=== PATIENT | male | born 1970 | race Two or more races ===

== ENCOUNTER 2018-07-14 10:30 | Inpatient (IN) | payer OTHER ==
[2018-07-14] MEDS ORDERED: Ondansetron PF 4 MG/2 ML Vial ONE (10:51)
[2018-07-14 10:53] LABS: #Basophils 0.1 thou/uL (0.0-0.2); #Eosinphils 0.1 thou/uL (0.0-0.7); #Lymphocytes 1.8 thou/uL (1.20-3.40); #Monocytes 0.9 thou/uL (0.11-0.59); #Neutrophils 9.7 thou/uL (1.40-6.50); %Basophils 0.8 % (0.0-1.0); %Eosinophils 1.1 % (0.0-10.0); %Lymphocytes 13.8 % (21.0-51.0); %Monocytes 7.4 % (0.0-10.0); %Neutrophils 76.8 % (42.0-75.0); Hemoglobin 6.5 g/dL (14.0-18.0); Mean Corpuscular HGB CONC 31.2 g/dL (32.0-36.0); Mean Corpuscular Hemoglobin 26.2 pg (27.0-31.0); Mean Platelet Volume 6.4 fL (7.4-10.4); Platelet Count 685 thou/uL (130-400); RBC Distribution Width 16.5 % (11.5-14.5); Red Blood Cell (RBC) Count 2.48 mill/uL (4.70-6.10); White Blood Cell (WBC) Count 12.6 thou/uL (4.8-10.8)
[2018-07-14 11:24] LABS: ALT (SGPT) 11 U/L (8-55); AST (SGOT) 17 U/L (5-34); Albumin 4.1 g/dL (3.5-5.0); Alkaline Phosphatase 102 U/L (40-150); Anion Gap 14 mmol/L (10-20); BUN (Urea Nitrogen) 21 mg/dL (8.9-20.6); Bilirubin, Total Less than 0.2 mg/dL (0.2-1.2); Calc. Creatinine Clearance 0 mL/min (70-130); Calcium 9.1 mg/dL (7.8-10.44); Carbon Dioxide 24 mmol/L (22-29); Chloride 104 mmol/L (98-107); Estimated GFR-MDRD 70; Globulin 2.7 g/dL (2.4-3.5); Glucose 111 mg/dL (70-105); Potassium 3.5 mmol/L (3.5-5.1); Protein, Total 6.8 g/dL (6.0-8.3); Sodium 138 mmol/L (136-145)
[2018-07-14 11:47] LABS: PTT 32.2 SEC (22.9-36.1); Prothrombin Time 13.2 SEC (12.0-14.7)
[2018-07-14 12:52] LABS: Bilirubin Negative (Negative); Blood, Urine Moderate (Negative); Clarity CLOUDY (Clear); Glucose, Urine (Dipstick) Negative (Negative); Leukocyte Negative (Negative); Nitrite Negative (Negative); Protein, Urine (Dipstick) Negative (Neg-Trace); Specific Gravity, Urine 1.015 (1.002-1.036); Urobilinogen 0.2 mg/dL (0.2-1.0); pH, Urine 7.5 (5.0-9.0)
[2018-07-14 12:55] LABS: Bacteria/HPF Rare-Few HPF (None Seen); Hyaline Casts/LPF 7-10 HYALINE CAST LPF (0-3 Hyaline); Pathc Cast-AUWi Flag 0.54 (0-2.49); RBC/HPF 21-50 HPF (0-3); Squamous Epithelial 0-3 HPF (0-3); Yeast-AUWi Flag 8.1 (0-25.0)
[2018-07-14] MEDS ORDERED: Morphine 4 MG/ML VIAL ONE (13:03)
[2018-07-14] MEDS ORDERED: Ondansetron ODT 4 MG TAB PO PRN (13:13)
[2018-07-14] MEDS ORDERED: Zolpidem Tartrate 5 MG TAB PO PRN (13:13)
[2018-07-14] MEDS ORDERED: Acetaminophen 325 MG TAB PO PRN (13:13)
[2018-07-14] MEDS ORDERED: Sodium Chloride 0.9% (PF) 10 ML VIAL FS PRN (13:20)
[2018-07-14] MEDS ORDERED: Pantoprazole 40 MG VIAL IVP SCH (13:30)
--- NOTE | 2018-07-14 13:56 | RAD ---
PORTABLE CHEST 1 VIEW: Date: 07/14/18 Time: 1344 hours HISTORY: Colon cancer, blood transfusion last week. FINDINGS: The heart size is normal. The lungs are expanded without focal areas of consolidation, pneumothoraces , or pleural effusions. IMPRESSION: No radiographic evidence of acute cardiopulmonary process. POS: TPC
--- NOTE | 2018-07-14 14:14 | HP ---
HISTORY OF PRESENT ILLNESS: Referred to [facility] Hospitalist Service for rectal bleeding and anemia. The patient is focused on the pain that started in his right groin, eventually diagnosed as cauda equina syndrome with loss of strength and sensation in his right leg. He actually came to the ER for weakness. He does admit to rectal bleeding of dark red blood and occasional bright red blood with constipation. He states he was transfused about a week ago in an out-of-town hospital. He presents here with a hemoglobin of 6.5, transfusion is in progress. He has had nausea and vomiting x1 recently and he describes a vague left-sided abdominal pain. PAST MEDICAL HISTORY: Pertinent for colon cancer resection in 2004. He has cauda equina syndrome only involving his right leg. His colon cancer was discovered at appendectomy in 2004. He has a history of hypertension. CURRENT MEDICATIONS: 1. Tramadol 50 mg p.o. q.8 hours. 2. Dicyclomine 20 mg four times a day. 3. Metoprolol 25 mg twice a day. ALLERGIES: NO KNOWN DRUG ALLERGIES. PAST SURGICAL HISTORY: See above. FAMILY HISTORY: Mother of ovarian cancer. Grandmother of some sort of cancer. SOCIAL HISTORY: Single. Smokes a pack a day. Drinks no alcohol and uses no illicit drugs. He is full code. Next of kin is apparently his sister, who is here in town. REVIEW OF SYSTEMS: GENERAL: He has been lightheaded recently. He has a new pain on the top of his head. No fainting. EYES: He states he has poor eyesight, but he does not give any double vision or blurred vision. EAR, NOSE, AND THROAT: No ear pain or drainage. No nasal bleeding. No trouble swallowing. CARDIAC: No chest pain, orthopnea, or paroxysmal nocturnal dyspnea. RESPIRATIONS: Dyspnea on exertion. No cough, wheezing, or asthma. GASTROINTESTINAL: See present illness. GENITOURINARY: He can feel the need to urinate. No blood noted in his urine. MUSCULOSKELETAL: Because of his cauda equina syndrome in the withering of his right leg, he is unable to walk unassisted. His right leg is numb with no strength at his ankle. PSYCHIATRIC: No history of anxiety or depression. SKIN: Occasional bruising. Does not know how it happens. No rash. HEME/LYMPH: No tender or swollen lymph nodes in axilla, inguinal, or cervical area. PHYSICAL EXAMINATION: GENERAL: He is alert gentleman, in no acute distress. VITAL SIGNS: Blood pressure 144/98, pulse 109, respirations 20, pain is steady 10 according to him. He does occasionally act like he is having a twinge of pain, but most of the time, he appears comfortable. HEAD, EYES, EARS, NOSE, AND THROAT: Pupils are equal, round, reactive to light. Extraocular movements are intact. Sclerae are white. Tympanic membranes clear. Nose is clear. Oral mucous membranes are wet. He has upper dentures. NECK: No jugular venous distention, adenopathy, or thyromegaly. CHEST: Clear to auscultation and percussion. HEART: Had a regular rate and rhythm. First and second heart sounds are clear. There are no appreciated murmurs or gallops. ABDOMEN: Soft. Bowel sounds are normal. There is no hepatosplenomegaly. No mass. No rebound. No bruits. EXTREMITIES: No cyanosis, clubbing, or edema. He does have distinct withering with muscles of his right lower leg. PULSES: Carotid, radial, femoral, and dorsalis pedis pulses are intact. SKIN: Warm and dry. He does have wound bruise on his left popliteal area. LYMPH: No tender or swollen lymph nodes in the axilla, inguinal, or cervical area. NEUROLOGIC: Absent deep tendon reflex in the right lower leg, absent sensation in the right lower leg, withering of the musculature with no strength, flexion, extension at the ankle. Decreased flexion and extension at the knee. Left leg is normal. Arms are normal. DIAGNOSTIC DATA: Chest x-ray, none has been done. I am in the process of ordering one. EKG; none has been done, I have ordered one. We will review when it is available as well as we will do chest x-ray. LABORATORY DATA: Hemoglobin 6.5, white cell count 12.6, platelet count 685,000. INR is 1.0. Comprehensive metabolic profile essentially normal. ADMITTING DIAGNOSES: 1. Symptomatic anemia. 2. Rectal bleeding. 3. History of colon cancer. 4. Hypertension. 5. Cauda equina syndrome. PLAN: 1. Transfuse 1 unit. 2. IV fluids with normal saline. 3. H and H q.6 hours, transfuse for hemoglobin less than 7. Start PPI IV. Gastroenterology consult for probable panendoscopy. Job ID: [id number]
[2018-07-14 14:55] VITALS: BMI 19.8
[2018-07-14 15:56] LABS: Amphetamine Not Detected (NotDetected); Cocaine Metabolite Screen Not Detected (NotDetected); Medtox Reader # READER 4; Methamphetamine Not Detected (NotDetected); Opiate Screen Not Detected (NotDetected); Phencyclidine (PCP) Not Detected (NotDetected); THC/Cannabinoid Screen Not Detected (NotDetected)
[2018-07-14 15:57] LABS: Barbiturates Screen Not Detected (NotDetected); Benzodiazepine Screen Not Detected (NotDetected); Medtox Control Line Valid? VALID (VALID); Methadone Not Detected (NotDetected); Oxycodone Screen Not Detected (NotDetected); Tricyclic Screen Not Detected (NotDetected)
[2018-07-14] MEDS: traMADol HCl 50 MG TAB PO PRN (17:37)
[2018-07-14] MEDS: Dicyclomine 20 MG TAB PO SCH ×2 (17:38→20:00)
[2018-07-14] MEDS: Gabapentin 100 MG CAP PO SCH ×2 (17:38→20:00)
[2018-07-14] MEDS: Sodium Chloride 0.9% 1,000 ML IV SCH ×2 (17:39→23:30)
[2018-07-14 17:49] LABS: #Basophils 0.1 thou/uL (0.0-0.2); #Eosinphils 0.2 thou/uL (0.0-0.7); #Lymphocytes 1.9 thou/uL (1.20-3.40); %Basophils 0.5 % (0.0-1.0); %Eosinophils 1.7 % (0.0-10.0); %Lymphocytes 18.7 % (21.0-51.0); %Monocytes 10.1 % (0.0-10.0); Hemoglobin 7.1 g/dL (14.0-18.0); Mean Corpuscular HGB CONC 31.5 g/dL (32.0-36.0); Mean Corpuscular Hemoglobin 26.5 pg (27.0-31.0); Mean Corpuscular Volume 84.3 fL (78.0-98.0); Mean Platelet Volume 5.9 fL (7.4-10.4); Platelet Count 499 thou/uL (130-400); RBC Distribution Width 15.9 % (11.5-14.5); Red Blood Cell (RBC) Count 2.66 mill/uL (4.70-6.10); White Blood Cell (WBC) Count 10.2 thou/uL (4.8-10.8)
[2018-07-14] MEDS ORDERED: GoLYTELY 4,000 ml Bottle PO SCH (18:00)
[2018-07-14] MEDS ORDERED: Ketorolac Tromethamine 30 MG/ML VIAL IVP PRN (19:39)
[2018-07-14] MEDS: Morphine 2 MG/ML SYRINGE SLOW IVP PRN (19:52)
[2018-07-14] MEDS: Metoprolol Tartrate 25 MG TAB PO SCH (20:00)
[2018-07-14] MEDS ORDERED: Dicyclomine 20 MG TAB PO SCH (21:00)
--- NOTE | 2018-07-14 21:42 | CON ---
DATE OF CONSULTATION: 07/14/2018 REASON FOR CONSULTATION: Anemia and GI bleeding. HISTORY OF PRESENT ILLNESS: Tylor Souza is a 47-year-old man who was admitted to the hospital earlier today with complaints of weakness and ongoing pain in the lower extremities. He has a diagnosis of cauda equina syndrome. He also has a pertinent history of colon cancer. Evidently, this was discovered at appendectomy back in 2004 and he underwent resection at that time. He is unclear how much was resected, but he did not have to undergo chemotherapy or any radiation. He actually has had surveillance since that time at [facility]. He says his last colonoscopy was about 2 years ago. There were some polyps removed and he believes it was a 5-year surveillance interval recommended. He has some chronic gastrointestinal symptoms which he tends to relate to his cauda equina syndrome and subsequent treatment. For about the past year or 2, he has been having issues with bouts of severe constipation. He can go up to a week or 2 between bowel movements. There is often a lot of straining required. He has some issues with urinary and stool incontinence, but primarily has issues with evacuation. He says every bowel movement he has is quite dark, though he is not on oral iron and then at about every week he will pass some what appears to be dark red material which he thinks might be blood. This has been going on for quite some time. Interestingly, he was evidently hospitalized within the past few weeks down at [facility] in [place]. He recalls being told he had iron deficiency anemia and he got transfusion at that time. On this presentation, his hemoglobin is 6.5. He has some chronic intermittent migratory abdominal discomfort. Current plan is for transfusion and we are consulted due to the anemia and report of bleeding. PAST MEDICAL HISTORY: 1. Colon cancer with resection in 2004. 2. Cauda equina syndrome, involving the right leg. 3. Urinary and fecal incontinence, possibly secondary to cauda equina syndrome? 4. Hypertension. ALLERGIES: NO KNOWN DRUG ALLERGIES. OUTPATIENT MEDICATIONS: 1. Tramadol p.r.n. 2. Dicyclomine 20 mg four times daily. 3. Metoprolol 25 mg twice daily. FAMILY HISTORY: His mother had ovarian cancer. His grandmother of some other form of cancer. He has multiple siblings. He is not sure if they have had colon screening or not. SOCIAL HISTORY: The patient smokes a pack a day. No alcohol or drug use. REVIEW OF SYSTEMS: Full review of systems including constitutional, head, eyes, ears, nose, throat, GI, , cardiovascular, respiratory, musculoskeletal, neurologic systems is negative except as noted in the HPI. PHYSICAL EXAMINATION: VITAL SIGNS: Temperature 98.1, pulse 99, blood pressure 165/89, 100% oxygen saturation on room air. GENERAL: A 47-year-old man, lying in bed, in mild distress from leg pain. SKIN: He is pale, no jaundice, no rash visible or palpable. HEENT: Eyes, no scleral icterus. Extraocular movements intact. ENT, mucous membranes moist. No oral lesions. LYMPH: No submandibular or supraclavicular lymphadenopathy. Thyroid, nontender to palpation. HEART: Regular rate and rhythm. LUNGS: Clear to auscultation bilaterally. ABDOMEN: The abdomen is flat. Bowel sounds are present. Abdomen is soft with mild tenderness to palpation throughout, but no masses or organomegaly appreciated. No guarding or rebound tenderness. He has a horizontal lower abdominal scar which is well healed. EXTREMITIES: No peripheral edema. VESSELS: Radial pulses 2+ bilaterally. NEURO: Cranial nerves 2 through 12 intact bilaterally. No focal deficits. LABORATORY STUDIES: WBC 12.6, hemoglobin 6.5, MCV 84, platelets 685. INR 1.0. Sodium 138, potassium 3.5, BUN 21, creatinine 1.11, total bilirubin less than 0.2, alkaline phosphatase 102, AST 17, ALT 11, albumin 4.1. Urinalysis shows 21-50 rbc's, 7-10 wbc's. ASSESSMENT AND PLAN: 1. Iron-deficiency anemia. It is unclear how new a development this was, but evidently he received transfusion and received this diagnosis within the past couple of weeks at [facility]. He has not been on any iron supplementation, and it is likely that he will require this following hospital discharge. It is unclear why he is iron deficient. Certainly, given his personal history of colon cancer, gastrointestinal occult bleeding lesion is high in the differential. We will plan for diagnostic EGD and colonoscopy tomorrow. 2. Chronic constipation. This may be at least in part due to opioid medications for his cauda equina syndrome. 3. Rectal bleeding. Investigate with colonoscopy tomorrow. 4. Personal history of colon cancer. He was evidently diagnosed with colon cancer at age 33. I advised him that all of his siblings need to have colon screening done. His mother had ovarian cancer, so I wonder if there is some kind of genetic syndrome at play here. He is evidently up-to-date on surveillance colonoscopy with last colonoscopy at [facility] just a couple of years ago, but certainly given his current presentation, need to repeat this now. Further recommendations following EGD and colonoscopy tomorrow. Please call anytime with questions or concerns. Job ID: [id number]
[2018-07-15] MEDS: Morphine 2 MG/ML SYRINGE SLOW IVP PRN ×5 (00:05→20:18)
[2018-07-15 00:18] LABS: #Basophils 0.1 thou/uL (0.0-0.2); #Eosinphils 0.2 thou/uL (0.0-0.7); #Lymphocytes 2.2 thou/uL (1.20-3.40); #Monocytes 1.1 thou/uL (0.11-0.59); #Neutrophils 7.8 thou/uL (1.40-6.50); %Basophils 1.1 % (0.0-1.0); %Eosinophils 1.8 % (0.0-10.0); %Monocytes 9.5 % (0.0-10.0); %Neutrophils 68.8 % (42.0-75.0); Hemoglobin 7.3 g/dL (14.0-18.0); Mean Corpuscular HGB CONC 30.9 g/dL (32.0-36.0); Mean Corpuscular Hemoglobin 26.2 pg (27.0-31.0); Mean Corpuscular Volume 84.6 fL (78.0-98.0); Mean Platelet Volume 6.1 fL (7.4-10.4); Platelet Count 601 thou/uL (130-400); Red Blood Cell (RBC) Count 2.78 mill/uL (4.70-6.10); White Blood Cell (WBC) Count 11.4 thou/uL (4.8-10.8)
[2018-07-15] MEDS: Metoprolol Tartrate 25 MG TAB PO SCH ×2 (05:33→20:17)
[2018-07-15] MEDS: Sodium Chloride 0.9% 1,000 ML IV SCH ×3 (05:50→17:56)
[2018-07-15] MEDS: traMADol HCl 50 MG TAB PO PRN ×2 (07:47→21:05)
[2018-07-15] MEDS: Dicyclomine 20 MG TAB PO SCH ×2 (08:03→13:02)
[2018-07-15] MEDS: Gabapentin 100 MG CAP PO SCH ×3 (08:03→20:17)
[2018-07-15] MEDS: Pantoprazole 40 MG VIAL IVP SCH (08:04)
[2018-07-15 08:23] LABS: Anion Gap 10 mmol/L (10-20); BUN (Urea Nitrogen) 12 mg/dL (8.9-20.6); Calc. Creatinine Clearance 88 mL/min (70-130); Calcium 8.7 mg/dL (7.8-10.44); Carbon Dioxide 26 mmol/L (22-29); Chloride 108 mmol/L (98-107); Estimated GFR-MDRD Greater than 90; Glucose 81 mg/dL (70-105); Potassium 3.9 mmol/L (3.5-5.1); Sodium 140 mmol/L (136-145)
[2018-07-15 08:54] LABS: #Basophils 0.1 thou/uL (0.0-0.2); #Eosinphils 0.2 thou/uL (0.0-0.7); #Lymphocytes 2.1 thou/uL (1.20-3.40); #Monocytes 0.9 thou/uL (0.11-0.59); #Neutrophils 6.2 thou/uL (1.40-6.50); %Basophils 1.3 % (0.0-1.0); %Lymphocytes 22.5 % (21.0-51.0); %Neutrophils 65.3 % (42.0-75.0); Mean Corpuscular HGB CONC 30.9 g/dL (32.0-36.0); Mean Corpuscular Hemoglobin 25.4 pg (27.0-31.0); Mean Corpuscular Volume 82.4 fL (78.0-98.0); Mean Platelet Volume 5.9 fL (7.4-10.4); Platelet Count 521 thou/uL (130-400); RBC Distribution Width 16.2 % (11.5-14.5); Red Blood Cell (RBC) Count 2.74 mill/uL (4.70-6.10); White Blood Cell (WBC) Count 9.5 thou/uL (4.8-10.8)
[2018-07-15 09:01] LABS: Hypochromia MODERATE=16-30 cells (100X) (0-5/hpf); MDiff Complete? YES; Ovalocytes SLIGHT = 2-5 cells (100X) (0-1/hpf); Platelet Morphology Comment Appears Increased; Polychromasia SLIGHT = 2-3 cells (100X) (0-2/hpf); Reflex for Review?? NO
[2018-07-15] MEDS ORDERED: Promethazine HCl 25 MG/ML VIAL SLOW IVP PRN (10:20)
[2018-07-15] MEDS ORDERED: Promethazine HCl 25 MG/ML VIAL IM PRN (10:20)
[2018-07-15] MEDS ORDERED: Ondansetron HCl/PF 4 MG/2 ML Vial IVP PRN (10:20)
--- NOTE | 2018-07-15 11:56 | OP ---
DATE OF PROCEDURE: 07/15/2018 PROCEDURES PERFORMED: 1. Esophagogastroduodenoscopy with biopsy. 2. Colonoscopy with biopsy. INDICATION FOR PROCEDURE: Iron deficiency anemia, symptomatic anemia. DESCRIPTION OF PROCEDURE: After the risks and benefits of the procedures were explained to the patient including risks of bleeding, infection, perforation, reactions to anesthesia, aspiration and/or pain, informed consent was obtained. The patient was then taken to the endoscopy suite, where deep sedation was administered via propofol and anesthesia support. Once adequate sedation was achieved, the standard gastroscope was introduced into the mouth with intubation of the esophagus, stomach, and the proximal small intestine with the findings listed below. Upon completion of this portion of the procedure, all equipment was removed from the patient and the bed was rotated 180 degrees in preparation for the colonoscopy. After a digital rectal examination, the standard colonoscope was introduced into the rectum and advanced to the right colon/ileocolonic anastomosis with some difficulty due to poor colonic preparation and tortuosity of the colon itself. The quality of the prep was poor with significant amounts of both solid and liquid stool seen throughout the colon, limiting visualization of the colonic mucosa. The patient tolerated the procedures well with no immediate perioperative complications. Upon completion of the procedures, all equipment was removed from the patient and he was transferred to PACU in satisfactory condition. EGD FINDINGS: Esophagus: Normal-appearing mucosa was seen in both the proximal and mid esophagus, however, 3 to 4 linear erosions were seen in the distal esophagus extending proximally from the GE junction approximately 7 cm. There was no overt ulceration associated with these erosions. Both the diaphragmatic pinch and GE junction were well seen at 42 cm past the incisors. There was no evidence of active/recent bleeding or mass lesions. Stomach: Normal-appearing mucosa was seen in the gastric cardia, fundus, body, greater curvature, antrum, and incisura. A 4-to 5-mm clean-based ulceration was seen in the gastric antrum with surrounding mucosal erythema and edema. There was no high-risk stigmata of bleeding associated with this ulceration. Multiple biopsies were taken from the ulceration in the surrounding area for evaluation. Otherwise, there was no evidence of erosions, mass, lesions, or active/recent bleeding. Duodenum: Normal-appearing mucosa was seen both in the duodenal bulb and second portion of the duodenum. There was no evidence of erosions, ulcerations, mass, lesions, or active/recent bleeding. IMPRESSION: 1. Marceline grade B reflux mediated erosive esophagitis/. 2. A 4-to 5-mm clean-based cratered ulceration in the gastric antrum without high-risk stigmata, status post biopsies. COLONOSCOPY FINDINGS: Digital rectal exam, small external hemorrhoids were seen on external examination. Colon findings: A moderate amount of both solid and liquid stool was seen throughout the entire colon, thereby limiting visualization of the colonic mucosa despite attempts at aggressive irrigation and suctioning. On estimate, approximately 70% of the colonic mucosa was adequately visualized. Of the mucosa visualized, there was evidence of a surgical anastomosis. There was evidence of an ileocolonic end-to-side surgical anastomosis at approximately 90 cm past the anal verge. The colon itself did extend another 10 to 15 cm beyond the anastomosis, but there was no evidence of ileocecal valve or appendiceal orifice. At the ileocolonic anastomosis, there was an almost circumferential superficial ulcerations seen that did exhibit some mild oozing of blood. Multiple biopsies were taken from these ulcerations and placed in a specimen jar for evaluation. Intubation of the terminal ileum did not yield any abnormalities. Otherwise, normal-appearing mucosa was seen in the transverse, descending, and sigmoid colons. A large patch of increased mucosal erythema and mucosal irregularity was seen in the rectum at approximately 10 cm past the anal verge. It did also exhibit mild granularity and polypoid type features with the patch measuring approximately 4 cm in diameter. Multiple biopsies were taken from this region for evaluation. On rectal retroflexion, there was no other abnormalities seen. IMPRESSION: Surgical change associated with an end-to-side ileocolonic anastomosis seen at 90 cm past the anal verge. Superficial ulceration was seen at the surgical anastomosis consistent with ischemic ulceration, status post biopsies. A 4 cm patch of mucosal erythema and mucosal irregularity seen at 10 cm past the anal verge, status post biopsies, but concerning for stercoral colitis versus possible malignancy. Poor colonic preparation seen throughout the entire stomach despite aggressive irrigation and suctioning. RECOMMENDATIONS: 1. We would continue to trend H and H and transfuse as necessary to maintain an H and H of 7/21. 2. Continue to monitor clinically for signs of active GI bleeding. 3. We will follow up on the biopsy results for other underlying pathology. 4. We would continue pantoprazole 40 mg daily given the presence of the gastric ulceration. 5. We would consider repeat EGD in 8 to 12 weeks for repeat evaluation of the gastric ulceration and confirm healing. 6. We would avoid all NSAIDs as they could potentially generate the gastric ulceration and colonic ulceration. 7. If the patient is to be on narcotic medications, we would place him on appropriate bowel regimen to prevent constipation/stercoral colitis. We will continue to follow. Please call with any questions. Job ID: [id number]
[2018-07-15] MEDS ORDERED: Dicyclomine 20 MG TAB PO PRN (13:18)
[2018-07-15] MEDS ORDERED: PROPOFOL 200 MG/20 ML VIAL ONE (13:40)
[2018-07-15] MEDS ORDERED: Lidocaine 1% PF 5 ML VIAL ONE (13:40)
--- NOTE | 2018-07-15 13:44 | PDOC.PN ---
- Subjective Encounter Start Date: 07/15/18 Encounter Start Time: 13:40 Patient seen and examined for Rectal bleeding/Gen weakness. No abd pain. Back pain +. Has been dealing for 2 years without much relief. Had tried several meds per patient report. No new complaints. No overnight events - Objective Resuscitation Status - Order Detail: 07/14/18 13:08 Resuscitation Status Routine Resuscitation Status: FULL: Full Resuscitation MAR Reviewed: Yes Vital Signs & Weight: Vital Signs (12 hours) Temp Pulse Resp BP Pulse Ox 07/15/18 08:00 97.9 F 79 16 158/73 H 99 07/15/18 04:00 98.2 F 88 16 141/89 H 97 Weight Admit Weight 126 lb 14.4 oz Weight 126 lb 14.4 oz I&O: 07/14/18 07/15/18 07/16/18 06:59 06:59 06:59 Output Total 3200 Balance -3200 Result Diagrams: 07/15/18 07:56 07/15/18 07:56 Radiology Reviewed by me: Yes (CXR - No infiltrate) Phys Exam - Physical Examination Constitutional: NAD Respiratory: no wheezing, no rales, no rhonchi, clear to auscultation bilateral Cardiovascular: RRR, no rub no heaves/pulsations Gastrointestinal: soft, non-tender, no distention, positive bowel sounds Musculoskeletal: no edema, pulses present chronic RLE weakness Neurological: non-focal, normal sensation, moves all 4 limbs Psychiatric: normal affect, A&O x 3 Skin: no rash Dx/Plan - Plan DVT proph w/SCDs Gen weakness/Anemia/Rectal bleeding Acute blood loss Anemia Chronic back pain due to Cauda Equina syndrome Urinary retention s/p covington placement in ER HTN Constipation h/o Colon Ca PLAN: s/p Colonoscopy Monitor HH Cont PPI AM labs Increase Gabapentin and Tramadol dose Consult Urology and Neurology per family request Add Flomax Consult PT/OT 1 dose of IV iron Change Bentyl to PRN (could be causing constipation/retention) Review of Systems - Review of Systems Respiratory: negative: Cough, Dry, Shortness of Breath, Hemoptysis, SOB with Excertion, Pleuritic Pain, Sputum, Wheezing Cardiovascular: negative: chest pain, palpitations, orthopnea, paroxysmal nocturnal dyspnea, edema, light headedness, other Gastrointestinal: negative: Nausea, Vomiting, Abdominal Pain, Diarrhea, Constipation, Melena, Hematochezia, Other Genitourinary: Retention. negative: Dysuria, Frequency, Incontinence, Hematuria , Other - Medications/Allergies Allergies/Adverse Reactions: Allergies Allergy/AdvReac Type Severity Reaction Status Date / Time No Known Allergies Allergy Unverified 07/14/18 13:17 Medications: Current Medications Acetaminophen (Tylenol) 650 mg PO Q4H PRN PRN Reason: Headache/Fever/Mild Pain (1-3) Dicyclomine HCl (Bentyl) 20 mg PO QID PRN PRN Reason: GI Cramping Gabapentin (Neurontin) 200 mg PO TID [facility] Sodium Chloride (Normal Saline 0.9%) 1,000 mls @ 75 mls/hr IV .[id number] [facility] Last Admin: 07/15/18 10:55 Dose: 1,000 mls Metoprolol Tartrate (Lopressor) 25 mg PO BID [facility] Last Admin: 07/15/18 05:33 Dose: 25 mg Morphine Sulfate (Morphine) 2 mg SLOW IVP Q4H PRN PRN Reason: Severe Pain (7-10) Last Admin: 07/15/18 10:55 Dose: 2 mg Ondansetron HCl (Zofran Odt) 4 mg PO Q6H PRN PRN Reason: Nausea/Vomiting Pantoprazole Sodium (Protonix) 40 mg IVP DAILY [facility] Last Admin: 07/15/18 08:04 Dose: 40 mg Sodium Chloride (Normal Saline Pf) 10 ml FS PRN PRN PRN Reason: RECONSTITUTION Last Admin: 07/15/18 08:04 Dose: 10 ml Tamsulosin HCl (Flomax) 0.4 mg PO HS [facility] Tramadol HCl (Ultram) 50 mg PO Q6H PRN PRN Reason: Moderate Pain (4-6) Last Admin: 07/15/18 07:47 Dose: 50 mg Tramadol HCl (Ultram) 100 mg PO Q6H PRN PRN Reason: Pain 7-10
[2018-07-15] MEDS ORDERED: Iron Sucrose Complex 200 MG in Sodium Chloride 0.9% 250 ML 250 ML IVPB SCH (13:45)
[2018-07-15] MEDS ORDERED: Iron, Sodium Ferric Gluconate 250 MG in Sodium Chloride 0.9% 100 ML IVPB SCH (14:45)
[2018-07-15] MEDS: Tamsulosin HCl 0.4 MG CAP PO SCH (20:17)
--- NOTE | 2018-07-15 23:13 | CON ---
DATE OF CONSULTATION: 07/15/2018 CONSULTING PHYSICIAN: Hospitalist Service. IMPRESSION: Possible cauda equina syndrome or poly-lumbar radiculopathy. PLAN: 1. MRI of the lumbar spine. 2. Neurosurgical consultation. 3. Pain Management consultation. HISTORY OF PRESENT ILLNESS: Mr. Souza is a 47-year-old man, who reports developing neuropathic pain and weakness in his right leg over two years ago. He was seen down in [place] and advised that he had spinal stenosis of some nature. It was recommended by neurosurgeon that he would require surgery. Unfortunately, due to his insurance issues, he did not proceed with any treatment. He apparently underwent some efforts at pain management including gabapentin and Lyrica, never made much progress with it. He reports morphine was the only thing effective and improving his leg pain. His legs become progressively weaker. He has significantly more problems walking, starting to develop some numbness in the left foot. He has had a footdrop on the right for quite some time now according to his assessment, he came in with anemia being transfused. PAST MEDICAL HISTORY: Otherwise negative. ALLERGIES: PER CHART. SOCIAL HISTORY: Unremarkable. FAMILY HISTORY: Unremarkable. REVIEW OF SYSTEMS: Also positive for difficulty with bowel and bladder control. PHYSICAL EXAMINATION: GENERAL: He is a thin, middle-aged man, lying in bed, in no apparent distress. VITAL SIGNS: Stable. He is afebrile. HEENT: Pupils are equal and reactive. Conjunctivae clear. NECK: Supple. EXTREMITIES: No cyanosis, clubbing, or edema. NEUROLOGIC: He is alert and cooperative. His speech is fluent and clear. Cranial nerves 2 through 12 are intact. Motor exam showed weakness in the right leg involving both knee extension and complete paralysis below the knee. He had some ankle flexion weakness on the left. It was not as severe as subjectively he is. His sensation is diminished in his right foot and left last two toes. There is atrophy of the gastrocs on the right more so than on the left. Gait was not tested. No abnormal movements were seen. 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 There is nothing medical to be done for this. Hopefully, there are possibly some surgical options for him. Job ID: [id number]
[2018-07-16] MEDS: Morphine 2 MG/ML SYRINGE SLOW IVP PRN ×4 (00:27→21:28)
--- NOTE | 2018-07-16 00:53 | CON ---
DATE OF CONSULTATION: 07/15/2018 CHIEF COMPLAINT: Urinary retention. HISTORY OF PRESENT ILLNESS: Mr. Souza is a 47-year-old gentleman who presents to the emergency room with weakness. He recently moved to [place] from [place]. He had been receiving care in [place] through [facility]. He was noted to have a hemoglobin of 6.5 on presentation to the emergency room. He gave a history of having had a recent transfusion at [facility] for anemia. He has a history of bloody stools and has since undergone GI workup here. His significant prior GI history includes colon cancer status post resection in 2004. The diagnosis was made during surgery for appendectomy. He began developing neurologic symptoms approximately 2 years ago. They have been progressive. It began with alteration in his sexual function and has progressed to sensory deficits in the lower extremity, paralysis in the right lower extremity, footdrop on the right, chronic bowel and bladder dysfunction. He has been told that he has cauda equina syndrome. This is all obtained from the patient's recollection and not from any medical records from [place]. During evaluation here, he was noted to have a distended bladder and Bundy catheter was placed on 2 occasions. In both occasions, bladder volume was over 1000 mL. He states he has been incontinent of urine for over a year. He typically awakes with a wet bed. He had does not ever have the sensation that he needs to void, but can tell when his bladder is full by palpation. He will void by straining and pushing with his hands. He also has problems with evacuation of the stool. PAST MEDICAL HISTORY: 1. Colon cancer. 2. Neurologic dysfunction of unclear etiology, but he states that it is cauda equina syndrome. 3. Hypertension. PAST SURGICAL HISTORY: Colon cancer resection in 2004, appendectomy in 2004. CURRENT MEDICATIONS: Metoprolol 25 mg twice a day. ALLERGIES: NO KNOWN DRUG ALLERGIES. FAMILY HISTORY: Mother of ovarian cancer. SOCIAL HISTORY: He does not drink alcohol. He smokes one pack of cigarettes per day. He has a sister who lives here in town. REVIEW OF SYSTEMS: RESPIRATORY: Denies any shortness of breath. CARDIOVASCULAR: Denies chest pain or palpitations. GASTROINTESTINAL: Chronic constipation with dark-colored stools. GENITOURINARY: Please see history of present illness. MUSCULOSKELETAL: Right lower leg numbness and weakness. PHYSICAL EXAMINATION: GENERAL: He is awake and alert. He appears younger than his stated age. VITAL SIGNS: Blood pressure 138/82, pulse 88, respiratory rate 20. HEENT: Normocephalic, atraumatic. NECK: Supple without masses. CHEST: Clear to auscultation. CARDIOVASCULAR: No murmurs auscultated. ABDOMEN: Soft, nontender. No palpable masses. He has a Bundy catheter in place. EXTREMITIES: No edema noted. LABORATORY DATA: Creatinine 1.11 on admission. IMPRESSION: 1. Mr. Souza is a 47-year-old gentleman with problems involving the bladder and rectum. He cannot successfully evacuate either his bowel or bladder on a regular basis. He empties his bladder with overflow incontinence and by increasing his abdominal pressure "straining" and pushing with his hands. He is incontinent of urine nightly. He currently has a Bundy catheter in place. This is consistent with his history of possible cauda equina syndrome and most likely has a dysfunctional bladder. He does not develop the sensation that he needs to void. I have explained to him the need for intermittent catheterization. This will need to be done at least a 3 times a day basis and will need to be done by the clock as he does not develop the sensation that he needs to void. At present, I would recommend leaving the catheter in place. 2. Neurology or neurosurgery consultation is recommended for prevention of progression of neurologic dysfunction. Job ID: [id number]
[2018-07-16] MEDS: traMADol HCl 50 MG TAB PO PRN ×2 (04:12→19:52)
[2018-07-16 05:59] LABS: Hemoglobin 7.3 g/dL (14.0-18.0)
[2018-07-16] MEDS: Sodium Chloride 0.9% 1,000 ML IV SCH (06:41)
[2018-07-16 06:59] LABS: ALT (SGPT) 8 U/L (8-55); AST (SGOT) 11 U/L (5-34); Albumin 3.4 g/dL (3.5-5.0); Alkaline Phosphatase 93 U/L (40-150); Anion Gap 9 mmol/L (10-20); BUN (Urea Nitrogen) 12 mg/dL (8.9-20.6); Bilirubin, Total Less than 0.2 mg/dL (0.2-1.2); Calc. Creatinine Clearance 81 mL/min (70-130); Calcium 8.6 mg/dL (7.8-10.44); Carbon Dioxide 27 mmol/L (22-29); Chloride 105 mmol/L (98-107); Estimated GFR-MDRD 90; Globulin 2.3 g/dL (2.4-3.5); Glucose 93 mg/dL (70-105); Magnesium 1.5 mg/dL (1.6-2.6); Phosphorus 3.5 mg/dL (2.3-4.7); Potassium 4.4 mmol/L (3.5-5.1); Protein, Total 5.7 g/dL (6.0-8.3); Sodium 137 mmol/L (136-145)
[2018-07-16] MEDS: Pantoprazole 40 MG VIAL IVP SCH (08:23)
[2018-07-16] MEDS: Gabapentin 100 MG CAP PO SCH ×3 (08:23→21:26)
[2018-07-16] MEDS: Metoprolol Tartrate 25 MG TAB PO SCH ×2 (08:24→21:27)
[2018-07-16] MEDS ORDERED: Magnesium Sulfate 2 GM in Sodium Chloride 0.9% 100 ML IVPB SCH (08:45)
[2018-07-16] MEDS ORDERED: Magnesium 2 GM/50 ML 2 GM in Premix Bag 1 BAG IVPB SCH (08:45)
[2018-07-16] MEDS: Multivit, Therapeutic 1 TAB PO SCH (09:01)
[2018-07-16] MEDS: Folic Acid 1 MG TAB PO SCH (09:01)
[2018-07-16] MEDS: Cyanocobalamin (Vitamin B-12) 1,000 MCG TAB PO SCH (09:02)
--- NOTE | 2018-07-16 09:42 | PDOC.PN ---
- Subjective Encounter Start Date: 07/16/18 Encounter Start Time: 09:00 Patient seen and examined for Back pain/Anemia. No rectal bleeding. No new complaints. No overnight events - Objective Resuscitation Status - Order Detail: 07/14/18 13:08 Resuscitation Status Routine Resuscitation Status: FULL: Full Resuscitation MAR Reviewed: Yes Vital Signs & Weight: Vital Signs (12 hours) Temp Pulse Resp BP Pulse Ox 07/16/18 04:10 98.0 F 96 18 140/92 H 96 07/16/18 00:00 98.7 F 76 16 130/78 94 L Weight Admit Weight 126 lb 14.4 oz Weight 126 lb 14.4 oz I&O: 07/15/18 07/16/18 07/17/18 06:59 06:59 06:59 Intake Total 4737 Output Total 3200 5950 Balance -3200 -1213 Result Diagrams: 07/16/18 05:32 07/16/18 05:32 Phys Exam - Physical Examination Constitutional: NAD Respiratory: no wheezing, no rhonchi Cardiovascular: RRR, no rub Gastrointestinal: soft, non-tender, positive bowel sounds Musculoskeletal: no edema Neurological: moves all 4 limbs Dx/Plan - Plan DVT proph w/SCDs IMPRESSION: Gen weakness/Anemia/Rectal bleeding s/p Colonoscopy Acute blood loss Anemia Chronic back pain due to Cauda Equina syndrome Urinary retention s/p covington placement in ER Hypomagnesemia HTN Constipation h/o Colon Ca Mild PEM PLAN: Cont PPI - change to PO Replace Magnessium Cont Fomax, Gabapentin and Tramadol dose Urology and Neurology input appreciated PT/OT DC IVF DC planning Review of Systems - Review of Systems Respiratory: negative: Cough, Dry, Shortness of Breath, Hemoptysis, SOB with Excertion, Pleuritic Pain, Sputum, Wheezing Cardiovascular: negative: chest pain, palpitations, orthopnea, paroxysmal nocturnal dyspnea, edema, light headedness, other - Medications/Allergies Allergies/Adverse Reactions: Allergies Allergy/AdvReac Type Severity Reaction Status Date / Time No Known Allergies Allergy Unverified 07/14/18 13:17 Medications: Current Medications Acetaminophen (Tylenol) 650 mg PO Q4H PRN PRN Reason: Headache/Fever/Mild Pain (1-3) Cyanocobalamin (Vitamin B-12) 1,000 mcg PO DAILY [facility] Last Admin: 07/16/18 09:02 Dose: 1,000 mcg Dicyclomine HCl (Bentyl) 20 mg PO QID PRN PRN Reason: GI Cramping Folic Acid (Folvite) 1 mg PO DAILY [facility] Last Admin: 07/16/18 09:01 Dose: 1 mg Gabapentin (Neurontin) 200 mg PO TID [facility] Last Admin: 07/16/18 08:23 Dose: 200 mg Sodium Chloride (Normal Saline 0.9%) 1,000 mls @ 75 mls/hr IV .[id number] [facility] Last Admin: 07/16/18 06:41 Dose: 1,000 mls Magnesium Sulfate 2 gm/ Device 50 mls @ 100 mls/hr IVPB NOW [facility] Stop: 07/16/18 11:00 Last Admin: 07/16/18 09:02 Dose: 50 mls Metoprolol Tartrate (Lopressor) 25 mg PO BID [facility] Last Admin: 07/16/18 08:24 Dose: 25 mg Morphine Sulfate (Morphine) 2 mg SLOW IVP Q4H PRN PRN Reason: Severe Pain (7-10) Last Admin: 07/16/18 08:23 Dose: 2 mg Multivitamins (Theragran) 1 tab PO DAILY [facility] Last Admin: 07/16/18 09:01 Dose: 1 tab Ondansetron HCl (Zofran Odt) 4 mg PO Q6H PRN PRN Reason: Nausea/Vomiting Pantoprazole Sodium (Protonix) 40 mg PO DAILY [facility] Last Admin: 07/16/18 09:15 Dose: Not Given Sodium Chloride (Normal Saline Pf) 10 ml FS PRN PRN PRN Reason: RECONSTITUTION Last Admin: 07/15/18 08:04 Dose: 10 ml Sodium Chloride (Flush - Normal Saline) 10 ml IVF Q12HR [facility] Last Admin: 07/16/18 09:15 Dose: Not Given Sodium Chloride (Flush - Normal Saline) 10 ml IVF PRN PRN PRN Reason: Saline Flush Last Admin: 07/16/18 04:39 Dose: 10 ml Tamsulosin HCl (Flomax) 0.4 mg PO HS [facility] Last Admin: 07/15/18 20:17 Dose: 0.4 mg Tramadol HCl (Ultram) 50 mg PO Q6H PRN PRN Reason: Moderate Pain (4-6) Last Admin: 07/15/18 07:47 Dose: 50 mg Tramadol HCl (Ultram) 100 mg PO Q6H PRN PRN Reason: Pain 7-10 Last Admin: 07/16/18 04:12 Dose: 100 mg
--- NOTE | 2018-07-16 11:29 | PQF ---
DORINA LOVELL MALIK MD [id number] CLINICAL DOCUMENTATION IMPROVEMENT CLARIFICATION FORM: ICD-10 Updated PLEASE DO AN ADDENDUM TO THE PROGRESS NOTE WITH ANY DOCUMENTATION UPDATES OR ADDITIONS AND CARRY THROUGH TO DC SUMMARY. THANK YOU. DATE: 07/16/18 ATTN: Dr Dickson Please exercise your independent, professional judgment in responding to the clarification form. Clinical indicators are provided on the bottom of this form for your review Please check appropriate box(s): GI bleeding due to : [ x] Esophagitis with GERD / Reflux [ ] Ulceration in the gastric antrum [ ] Small external hemorrhoids [ ] Other Esophagitis [ ] Other diagnosis [ ] Unable to determine In addition, please specify: Present on Admission (POA): [x ] Yes [ ] No [ ] Unable to determine For continuity of documentation, please document condition throughout progress notes and discharge summary. Thank You. CLINICAL INDICATORS - SIGNS / SYMPTOMS / LABS 07/15 EGD: LOS JACKY GRADE B REFLUX MEDIATED EROSIVE ESOPHAGITIS. 4-5 MM CLEAN BASED ULCERATION IN THE GASTRIC ANTRUM COLONOSCOPY-DIGITIAL RECTAL EXAM, SMALL EXTERNAL HEMORRHOIDS H&P: admitted for rectal bleeding, anemia RISK FACTORS HX OF COLON CANCER PER 07/14 GI NOTE TREATMENT: Protonix IV 07/14 to date per MAY EGD/COLONOSCOPY 07/15 orders GI Consult 07/15 orders 07/14 1 unit of blood per orders 07/15 IV iron per MAY (This form is maintained as a part of the permanent medical record) 2014 [employer]. All Rights Reserved Madiha Guillen, RN, BSN, CCDS [email or web address] [facility]
--- NOTE | 2018-07-16 12:50 | PRG ---
DATE OF SERVICE: 07/16/2018 SUBJECTIVE: Mr. Souza is doing okay today. He is not having any abdominal pain, nausea, or vomiting. He is tolerating his diet. He is about to go down for an MRI. Biopsies all came back benign, which I discussed with him today. Hemoglobin is stable at 7.3. OBJECTIVE: VITAL SIGNS: Temperature 97.6, pulse 91, blood pressure 119/74, and 98% oxygen saturation on room air. GENERAL: No acute distress. HEART: Regular rate and rhythm. LUNGS: Clear to auscultation bilaterally. ABDOMEN: Bowel sounds present. Soft, nontender to palpation. EXTREMITIES: No peripheral edema. LABORATORY STUDIES: Hemoglobin is 7.3, hematocrit 23.5. INR 1.0. Sodium 137, potassium 4.4, BUN 12, creatinine 0.90. LFTs all normal with total bilirubin 0.2, alkaline phosphatase 93, AST 11, ALT 8. ASSESSMENT/PLAN: 1. Gastric ulcer, secondary to nonsteroidal anti-inflammatory drug use. 2. Erosive esophagitis, grade B. I agree with Dr. Long's recommendation to have the patient on his daily oral proton pump inhibitor. Also discussed with the patient that he needs to avoid or at least minimize any nonsteroidal anti-inflammatory drug use going forward. As the biopsies were benign and ulcer characteristically clean based and small, we do not necessarily have to repeat any upper endoscopy going forward, unless the patient's clinical situation warrants. 3. Ulceration at ileocolonic anastomosis. Discussed this with the patient. This is certainly a potential reason for his chronic iron deficiency anemia. With avoidance of nonsteroidal anti-inflammatory drugs, this would be expected to improve somewhat. Biopsies of the area were benign. Note, he has been up to date on surveillance colonoscopies at [facility]. He will continue with colon surveillance through their program or if he desires, we can assume ongoing colon surveillance here. 4. Proctitis. Dr. Long had biopsied a patch of erythema, nodularity in the rectum, and these biopsies also came back benign. This is consistent with stercoral colitis. Would recommend the patient be on a good bowel regimen. 5. Anemia. This is chronic, secondary to chronic slow gastrointestinal blood loss from the above listed pathology. Expect with iron supplementation and treatment as outlined, hemoglobin will stabilize and improve. GI will sign off at this time, but please call back anytime with questions or concerns. Job ID: [id number]
[2018-07-16] MEDS ORDERED: Morphine 4 MG/ML VIAL SLOW IVP SCH ×2 (13:00→17:15)
--- NOTE | 2018-07-16 13:50 | MRI ---
EXAM: MRI lumbar spine without contrast HISTORY: Left leg weakness and rectal bleeding that began 2 days ago. Cauda equina syndrome COMPARISON: None TECHNIQUE: Multiple planar multisequence MR images were obtained of the lumbar spine without contrast . FINDINGS: The vertebral bodies and intervertebral discs demonstrate normal height and alignment without fractur e or subluxation. There is moderate bilateral hydronephrosis. The other prevertebral and paraspinal soft tissues are un remarkable. No marrow signal abnormality is present. The conus medullaris terminates normally at L1. T12/L1: No significant posterior bulge or protrusion. No posterior facet arthrosis. No central nina l stenosis. No neural foraminal stenosis L1/2: No significant posterior bulge or protrusion. No posterior facet arthrosis. No central canal stenosis. No neural foraminal stenosis L2/3: No significant posterior bulge or protrusion. No posterior facet arthrosis. No central canal stenosis. No neural foraminal stenosis L3/4: No significant posterior bulge or protrusion. No posterior facet arthrosis. No central canal stenosis. No neural foraminal stenosis L4/5: No significant posterior bulge or protrusion. No posterior facet arthrosis. No central canal stenosis. No neural foraminal stenosis L5/S1: No significant posterior bulge or protrusion. No posterior facet arthrosis. No central canal stenosis. No neural foraminal stenosis IMPRESSION: 1. No significant lumbar spine abnormality. 2. Moderate bilateral hydronephrosis.
[2018-07-16] MEDS: Tamsulosin HCl 0.4 MG CAP PO SCH (21:26)
[2018-07-16] MEDS: Bisacodyl 5 MG TAB PO PRN (21:27)
[2018-07-16] MEDS: Polyethylene Glycol 3350 17 GM Packet PO PRN (21:31)
[2018-07-17] MEDS: Morphine 2 MG/ML SYRINGE SLOW IVP PRN ×6 (01:27→23:03)
[2018-07-17 06:48] LABS: Hemoglobin 7.1 g/dL (14.0-18.0)
[2018-07-17] MEDS: Bisacodyl 5 MG TAB PO PRN (08:58)
[2018-07-17] MEDS: Polyethylene Glycol 3350 17 GM Packet PO PRN (08:58)
[2018-07-17] MEDS: Gabapentin 100 MG CAP PO SCH (08:59)
[2018-07-17] MEDS: Folic Acid 1 MG TAB PO SCH (08:59)
[2018-07-17] MEDS: Cyanocobalamin (Vitamin B-12) 1,000 MCG TAB PO SCH (08:59)
[2018-07-17] MEDS: Metoprolol Tartrate 25 MG TAB PO SCH ×2 (08:59→21:36)
[2018-07-17] MEDS: Multivit, Therapeutic 1 TAB PO SCH (08:59)
[2018-07-17] MEDS ORDERED: Acetaminophen/Codeine 30-300mg Tablet PO PRN (14:37)
[2018-07-17] MEDS ORDERED: Morphine 4 MG/ML VIAL SLOW IVP SCH (14:45)
[2018-07-17] MEDS: Gabapentin 300 MG CAP PO SCH ×2 (15:03→21:36)
--- NOTE | 2018-07-17 15:44 | PDOC.PN ---
- Subjective Encounter Start Date: 07/17/18 Encounter Start Time: 14:00 Patient seen and examined for Gen weakness/Rectal bleeding. No fever/chills. No new episode of rectal bleeding. Back pain +. No new complaints. No overnight events - Objective Resuscitation Status - Order Detail: 07/14/18 13:08 Resuscitation Status Routine Resuscitation Status: FULL: Full Resuscitation MAR Reviewed: Yes Vital Signs & Weight: Vital Signs (12 hours) Temp Pulse Resp BP Pulse Ox 07/17/18 08:00 96 07/17/18 07:55 97.7 F 101 H 18 119/77 96 Weight Admit Weight 126 lb 14.4 oz Weight 126 lb 14.4 oz I&O: 07/16/18 07/17/18 07/18/18 06:59 06:59 06:59 Intake Total 4737 3280 Output Total 5950 4450 1100 Balance -1213 -1170 -1100 Result Diagrams: 07/17/18 06:12 07/16/18 05:32 Radiology Reviewed by me: Yes (MRI - reviewed) Phys Exam - Physical Examination Constitutional: NAD Respiratory: no wheezing, no rhonchi Cardiovascular: RRR, no rub Gastrointestinal: soft, non-tender, positive bowel sounds Musculoskeletal: no edema Neurological: moves all 4 limbs Dx/Plan - Plan DVT proph w/SCDs IMPRESSION: Gen weakness/Anemia/Rectal bleeding s/p Colonoscopy Acute blood loss Anemia Chronic back pain due to ?Cauda Equina syndrome Urinary retention s/p covington placement in ER. Hypomagnesemia HTN Constipation h/o Colon Ca Mild PEM PLAN: Cont PPI Cont Flomax Increase Gabapentin dose PT/OT Has gross hematuria Probably dc covington in AM if ok with Urology - Will need urine Cath 3x daily Pain mngt input appreciated - Recommended further w/u as outpt. Patient was advised to f/u with Dr Muse. Also advised to get all previous records. Patient has seen several Physicians in last 2 years for chronic back pain. HH in AM DC in AM if stable Review of Systems - Review of Systems Respiratory: negative: Cough, Dry, Shortness of Breath, Hemoptysis, SOB with Excertion, Pleuritic Pain, Sputum, Wheezing Cardiovascular: negative: chest pain, palpitations, orthopnea, paroxysmal nocturnal dyspnea, edema, light headedness, other - Medications/Allergies Allergies/Adverse Reactions: Allergies Allergy/AdvReac Type Severity Reaction Status Date / Time No Known Allergies Allergy Unverified 07/14/18 13:17 Medications: Current Medications Acetaminophen (Tylenol) 650 mg PO Q4H PRN PRN Reason: Headache/Fever/Mild Pain (1-3) Acetaminophen/Codeine Phosphate (Tylenol #3) 1 tab PO Q4H PRN PRN Reason: Moderate Pain (4-6) Stop: 07/18/18 14:38 Bisacodyl (Dulcolax) 10 mg PO DAILYPRN PRN PRN Reason: Constipation Last Admin: 07/17/18 08:58 Dose: 10 mg Cyanocobalamin (Vitamin B-12) 1,000 mcg PO DAILY [facility] Last Admin: 07/17/18 08:59 Dose: 1,000 mcg Dicyclomine HCl (Bentyl) 20 mg PO QID PRN PRN Reason: GI Cramping Folic Acid (Folvite) 1 mg PO DAILY [facility] Last Admin: 07/17/18 08:59 Dose: 1 mg Gabapentin (Neurontin) 300 mg PO TID [facility] Last Admin: 07/17/18 15:03 Dose: 300 mg Metoprolol Tartrate (Lopressor) 25 mg PO BID [facility] Last Admin: 07/17/18 08:59 Dose: 25 mg Morphine Sulfate (Morphine) 2 mg SLOW IVP Q4H PRN PRN Reason: Severe Pain (7-10) Last Admin: 07/17/18 13:36 Dose: 2 mg Morphine Sulfate (Morphine) 4 mg SLOW IVP NOW [facility] Stop: 07/17/18 16:45 Last Admin: 07/17/18 15:03 Dose: 4 mg Multivitamins (Theragran) 1 tab PO DAILY [facility] Last Admin: 07/17/18 08:59 Dose: 1 tab Ondansetron HCl (Zofran Odt) 4 mg PO Q6H PRN PRN Reason: Nausea/Vomiting Pantoprazole Sodium (Protonix) 40 mg PO DAILY [facility] Last Admin: 07/17/18 08:59 Dose: 40 mg Polyethylene Glycol (Miralax) 17 gm PO DAILYPRN PRN PRN Reason: Constipation Last Admin: 07/17/18 08:58 Dose: 17 gm Sodium Chloride (Normal Saline Pf) 10 ml FS PRN PRN PRN Reason: RECONSTITUTION Last Admin: 04/16/19 08:04 Dose: 10 ml Sodium Chloride (Flush - Normal Saline) 10 ml IVF Q12HR [facility] Last Admin: 07/17/18 08:59 Dose: 10 ml Sodium Chloride (Flush - Normal Saline) 10 ml IVF PRN PRN PRN Reason: Saline Flush Last Admin: 07/17/18 05:20 Dose: 10 ml Tamsulosin HCl (Flomax) 0.4 mg PO HS [facility] Last Admin: 07/16/18 21:26 Dose: 0.4 mg Tramadol HCl (Ultram) 50 mg PO Q6H PRN PRN Reason: Moderate Pain (4-6) Last Admin: 07/15/18 07:47 Dose: 50 mg Tramadol HCl (Ultram) 100 mg PO Q6H PRN PRN Reason: Pain 7-10 Last Admin: 07/16/18 19:52 Dose: 100 mg
[2018-07-17] MEDS: Tamsulosin HCl 0.4 MG CAP PO SCH (21:36)
[2018-07-18] MEDS: Morphine 2 MG/ML SYRINGE SLOW IVP PRN ×4 (03:51→17:39)
[2018-07-18 04:50] LABS: Hemoglobin 7.7 g/dL (14.0-18.0)
[2018-07-18 07:45] VITALS: BP 131/84; TEMP 97.3
[2018-07-18] MEDS: Gabapentin 300 MG CAP PO SCH ×2 (09:26→16:00)
[2018-07-18] MEDS: Cyanocobalamin (Vitamin B-12) 1,000 MCG TAB PO SCH (09:26)
[2018-07-18] MEDS: Folic Acid 1 MG TAB PO SCH (09:26)
[2018-07-18] MEDS: Multivit, Therapeutic 1 TAB PO SCH (09:26)
[2018-07-18] MEDS: Metoprolol Tartrate 25 MG TAB PO SCH (09:26)
--- NOTE | 2018-07-18 09:47 | PDOC.PN ---
- Subjective Encounter Start Date: 07/18/18 Encounter Start Time: 09:43 Mr. Souza was seen today in follow-up of GI bleed and chronic low back pain. He continues to complain of back pain. - Objective Resuscitation Status - Order Detail: 07/14/18 13:08 Resuscitation Status Routine Resuscitation Status: FULL: Full Resuscitation MAR Reviewed: Yes Vital Signs & Weight: Vital Signs (12 hours) Temp Pulse Resp BP Pulse Ox 07/18/18 07:44 97.3 F L 104 H 20 131/84 96 Weight Admit Weight 126 lb 14.4 oz Weight 126 lb 14.4 oz I&O: 07/17/18 07/18/18 07/19/18 06:59 06:59 06:59 Intake Total 3280 600 Output Total 4450 3200 Balance -1170 -2600 Result Diagrams: 07/18/18 04:16 07/16/18 05:32 Phys Exam - Physical Examination HEENT: PERRLA Respiratory: no wheezing, no rales, no rhonchi Cardiovascular: RRR, no significant murmur, no rub Gastrointestinal: non-tender, no distention, positive bowel sounds Musculoskeletal: no edema Dx/Plan (1) Urinary retention Code(s): R33.9 - RETENTION OF URINE, UNSPECIFIED Status: Chronic (2) Cauda equina syndrome Code(s): G83.4 - CAUDA EQUINA SYNDROME Status: Chronic (3) Gastric ulcer Code(s): K25.9 - GASTRIC ULCER, UNSP ACUTE OR CHRONIC, W/O HEMOR OR PERF Status: Acute (4) Acute blood loss anemia Code(s): D62 - ACUTE POSTHEMORRHAGIC ANEMIA Status: Acute (5) Hypertension Code(s): I10 - ESSENTIAL (PRIMARY) HYPERTENSION Status: Chronic - Plan * GI- bleed due to a Gastric Ulcer- his H&H has been stable on Protonix * Will continue iron supplementation * Cauda Equina Syndrome with chronic low back pain and urinary retention- will discharge on Tylenol #3 and Muscle relaxer. He will need to find a pain specialist * Urinary retention- he has been evaluated by Urology earlier in this hospital stay, and was recommended to perform in and out catherterization at least 3 times a day. This will be life long. His supplies will be ordered. * He is stable for discharge home.
--- NOTE | 2018-07-18 22:28 | DIS ---
DATE OF ADMISSION: 07/14/2018 DATE OF DISCHARGE: 07/18/2018 PRIMARY CARE PHYSICIAN: The patient does not have a primary care physician. DISCHARGE DISPOSITION: Home. PRIMARY DISCHARGE DIAGNOSES: 1. Gastric ulcer with GI bleed. 2. Acute blood loss anemia. 3. Cauda equina syndrome. 4. Urinary retention. 5. Chronic pain syndrome. 6. Hypertension. DISCHARGE MEDICATIONS: 1. Tylenol No.3 one tablet q.4 hours as needed for pain. 2. Tramadol 50 mg q.8 as needed. 3. Theragran-M one tablet daily. 4. Neurontin 300 mg t.i.d. 5. Folic acid 1 mg daily. 6. Cyanocobalamin 1000 mcg p.o. daily. 7. Metoprolol 25 mg twice daily. 8. Dicyclomine 20 mg q.i.d. PROCEDURES DONE: During admission, the patient had an upper endoscopy as well as colonoscopy. The EGD showed a normal appearance of the esophagus. There were some linear erosions in the distal esophagus. There were no overt ulcerations there. The stomach had normal-appearing mucosa in the gastric cardia. There was a 4-5 mm clean based ulceration seen in the gastric antrum with surrounding mucosal erythema and edema. Multiple biopsies were taken. There was a normal-appearing duodenum and in the colonoscopy, there were some external hemorrhoids. The patient also had an MRI of the lumbar spine showing no significant lumbar spine abnormalities. There is bilateral moderate hydronephrosis. CODE STATUS: Full code. ALLERGIES: NO KNOWN DRUG ALLERGIES. HOSPITAL COURSE: Mr. Souza is a pleasant 47-year-old gentleman, who was admitted to the hospital with complaints of generalized weakness. He was also noted to have rectal bleeding with dark blood. He was found to be anemic with a hemoglobin of 7.3. He was seen by Gastroenterology, and underwent upper and lower endoscopy. He was found to have a gastric ulcer. At this time, there was no stigmata of any active bleeding, but this was likely the source of his bleeding. The patient admitted to using a large amount of anti-inflammatory medication. He was noted to have significant urinary retention and required in-and-out catheterization. He was using a Bundy catheter during his hospital stay, but the urologist recommended in-and-out catheterization upon discharge. His supplies were ordered during his hospital stay here. He has been instructed on how to perform the in-and-out catheterization and will be discharged home today. We recommended that he seek referral to a pain specialist for continued management of his chronic pain. Job ID: [id number]
== END 2018-07-18 18:08 | disposition home or self-care (01) | DRG 378 ==
LOC: ERS 10:30 → ONC 14:49
PROVIDERS: ADMIT Internal Medicine; ATTEND Internal Medicine
PROC: 0DB68ZX Excision of Stomach, Via Natural or Artificial Opening Endoscopic, Diagnostic (ICD-10-PCS; principal; 2018-07-15)
PROC: 0DBP8ZX Excision of Rectum, Via Natural or Artificial Opening Endoscopic, Diagnostic (ICD-10-PCS; 2018-07-15)
PROC: 0DBE8ZX Excision of Large Intestine, Via Natural or Artificial Opening Endoscopic, Diagnostic (ICD-10-PCS; 2018-07-15)
DX: K25.4 Chronic or unspecified gastric ulcer with hemorrhage (principal); G83.4 Cauda equina syndrome; D62 Acute posthemorrhagic anemia; G82.22 Paraplegia, incomplete; E44.1 Mild protein-calorie malnutrition; Z68.1 Body mass index [BMI] 19.9 or less, adult; K22.11 Ulcer of esophagus with bleeding; I10 Essential (primary) hypertension; F17.210 Nicotine dependence, cigarettes, uncomplicated; R33.9 Retention of urine, unspecified; G89.4 Chronic pain syndrome; D50.9 Iron deficiency anemia, unspecified; K59.09 Other constipation; K21.0 Gastro-esophageal reflux disease with esophagitis; K62.89 Other specified diseases of anus and rectum; E83.42 Hypomagnesemia; Z85.038 Personal history of other malignant neoplasm of large intestine; Z79.899 Other long term (current) drug therapy
CPT/HCPCS: 36415; 36430; 51701; 71045; 72148; 80048; 80053; 80306; 81003; 81015; 83735; 84100; 85014; 85018; 85025; 85610; 85730; 86850; 86900; 86901; 88305; 88312; 93005; 96374; 96375; C9113; J2001; J2270; J2405; J2704; J2916; J3475; J3490; P9016

== ENCOUNTER 2018-07-21 19:30 | Inpatient (IN) | payer OTHER ==
[2018-07-21 20:23] LABS: #Basophils 0.1 thou/uL (0.0-0.2); #Eosinphils 0.2 thou/uL (0.0-0.7); #Lymphocytes 1.4 thou/uL (1.20-3.40); #Monocytes 0.9 thou/uL (0.11-0.59); #Neutrophils 7.3 thou/uL (1.40-6.50); %Eosinophils 2.3 % (0.0-10.0); %Lymphocytes 14.3 % (21.0-51.0); %Monocytes 8.7 % (0.0-10.0); %Neutrophils 73.7 % (42.0-75.0); Hemoglobin 7.2 g/dL (14.0-18.0); Mean Corpuscular HGB CONC 31.4 g/dL (32.0-36.0); Mean Corpuscular Hemoglobin 26.4 pg (27.0-31.0); Mean Platelet Volume 6.3 fL (7.4-10.4); Platelet Count 616 thou/uL (130-400); RBC Distribution Width 18.2 % (11.5-14.5); Red Blood Cell (RBC) Count 2.73 mill/uL (4.70-6.10); White Blood Cell (WBC) Count 9.9 thou/uL (4.8-10.8)
[2018-07-21 20:43] LABS: ALT (SGPT) 10 U/L (8-55); AST (SGOT) 17 U/L (5-34); Albumin 3.6 g/dL (3.5-5.0); Alkaline Phosphatase 91 U/L (40-150); Anion Gap 15 mmol/L (10-20); BUN (Urea Nitrogen) 39 mg/dL (8.9-20.6); Bilirubin, Total Less than 0.2 mg/dL (0.2-1.2); Calc. Creatinine Clearance 0 mL/min (70-130); Carbon Dioxide 25 mmol/L (22-29); Chloride 106 mmol/L (98-107); Estimated GFR-MDRD 31; Globulin 2.9 g/dL (2.4-3.5); Glucose 105 mg/dL (70-105); Potassium 4.7 mmol/L (3.5-5.1); Protein, Total 6.5 g/dL (6.0-8.3); Sodium 141 mmol/L (136-145)
[2018-07-21 21:08] LABS: Bilirubin Negative (Negative); Blood, Urine Negative (Negative); Clarity CLEAR (Clear); Glucose, Urine (Dipstick) Negative (Negative); Leukocyte Negative (Negative); Nitrite Negative (Negative); Protein, Urine (Dipstick) Negative (Neg-Trace); Specific Gravity, Urine 1.009 (1.002-1.036); Urobilinogen 0.2 mg/dL (0.2-1.0); pH, Urine 6.5 (5.0-9.0)
[2018-07-21] MEDS ORDERED: Ondansetron ODT 4 MG TAB ONE (21:39)
[2018-07-21] MEDS ORDERED: HYDROcodone/Acetaminophen 5/325 mg Tablet ONE (23:14)
[2018-07-22] MEDS ORDERED: Ondansetron ODT 4 MG TAB SL PRN (00:27)
[2018-07-22] MEDS ORDERED: Acetaminophen 325 MG TAB PO PRN (00:27)
[2018-07-22] MEDS ORDERED: HYDROcodone/Acetaminophen 5/325 mg Tablet PO PRN ×3 (00:27→10:26)
[2018-07-22] MEDS ORDERED: Ondansetron PF 4 MG/2 ML Vial IVP PRN ×2 (00:27→10:26)
[2018-07-22] MEDS: Sodium Chloride 0.9% 1,000 ML IV SCH ×4 (00:44→23:32)
[2018-07-22 01:04] VITALS: BMI 19.8
[2018-07-22] MEDS ORDERED: HYDROcodone/Acetaminophen 10/325 mg Tablet PO SCH (03:15)
[2018-07-22] MEDS ORDERED: Morphine 2 MG/ML SYRINGE SLOW IVP SCH (06:30)
[2018-07-22] MEDS ORDERED: Ondansetron ODT 4 MG TAB PO PRN (10:26)
[2018-07-22] MEDS ORDERED: Acetaminophen 500 MG TAB PO PRN (10:26)
[2018-07-22] MEDS ORDERED: hydrALAZINE 20 MG/ML VIAL SLOW IVP PRN (10:26)
[2018-07-22] MEDS ORDERED: Senokot S 8.6-50 MG TAB PO PRN (10:26)
[2018-07-22 11:29] LABS: Anion Gap 13 mmol/L (10-20); BUN (Urea Nitrogen) 32 mg/dL (8.9-20.6); Calc. Creatinine Clearance 33 mL/min (70-130); Calcium 8.4 mg/dL (7.8-10.44); Carbon Dioxide 25 mmol/L (22-29); Chloride 107 mmol/L (98-107); Estimated GFR-MDRD 32; Glucose 150 mg/dL (70-105); Potassium 4.5 mmol/L (3.5-5.1); Sodium 140 mmol/L (136-145)
[2018-07-22 11:56] LABS: Elliptocytes SLIGHT = 2-5 cells (100X) (0-1/hpf); Hemoglobin 6.7 g/dL (14.0-18.0); Hypochromia MODERATE=16-30 cells (100X) (0-5/hpf); MDiff Complete? YES; Mean Corpuscular HGB CONC 30.6 g/dL (32.0-36.0); Mean Corpuscular Hemoglobin 26.2 pg (27.0-31.0); Mean Corpuscular Volume 85.6 fL (78.0-98.0); Ovalocytes SLIGHT = 2-5 cells (100X) (0-1/hpf); Platelet Count 526 thou/uL (130-400); Platelet Morphology Comment Appears Increased; Polychromasia SLIGHT = 2-3 cells (100X) (0-2/hpf); RBC Distribution Width 18.2 % (11.5-14.5); Red Blood Cell (RBC) Count 2.57 mill/uL (4.70-6.10); White Blood Cell (WBC) Count 9.6 thou/uL (4.8-10.8)
--- NOTE | 2018-07-22 12:22 | RAD ---
RIGHT ANKLE 3 VIEWS: Date: 07/22/18 HISTORY: Injury, right ankle pain. FINDINGS/IMPRESSION: No acute fracture or dislocation is seen. Ankle mortise is maintained. There is a well-corticated bon y density medial to the inferior fibula, which may represent remote trauma. POS: [facility]
--- NOTE | 2018-07-22 13:41 | HP ---
PRIMARY CARE PROVIDER: [facility]. CHIEF COMPLAINT: General weakness. HISTORY OF PRESENT ILLNESS: This is a 47-year-old male, who initially presented to [facility] Emergency Department complaining of generalized weakness and dizziness. The patient with recent admission on 07/14/2018 through 07/18/2018 for acute on chronic anemia status post transfusion of packed red blood cells, as well as EGD evaluation showing erosive esophagitis and a small gastric ulcer. The patient was placed on Protonix and referred for outpatient followup and to establish primary care. The patient states he has not been seen by a primary care and has appointment in the latter part of this week to establish his care with the [facility]. The patient was also referred to a pain specialist and has an appointment in approximately 48 hours from the time of this evaluation. The patient admits to decreased oral intake and some dehydration, as well as general pain in his right ankle. The patient states he turned his ankle approximately 2 weeks prior to this evaluation, sustaining some swelling to the lateral aspect of the ankle joint. The patient with significant history of apparent cauda equina syndrome with right lower extremity paralysis and weakness. The patient states he has had ongoing issues with his right lower extremity pain, as well as inability to ambulate on the right lower extremity over the last 2 years. The patient underwent MRI imaging of the lumbar spine on 07/16/2018 that showed no specific abnormalities. In the emergency room, the patient underwent general evaluation, receiving [place], intravenous normal saline and Zofran. After screening metabolic survey showed evidence of acute kidney injury with an elevated creatinine of 2.24, previously 0.90 on 07/16/2018. The patient was referred for IV hydration. PAST MEDICAL HISTORY: 1. Cauda equina syndrome. 2. Chronic pain syndrome. 3. Peripheral neuropathy. 4. History of colon cancer, status post resection in 2004. 5. Tobacco abuse ongoing. 6. Erosive esophagitis. 7. Gastric ulcer. 8. Hypertension. PAST SURGICAL HISTORY: 1. Status post colon resection. 2. Status post appendectomy. 3. Status post EGD showing erosive esophagitis and gastric ulcer. CURRENT MEDICATIONS: 1. Dicyclomine 20 mg p.o. q.i.d. 2. Neurontin 300 mg p.o. t.i.d. 3. Metoprolol tartrate 25 mg p.o. b.i.d. 4. Vitamin B12 of 1000 mcg p.o. daily. 5. Folic acid 1 mg p.o. daily. 6. Multivitamin 1 tablet p.o. daily. 7. Flomax 0.4 mg p.o. at bedtime. 8. Tramadol 50 mg p.o. q.8 hours p.r.n. ALLERGIES: NO KNOWN DRUG ALLERGIES. FAMILY HISTORY: Mother of complications of ovarian cancer. Grandmother of another type of cancer of unknown type. SOCIAL HISTORY: The patient resides in [place], [place] with a sister. Relocated from the [facility]. Smokes one pack of cigarettes daily. No alcohol or illicit drug use. Ambulates with a rolling walker or crutches. REVIEW OF SYSTEMS: CONSTITUTIONAL: Negative for weight loss or gain, ability to conduct usual activities. SKIN: Negative for rash, itching. EYES: Negative for double vision, pain. ENT/MOUTH: Negative for nose bleeding, neck stiffness, pain, tenderness. CARDIOVASCULAR: Negative for palpitations, dyspnea on exertion, orthopnea. RESPIRATORY: Negative for shortness of breath, wheezing, cough, hemoptysis, fever or night sweats. GASTROINTESTINAL: Negative for poor appetite, abdominal pain, heartburn, nausea, vomiting, constipation, or diarrhea. GENITOURINARY: Negative for urgency, frequency, dysuria, nocturia. MUSCULOSKELETAL: Negative for pain, swelling. NEUROLOGIC/PSYCHIATRIC: Negative for anxiety, depression. ALLERGY/IMMUNOLOGIC: Negative for skin rash, bleeding tendency. Otherwise negative except as stated per HPI. PHYSICAL EXAMINATION: VITAL SIGNS: On admission, blood pressure 155/88, pulse 89, respiratory rate 16, temperature 98.3 degrees Fahrenheit, and O2 saturation 96% on room air. GENERAL APPEARANCE: This is a 47-year-old male, alert and oriented x3, pleasant, in no acute distress. HEENT: Pupils are equal, round, reactive to light and accommodation. Extraocular muscles are intact. No scleral icterus. No conjunctival injection. Nares are patent. OP is clear. Multiple missing teeth noted. NECK: Supple. No cervical adenopathy. No thyromegaly. No carotid bruits. No JVD appreciated. Cervical spine with full active and passive range of motion. No meningeal signs noted. CHEST: Lungs are clear to auscultation bilaterally. CARDIOVASCULAR: S1, S2 without noted murmur, rub, or gallop. ABDOMEN: Flat, soft, nontender, and nondistended. Bowel sounds are positive in all 4 quadrants. There is no hepatosplenomegaly. No abdominal bruits. No rebound or guarding appreciated. EXTREMITIES: Warm and dry with fair turgor. Mild edema noted on the left lateral malleolus. Positive tenderness to palpation in the lateral malleolus and peripheral region of the ankle. Limited range of motion noted. Generalized muscle atrophy noted on the right lower extremity. No pitting edema noted. Pulses palpable distally at the dorsalis pedis, posterior tibial, and popliteal arteries bilaterally. Capillary refill less than 2 seconds. NEUROLOGIC: Cranial nerves 2 through 12 are grossly intact. Loss of deep tendon reflexes on the right lower extremity noted. Limited range of motion and movement of the right lower extremity consistent with previous exams. Not observed ambulatory during this exam. PERTINENT LAB AND X-RAY FINDINGS: Sodium 141, potassium 4.7, chloride 106, CO2 of 25, BUN 39, creatinine 2.24, estimated GFR 31, glucose 105, calcium 9.0. LFTs within normal limits. CBC showed a white blood cell count of 9.9, hemoglobin 7.2, hematocrit 23, and platelet count 616 with 74% neutrophils. Urinalysis negative. ASSESSMENT AND PLAN: 1. Acute kidney injury. Suspect secondary to volume depletion. We will continue intravenous normal saline at 100 mL/h. Encourage increased free water intake orally. Avoid nephrotoxic agents and limit contrast exposure. Monitor serial creatinine. Continue Flomax 0.4 mg daily. 2. Chronic normocytic anemia. No specific evidence of acute blood loss. Suspect secondarily to chronic disease state in conjunction with erosive esophagitis and gastric ulceration. Continue Protonix 40 mg daily. Repeat CBC in the a.m. 3. Right ankle pain. We will obtain radiographic imaging to include three views of the right ankle to rule out fracture. Pain control as clinically indicated. 4. Chronic pain syndrome. We will refer patient to outpatient pain specialist. Continue tramadol 50 mg p.o. q.8 hours p.r.n. 5. Hypertension. Resume metoprolol 25 mg b.i.d. Serial blood pressure monitoring. 6. Prophylaxis. SCDs while in bed. Protonix 40 mg p.o. daily. Smoking cessation resources. 7. Code status is full. Surrogate medical decision maker is the patient's sister. Job ID: [id number]
[2018-07-22] MEDS: Dicyclomine 20 MG TAB PO SCH ×3 (13:46→20:22)
[2018-07-22] MEDS: HYDROcodone/Acetaminophen 5/325 mg Tablet PO PRN ×2 (14:34→20:21)
[2018-07-22] MEDS: Gabapentin 300 MG CAP PO SCH ×2 (14:34→20:22)
[2018-07-22] MEDS: traMADol HCl 50 MG TAB PO PRN (16:55)
[2018-07-22] MEDS ORDERED: Mag-Al 1200 mg/1200 mg/30 ML UDCUP PO PRN (18:18)
[2018-07-22] MEDS: Tamsulosin HCl 0.4 MG CAP PO SCH (20:20)
[2018-07-22] MEDS: Metoprolol Tartrate 25 MG TAB PO SCH (20:20)
[2018-07-22] MEDS ORDERED: Famotidine 20 MG TAB PO SCH (21:00)
[2018-07-23] MEDS: HYDROcodone/Acetaminophen 5/325 mg Tablet PO PRN ×4 (03:19→21:04)
[2018-07-23] MEDS: traMADol HCl 50 MG TAB PO PRN ×3 (03:20→23:28)
[2018-07-23] MEDS: Sodium Chloride 0.9% 1,000 ML IV SCH ×2 (03:23→19:56)
[2018-07-23 06:33] LABS: Hemoglobin 6.5 g/dL (14.0-18.0); Mean Corpuscular HGB CONC 30.7 g/dL (32.0-36.0); Mean Corpuscular Hemoglobin 26.3 pg (27.0-31.0); Mean Corpuscular Volume 85.6 fL (78.0-98.0); Mean Platelet Volume 6.5 fL (7.4-10.4); Platelet Count 540 thou/uL (130-400); Red Blood Cell (RBC) Count 2.48 mill/uL (4.70-6.10); White Blood Cell (WBC) Count 9.2 thou/uL (4.8-10.8)
[2018-07-23 06:36] LABS: Band 2 % (5-11); Eosinophils 1 % (0-10); Lymphocytes 17 % (21-51); MDiff Complete? YES; Metamyelocyte 1 % (0-0); Monocytes 4 % (0-10); Neutrophil 73 % (42-75); Platelet Morphology Comment Appears Increased
[2018-07-23 06:40] LABS: Anion Gap 12 mmol/L (10-20); BUN (Urea Nitrogen) 35 mg/dL (8.9-20.6); Calc. Creatinine Clearance 31 mL/min (70-130); Calcium 8.4 mg/dL (7.8-10.44); Carbon Dioxide 24 mmol/L (22-29); Chloride 110 mmol/L (98-107); Estimated GFR-MDRD 30; Glucose 88 mg/dL (70-105); Potassium 5.4 mmol/L (3.5-5.1); Sodium 141 mmol/L (136-145)
[2018-07-23] MEDS: Cyanocobalamin (Vitamin B-12) 1,000 MCG TAB PO SCH (09:06)
[2018-07-23] MEDS: Folic Acid 1 MG TAB PO SCH (09:06)
[2018-07-23] MEDS: Gabapentin 300 MG CAP PO SCH ×3 (09:06→19:56)
[2018-07-23] MEDS: Multivit, Therapeutic 1 TAB PO SCH (09:07)
[2018-07-23] MEDS: Dicyclomine 20 MG TAB PO SCH (09:07)
[2018-07-23] MEDS: Metoprolol Tartrate 25 MG TAB PO SCH ×2 (09:07→19:56)
--- NOTE | 2018-07-23 10:52 | PDOC.PN ---
- Subjective Encounter Start Date: 07/23/18 Encounter Start Time: 10:35 Subjective: f/u for CANDY, gen weakness and RLE weakness with cauda equina -: syndrome. Voiding regularly in brief/toilet. - Objective Resuscitation Status - Order Detail: 07/22/18 10:21 Resuscitation Status Routine Resuscitation Status: FULL: Full Resuscitation MAR Reviewed: Yes Vital Signs & Weight: Vital Signs (12 hours) Temp Pulse Resp BP Pulse Ox 07/23/18 08:20 97.8 F 95 16 169/90 H 93 L 07/23/18 04:00 97.4 F L 94 20 151/89 H 95 07/23/18 00:00 98.2 F 80 20 153/74 H 92 L Weight Weight 127 lb I&O: 07/22/18 07/23/18 07/24/18 06:59 06:59 06:59 Intake Total 3725 200 Balance 3725 200 Result Diagrams: 07/23/18 05:45 07/23/18 05:45 Additional Labs: Laboratory Tests 07/21/18 07/21/18 07/22/18 20:10 20:10 10:50 Hgb 7.2 L Plt Count 616 H Potassium 4.7 4.5 Creatinine 2.24 H 2.19 H 07/22/18 10:50 Hgb 6.7 L Plt Count 526 H Potassium Creatinine Radiology Reviewed by me: Yes (R ankle X-ray - no acute process) Phys Exam - Physical Examination Constitutional: NAD HEENT: PERRLA, sclera anicteric, oral pharynx no lesions Neck: no nodes, no JVD, supple, full ROM Respiratory: no wheezing, no rales, no rhonchi, clear to auscultation bilateral Cardiovascular: RRR, no significant murmur, no rub, gallop Gastrointestinal: soft, non-tender, no distention, positive bowel sounds generalized atrophy of RLE Musculoskeletal: no edema, pulses present Neurological: moves all 4 limbs Psychiatric: A&O x 3 Skin: normal turgor, cap refill <2 seconds Dx/Plan (1) CANDY (acute kidney injury) Code(s): N17.9 - ACUTE KIDNEY FAILURE, UNSPECIFIED Status: Acute Comment: Persistent, continue IVF's, avoid nephrotoxic meds and limit contrast, serial creatinine (2) Hyperkalemia Code(s): E87.5 - HYPERKALEMIA Status: Acute Comment: Mild elevation, continue IVF's, serial K+ monitoring (3) Right ankle pain Code(s): M25.571 - PAIN IN RIGHT ANKLE AND JOINTS OF RIGHT FOOT Status: Acute Comment: Subacute pain after inversion sprain, radiographs negative (4) Erosive esophagitis Code(s): K22.10 - ULCER OF ESOPHAGUS WITHOUT BLEEDING Status: Chronic Comment: Continue Protonix 40mg daily (5) Normocytic anemia Code(s): D64.9 - ANEMIA, UNSPECIFIED Status: Acute Comment: Likely dilutional component as no active loss identified, continue PPI, serial H/H (6) Cauda equina syndrome Code(s): G83.4 - CAUDA EQUINA SYNDROME Status: Chronic Comment: Associated with RLE weakness/paresis, consult Pain Mgmt service - Plan PT/OT, manager social media, out of bed/ambulate Stable currently -: Continue IVF's with NS -: OOB with PT -: Pain control with Tramadol/Whitney -: AM lab: BMP, H/H * Convert to inpt status
[2018-07-23] MEDS: Tamsulosin HCl 0.4 MG CAP PO SCH (19:56)
[2018-07-24] MEDS: Sodium Chloride 0.9% 1,000 ML IV SCH ×4 (03:51→19:40)
[2018-07-24] MEDS: HYDROcodone/Acetaminophen 5/325 mg Tablet PO PRN ×4 (03:51→23:04)
[2018-07-24] MEDS: Acetaminophen/Codeine 30-300mg Tablet PO PRN ×3 (05:39→19:40)
[2018-07-24 06:31] LABS: Hemoglobin 6.8 g/dL (14.0-18.0); Platelet Count 572 thou/uL (130-400)
[2018-07-24 06:55] LABS: Anion Gap 7 mmol/L (10-20); BUN (Urea Nitrogen) 34 mg/dL (8.9-20.6); Calc. Creatinine Clearance 28 mL/min (70-130); Calcium 8.6 mg/dL (7.8-10.44); Carbon Dioxide 28 mmol/L (22-29); Chloride 111 mmol/L (98-107); Estimated GFR-MDRD 26; Glucose 101 mg/dL (70-105); Potassium 5.3 mmol/L (3.5-5.1); Sodium 141 mmol/L (136-145)
[2018-07-24] MEDS: Multivit, Therapeutic 1 TAB PO SCH (08:14)
[2018-07-24] MEDS: Cyanocobalamin (Vitamin B-12) 1,000 MCG TAB PO SCH (08:14)
[2018-07-24] MEDS: traMADol HCl 50 MG TAB PO PRN ×3 (08:14→21:04)
[2018-07-24] MEDS: Gabapentin 300 MG CAP PO SCH ×3 (08:14→19:30)
[2018-07-24] MEDS: Metoprolol Tartrate 25 MG TAB PO SCH ×2 (08:14→19:30)
[2018-07-24] MEDS: Folic Acid 1 MG TAB PO SCH (08:14)
--- NOTE | 2018-07-24 17:24 | PDOC.PN ---
- Subjective Encounter Start Date: 07/24/18 Encounter Start Time: 17:25 Subjective: f/u for CANDY persistent despite IVF's and urinary retention. Placed -: Bundy catheter today after bladder scan showed high residual volume. - Objective Resuscitation Status - Order Detail: 07/22/18 10:21 Resuscitation Status Routine Resuscitation Status: FULL: Full Resuscitation MAR Reviewed: Yes Vital Signs & Weight: Vital Signs (12 hours) Temp Pulse Resp BP Pulse Ox 07/24/18 15:19 97.6 F 93 20 160/90 H 94 L 07/24/18 12:00 97.6 F 88 10 L 160/90 H 92 L 07/24/18 07:12 98.0 F 86 14 163/90 H 93 L Weight Weight 127 lb I&O: 07/23/18 07/24/18 07/25/18 06:59 06:59 06:59 Intake Total 3725 6350 Balance 3725 6350 Result Diagrams: 07/24/18 05:34 07/24/18 05:34 Additional Labs: Laboratory Tests 07/21/18 07/21/18 07/22/18 20:10 20:10 10:50 Hgb 7.2 L Plt Count 616 H Potassium 4.7 4.5 BUN Creatinine 2.24 H 2.19 H 07/22/18 07/23/18 07/23/18 10:50 05:45 05:45 Hgb 6.7 L 6.5 L Plt Count 526 H 540 H Potassium 5.4 H BUN 35 H Creatinine 2.34 H Radiology Reviewed by me: Yes (Bladder scan - 645ml) Phys Exam - Physical Examination Constitutional: NAD HEENT: PERRLA, sclera anicteric, oral pharynx no lesions Neck: no nodes, no JVD, supple, full ROM Respiratory: no wheezing, no rales, no rhonchi, clear to auscultation bilateral S1, S2 Cardiovascular: RRR, no significant murmur, no rub, gallop Gastrointestinal: soft, non-tender, no distention, positive bowel sounds RLE with general atrophy Musculoskeletal: no edema, pulses present Neurological: moves all 4 limbs Psychiatric: A&O x 3 Skin: normal turgor, cap refill <2 seconds Dx/Plan (1) CANDY (acute kidney injury) Code(s): N17.9 - ACUTE KIDNEY FAILURE, UNSPECIFIED Status: Acute Comment: Persistent, continue IVF's, avoid nephrotoxic meds and limit contrast, serial creatinine, place Bundy catheter for decompression, consult Nephrology service (2) Hyperkalemia Code(s): E87.5 - HYPERKALEMIA Status: Acute Comment: Mild elevation, continue IVF's, serial K+ monitoring, secondary to #1, limit K+ exposure (3) Right ankle pain Code(s): M25.571 - PAIN IN RIGHT ANKLE AND JOINTS OF RIGHT FOOT Status: Acute Comment: Subacute pain after inversion sprain, radiographs negative (4) Erosive esophagitis Code(s): K22.10 - ULCER OF ESOPHAGUS WITHOUT BLEEDING Status: Chronic Comment: Continue Protonix 40mg daily (5) Normocytic anemia Code(s): D64.9 - ANEMIA, UNSPECIFIED Status: Acute Comment: T&C 2u PRBC's and transfuse 2u today, continue PPI, serial H/H (6) Cauda equina syndrome Code(s): G83.4 - CAUDA EQUINA SYNDROME Status: Chronic Comment: Associated with RLE weakness/paresis, consult Pain Mgmt service - Plan certified social workers in health care, out of bed/ambulate Stable currently -: Bundy catheter placement for urinary retention -: Consult Nephrology service -: Transfuse 2u PRBC's toda -: AM lab: BMP, CBC * .
[2018-07-24] MEDS: Tamsulosin HCl 0.4 MG CAP PO SCH (19:29)
[2018-07-25] MEDS: Acetaminophen/Codeine 30-300mg Tablet PO PRN ×3 (00:47→21:06)
[2018-07-25] MEDS: Sodium Chloride 0.9% 1,000 ML IV SCH ×2 (00:47→17:31)
[2018-07-25] MEDS: HYDROcodone/Acetaminophen 5/325 mg Tablet PO PRN ×4 (05:15→22:32)
[2018-07-25 07:01] LABS: Hemoglobin 8.8 g/dL (14.0-18.0); Mean Corpuscular HGB CONC 31.6 g/dL (32.0-36.0); Mean Corpuscular Hemoglobin 27.5 pg (27.0-31.0); Mean Platelet Volume 6.8 fL (7.4-10.4); Platelet Count 495 thou/uL (130-400); RBC Distribution Width 17.1 % (11.5-14.5); White Blood Cell (WBC) Count 13.8 thou/uL (4.8-10.8)
[2018-07-25 07:30] LABS: Anion Gap 12 mmol/L (10-20); BUN (Urea Nitrogen) 32 mg/dL (8.9-20.6); Calc. Creatinine Clearance 33 mL/min (70-130); Calcium 8.8 mg/dL (7.8-10.44); Carbon Dioxide 25 mmol/L (22-29); Chloride 110 mmol/L (98-107); Estimated GFR-MDRD 31; Glucose 100 mg/dL (70-105); Potassium 5.4 mmol/L (3.5-5.1); Sodium 142 mmol/L (136-145)
[2018-07-25 08:19] LABS: Band 1 % (5-11); Eosinophils 1 % (0-10); Lymphocytes 5 % (21-51); MDiff Complete? YES; Monocytes 12 % (0-10); Neutrophil 79 % (42-75); Platelet Morphology Comment Appears Increased; Polychromasia SLIGHT = 2-3 cells (100X) (0-2/hpf); Reactive Lymphocytes 1 % (0-10)
[2018-07-25] MEDS: traMADol HCl 50 MG TAB PO PRN ×2 (08:43→17:24)
[2018-07-25] MEDS: Metoprolol Tartrate 25 MG TAB PO SCH ×2 (08:44→21:05)
[2018-07-25] MEDS: Multivit, Therapeutic 1 TAB PO SCH (08:44)
[2018-07-25] MEDS: Folic Acid 1 MG TAB PO SCH (08:44)
[2018-07-25] MEDS: Cyanocobalamin (Vitamin B-12) 1,000 MCG TAB PO SCH (08:44)
[2018-07-25] MEDS: Gabapentin 300 MG CAP PO SCH ×3 (08:44→21:05)
--- NOTE | 2018-07-25 12:44 | CON ---
DATE OF CONSULTATION: REASON FOR CONSULTATION: Elevated creatinine. HISTORY OF PRESENT ILLNESS: This is a 47-year-old gentleman with a history of cauda equina syndrome, presented to the hospital 2 days ago with generalized weakness. The patient had a baseline creatinine of 0.9, which increased to 2.2, so I was consulted. It peaked to 2.6. The patient denies headache, numbness, tingling, or weakness. Denies any nausea, vomiting, or chest pain. The patient did not receive any nephrotoxic medication. PAST MEDICAL HISTORY: Significant for cauda equina syndrome, chronic pain, colon cancer resection, erosive esophagitis, hypertension, and GERD. PAST SURGICAL HISTORY: EGD, appendectomy, and cholecystectomy. MEDICATIONS: Home medications list reviewed. Hospital medications list reviewed. ALLERGIES: REVIEWED. REVIEW OF SYSTEMS: A 15-point review of system was performed negative except as noted above. NECK: No swelling or lumps. NOSE: No epistaxis or discharge. EYES: No diplopia or pain. MUSCULOSKELETAL: No joint pain. NEUROPSYCHIATRIC SYSTEMS: No suicidal ideation. No ideation. SKIN: Denies any rash or ulcer. CONSTITUTIONAL: No fever or chills. PHYSICAL EXAMINATION: CONSTITUTIONAL: On examination, the patient is awake and alert. VITAL SIGNS: Afebrile, pulse 85, breathing 16, and blood pressure 151/84. GENERAL APPEARANCE AND MENTAL STATUS: Fair. HEAD/NECK: Normocephalic. Atraumatic. EYES: EOMI. No deformity. EARS: Clear. No ulcers. NOSE: Intact. No lesions. MOUTH: Clear. No discharge. THROAT: Clear. No exudate. LUNGS: Clear. No crackles. CARDIAC: S1, S2. No rub. ABDOMEN: Benign. Bowel sounds positive. GENITALIA/RECTUM: Bundy absent. BACK/EXTREMITIES: Edema 0+. NEUROLOGICAL: Alert and motor intact. LABORATORY DATA: Labs show potassium 5.4, creatinine 2.2. ASSESSMENT AND PLAN: 1. Acute kidney injury with chronic kidney disease most likely due to decreased effective arterial blood volume. Continue hydration. 2. Anemia, stable. 3. Hyperkalemia. Recommend low-potassium diet. If does not improve, consider Kayexalate. We will follow imaging. Job ID: [id number]
--- NOTE | 2018-07-25 13:08 | ULT ---
Renal sonogram HISTORY: Renal failure. Hydronephrosis. FINDINGS: Right kidney is 12.0 cm 13.0 cm and the left is 12.0 cm. Moderate to severe bilateral hydro nephrosis. Urinary bladder is decompressed. IMPRESSION: Moderate to severe bilateral hydronephrosis.
[2018-07-25 13:13] LABS: Anion Gap 11 mmol/L (10-20); BUN (Urea Nitrogen) 30 mg/dL (8.9-20.6); Calc. Creatinine Clearance 36 mL/min (70-130); Calcium 8.9 mg/dL (7.8-10.44); Carbon Dioxide 27 mmol/L (22-29); Chloride 108 mmol/L (98-107); Estimated GFR-MDRD 35; Glucose 80 mg/dL (70-105); Potassium 5.4 mmol/L (3.5-5.1); Sodium 141 mmol/L (136-145)
--- NOTE | 2018-07-25 16:33 | PDOC.PN ---
- Subjective Encounter Start Date: 07/25/18 Encounter Start Time: 16:30 Subjective: f/u for CANDY due to urinary retention, neurogenic bladder with associated -: bilat hydroureteronephrosis. Bundy placed with decompression. - Objective Resuscitation Status - Order Detail: 07/22/18 10:21 Resuscitation Status Routine Resuscitation Status: FULL: Full Resuscitation MAR Reviewed: Yes Vital Signs & Weight: Vital Signs (12 hours) Temp Pulse Resp BP BP Pulse Ox 07/25/18 11:13 98.2 F 82 16 158/87 H 91 L 07/25/18 08:00 91 L 07/25/18 07:59 98.2 F 85 18 151/84 H 91 L 07/25/18 04:35 97.7 F 86 20 159/86 H 92 L Weight Weight 127 lb I&O: 07/24/18 07/25/18 07/26/18 06:59 06:59 06:59 Intake Total 6350 7100 Output Total 9650 Balance 6350 -2550 Result Diagrams: 07/25/18 06:37 07/25/18 12:30 Additional Labs: Laboratory Tests 07/21/18 07/21/18 07/22/18 20:10 20:10 10:50 Hgb 7.2 L Hct Plt Count 616 H Potassium 4.7 4.5 BUN Creatinine 2.24 H 2.19 H 07/22/18 07/23/18 07/23/18 10:50 05:45 05:45 Hgb 6.7 L 6.5 L Hct Plt Count 526 H 540 H Potassium 5.4 H BUN 35 H Creatinine 2.34 H 07/24/18 07/24/18 07/25/18 05:34 05:34 06:37 Hgb 6.8 L Hct 22.0 L Plt Count Potassium 5.3 H 5.4 H BUN Creatinine 2.62 H 2.23 H Radiology Reviewed by me: Yes (Renal sono - bilat hydroureteronephrosis) Phys Exam - Physical Examination Constitutional: NAD HEENT: PERRLA, sclera anicteric, oral pharynx no lesions Neck: no nodes, no JVD, supple, full ROM Respiratory: no wheezing, no rales, no rhonchi, clear to auscultation bilateral S1, S2 Cardiovascular: RRR, no significant murmur, no rub, gallop Gastrointestinal: soft, non-tender, no distention, positive bowel sounds RLE muscle atrophy Musculoskeletal: no edema, pulses present Neurological: moves all 4 limbs Psychiatric: A&O x 3 Skin: normal turgor, cap refill <2 seconds Deviation from normal: Bundy in place with orange urine Dx/Plan (1) CANDY (acute kidney injury) Code(s): N17.9 - ACUTE KIDNEY FAILURE, UNSPECIFIED Status: Acute Comment: Persistent, continue IVF's, avoid nephrotoxic meds and limit contrast, serial creatinine, place Bundy catheter for decompression, consult Nephrology service (2) Hydroureteronephrosis Code(s): N13.30 - UNSPECIFIED HYDRONEPHROSIS Status: Chronic Comment: Secondary to chronic neurogenic bladder with functional obstruction, Bundy for decompression, consult Neurosurgery for surgical options (3) Hyperkalemia Code(s): E87.5 - HYPERKALEMIA Status: Acute Comment: Mild elevation, continue IVF's, serial K+ monitoring, secondary to #1, limit K+ exposure (4) Right ankle pain Code(s): M25.571 - PAIN IN RIGHT ANKLE AND JOINTS OF RIGHT FOOT Status: Acute Comment: Subacute pain after inversion sprain, radiographs negative (5) Erosive esophagitis Code(s): K22.10 - ULCER OF ESOPHAGUS WITHOUT BLEEDING Status: Chronic Comment: Continue Protonix 40mg daily (6) Normocytic anemia Code(s): D64.9 - ANEMIA, UNSPECIFIED Status: Acute Comment: s/p 2u PRBC's, continue PPI, serial H/H (7) Cauda equina syndrome Code(s): G83.4 - CAUDA EQUINA SYNDROME Status: Chronic Comment: Associated with RLE weakness/paresis, consult Pain Mgmt service, consult Neurosurgical service for tx options - Plan PT/OT, social media assistant, DVT proph w/SCDs Stable currently -: Continue bladder decompression with Bundy -: Consult Neurosurgery for surgical mgmt options for neurogenic bladder -: Pain mgmt consult -: Continue IVF's * AM lab: BMP, H/H
--- NOTE | 2018-07-25 20:53 | MRI ---
MRI THORACIC SPINE WITHOUT CONTRAST: 07/25/18 Multiplanar and Multisequential imaging thoracic spine obtained. INDICATIONS: Hematuria. Back pain. History of colon cancer. Bilateral lower extremity numbness with bladder incont inence. The thoracic vertebrae maintain normal height and alignment. Thoracic vertebral body signal is normal . There is no evidence of edema. No evidence of metastatic lesion involving the thoracic spine. No evidence of disc bulge or disc protrusion. No central canal stenosis identified. Images of the upper kidney show evidence of hydronephrosis. This was confirmed on ultrasound earlier today. The thoracic cord signal is normal. IMPRESSION: Unremarkable MRI thoracic spine. No evidence of metastatic lesion. POS: OFF
--- NOTE | 2018-07-25 20:59 | MRI ---
MRI CERVICAL SPINE 07/25/18 Multiplanar and Multisequential imaging cervical spine obtained. INDICATIONS: Neurogenic bladder. Difficulty walking. Back pain. Bladder incontinence. Lower extremity numbness. Hi story of colon cancer. FINDINGS: The cervical vertebrae maintain normal height and alignment. Disc spaces are preserved. No vertebral body edema or evidence of metastasis. Mild disc bulge and spondylosis at C2-3 effaces the anterior subarachnoid space. It abuts the cord wi thout significant cord compression. Mild left foraminal narrowing due to facet and uncinated hypertro phy. At C3-4, mild disc bulge and spondylosis efface the anterior subarachnoid space. No significant cord impingement. Mild bilateral foraminal narrowing. At C4-5, no significant disc bulge or spondylosis. At C5-6, no significant disc bulge or spondylosis. At C6-7, no disc bulge or spondylosis. The cervical cord signal is normal. IMPRESSION: Mild disc bulge and spondylosis at C2-3 and C3-4 as described. POS: OFF
[2018-07-25] MEDS: Tamsulosin HCl 0.4 MG CAP PO SCH (21:05)
--- NOTE | 2018-07-26 01:36 | CON ---
DATE OF CONSULTATION: 07/25/2018 REASON FOR CONSULTATION: Urinary retention. HISTORY: Mr. Souza is a 47-year-old gentleman, who I saw one week ago. He was admitted to [facility] on 07/14, for dizziness and anemia, and discharged home on 07/18. He was in urinary retention at that time that was longstanding in nature and a Bundy catheter was placed for over 1000 mL on 2 separate occasions. The patient has neurologic dysfunction, which is the most likely source of his retention. We recommend removing the catheter for straight cath teaching, but there was difficulty in replacing his catheter and teaching straight catheter. He was discharged home without a catheter. He returns to the emergency room on 07/22/2018, with worsening of his chronic right lower extremity pain. On evaluation, he had an elevation in his creatinine to 2.24. He was admitted for further evaluation. PAST MEDICAL HISTORY: Neurologic syndrome labelled as cauda equina syndrome, chronic pain with peripheral neuropathy, history of colon cancer, status post resection, erosive esophagitis, urinary retention, and hypertension. PAST SURGICAL HISTORY: Colon resection and appendectomy. CHRONIC MEDICATIONS: 1. Dicyclomine. 2. Neurontin. 3. Metoprolol. 4. Vitamins. 5. Flomax 0.4 mg. 6. Tramadol. ALLERGIES: NO KNOWN DRUG ALLERGIES. SOCIAL HISTORY: The patient recently relocated to [place], [place] from [place]. He is a one pack-a-day smoker. Denies excessive alcohol use. FAMILY HISTORY: Ovarian cancer in his mother. REVIEW OF SYSTEMS: RESPIRATORY: No shortness of breath. CARDIOVASCULAR: No chest pain or palpitations. GASTROINTESTINAL: He does have problems with constipation that are chronic. GENITOURINARY: Please see history of present illness. NEUROLOGIC: Please see history of present illness. PHYSICAL EXAMINATION: GENERAL: He is awake and alert. He is in no acute distress. VITAL SIGNS: Blood pressure 138/82, pulse 82, and respiratory rate 16. CHEST: Clear to auscultation. CARDIOVASCULAR: Regular rate and rhythm. ABDOMEN: Soft and nontender. No palpable masses. Liver and spleen are not palpable. No abdominal tenderness noted. EXTREMITIES: Some atrophy on the right side. No edema noted. LABORATORY DATA: Admission creatinine 2.24. Bundy catheter was placed yesterday for 1800 mL. DIAGNOSTIC DATA: Renal ultrasound, bilateral hydronephrosis, moderate to severe. IMPRESSION: Mr. Souza is a 47-year-old gentleman with renal insufficiency in part from incomplete bladder emptying. He has felt that the incomplete bladder emptying is neurogenic in origin as he has had a markedly distended bladder in both recent admissions and no significant discomfort in association with the distention. There has been difficulty with catheter placement not only during his previous admission when the catheter could not be replaced after it was removed and there was also some difficulty placing his catheters during this admission. The nurse who placed the catheter stated that it had approximately 3 inches outside the penis, where resistance was met and eventually he did progress to the bladder and then drained 1800 mL. The urine was initially yellow and has since demonstrated some hematuria. RECOMMENDATIONS: 1. Bundy catheter will stay in place. He will need cystoscopy to evaluate potential explanation for difficulty with catheterization. 2. He will probably require long-term intermittent catheterization as a way to manage his urinary retention. 3. Continue Flomax. Job ID: [id number]
[2018-07-26] MEDS: traMADol HCl 50 MG TAB PO PRN ×2 (03:12→14:47)
[2018-07-26] MEDS: HYDROcodone/Acetaminophen 5/325 mg Tablet PO PRN ×3 (05:40→18:04)
[2018-07-26 06:46] LABS: Platelet Count 493 thou/uL (130-400)
[2018-07-26 07:00] LABS: Anion Gap 11 mmol/L (10-20); BUN (Urea Nitrogen) 31 mg/dL (8.9-20.6); Calc. Creatinine Clearance 40 mL/min (70-130); Calcium 8.7 mg/dL (7.8-10.44); Carbon Dioxide 24 mmol/L (22-29); Chloride 110 mmol/L (98-107); Estimated GFR-MDRD 39; Glucose 92 mg/dL (70-105); Potassium 4.9 mmol/L (3.5-5.1); Sodium 140 mmol/L (136-145)
[2018-07-26] MEDS: Sodium Chloride 0.9% 1,000 ML IV SCH ×3 (07:18→18:03)
[2018-07-26] MEDS: Multivit, Therapeutic 1 TAB PO SCH (07:20)
[2018-07-26] MEDS: Cyanocobalamin (Vitamin B-12) 1,000 MCG TAB PO SCH (07:20)
[2018-07-26] MEDS: Folic Acid 1 MG TAB PO SCH (07:21)
[2018-07-26] MEDS: Gabapentin 300 MG CAP PO SCH ×3 (07:21→21:16)
[2018-07-26] MEDS: Metoprolol Tartrate 25 MG TAB PO SCH ×2 (07:21→21:16)
--- NOTE | 2018-07-26 12:37 | CON ---
DATE OF CONSULTATION: This is Venita Boyle PA-C dictating a report for Roque Laird MD. HISTORY OF PRESENT ILLNESS: The patient is a 47-year-old male with a past medical history of chronic back and leg pain, colon cancer, status post resection in 2004, gastric ulcers and erosive esophagitis, and hypertension, who presented to the emergency department on 07/22/2018 for increasing back pain, right leg pain, difficulty ambulating, and difficulty with urination. He was seen on a prior admission on 07/14/2018 for similar symptoms and at that time found to be significantly anemic. He underwent EGD and was diagnosed with the esophagitis and GI ulcers. He was treated with transfusion. At that time, he was evaluated with a noncontrast lumbar MRI, which was unremarkable. He was seen by Urology for his urinary retention, which required in and out catheterization. The patient was ultimately discharged to home, but returned for worsening of his symptoms. The patient reports he has had chronic back pain for the last 2 years and told in [place] that he also had lumbar stenosis, but this was ultimately never treated. He reports he has had gradual progression of his back pain and particularly pain down his right leg in a nonradicular pattern. He reports he has worsening weakness and now is unable to flex or extend his right foot. He is using a walker for any ambulation, but is having difficulty with his ADLs at home. He also reports generalized dysesthesias in the right leg as well as in the lateral aspect of the left foot. Neurosurgery was consulted for further evaluation of these symptoms in conjunction with his urinary retention. I recommended MRI evaluation of the cervical and thoracic spine, but these are also unremarkable with no significant nerve compression. PAST MEDICAL HISTORY: Chronic back pain; history of colon cancer, status post resection in 2004; erosive esophagitis; gastric ulcers; hypertension; and anemia. PAST SURGICAL HISTORY: Status post colon resection, status post appendectomy, EGD with esophagitis and gastric ulcers. ALLERGIES: NO KNOWN DRUG ALLERGIES. FAMILY HISTORY: Noncontributory. SOCIAL HISTORY: The patient currently lives with his sister in [place]. He smokes 1 pack per day. He does not drink or use any drugs. REVIEW OF SYSTEMS: Per HPI. PHYSICAL EXAMINATION: VITAL SIGNS: Temperature is 98.0, pulse is 80, respiratory rate is 16, the patient is 91% on room air, and blood pressure is 174/102. CONSTITUTIONAL: Awake, alert, in no acute distress. HEENT: Head; normocephalic and atraumatic. Eyes; PERRLA. Extraocular movements intact. ENT; oral mucosa is pink, intact, and moist. He has normal voice. NECK: Nontender to palpation. Free active range of motion. No meningismus or nuchal rigidity. CARDIOVASCULAR: Regular rate and rhythm. MUSCULOSKELETAL: He is noted to have muscle atrophy of the right proximal leg. There is also mild pitting edema to bilateral ankles. He has good strength over the bilateral proximal legs, but is barely antigravity with flexion and extension of the right foot. He has good free active range of motion of the upper extremities and 5/5 strength in the upper extremities. He is normoreflexive throughout. He has negative Fernando sign. Negative clonus. NEURO: A and O x4. He has weakness of the right lower extremity with plantar flexion and dorsiflexion of the right foot, it was noted in the musculoskeletal exam. ASSESSMENT AND PLAN: This is a 47-year-old male with progressive back pain and right lower extremity muscle atrophy as well as weakness of the right foot with plantar flexion and extension, which has been significantly limiting over the last month. He has undergone MRI of the lumbar, thoracic, and cervical spines, which are unremarkable and show no evidence of nerve compression. We will plan to evaluate the patient further with MRI of the brain. We will follow along with these results. I have discussed the plan with Dr. Laird, who is in agreement. Job ID: [id number]
--- NOTE | 2018-07-26 14:27 | PRG ---
DATE OF SERVICE: 07/26/2018 SUBJECTIVE: A 47-year-old gentleman being seen for acute kidney injury. The patient denied any nausea, vomiting, or chest pain. OBJECTIVE: CONSTITUTIONAL: On exam, the patient is awake and alert. VITAL SIGNS: pulse 84, breathing 16, and blood pressure 139/74. GENERAL APPEARANCE AND MENTAL STATUS: Fair. HEAD/NECK: Normocephalic. Atraumatic. EYES: EOMI. No deformity. EARS: Clear. No ulcers. NOSE: Intact. No lesions. MOUTH: Clear. No discharge. THROAT: Clear. No exudate. LUNGS: Clear. No crackles. CARDIAC: S1, S2. No rub. ABDOMEN: Benign. Bowel sounds positive. GENITALIA/RECTUM: Bundy absent. BACK/EXTREMITIES: Edema 0+. NEUROLOGICAL: Alert and motor intact. SKIN: LYMPHATICS: LABORATORY DATA: Reviewed. ASSESSMENT AND PLAN: 1. Chronic kidney disease, stage 3, stable. 2. Hypertension, stable. 3. Anemia, stable. 4. Acute kidney injury, stable. Job ID: [id number]
--- NOTE | 2018-07-26 14:51 | MRI ---
MRI BRAIN PERFORMED WITHOUT CONTRAST ENHANCEMENT: Date; 07/26/18 HISTORY: Right leg weakness. FINDINGS: Ventricular and cisternal system is within normal limits. There is some scattered foci of T2 and FLAI R hyperintensity in the white matter consistent with some chronic white matter change. On the diffusion-weighted sequence, I do not see any evidence for an acute infarct. No hemorrhage or mass effect. Mastoid air cells and visualized sinuses are clear. IMPRESSION: No acute intracranial abnormalities. POS: [facility]
[2018-07-26] MEDS: Acetaminophen/Codeine 30-300mg Tablet PO PRN ×2 (16:51→21:16)
--- NOTE | 2018-07-26 17:46 | PDOC.PN ---
- Subjective Encounter Start Date: 07/26/18 Encounter Start Time: 17:40 Subjective: f/u for CANDY and neurogenic bladder with Bundy catheter and improving -: renal fxn. Still c/o chronic RLE pain. - Objective Resuscitation Status - Order Detail: 07/22/18 10:21 Resuscitation Status Routine Resuscitation Status: FULL: Full Resuscitation MAR Reviewed: Yes Vital Signs & Weight: Vital Signs (12 hours) Temp Pulse Resp BP Pulse Ox 07/26/18 16:34 98.1 F 92 16 172/96 H 95 07/26/18 12:12 98.2 F 84 18 139/74 93 L 07/26/18 12:00 93 L 07/26/18 08:00 98.0 F 80 16 174/102 H 96 Weight Weight 127 lb I&O: 07/25/18 07/26/18 07/27/18 06:59 06:59 06:59 Intake Total 7100 2560 4000 Output Total 9650 5000 5600 Balance -2550 -7990 -1600 Result Diagrams: 07/26/18 05:36 07/26/18 05:36 Additional Labs: Laboratory Tests 07/21/18 07/21/18 07/22/18 20:10 20:10 10:50 Hgb 7.2 L Hct Plt Count 616 H Potassium 4.7 4.5 BUN Creatinine 2.24 H 2.19 H 07/22/18 07/23/18 07/23/18 10:50 05:45 05:45 Hgb 6.7 L 6.5 L Hct Plt Count 526 H 540 H Potassium 5.4 H BUN 35 H Creatinine 2.34 H 07/24/18 07/24/18 07/25/18 05:34 05:34 06:37 Hgb 6.8 L Hct 22.0 L Plt Count Potassium 5.3 H 5.4 H BUN Creatinine 2.62 H 2.23 H Radiology Reviewed by me: Yes (MRI C/T/L-spine essentially negative) Phys Exam - Physical Examination Constitutional: NAD HEENT: PERRLA, sclera anicteric, oral pharynx no lesions Neck: no nodes, no JVD, supple, full ROM Respiratory: no wheezing, no rales, no rhonchi, clear to auscultation bilateral Cardiovascular: RRR, no significant murmur, no rub, gallop Gastrointestinal: soft, non-tender, no distention, positive bowel sounds mild pedal edema bilat, general atrophy RLE Musculoskeletal: pulses present Neurological: normal sensation, moves all 4 limbs Psychiatric: A&O x 3 Skin: normal turgor, cap refill <2 seconds Deviation from normal: Bundy with orange urine Dx/Plan (1) CANDY (acute kidney injury) Code(s): N17.9 - ACUTE KIDNEY FAILURE, UNSPECIFIED Status: Acute Comment: Improved, continue IVF's, avoid nephrotoxic meds and limit contrast, serial creatinine, place Bundy catheter for decompression, consult Nephrology service (2) Hydroureteronephrosis Code(s): N13.30 - UNSPECIFIED HYDRONEPHROSIS Status: Chronic Comment: Secondary to chronic neurogenic bladder with functional obstruction, Bundy for decompression, consult Neurosurgery for surgical options (3) Hyperkalemia Code(s): E87.5 - HYPERKALEMIA Status: Acute Comment: Mild elevation, continue IVF's, serial K+ monitoring, secondary to #1, limit K+ exposure (4) Right ankle pain Code(s): M25.571 - PAIN IN RIGHT ANKLE AND JOINTS OF RIGHT FOOT Status: Acute Comment: Subacute pain after inversion sprain, radiographs negative (5) Erosive esophagitis Code(s): K22.10 - ULCER OF ESOPHAGUS WITHOUT BLEEDING Status: Chronic Comment: Continue Protonix 40mg daily (6) Normocytic anemia Code(s): D64.9 - ANEMIA, UNSPECIFIED Status: Acute Comment: s/p 2u PRBC's, continue PPI, serial H/H (7) Cauda equina syndrome Code(s): G83.4 - CAUDA EQUINA SYNDROME Status: Chronic Comment: Associated with RLE weakness/paresis, consult Pain Mgmt service, consult Neurosurgical service for tx options - Plan PT/OT, social insurance adviser, out of bed/ambulate, DVT proph w/SCDs Stable currently -: Continue Bundy for bladder decompression -: Continue IVF's -: Pain control -: AM lab: BMP * .
[2018-07-26] MEDS: Tamsulosin HCl 0.4 MG CAP PO SCH (21:16)
[2018-07-27] MEDS: HYDROcodone/Acetaminophen 5/325 mg Tablet PO PRN ×4 (00:08→19:39)
[2018-07-27] MEDS: traMADol HCl 50 MG TAB PO PRN ×2 (03:57→15:41)
[2018-07-27] MEDS: Sodium Chloride 0.9% 1,000 ML IV SCH ×2 (06:08→21:37)
[2018-07-27 06:34] LABS: Anion Gap 12 mmol/L (10-20); BUN (Urea Nitrogen) 29 mg/dL (8.9-20.6); Calc. Creatinine Clearance 46 mL/min (70-130); Carbon Dioxide 24 mmol/L (22-29); Chloride 110 mmol/L (98-107); Estimated GFR-MDRD 47; Glucose 84 mg/dL (70-105); Potassium 4.8 mmol/L (3.5-5.1); Sodium 141 mmol/L (136-145)
--- NOTE | 2018-07-27 08:01 | PRG ---
DATE OF SERVICE: 07/27/2018 The patient is a 47-year-old male, whom we were asked to evaluate for progressive back pain, right lower extremity pain and weakness as well as neurogenic bladder. We evaluated with MRI of the brain, C, T, and L-spine, which are all essentially unremarkable. At this point, there appears to be no clear spinal etiology or intracranial etiology for the patient's symptoms. No plans for neurosurgical intervention. We are recommending that the patient be re-evaluated by Neurology as well as pain management for management of symptoms. Please reach out to Neurosurgery for additional questions or concerns. Job ID: [id number] MTDD
[2018-07-27] MEDS: Acetaminophen/Codeine 30-300mg Tablet PO PRN ×3 (08:51→21:35)
[2018-07-27] MEDS: Folic Acid 1 MG TAB PO SCH (08:51)
[2018-07-27] MEDS: Cyanocobalamin (Vitamin B-12) 1,000 MCG TAB PO SCH (08:51)
[2018-07-27] MEDS: Gabapentin 300 MG CAP PO SCH ×3 (08:52→21:34)
[2018-07-27] MEDS: Multivit, Therapeutic 1 TAB PO SCH (08:53)
[2018-07-27] MEDS: Metoprolol Tartrate 25 MG TAB PO SCH ×2 (08:53→21:34)
--- NOTE | 2018-07-27 10:36 | PRG ---
DATE OF SERVICE: 07/27/2018 SUBJECTIVE: The patient is seen and examined. I agree with Venita Boyle's evaluations on 07/26 and 07/27. The patient is a 47-year-old man with a history of colon cancer, who has a progressive difficulty in the right leg with pain in the right groin and testicular region and diffuse weakness and atrophy down the right leg. He has minimal symptoms in the upper extremities, but is occasionally getting pain in the left leg. He has significant bladder dysfunction and has been termed neurogenic bladder. At one point, he had a diagnosis of cauda equina syndrome, although it is unclear why. He has also had previous tests, which is not available to me including EMG nerve conduction studies that apparently suggested a possible lumbar radiculopathy. He has substantial weakness in the right lower extremity on physical exam, it is well documented by Venita Boyle in her evaluation. MRI of lumbar spine is essentially unremarkable with no meaningful structural findings. Similarly, the brain, cervical, and thoracic spine showed no meaningful structural findings. These studies have been done without contrast, but I think it was sufficient to exclude any nerve compression. IMPRESSION AND PLAN: The patient does not have a structural lesion in the brain or spine to explain his progressive symptoms. I would recommend reconsulting Neurology to further assess for nonsurgical problems. The situation seems unlikely for paraneoplastic syndrome, but I will defer to them in this regard. He may need a repeat of the EMG and nerve conduction studies, although this potentially could be done on an outpatient basis. Depending on the findings of the EMG and nerve conduction studies, further imaging of the right hip and proximal leg region could also be considered looking for peripheral nerve pathology. I would probably recommend the EMG and nerve conduction studies first. No further neurosurgical recommendations at this time. Job ID: [id number]
--- NOTE | 2018-07-27 11:24 | PDOC.PN ---
- Subjective Encounter Start Date: 07/27/18 Encounter Start Time: 11:22 Patient seen and examined, no new issues, no family at bedside, all questions answered. - Objective Resuscitation Status - Order Detail: 07/22/18 10:21 Resuscitation Status Routine Resuscitation Status: FULL: Full Resuscitation Vital Signs & Weight: Vital Signs (12 hours) Temp Pulse Resp BP BP Pulse Ox 07/27/18 07:32 97.9 F 86 16 170/100 H 96 07/27/18 04:00 97.7 F 79 18 168/103 H 92 L 07/27/18 00:00 98.2 F 83 18 177/85 H 95 Weight Weight 127 lb I&O: 07/26/18 07/27/18 07/28/18 06:59 06:59 06:59 Intake Total 2560 77935 Output Total 5000 27866 Balance -0456 -4393 Result Diagrams: 07/26/18 05:36 07/27/18 05:49 Phys Exam - Physical Examination Constitutional: NAD HEENT: PERRLA, moist MMs, sclera anicteric Neck: no nodes, no JVD, supple Respiratory: no wheezing, no rales, no rhonchi Cardiovascular: RRR, no significant murmur, no rub Gastrointestinal: soft, non-tender, no distention, positive bowel sounds Musculoskeletal: no edema, pulses present Neurological: normal sensation +straight leg raise test both sides Dx/Plan (1) CANDY (acute kidney injury) Code(s): N17.9 - ACUTE KIDNEY FAILURE, UNSPECIFIED Status: Acute Comment: Improved, continue IVF's, avoid nephrotoxic meds and limit contrast, serial creatinine, place [place] catheter for decompression, consult Nephrology service (2) Normocytic anemia Code(s): D64.9 - ANEMIA, UNSPECIFIED Status: Acute Comment: s/p 2u PRBC's, continue PPI, serial H/H (3) Cauda equina syndrome Code(s): G83.4 - CAUDA EQUINA SYNDROME Status: Chronic Comment: Associated with RLE weakness/paresis, consult Pain Mgmt service, consult Neurosurgical service for tx options (4) Hypertension Code(s): I10 - ESSENTIAL (PRIMARY) HYPERTENSION Status: Chronic (5) Urinary retention Code(s): R33.9 - RETENTION OF URINE, UNSPECIFIED Status: Chronic - Plan * teleneurology consultation done this AM, they've ordered a repeat MRI, last one done 2 weeks ago, will check to see if anything acute occured in the past 2 weeks * CANDY resolving, likely obstructive, keep covington in place * neuro sx states no sx intervention for now * DC plans in AM with leg bag covington and home PT arrangements (if insurance approves) AND if MRI acceptable, patient will need to follow up out patient for further care and management * case and plan d/w patient at length, he understood and agreed with this plan
--- NOTE | 2018-07-27 13:34 | PRG ---
DATE OF SERVICE: 07/27/2018 SUBJECTIVE: A 47-year-old gentleman being seen for acute kidney injury. The patient denied any nausea, vomiting, or chest pain. OBJECTIVE: CONSTITUTIONAL: On exam, the patient is awake and alert. VITAL SIGNS: Afebrile, pulse 86, breathing 16, and blood pressure 170/100. GENERAL APPEARANCE AND MENTAL STATUS: Fair. HEAD/NECK: Normocephalic. Atraumatic. EYES: EOMI. No deformity. EARS: Clear. No ulcers. NOSE: Intact. No lesions. MOUTH: Clear. No discharge. THROAT: Clear. No exudate. LUNGS: Clear. No crackles. CARDIAC: S1, S2. No rub. ABDOMEN: Benign. Bowel sounds positive. GENITALIA/RECTUM: Bundy absent. BACK/EXTREMITIES: Edema 0+. NEUROLOGICAL: Alert and motor intact. LABORATORY DATA: Reviewed. ASSESSMENT AND PLAN: 1. Chronic kidney disease, stage 3, stable. 2. Anemia, stable. 3. Hypertension. We would recommend increasing the metoprolol to 50 b.i.d. Job ID: [id number]
[2018-07-27] MEDS: Tamsulosin HCl 0.4 MG CAP PO SCH (21:33)
--- NOTE | 2018-07-27 22:37 | CON ---
DATE OF CONSULTATION: CHIEF COMPLAINT: Right leg weakness. HISTORY OF PRESENT ILLNESS: The patient is a 47-year-old man with renal failure. He reports his symptoms started about 4 years ago and he has had worsening for the past two years. He has back pain which radiates to the leg and he started to have right leg weakness and his symptoms include left leg weakness as well. The patient has had loss of muscle in the legs. He has been to various hospitals including [place], [facility] and [facility] all in [place]. He has had multiple tests done including EMG nerve conductions and there were some lumbar spine MRIs. We reviewed from there, that suggested that he might have CIDP or cauda equina type lesion with arachnoiditis due to enhancement of the nerve roots in the lumbar region, but repeat MRI here recently of the lumbar spine from June was reported as a normal MRI of the lumbar spine. The patient also had MRI of the cervical spine, thoracic spine, and brain at this admission, which did not show any significant cord compression or intracranial lesions. The patient was seen by Dr. Muse in the past as well and he has an appointment again. The patient was noted to have bladder retention and he had 1800 mL of liquid come out when they put in the catheter at that time. PREVIOUS MEDICAL HISTORY: The patient has history of leg weakness for 4 years; presumed cauda equina syndrome; chronic pain syndrome; peripheral neuropathy; history of colon cancer, status post resection in 2004; tobacco abuse; erosive esophagitis; gastric ulcer; hypertension. PAST SURGICAL HISTORY: Colon resection, appendectomy. CURRENT MEDICATIONS: As noted in the chart. ALLERGIES: NO KNOWN DRUG ALLERGIES. FAMILY HISTORY: Mother had cancer. Grandmother also had cancer. SOCIAL HISTORY: He just moved here from [facility], lives with his sister. He is establishing his insurance and care here. He smokes one pack of cigarettes per day. No alcohol or drug use. He ambulates with a rolling walker. REVIEW OF SYSTEMS: GENERAL: Negative for any fever, DERMATOLOGIC: Negative for rash or itching. HEMATOLOGICAL: Negative for bleeding diatheses. ENT: Negative for any hearing problems. NEUROLOGICAL: Positive for loss of muscle plus weakness of the right leg and also lower left leg. GENITOURINARY: Positive for bladder urinary retention noted on this admission. PSYCHIATRIC: Negative for anxiety or depression. LABORATORY DATA AND DIAGNOSTIC STUDIES: White count 13.8, hemoglobin 8.8, hematocrit 27.8, and platelet count 495. Chemistries; sodium 141, potassium 4.8, chloride 110, bicarb 24, BUN 29, creatinine 1.59, glucose 8.4, and I have reviewed his MRI report. MRI of the brain was performed yesterday and did not show any acute intracranial abnormalities. MRI of the cervical spine was performed on 07/25, which showed mild disk bulge and spondylosis at C2-C3 and C3-C4, and thoracic spine MRI was performed, unremarkable thoracic MRI report results. Lumbar spine MRI was also performed and it showed no significant lumbar spine abnormality, moderate bilateral hydronephrosis, and compared to previous films from [place], there was no comment about his nerve root enhancement on this present MRI. PHYSICAL EXAMINATION: VITAL SIGNS: Temperature 97.9, pulse rate 86, respiratory rate 16, O2 sats 96, and blood pressure 170/100. GENERAL APPEARANCE: Well-built, well-nourished man, who is in no apparent distress, and he has significant atrophy of all muscles in the right leg. No fasciculations were noted. CHEST: Clear vesicular breathing. CARDIOVASCULAR: S1 and S2 heard. No murmurs. ABDOMEN: Soft. NEUROLOGICAL: Higher intellectual functions, appropriate conversation, and normal orientation to time, place, and person. Cranial nerves 2 through 12 are normal. Normal extraocular movements. Pupils 4 mm, reactive to light and accommodation bilaterally. Normal sensation of face. Normal hearing to finger rub. Normal strength of facial muscles. Tongue midline. No atrophy noted. Normal elevation of palate. Motor bulk normal. Tone normal. Strength 5/5 in both upper extremities and left lower extremity. In right lower extremity, his strength was 2/5 distal and 3/5 proximal. Muscle groups tested are iliopsoas, hamstrings, quadriceps, ankle dorsiflexion, plantar flexion, deltoid, biceps, triceps, wrist extension and flexion, finger extension and flexion bilaterally. Deep tendon reflexes were brisk throughout at 3+. Sensory normal to touch bilaterally. Cerebellar normal [id number], [id number] could be performed on the left leg which was normal. IMPRESSION: The patient is a 47-year-old man, who is currently in acute renal failure and he has had chronic back problems with pain and has seen multiple physicians about his weakness in the right leg and has prior MRIs as well and many reports with him which I have not able to review because this is a telemedicine consultation. His examination shows atrophy in the right lower extremity. The patient does not have history of polio as a child. 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 He needs further workup. RECOMMENDATIONS: Please make sure the patient has an appointment with Dr. Muse for EMG nerve conduction studies and further workup of his right lower extremity. He can also be referred to [place] [facility] at [facility] for further workup of his monoplegia. Please call Neurology if you have any further questions. Job ID: [id number]
[2018-07-28] MEDS: HYDROcodone/Acetaminophen 5/325 mg Tablet PO PRN ×3 (01:53→13:55)
[2018-07-28] MEDS: traMADol HCl 50 MG TAB PO PRN (06:25)
[2018-07-28] MEDS: Folic Acid 1 MG TAB PO SCH (08:09)
[2018-07-28] MEDS: Cyanocobalamin (Vitamin B-12) 1,000 MCG TAB PO SCH (08:09)
[2018-07-28] MEDS: Multivit, Therapeutic 1 TAB PO SCH (08:09)
[2018-07-28] MEDS: Gabapentin 300 MG CAP PO SCH (08:09)
[2018-07-28] MEDS: Metoprolol Tartrate 25 MG TAB PO SCH (08:09)
[2018-07-28] MEDS: Acetaminophen/Codeine 30-300mg Tablet PO PRN (10:29)
--- NOTE | 2018-07-28 11:51 | PDOC.EVN ---
Event Note - Event Note Event Note: DC SUMMARY #[id number]
[2018-07-28 11:55] VITALS: BP 163/92; TEMP 98.3
[2018-07-28] MEDS: Sodium Chloride 0.9% 1,000 ML IV SCH (13:34)
--- NOTE | 2018-07-28 14:26 | PRG ---
DATE OF SERVICE: 07/28/2018 SUBJECTIVE: Patient was seen and examined at bedside and overnight events noted. Patient denies any shortness of breath or chest pain or palpitation. No history of nausea or vomiting or diarrhea or fever or chills or cramps. OBJECTIVE: GENERAL: This is a well-built male, in no apparent distress. VITAL SIGNS: Temperature 98.3. Heart rate 89. Respiratory rate 18. Blood pressure 163/92. HEENT: Atraumatic, normocephalic. Oral mucosa is moist NECK: Supple. CARDIOVASCULAR: S1, S2 heard. Rate and rhythm regular. RESPIRATORY: Clear to auscultation. GASTROINTESTINAL: Abdomen is soft. MUSCULOSKELETAL: No tenderness. No edema. DERMATOLOGIC: No skin rash. NEUROLOGIC: Alert and awake and oriented X3. No focal neurologic deficits. Moving all the extremities. PSYCHIATRIC: Mood and affect normal. LABORATORY DATA: No labs done today. ASSESSMENT AND PLAN: 1. Acute kidney injury on chronic kidney disease, stable labs. 2. Chronic kidney disease. 3. Anemia. 4. Hypertension. Renal function is stable. I will sign off. Follow up with Dr. Sal in 1 to 2 weeks. Job ID: [id number]
--- NOTE | 2018-07-28 23:31 | DIS ---
DATE OF ADMISSION: 07/22/2018 DATE OF DISCHARGE: 07/28/2018 ADMITTING DIAGNOSES: General weakness, cauda equina syndrome, chronic pain syndrome, peripheral neuropathy, tobacco smoking, erosive esophagitis, gastric ulcer, hypertension. DISCHARGE DIAGNOSES: Generalized weakness, resolved. Cauda equina syndrome, chronic pain syndrome, peripheral neuropathy, tobacco smoking, erosive esophagitis, gastric ulcer, hypertension. HOSPITAL COURSE: This is a 47-year-old male who presented to the ER complaining of generalized weakness and dizziness. The patient was admitted to Internal Medicine Team, was also seen very closely by subspecialties from Neurology, Neurosurgery, and Nephrology as well. The patient was observed throughout his course of admission, was found to have acute kidney injury, which was also resolving upon time of discharge. Renal ultrasounds of the kidneys were done bilaterally, which showed moderate to severe bilateral hydronephrosis. The patient had a Bundy catheter placed, was to be discharged with leg bag Bundy and followup with Urology outpatient. At point in time of discharge, creatinine was stabilized. The patient also had consultations with Neurology, Neurosurgery due to bilateral weakness. Cervical and thoracic MRI done and a brain MRI done. No surgical intervention recommended at point in time. Tele Neurology also evaluated the patient. The patient was advised to follow up with [facility] for EMG conduction studies as well as his neurologist, Dr. Muse as outpatient as well as Neurosurgery, Dr. Meza within 1 week. The patient at point in time of discharge was stable. Denied any nausea, vomiting, diarrhea, constipation, chest pain, fevers, chills, or shortness of breath. Stated that he would follow up with his PCP and the rest of subspecialists as recommended. Case and plan discussed with the patient at length. He understood and agreed to this plan. DISPOSITION: Home. FOLLOWUP: Follow up with PCP within 1-2 weeks, Neurosurgery, Neurology as well as the Alan within 1-2 weeks. MEDICATIONS: See MAR. ACTIVITY: As tolerated with assistance as needed. DIET: Low-fat, low-calorie, high-fiber diet. CONDITION: Stable. PROGNOSIS: Guarded. Once again, case and plan discussed with the patient at length. He understood and agreed with this plan. Job ID: [id number]
== END 2018-07-28 14:05 | disposition home or self-care (01) | DRG 683 ==
LOC: ERS 19:30 → OBSVTOIN 07-22 00:14 → SURG A 07-22 00:14
PROVIDERS: ADMIT Internal Medicine; ATTEND Internal Medicine
PROC: 0T9B70Z Drainage of Bladder with Drainage Device, Via Natural or Artificial Opening (ICD-10-PCS; principal; 2018-07-25)
DX: N17.9 Acute kidney failure, unspecified (principal); G83.4 Cauda equina syndrome; K22.10 Ulcer of esophagus without bleeding; E86.0 Dehydration; G89.4 Chronic pain syndrome; D64.9 Anemia, unspecified; E87.5 Hyperkalemia; M25.571 Pain in right ankle and joints of right foot; K21.9 Gastro-esophageal reflux disease without esophagitis; R33.9 Retention of urine, unspecified; N13.30 Unspecified hydronephrosis; F17.210 Nicotine dependence, cigarettes, uncomplicated; I12.9 Hypertensive chronic kidney disease with stage 1 through stage 4 chronic kidney disease, or unspecified chronic kidney disease; K25.9 Gastric ulcer, unspecified as acute or chronic, without hemorrhage or perforation; G83.11 Monoplegia of lower limb affecting right dominant side; N18.3 Chronic kidney disease, stage 3 (moderate); G62.9 Polyneuropathy, unspecified; Z90.49 Acquired absence of other specified parts of digestive tract; Z85.038 Personal history of other malignant neoplasm of large intestine; Z79.899 Other long term (current) drug therapy
CPT/HCPCS: 36415; 36430; 70551; 72141; 72146; 76770; 80048; 80053; 81003; 85007; 85014; 85018; 85025; 85027; 85049; 86850; 86900; 86901; 93005; 96360; J2270; J2405; P9016; Q0162

== ENCOUNTER 2018-08-09 22:09 | Emergency (ER) | payer OTHER ==
[2018-08-09] MEDS ORDERED: Pantoprazole 40 MG VIAL ONE (22:37)
[2018-08-09 22:55] LABS: INR-International Normal Ratio 0.9; Prothrombin Time 12.5 SEC (12.0-14.7)
[2018-08-09 22:56] LABS: PTT 31.9 SEC (22.9-36.1)
[2018-08-09 23:08] LABS: Bilirubin Negative (Negative); Blood, Urine Small (Negative); Clarity CLOUDY (Clear); Glucose, Urine (Dipstick) Negative (Negative); Leukocyte Moderate (Negative); Nitrite Positive (Negative); Protein, Urine (Dipstick) 100 mg/dL (Neg-Trace); Specific Gravity, Urine 1.018 (1.002-1.036); Urobilinogen 0.2 mg/dL (0.2-1.0); pH, Urine 7.5 (5.0-9.0)
[2018-08-09 23:10] LABS: ALT (SGPT) 14 U/L (8-55); AST (SGOT) 11 U/L (5-34); Albumin 4.3 g/dL (3.5-5.0); Alkaline Phosphatase 93 U/L (40-150); Anion Gap 16 mmol/L (10-20); BUN (Urea Nitrogen) 26 mg/dL (8.9-20.6); Bilirubin, Total Less than 0.2 mg/dL (0.2-1.2); Calc. Creatinine Clearance 0 mL/min (70-130); Calcium 9.7 mg/dL (7.8-10.44); Carbon Dioxide 23 mmol/L (22-29); Chloride 106 mmol/L (98-107); Estimated GFR-MDRD 79; Globulin 2.7 g/dL (2.4-3.5); Glucose 145 mg/dL (70-105); Potassium 3.5 mmol/L (3.5-5.1); Sodium 141 mmol/L (136-145)
[2018-08-09 23:10] LABS: Bacteria/HPF 4+ HPF (None Seen); Hyaline Casts/LPF 0-3 HYALINE CAST LPF (0-3 Hyaline); Pathc Cast-AUWi Flag 4.35 (0-2.49); RBC/HPF 21-50 HPF (0-3); Squamous Epithelial 0-3 HPF (0-3)
[2018-08-09 23:15] LABS: #Lymphocytes 1.4 thou/uL (1.20-3.40); #Monocytes 0.8 thou/uL (0.11-0.59); #Neutrophils 13.6 thou/uL (1.40-6.50); %Basophils 0.1 % (0.0-1.0); %Eosinophils 0.1 % (0.0-10.0); %Lymphocytes 8.7 % (21.0-51.0); %Monocytes 5.1 % (0.0-10.0); Anisocytosis SLIGHT = 6-15 cells (100X) (0-5/hpf); Hemoglobin 11.3 g/dL (14.0-18.0); MDiff Complete? YES; Mean Corpuscular HGB CONC 32.4 g/dL (32.0-36.0); Mean Corpuscular Hemoglobin 27.2 pg (27.0-31.0); Mean Corpuscular Volume 84.2 fL (78.0-98.0); Mean Platelet Volume 7.3 fL (7.4-10.4); Platelet Count 459 thou/uL (130-400); Platelet Morphology Comment Appears Adequate; Red Blood Cell (RBC) Count 4.15 mill/uL (4.70-6.10); White Blood Cell (WBC) Count 15.8 thou/uL (4.8-10.8)
[2018-08-09] MEDS ORDERED: Morphine 4 MG/ML VIAL ONE (23:34)
[2018-08-09] MEDS ORDERED: Ondansetron PF 4 MG/2 ML Vial ONE (23:34)
[2018-08-09] MEDS ORDERED: cefTRIAXone\\ROCEPHIN 2 GM VIAL ONE (23:58)
== END 2018-08-10 00:58 | disposition home or self-care (01) ==
LOC: ERS 22:09
DX: N39.0 Urinary tract infection, site not specified (principal); R31.9 Hematuria, unspecified; K58.9 Irritable bowel syndrome, unspecified; D50.0 Iron deficiency anemia secondary to blood loss (chronic); I10 Essential (primary) hypertension; F17.210 Nicotine dependence, cigarettes, uncomplicated; Z79.899 Other long term (current) drug therapy
CPT/HCPCS: 80053; 81003; 81015; 85025; 85610; 85730; 86850; 86900; 86901; 96365; 96375; C9113; J0696; J2270; J2405

== ENCOUNTER 2018-08-19 21:06 | Observation (INO) | payer OTHER ==
[~2018-08-19 21:06] MED LIST: ISOVUE-370 76%-LOCM 1 ML ONE
[2018-08-19 22:00] LABS: ALT (SGPT) 12 U/L (8-55); AST (SGOT) 13 U/L (5-34); Albumin 4.4 g/dL (3.5-5.0); Alkaline Phosphatase 71 U/L (40-150); Anion Gap 12 mmol/L (10-20); BUN (Urea Nitrogen) 22 mg/dL (8.9-20.6); Bilirubin, Total 0.3 mg/dL (0.2-1.2); Calc. Creatinine Clearance 0 mL/min (70-130); Calcium 9.8 mg/dL (7.8-10.44); Carbon Dioxide 27 mmol/L (22-29); Chloride 104 mmol/L (98-107); Estimated GFR-MDRD Greater than 90; Globulin 2.4 g/dL (2.4-3.5); Glucose 112 mg/dL (70-105); Potassium 3.6 mmol/L (3.5-5.1); Protein, Total 6.8 g/dL (6.0-8.3); Sodium 139 mmol/L (136-145)
[2018-08-19 22:10] LABS: Hemoglobin 11.7 g/dL (14.0-18.0); Mean Corpuscular HGB CONC 32.3 g/dL (32.0-36.0); Mean Corpuscular Hemoglobin 27.2 pg (27.0-31.0); Mean Corpuscular Volume 84.2 fL (78.0-98.0); Mean Platelet Volume 7.1 fL (7.4-10.4); Platelet Count 434 thou/uL (130-400); RBC Distribution Width 17.5 % (11.5-14.5); White Blood Cell (WBC) Count 19.2 thou/uL (4.8-10.8)
[2018-08-19 22:11] LABS: Eosinophils 1 % (0-10); Lymphocytes 12 % (21-51); MDiff Complete? YES; Monocytes 5 % (0-10); Neutrophil 82 % (42-75); Platelet Morphology Comment Appears Increased
--- NOTE | 2018-08-19 23:16 | CT ---
Contrast-enhanced images abdomen pelvis History: Constipation. Contrast-enhanced CT images of the abdomen pelvis obtained IV contrast was given. The lung bases are unremarkable. No evidence of free intraperitoneal air seen. The liver and spleen are unremarkable. The gallbladder contains at least two 1 cm gallstones in the gallbladder neck. The pancreas is unremarkable. Adrenal glands unremarkable. Bilateral hydronephrosis is seen. There is a Coude urinary bladder catheter in place. There is severe constipation with large amount of stool. There is a circumferential area of soft tissue density in the region of the rectum. This may represen t a rectal mass or extensive rectal hemorrhoids. No evidence of small bowel obstruction seen. IMPRESSION: 1. Circumferential rectal mucosal thickening. Malignancy cannot be excluded. 2: Cholelithiasis.
--- NOTE | 2018-08-19 23:21 | RAD ---
Supine and left decubitus views abdomen. HISTORY: Abdominal pain. A large amount of stool seen in the colon. No evidence of free intraperitoneal air seen. No dilated loops of small bowel seen. IMPRESSION: no evidence of free intraperitoneal air seen.
[2018-08-19] MEDS ORDERED: Fentanyl 100 MCG/2 ML VIAL ONE (23:38)
[2018-08-19] MEDS ORDERED: Ondansetron PF 4 MG/2 ML Vial ONE (23:38)
[2018-08-19 23:56] LABS: Bilirubin Negative (Negative); Blood, Urine Moderate (Negative); Clarity CLEAR (Clear); Glucose, Urine (Dipstick) Negative (Negative); Leukocyte Small (Negative); Nitrite Negative (Negative); Protein, Urine (Dipstick) 100 mg/dL (Neg-Trace); Specific Gravity, Urine 1.038 (1.002-1.036)
[2018-08-19 23:59] LABS: Bacteria/HPF None Seen HPF (None Seen); RBC/HPF GREATER THAN 50-TNTC HPF (0-3)
[2018-08-20 00:04] LABS: Pathc Cast-AUWi Flag 6.52 (0-2.49)
[2018-08-20 00:14] LABS: Hyaline Casts/LPF 0-3 HYALINE CAST LPF (0-3 Hyaline); Other Casts/LPF None Seen LPF (0-3 Hyaline); Oval Fat Bodies/HPF None Seen HPF (None Seen); Renal Epithelial None Seen HPF (0-3); Sperm/HPF None Seen HPF (None Seen); Transitional Epithelial 0-3 HPF (0-3); Trichomonas/HPF None Seen HPF (None Seen); Yeast-All Forms None Seen HPF (None Seen)
[2018-08-20] MEDS ORDERED: cefTRIAXone\\ROCEPHIN 1 GM VIAL ONE (00:22)
[2018-08-20] MEDS ORDERED: Fentanyl 100 MCG/2 ML VIAL ONE (00:23)
--- NOTE | 2018-08-20 01:16 | PDOC.FPRHP ---
- History of Present Illness Chief Complaint: belly pain History of Present Illness: HPI Pt is a 47 y/o M presenting for abdominal pain. Has not had a BM in 10 days. Does have a hx/o colon cancer in 2003 with recent colonoscopy 1-2 months ago that was normal. Had appt this for f/u. Admits to abdominal pain b/l lower and whole belly is sore. Does have shooting pain into rectal/colon area. No bloody stools recently. No N/V. Denies fever, but does have chills. History of Cauda equina syndrome with permanent neuropathic pain and monoplegia. Sees pain specialist outpatient. - Allergies/Adverse Reactions Allergies Allergy/AdvReac Type Severity Reaction Status Date / Time No Known Allergies Allergy Verified 07/22/18 07:38 - Home Medications Medication Instructions Recorded Confirmed Type Dicyclomine HCl 20 mg PO QID 07/14/18 07/22/18 History Metoprolol Tartrate 25 mg PO BID 07/14/18 07/22/18 History Cyanocobalamin (Vitamin B-12) 1,000 mcg PO DAILY #30 tab 07/18/18 07/22/18 Rx [Vitamin B-12] Folic Acid [Folvite] 1 mg PO DAILY #30 tab 07/18/18 07/22/18 Rx Multivit, Therapeutic [Theragran] 1 tab PO DAILY tab 07/18/18 07/22/18 Rx Tamsulosin HCl [Flomax] 0.4 mg PO HS #30 cap 07/18/18 07/22/18 Rx traMADol HCl [Tramadol HCl] 50 mg PO Q8H PRN #30 tablet 07/18/18 07/22/18 Rx Acetaminophen With Codeine 1 tablet PO Q4HR PRN 07/22/18 07/22/18 History [Tylenol with Codeine #3] Gabapentin [Neurontin] 300 mg PO TID 07/22/18 07/22/18 History - History PMHx: Cauda equina, macrocytic anemia, colon Ca PSHx: Appendectomy, colon resection 2/2 cancer FHx:Unknown Social: Smokes, No ETOH or Illict Drug use. Lives with Sister and recently moved to [facility]. - Review of Systems General: reports: fever/chills, night sweats, fatigue. denies: weight/appetite/ sleep changes ENT: denies: nasal congestion, rhinorrhea Respiratory: denies: cough, congestion Cardiovascular: denies: chest pain, palpitation, edema Gastrointestinal: reports: nausea, constipation, abdominal pain. denies: vomiting, diarrhea, GI bleeding Genitourinary: denies: incontinence, dysuria Skin: denies: rashes, lesions Musculoskeletal: denies: pain, tenderness Neurological: reports: weakness Psychological: denies: anxiety, depression - Vital signs BP: 152/88 HR: 112 RR: 20 Pox: 98% on RA - Physical Exam Additional comment: PHYSICAL EXAMINATION: General: Mild distress Heart/Cardiovascular System: No r/m/g. RRR. Cap refill < 3 seconds, good pulses in all extremities Lungs/Respiratory System: clear to auscultation bilaterally. No increased work of breathing. Room air. Abdomen/Gastro-Intestinal System: non-tender, normal bowel sounds, no masses, no organomegaly Extremities: Warm extremities. No cyanosis or edema. Neuro: 4/5 strength in b/l LE, sensory abnormalities as well. No CN or UE defecits. Psychiatry: Awake, Alert and cooperative with exam Skin: No lesions, rashes, or ulcers Musculoskeletal: Full ROM, decreased strength in all extremities. FMR H&P: Results - Labs Result Diagrams: 08/19/18 21:31 08/19/18 21:31 Lab results: WBC 19.2 thou/uL (4.8-10.8) H 08/19/18 21:31 Hgb 11.7 g/dL (14.0-18.0) L 08/19/18 21:31 Hct 36.2 % (42.0-52.0) L 08/19/18 21:31 MCV 84.2 fL (78.0-98.0) 08/19/18 21:31 Plt Count 434 thou/uL (130-400) H 08/19/18 21:31 Sodium 139 mmol/L (136-145) 08/19/18 21:31 Potassium 3.6 mmol/L (3.5-5.1) 08/19/18 21:31 Chloride 104 mmol/L (98-107) 08/19/18 21:31 Carbon Dioxide 27 mmol/L (22-29) 08/19/18 21:31 BUN 22 mg/dL (8.9-20.6) H 08/19/18 21:31 Creatinine 0.83 mg/dL (0.7-1.3) 08/19/18 21: Glucose 112 mg/dL (70-105) H 08/19/18 21: Lactic Acid 0.7 mmol/L (0.5-2.2) 08/20/18 00:08 Calcium 9.8 mg/dL (7.8-10.44) 08/19/18 21: Total Bilirubin 0.3 mg/dL (0.2-1.2) 08/19/18 21: AST 13 U/L (5-34) 08/19/18 21: ALT 12 U/L (8-55) 08/19/18 21: Alkaline Phosphatase 71 U/L (40-150) 08/19/18 21: Serum Total Protein 6.8 g/dL (6.0-8.3) 08/19/18 21: Albumin 4.4 g/dL (3.5-5.0) 08/19/18 21:31 Urine Ketones Negative mg/dL (Negative) 08/19/18 23:31 Urine Blood Moderate (Negative) H 08/19/18 23:31 Urine Nitrite Negative (Negative) 08/19/18 23:31 Ur Leukocyte Esterase Small (Negative) H 08/19/18 23:31 Urine RBC GREATER THAN 50-TNTC HPF (0-3) H 08/19/18 23:31 Urine WBC 11-20 HPF (0-3) H 08/19/18 23:31 Ur Squamous Epith Cells 11-20 HPF (0-3) H 08/19/18 23:31 Urine Bacteria None Seen HPF (None Seen) 08/19/18 23:31 FMR H&P: A/P - Problem List (1) Constipation Current Visit: Yes Status: Acute Code(s): K59.00 - CONSTIPATION, UNSPECIFIED (2) Leukocytosis Current Visit: Yes Status: Acute Code(s): D72.829 - ELEVATED WHITE BLOOD CELL COUNT, UNSPECIFIED (3) Normocytic anemia Current Visit: No Status: Acute Code(s): D64.9 - ANEMIA, UNSPECIFIED Comment: s/p 2u PRBC's, continue PPI, serial H/H (4) Cauda equina syndrome Current Visit: No Status: Chronic Code(s): G83.4 - CAUDA EQUINA SYNDROME Comment: Associated with RLE weakness/paresis, consult Pain Mgmt service, consult Neurosurgical service for tx options (5) Urinary retention Current Visit: No Status: Chronic Code(s): R33.9 - RETENTION OF URINE, UNSPECIFIED FMR H&P: Upper Level - Plan Date/Time: 08/20/184 I, Zack Marcelo, have evaluated this patient and agree with findings/plan as outlined by pharmacy intern resident. Pertinent changes/additions are listed here. PROBLEM LISTANDPLAN: # Bowel Obstruction- Is on chronic pain medications and severely constipated on CT scan. Will give bowel stimulant and control pain. NPO, IVF. Check FOBT. Consider GI consult pending clinical course. Abnormal VS likely 2/2 pain and improve with pain control. # Hx/o Colon Ca with mass on CT- likely 2/2 hemorrhoids vs colitis vs malignancy. Colonoscopy 2mo ago with biopsy revealed no malignancy. Rectal exam performed by ED physician w/o stool palpated or prakash blood. # Lumbar Stenosis and Hx/o Cauda Eqina Syndrome- Will focus on pain control as he has had extensive w/u outpatient Continue steroids and neuropathic pain medications. # Leukocytosis- Possibly 2/2 Colitis vs UTI. Continue Rocephin and trend WBC. # Urinary Retention/BPH- Bundy in place for ~1month and replaced in ED. Outpatient urologist referral placed. Continue Flomax # Chronic Animia- On B12 an Folate and at baseline. will check FOBT to eliminate GI blood loss with hx/o ulcer and anemia. # FEN: Continue MIVF and regular diet with stool softner.
[2018-08-20] MEDS ORDERED: Ondansetron ODT 4 MG TAB PO PRN (01:48)
[2018-08-20] MEDS ORDERED: Acetaminophen 325 MG TAB PO PRN (01:48)
[2018-08-20] MEDS ORDERED: Ondansetron PF 4 MG/2 ML Vial IVP PRN (01:48)
[2018-08-20] MEDS ORDERED: Magnesium Citrate 300 ML BOT PO SCH (02:00)
[2018-08-20] MEDS: HYDROcodone/Acetaminophen 10/325 mg Tablet PO PRN ×2 (02:50→08:07)
[2018-08-20] MEDS: Sodium Chloride 0.9% 1,000 ML IV SCH ×4 (02:50→15:52)
[2018-08-20 03:44] VITALS: BMI 19.9
[2018-08-20] MEDS ORDERED: Fleet Enema 133 ML BOT PR SCH ×2 (04:00→10:30)
[2018-08-20] MEDS: Fentanyl 100 MCG/2 ML VIAL SLOW IVP PRN ×3 (04:43→13:49)
[2018-08-20 06:09] LABS: #Eosinphils 0.1 thou/uL (0.0-0.7); #Lymphocytes 2.1 thou/uL (1.20-3.40); #Monocytes 1.2 thou/uL (0.11-0.59); #Neutrophils 11.9 thou/uL (1.40-6.50); %Basophils 0.2 % (0.0-1.0); %Eosinophils 0.5 % (0.0-10.0); %Lymphocytes 13.7 % (21.0-51.0); %Neutrophils 77.6 % (42.0-75.0); Hemoglobin 10.9 g/dL (14.0-18.0); Mean Corpuscular HGB CONC 33.5 g/dL (32.0-36.0); Mean Corpuscular Hemoglobin 28.1 pg (27.0-31.0); Mean Platelet Volume 7.5 fL (7.4-10.4); Platelet Count 386 thou/uL (130-400); RBC Distribution Width 17.5 % (11.5-14.5); Red Blood Cell (RBC) Count 3.87 mill/uL (4.70-6.10); White Blood Cell (WBC) Count 15.3 thou/uL (4.8-10.8)
[2018-08-20 06:26] LABS: Anion Gap 9 mmol/L (10-20); BUN (Urea Nitrogen) 19 mg/dL (8.9-20.6); Calc. Creatinine Clearance 89 mL/min (70-130); Calcium 9.4 mg/dL (7.8-10.44); Carbon Dioxide 28 mmol/L (22-29); Chloride 103 mmol/L (98-107); Estimated GFR-MDRD Greater than 90; Glucose 102 mg/dL (70-105); Potassium 3.3 mmol/L (3.5-5.1); Sodium 137 mmol/L (136-145)
[2018-08-20] MEDS ORDERED: predniSONE 20 MG TAB PO SCH (08:00)
[2018-08-20] MEDS: Metoprolol Tartrate 25 MG TAB PO SCH ×2 (08:10→19:59)
[2018-08-20] MEDS: Gabapentin 300 MG CAP PO SCH ×3 (08:10→19:59)
[2018-08-20] MEDS: Docusate 100 MG CAP PO SCH ×2 (08:10→19:58)
[2018-08-20] MEDS: Enoxaparin Sodium 40 MG/0.4 ML SYRINGE SC SCH (08:10)
[2018-08-20] MEDS: Folic Acid 1 MG TAB PO SCH (08:10)
[2018-08-20] MEDS ORDERED: Prevnar 13-Val Conj/PF 0.5 ML SYRINGE IM ONE (09:00)
[2018-08-20] MEDS ORDERED: HYDROcodone/Acetaminophen 10/325 mg Tablet PO PRN (11:54)
[2018-08-20] MEDS: cefTRIAXone\\ROCEPHIN 1 GM in Sodium Chloride 0.9% 100 ML IVPB SCH (12:09)
--- NOTE | 2018-08-20 15:41 | HP ---
I have examined the patient. I have discussed the case with Dr. Zack Marcelo and agree with his assessment and plan. HISTORY OF PRESENT ILLNESS: Briefly, Mr. Souza is an unfortunate gentleman, who has a history of cauda equina syndrome, likely secondary to lumbar disk disease of several years' duration. He presented with some abdominal discomfort and constipation with no bowel movement for at least several days. He also takes pain medications for his other chronic conditions. PHYSICAL EXAMINATION: GENERAL: This morning, Mr. Souza is awake and alert. He appears to be in no acute distress. VITAL SIGNS: His blood pressure is 150/80, heart rate is 98, pulse ox on room air is 98%, respirations 18. Again, he is awake, alert, no distress. CARDIAC: Heart, rhythm regular. LUNGS: Clear. ABDOMEN: Slightly tender in the left lower quadrant, but there is no guarding, rebound, or rigidity. It is overall flat and soft. LABORATORY DATA: White count initially was 19,200, it is now 15,300, hemoglobin 11.7, and hematocrit 36.2. Electrolytes are normal. IMAGING STUDIES: Abdominal CT shows no evidence of bowel obstruction. ASSESSMENT: Ileus, likely secondary to cauda equina syndrome and narcotic analgesics. We will begin a bowel prep regimen and reducing his pain medications. Job ID: [id number]
[2018-08-20] MEDS ORDERED: Tamsulosin HCl 0.4 MG CAP PO SCH (21:00)
[2018-08-20] MEDS ORDERED: HYDROcodone/Acetaminophen 10/325 mg Tablet PO SCH (21:15)
[2018-08-20] MEDS ORDERED: Acetaminophen 325 MG TAB PO SCH (21:15)
[2018-08-20] MEDS: HYDROcodone/Acetaminophen 10/325 mg Tablet PO SCH (22:26)
[2018-08-20] MEDS: Acetaminophen 325 MG TAB PO SCH (22:26)
[2018-08-21] MEDS: HYDROcodone/Acetaminophen 10/325 mg Tablet PO SCH (03:49)
[2018-08-21] MEDS: Sodium Chloride 0.9% 1,000 ML IV SCH ×2 (03:49→08:00)
[2018-08-21] MEDS: Acetaminophen 325 MG TAB PO SCH ×2 (03:50→09:38)
--- NOTE | 2018-08-21 06:58 | PDOC.FM ---
- Subjective Subjective: pt reports frequent large volume bowel movements overnight, requesting imodium today. writhing in bed reporting significant leg pain, abdominal pain has improved. - Objective Vital Signs & Weight: Vital Signs (12 hours) Temp Pulse Resp BP Pulse Ox 08/20/18 20:15 98.4 F 98 16 144/85 H 99 08/20/18 20:00 99 Weight Admit Weight 57.805 kg Weight 57.805 kg I&O: 08/19/18 08/20/18 08/21/18 06:59 06:59 06:59 Intake Total 200 5322 Output Total 1700 Balance 200 3622 Result Diagrams: 08/20/18 05:14 08/20/18 05:14 Phys Exam - Physical Examination Constitutional: NAD HEENT: moist MMs Neck: full ROM Gastrointestinal: no distention Musculoskeletal: pulses present Neurological: moves all 4 limbs Psychiatric: normal affect Skin: no rash Dx/Plan (1) Constipation Code(s): K59.00 - CONSTIPATION, UNSPECIFIED Status: Acute (2) Leukocytosis Code(s): D72.829 - ELEVATED WHITE BLOOD CELL COUNT, UNSPECIFIED Status: Acute (3) Normocytic anemia Code(s): D64.9 - ANEMIA, UNSPECIFIED Status: Acute (4) Cauda equina syndrome Code(s): G83.4 - CAUDA EQUINA SYNDROME Status: Chronic (5) Hypertension Code(s): I10 - ESSENTIAL (PRIMARY) HYPERTENSION Status: Chronic - Plan Plan: Bowel Obstruction, resolved - chronic pain medications and severely constipated on CT scan. - start bowel regimen and control pain. - Advance diet, DC fluid Abnormal VS - likely 2/2 pain and improve with pain control. Hx/o Colon Ca with mass on CT- likely 2/2 hemorrhoids vs colitis vs malignancy - Colonoscopy 2mo ago with biopsy revealed no malignancy - Rectal exam performed by ED physician w/o stool palpated or prakash blood. - FOBT +, c/w above Lumbar Stenosis and Hx/o Cauda Eqina Syndrome - Will continue home meds for pain control as he has had extensive w/u outpatient - Continue steroids and neuropathic pain medications. Leukocytosis - Possibly 2/2 Colitis vs UTI - Continue Rocephin, downtrending WBC. Urinary Retention/BPH - Bundy in place for ~1month and replaced in ED. - Outpatient urologist referral placed - Continue Flomax Chronic Anemia - On B12 an Folate and at baseline - stable Hb code: full PCP: braulio ppx: jose miguel Dispo: DC later today
[2018-08-21] MEDS ORDERED: HYDROcodone/Acetaminophen 7.5/325 mg Tablet PO PRN ×2 (08:39)
[2018-08-21] MEDS: Gabapentin 300 MG CAP PO SCH (08:56)
[2018-08-21] MEDS: Folic Acid 1 MG TAB PO SCH (08:57)
[2018-08-21] MEDS: Metoprolol Tartrate 25 MG TAB PO SCH (08:57)
[2018-08-21] MEDS: Enoxaparin Sodium 40 MG/0.4 ML SYRINGE SC SCH (08:57)
[2018-08-21] MEDS: Docusate 100 MG CAP PO SCH (08:58)
[2018-08-21] MEDS ORDERED: predniSONE 20 MG TAB PO SCH (09:00)
[2018-08-21 11:54] VITALS: BP 147/85; TEMP 97.9
--- NOTE | 2018-08-21 12:46 | PRG ---
DATE OF SERVICE: 08/21/2018 Mr. Souza is much more comfortable this morning. He had several bowel movements yesterday. His abdomen is completely flat, benign, soft. He is having some chronic leg pain and we have reordered his pain medications. He will be discharged today on his usual pain medications, but we will add a bowel regimen to hopefully prevent future episodes of constipation. Job ID: [id number]
[2018-08-21] MEDS: cefTRIAXone\\ROCEPHIN 1 GM in Sodium Chloride 0.9% 100 ML IVPB SCH (13:38)
[2018-08-22] MEDS ORDERED: Polyethylene Glycol 3350 17 GM Packet PO SCH (09:00)
--- NOTE | 2018-08-22 13:51 | DIS ---
DATE OF ADMISSION: 08/20/2018 DATE OF DISCHARGE: 08/21/2018 ADMITTING ATTENDING: Noel Pelletier MD RESIDENT: Donald Monaco DO CONSULTS: None. PROCEDURES: None. IMAGING: Abdomen and pelvis CT significant for circumferential rectal mucosal thickening, cholelithiasis. DISCHARGE MEDICATIONS: 1. Metoprolol 25 mg p.o. b.i.d. 2. Dicyclomine 20 mg p.o. q.i.d. 3. Vitamin B12 p.o. daily. 4. Folic acid 1 mg p.o. daily. 5. Multivitamin one tab p.o. daily. 6. Flomax 0.4 mg p.o. at bedtime. 7. Gabapentin 300 mg p.o. t.i.d. 8. Prednisone 20 mg p.o. daily. 9. Omeprazole 20 mg p.o. daily. 10. Colace 100 mg p.o. b.i.d. 11. MiraLAX 17 g p.o. daily. PRIMARY DIAGNOSIS: Bowel obstruction, resolved. SECONDARY DIAGNOSES: 1. History of colon cancer with mass on CT. 2. Lumbar stenosis with history of cauda equina syndrome. 3. Leukocytosis. 4. Urinary retention/benign prostatic hyperplasia. 5. Chronic anemia. HISTORY OF PRESENT ILLNESS/HOSPITAL COURSE: Mr. Souza is a 47-year-old male, who presents with abdominal pain, reports not had a bowel movement in 10 days. He does have history of colon cancer, but had a colonoscopy 2 months ago that was normal. He has a followup with GI for this. He denies bloody stools. No fever, but reports chills. History of cauda equina syndrome with permanent neuropathic pain and monoplegia. He sees pain specialist as outpatient. The patient was found to have abnormal findings on CT scan including a large stool burden. Admitted to medical floor for monitoring, IV fluid rehydration, and bowel mobilization. The patient was given suppositories and bowel stimulants and had multiple bowel movements during his hospital stay. Reported that his pain was better. He was started on a bowel regimen and discharged on his regular pain medications for followup as directed by GI. DISCHARGE INSTRUCTIONS: 1. Location: Home. 2. Diet: Regular, high-fiber. 3. Activity: As tolerated. 4. Followup: Follow up with Dr. Gamble as scheduled appointment and PCP, Dr. Marcelo within 7 days. Job ID: [id number]
== END 2018-08-21 15:18 | disposition home or self-care (01) ==
LOC: ERS 21:06 → T4-B 08-20 01:20
PROVIDERS: ADMIT Student in an Organized Health Care Education/Training Program; ATTEND Student in an Organized Health Care Education/Training Program
DX: K56.609 Unspecified intestinal obstruction, unspecified as to partial versus complete obstruction (principal); K56.7 Ileus, unspecified; K59.00 Constipation, unspecified; F17.200 Nicotine dependence, unspecified, uncomplicated; D72.829 Elevated white blood cell count, unspecified; D64.9 Anemia, unspecified; G83.4 Cauda equina syndrome; R33.9 Retention of urine, unspecified; M48.061 Spinal stenosis, lumbar region without neurogenic claudication; N13.30 Unspecified hydronephrosis; K80.20 Calculus of gallbladder without cholecystitis without obstruction; Z85.038 Personal history of other malignant neoplasm of large intestine; Z79.52 Long term (current) use of systemic steroids; Z79.899 Other long term (current) drug therapy; Z90.49 Acquired absence of other specified parts of digestive tract; Z98.890 Other specified postprocedural states
CPT/HCPCS: 36415; 74019; 74177; 80048; 80053; 81003; 81015; 82274; 83605; 85025; 87040; 87086; 96361; 96366; 96372; 96374; 96375; 96376; G0378; J0696; J1650; J2405; J3010; J3490; J7512; Q9966

== ENCOUNTER 2018-09-16 10:05 | Day surgery (SDC) | payer OTHER ==
[2018-09-16] MEDS ORDERED: Morphine 4 MG/ML VIAL ONE (11:12)
[2018-09-16] MEDS ORDERED: PROPOFOL 200 MG/20 ML VIAL ONE (13:59)
--- NOTE | 2018-09-16 16:44 | OP ---
DATE OF PROCEDURE: 09/16/2018 TERRITORY DEVELOPMENT MANAGER SURGEON: None. PROCEDURES PERFORMED: 1. Esophagogastroduodenoscopy with biopsies. 2. Colonoscopy, incomplete, with biopsies. INDICATIONS: 1. Followup of the gastric ulcer visualized on EGD in June 2018. 2. Generalized abdominal pain. 3. Constipation. 4. Personal history of colon cancer, status post resection in 2004. Attempt at colonoscopy was made in June 2018, but that examination was incomplete secondary to poor bowel prep. At that time, there was some ulcerated mucosa around the ileocecal anastomosis with biopsies showing some cytologic atypia. There was also a patch of irregularity in the rectum, which was biopsied and came back benign, consistent with probable stercoral ulceration. MEDICATIONS: See Anesthesia record. FINDINGS: After discussion of the risks, benefits, and alternatives of the procedure, informed consent was obtained and witnessed. Pre-endoscopic cardiopulmonary examination was satisfactory. Time-out was performed before sedation was achieved. Sedation was achieved with Anesthesia assistance in the endoscopy unit. A Pentax adult upper endoscope was placed into the oropharynx and passed through the cricopharyngeus under direct visualization. The esophageal mucosa appeared normal throughout. There was no evidence of any esophagitis. The Z-line is irregular. The endoscope was advanced into the stomach. Forward and retroflexed views of the entire gastric mucosa were obtained. There was some mild friability and patchy erythema in the gastric antrum. Also in the gastric antrum in the pre-pyloric area, there is an approximately 4 to 5 mm clean based ulceration. This is a persistent finding from his recent EGD. The ulcer has not healed, but does appear benign and bland. Biopsies were obtained from the gastric antrum and body to rule out H pylori infection. The endoscope was advanced through the pylorus and into the first and second portions of the duodenum, which appeared normal. The upper endoscope was completely withdrawn and the patient was repositioned. Digital rectal exam was performed. The patient has some circumferential fibrosis or thickening palpated on digital rectal exam, within the rectal vault, but not really involving the anal opening. A Pentax adult colonoscope was inserted into the anus and passed forward in the usual fashion. Unfortunately, the quality of the bowel preparation is again poor. In fact, there was a significant amount of solid and particulate stool throughout the sigmoid colon, and I was unable to advance the endoscope beyond 25 cm from the anal verge. I was able to examine distal to this area including the entire rectum. Again visualized is a patch of fibrotic mucosa, which is quite irregular and friable. This probably represents a chronic stercoral ulceration with fibrosis. I did obtain repeat biopsies of this area for histology, to rule out any neoplastic process in the area. The colonoscope was then completely withdrawn and the patient allowed to recover. The patient tolerated the procedure well. There were no immediate postprocedure complications. IMPRESSION: 1. Follow up pathology on the gastric biopsies and the rectal biopsies. 2. Add pantoprazole 40 mg by mouth twice daily. I sent in a prescription for this. 3. Go up on the bowel regimen. I would increase the MiraLAX to 17 g to take twice daily. Continue with the stool softener as well. 4. Plan for clinic followup in about 1 month. At that time, we will need to discuss plan for repeat attempt at colonoscopy, given that the bowel preparation was again poor, and part of the reason for this exam was to re-examine the ileocolonic anastomosis area and obtain repeat biopsies, and we were unable to examine that area today. Job ID: [id number]
== END 2018-09-16 14:05 | disposition home or self-care (01) ==
LOC: SDC 10:05
PROVIDERS: ATTEND Internal Medicine
PROC: 0DBN8ZX Excision of Sigmoid Colon, Via Natural or Artificial Opening Endoscopic, Diagnostic (ICD-10-PCS; principal; 2018-09-16)
PROC: 0DBQ8ZX Excision of Anus, Via Natural or Artificial Opening Endoscopic, Diagnostic (ICD-10-PCS; principal; 2018-09-16)
PROC: 0DBP8ZX Excision of Rectum, Via Natural or Artificial Opening Endoscopic, Diagnostic (ICD-10-PCS; principal; 2018-09-16)
PROC: 0DB68ZX Excision of Stomach, Via Natural or Artificial Opening Endoscopic, Diagnostic (ICD-10-PCS; principal; 2018-09-16)
DX: K25.9 Gastric ulcer, unspecified as acute or chronic, without hemorrhage or perforation (principal); K29.50 Unspecified chronic gastritis without bleeding; K59.09 Other constipation; F17.200 Nicotine dependence, unspecified, uncomplicated; Z85.038 Personal history of other malignant neoplasm of large intestine
CPT/HCPCS: 88305; 88313; 88341; 88342; J2270; J2704

== ENCOUNTER 2018-09-27 17:10 | Inpatient (IN) | payer OTHER, MEDICARE, MEDICAID ==
[2018-09-27 17:56] LABS: #Basophils 0.1 thou/uL (0.0-0.2); #Eosinphils 0.4 thou/uL (0.0-0.7); #Lymphocytes 2.4 thou/uL (1.20-3.40); #Monocytes 0.8 thou/uL (0.11-0.59); %Basophils 1.2 % (0.0-1.0); %Eosinophils 4.6 % (0.0-10.0); %Monocytes 9.2 % (0.0-10.0); Hemoglobin 11.4 g/dL (14.0-18.0); Mean Corpuscular HGB CONC 33.1 g/dL (32.0-36.0); Mean Corpuscular Hemoglobin 27.9 pg (27.0-31.0); Mean Corpuscular Volume 84.4 fL (78.0-98.0); Mean Platelet Volume 8.2 fL (7.4-10.4); Platelet Count 327 thou/uL (130-400); RBC Distribution Width 16.8 % (11.5-14.5); Red Blood Cell (RBC) Count 4.09 mill/uL (4.70-6.10); White Blood Cell (WBC) Count 8.7 thou/uL (4.8-10.8)
[2018-09-27 18:19] LABS: ALT (SGPT) 8 U/L (8-55); AST (SGOT) 13 U/L (5-34); Albumin 4.4 g/dL (3.5-5.0); Alkaline Phosphatase 94 U/L (40-150); Anion Gap 13 mmol/L (10-20); BUN (Urea Nitrogen) 15 mg/dL (8.9-20.6); Bilirubin, Total 0.2 mg/dL (0.2-1.2); Calc. Creatinine Clearance 0 mL/min (70-130); Calcium 9.4 mg/dL (7.8-10.44); Carbon Dioxide 28 mmol/L (22-29); Chloride 102 mmol/L (98-107); Estimated GFR-MDRD 73; Globulin 2.7 g/dL (2.4-3.5); Glucose 90 mg/dL (70-105); Lipase 27 U/L (8-78); Potassium 3.9 mmol/L (3.5-5.1); Protein, Total 7.1 g/dL (6.0-8.3); Sodium 139 mmol/L (136-145)
--- NOTE | 2018-09-27 19:42 | CT ---
ABDOMEN CT WITH CONTRAST PELVIC CT WITH CONTRAST 09/27/18 HISTORY: Small bowel obstruction. COMPARISON: 08/19/18. FINDINGS: ABDOMEN CT: Scarring and atelectasis in the lung bases. Normal heart size. No significant pericardial fluid. Port al vein is patent. There is evidence of two separate gallstones without definite evidence of cholecys titis. Gallstones are in the neck of the gallbladder and measure approximately 1 to 1.3 cm. Liver, s pleen, pancreas and adrenal glands have appropriate attenuation and enhancement. No gastrohepatic, retrocrural or periportal lymphadenopathy. Decreased visceral fat limits evaluation for inflammatory change. Symmetric enhancement of the kidne ys. Persistent dilatation with severe hydronephrosis involving both intrarenal collecting systems, un changed from the prior examination. 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 Findings are similar to the previous examination. Limited evaluation of the alimentary canal by the lack of oral contrast. Stomach is decompressed. Duodenum is unremarkable. There are multiple flu id filled loops of small bowel predominantly in the right upper quadrant. A partial obstructive proce ss/early obstructive process cannot be excluded. Distal small bowel loops appear to be fluid filled b ut decompressed. Evaluation is limited by lack of oral contrast as well as the lack of visceral fat. There appears to be anastomosis of the right hemicolon with the small bowel, in the right lower quadr ant. Scattered fecal material throughout the colon, worrisome for constipation. There is mucosal thi ckening involving the distal descending colon and rectum. Correlate for possible proctitis. There is mild stranding of the presacral fat. CT PELVIS: There is a thickened urinary bladder. Bundy catheter is once again noted. There is no pelvic mass, l ymphadenopathy or free air. There is stranding of the presacral fat as well as fat around the rectum, unchanged from the previous exam. No lytic or blastic lesions in the osseous structures. IMPRESSION: 1. Prominent small bowel loops worrisome for a partial or early obstructive process. Continued s urveillance is recommended. 2. Evidence of a previous right hemicolectomy. 3. Copious amount of fecal material in the colon. Correlate for constipation. 4. There is persistent rectal mucosal thickening which may be due to infectious, inflammatory, o r malignant process. There is stranding of the presacral and perirectal fat. Correlate clinically. 5. 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 Findings are similar to the previous examination. 6. Redemonstration of cholelithiasis. POS: PPP
[2018-09-27 20:07] LABS: Bilirubin Negative (Negative); Blood, Urine Trace (Negative); Clarity CLOUDY (Clear); Glucose, Urine (Dipstick) Negative (Negative); Leukocyte Large (Negative); Nitrite Positive (Negative); Protein, Urine (Dipstick) 100 mg/dL (Neg-Trace); Urobilinogen 0.2 mg/dL (0.2-1.0)
[2018-09-27 20:09] LABS: Bacteria/HPF 4+ HPF (None Seen); Pathc Cast-AUWi Flag 2.17 (0-2.49); Squamous Epithelial None Seen HPF (0-3)
[2018-09-27 20:22] LABS: Hyaline Casts/LPF NONE SEEN LPF (0-3 Hyaline)
[2018-09-27] MEDS ORDERED: HYDROcodone/Acetaminophen 10/325 mg Tablet ONE (20:39)
[2018-09-27] MEDS ORDERED: Lidocaine 4% Topical Sol 50 ML BOT ONE (21:36)
[2018-09-27] MEDS ORDERED: Benzocaine 20% Spray 60 ML CAN ONE (21:36)
[2018-09-27] MEDS ORDERED: Labetalol HCl 100 MG/20 ML VIAL ONE (22:12)
[2018-09-27] MEDS ORDERED: Gabapentin 400 MG CAP PO SCH (22:15)
--- NOTE | 2018-09-27 22:26 | PDOC.FPRHP ---
- History of Present Illness Chief Complaint: Constipation History of Present Illness: 47 yo M w/hx of colon cancer, cauda equina syndrome, and opiate induced constipation here with complaint of constipation and abdominal pain. He was admitted for a similar presentation about 1 month ago. Since then he had a repeat colonoscopy which resulted in a biopsy positive for recurrent cancer at his anastomotic site. He notes that he has not had a BM since his colonoscopy on 09/16. He also notes that he has not been taking his BP meds for the past few days. PCP [facility] ED Course: CT in ED positive for large stool burden and fluid collection in small bowel concerning for obstructive process. Also noted was chronic hydronephrosis and cholelithiasis. - Allergies/Adverse Reactions Allergies Allergy/AdvReac Type Severity Reaction Status Date / Time No Known Allergies Allergy Verified 08/20/18 03:02 - Home Medications Medication Instructions Recorded Confirmed Type Dicyclomine HCl 20 mg PO QID 07/14/18 09/27/18 History Metoprolol Tartrate 25 mg PO BID 07/14/18 09/27/18 History Cyanocobalamin (Vitamin B-12) 1,000 mcg PO DAILY #30 tab 07/18/18 09/27/18 Rx [Vitamin B-12] Folic Acid [Folvite] 1 mg PO DAILY #30 tab 07/18/18 09/27/18 Rx Multivit, Therapeutic [Theragran] 1 tab PO DAILY tab 07/18/18 09/27/18 Rx Gabapentin [Neurontin] 1,200 mg PO TID 07/22/18 09/27/18 History Omeprazole 1 capsule PO DAILY 08/20/18 09/27/18 History Docusate [Colace] 100 mg PO BID #60 cap 08/21/18 09/27/18 Rx Polyethylene Glycol 3350 [Miralax] 17 gm PO DAILY #30 pk 08/21/18 09/27/18 Rx - History PMHx: Colon Ca HTN Cauda Equina Syndrome Urinary retention Anemia PSHx: s/p partial colectomy FHx: Non contributory Social: 1/2 ppd smoker No etoh No recreational drugs - Review of Systems General: denies: fever/chills, weight/appetite/sleep changes, night sweats Eyes: denies: vision changes ENT: denies: nasal congestion Respiratory: denies: cough, congestion, shortness of breath Cardiovascular: denies: chest pain, palpitation Gastrointestinal: reports: nausea, constipation, abdominal pain. denies: vomiting, diarrhea, GI bleeding Genitourinary: denies: dysuria Skin: denies: rashes Musculoskeletal: denies: pain, tenderness Neurological: reports: numbness (chronic LE numbness an foot drop) Psychological: denies: anxiety - Vital signs BP: 167/118, Pulse: 81, Resp: 18, Temp: 98.5 (Oral), Pain: 7, O2 sat: 98 on Room Air, Weight 55 kg - Physical Exam Constitutional: NAD, awake, alert and oriented HEENT: normocephalic and atraumatic, EOMI, conjunctiva clear Neck: trachea midline Chest: no-tender to palpation, no lesions Heart: RRR, normal S1/S2 Lungs: CTAB, no respiratory distress, good air movement -Abdomen: TTP in all quadrants. No distension or guarding. Decreased BS in LLQ, otherwise normal Musculoskeletal: normal structure, normal tone Neurological: CN II-XII intact -Neurological: R foot drop Skin: no rash/lesions, good turgor Heme/Lymphatic: no unusual bruising or bleeding Psychiatric: normal mood and affect, good judgment and insight FMR H&P: Results - Labs Result Diagrams: 09/27/18 17:36 09/27/18 17:36 Lab results: WBC 8.7 thou/uL (4.8-10.8) 09/27/18 17:36 Hgb 11.4 g/dL (14.0-18.0) L 09/27/18 17:36 Hct 34.5 % (42.0-52.0) L 09/27/18 17:36 MCV 84.4 fL (78.0-98.0) 09/27/18 17:36 Plt Count 327 thou/uL (130-400) 09/27/18 17:36 Neutrophils % 58.0 % (42.0-75.0) 09/27/18 17:36 Sodium 139 mmol/L (136-145) 09/27/18 17:36 Potassium 3.9 mmol/L (3.5-5.1) 09/27/18 17:36 Chloride 102 mmol/L (98-107) 09/27/18 17:36 Carbon Dioxide 28 mmol/L (22-29) 09/27/18 17:36 BUN 15 mg/dL (8.9-20.6) 09/27/18 17:36 Creatinine 1.08 mg/dL (0.7-1.3) 09/27/18 17:36 Glucose 90 mg/dL (70-105) 09/27/18 17:36 Calcium 9.4 mg/dL (7.8-10.44) 09/27/18 17:36 Total Bilirubin 0.2 mg/dL (0.2-1.2) 09/27/18 17:36 AST 13 U/L (5-34) 09/27/18 17:36 ALT 8 U/L (8-55) 09/27/18 17:36 Alkaline Phosphatase 94 U/L (40-150) 09/27/18 17:36 Serum Total Protein 7.1 g/dL (6.0-8.3) 09/27/18 17:36 Albumin 4.4 g/dL (3.5-5.0) 09/27/18 17:36 Lipase 27 U/L (8-78) 09/27/18 17:36 Urine Ketones Negative mg/dL (Negative) 09/27/18 18:45 Urine Blood Trace (Negative) H 09/27/18 18:45 Urine Nitrite Positive (Negative) H 09/27/18 18:45 Ur Leukocyte Esterase Large (Negative) H 09/27/18 18:45 Urine RBC 4-6 HPF (0-3) 09/27/18 18:45 Urine WBC Greater Than 50-TNTC HPF (0-3) H 09/27/18 18:45 Ur Squamous Epith Cells None Seen HPF (0-3) 09/27/18 18:45 Urine Bacteria 4+ HPF (None Seen) H 09/27/18 18:45 - Radiology Interpretation CT scan - abdomen Status: report reviewed by me FMR H&P: A/P - Problem List (1) Bowel obstruction Current Visit: Yes Status: Acute Code(s): K56.609 - UNSP INTESTNL OBST, UNSP TO PARTIAL VERSUS COMPLETE OBST (2) UTI (urinary tract infection) Current Visit: Yes Status: Acute (3) Colon cancer Current Visit: Yes Status: Acute Code(s): C18.9 - MALIGNANT NEOPLASM OF COLON, UNSPECIFIED (4) Cholelithiasis Current Visit: Yes Status: Chronic Code(s): K80.20 - CALCULUS OF GALLBLADDER W/O CHOLECYSTITIS W/O OBSTRUCTION (5) Constipation Current Visit: No Status: Chronic Code(s): K59.00 - CONSTIPATION, UNSPECIFIED (6) Normocytic anemia Current Visit: No Status: Chronic Code(s): D64.9 - ANEMIA, UNSPECIFIED Comment: s/p 2u PRBC's, continue PPI, serial H/H (7) Cauda equina syndrome Current Visit: No Status: Chronic Code(s): G83.4 - CAUDA EQUINA SYNDROME Comment: Associated with RLE weakness/paresis, consult Pain Mgmt service, consult Neurosurgical service for tx options (8) Hydroureteronephrosis Current Visit: No Status: Chronic Code(s): N13.30 - UNSPECIFIED HYDRONEPHROSIS Comment: Secondary to chronic neurogenic bladder with functional obstruction, [place] for decompression, consult Neurosurgery for surgical options (9) Hypertension Current Visit: No Status: Chronic Code(s): I10 - ESSENTIAL (PRIMARY) HYPERTENSION - Plan 1. Bowel obstruction secondary to opiate induced constipation - will admit for observation and start bowel regimen. Will start enema if needed - this is likely relate to opiates, however it is doubtful he will be able to stop them in outpt setting. Will need adjustment to home bowel regimen - NPO 2. UTI - will start rocephin. This is most likely related to chronic [place] - urine cultures pending 3. Colon cancer - recent biopsy c/w cancer. Pt will need follow up with GI 4. Cauda Equina syndrome - chronic. Continue home meds 5. HTN - restart home meds 6. Cholelithiasis - incidental finding. PE not c/w acute cholecystitis 7. Chronic normocytic anemia - stable. Continue home meds PPx Lovenox and SCD Diet NPO Code full Dispo - pt is stable. Would expect a 1-2 days observation.
[2018-09-27] MEDS ORDERED: Ondansetron ODT 4 MG TAB PO PRN (23:05)
[2018-09-27] MEDS ORDERED: Polyethylene Glycol 3350 17 GM Packet PO SCH (23:15)
[2018-09-27] MEDS: Sodium Chloride 0.9% 1,000 ML IV SCH (23:41)
[2018-09-27] MEDS ORDERED: Dicyclomine 20 MG TAB PO SCH (23:45)
[2018-09-28] MEDS: Senokot S 8.6-50 MG TAB PO SCH ×4 (00:04→20:43)
[2018-09-28] MEDS: cefTRIAXone\\ROCEPHIN 1 GM in Sodium Chloride 0.9% 100 ML IVPB SCH ×2 (00:05→23:40)
[2018-09-28] MEDS: HYDROcodone/Acetaminophen 10/325 mg Tablet PO PRN ×5 (00:16→23:40)
[2018-09-28 00:31] VITALS: BMI 19.4
[2018-09-28 06:27] LABS: #Basophils 0.1 thou/uL (0.0-0.2); #Eosinphils 0.3 thou/uL (0.0-0.7); #Lymphocytes 1.9 thou/uL (1.20-3.40); #Monocytes 0.9 thou/uL (0.11-0.59); %Basophils 0.7 % (0.0-1.0); %Eosinophils 3.5 % (0.0-10.0); %Lymphocytes 23.3 % (21.0-51.0); %Monocytes 10.4 % (0.0-10.0); %Neutrophils 62.1 % (42.0-75.0); Hemoglobin 10.4 g/dL (14.0-18.0); Mean Corpuscular HGB CONC 33.3 g/dL (32.0-36.0); Mean Corpuscular Hemoglobin 28.2 pg (27.0-31.0); Mean Corpuscular Volume 84.6 fL (78.0-98.0); Mean Platelet Volume 8.4 fL (7.4-10.4); Platelet Count 319 thou/uL (130-400); Red Blood Cell (RBC) Count 3.69 mill/uL (4.70-6.10); White Blood Cell (WBC) Count 8.1 thou/uL (4.8-10.8)
[2018-09-28 06:46] LABS: Anion Gap 10 mmol/L (10-20); BUN (Urea Nitrogen) 12 mg/dL (8.9-20.6); Calc. Creatinine Clearance 73 mL/min (70-130); Calcium 8.9 mg/dL (7.8-10.44); Carbon Dioxide 29 mmol/L (22-29); Chloride 106 mmol/L (98-107); Estimated GFR-MDRD 81; Glucose 83 mg/dL (70-105); Potassium 3.9 mmol/L (3.5-5.1); Sodium 141 mmol/L (136-145)
[2018-09-28] MEDS ORDERED: Magnesium Oxide 250 MG TAB PO SCH (07:30)
[2018-09-28] MEDS: Folic Acid 1 MG TAB PO SCH (08:35)
[2018-09-28] MEDS: Multivit, Therapeutic 1 TAB PO SCH (08:35)
[2018-09-28] MEDS: Dicyclomine 20 MG TAB PO SCH ×4 (08:35→20:43)
[2018-09-28] MEDS: Enoxaparin Sodium 30 MG/0.3 ML SYRINGE SC SCH (08:35)
[2018-09-28] MEDS: Gabapentin 300 MG CAP PO SCH ×3 (08:35→20:42)
[2018-09-28] MEDS: Polyethylene Glycol 3350 17 GM Packet PO SCH (08:35)
[2018-09-28] MEDS: Cyanocobalamin (Vitamin B-12) 1,000 MCG TAB PO SCH (08:35)
[2018-09-28] MEDS: Metoprolol Tartrate 25 MG TAB PO SCH ×2 (08:35→20:43)
[2018-09-28] MEDS: Sodium Chloride 0.9% 1,000 ML IV SCH ×2 (08:36→20:46)
[2018-09-28] MEDS ORDERED: Fleet Enema 133 ML BOT PR SCH (15:45)
--- NOTE | 2018-09-29 06:14 | PDOC.FM ---
- Subjective Subjective: Pt had a small BM last night following enema. Was advanced to normal diet last night. Pt at all of breakfast this morning. Abdominal pain has improved but is still diffusely present. States that his pain medications help relieve the pain. Notes concerns about his recent colon CA diagnosis. - Objective MAR Reviewed: Yes Vital Signs & Weight: Vital Signs (12 hours) Temp Pulse Resp BP Pulse Ox 09/29/18 04:40 97.8 F 88 18 144/93 H 95 09/29/18 00:00 98.0 F 69 18 148/87 H 94 L 09/28/18 20:34 97.3 F L 85 16 138/88 95 Weight Weight 56.382 kg I&O: 09/27/18 09/28/18 09/29/18 06:59 06:59 06:59 Intake Total 1121 4020 Output Total 1300 Balance -179 4020 Result Diagrams: 09/28/18 05:59 09/28/18 05:59 Phys Exam - Physical Examination HEENT: moist MMs poor dentition Respiratory: no wheezing, no rales, clear to auscultation bilateral Cardiovascular: RRR, no significant murmur Gastrointestinal: soft, positive bowel sounds diffusely tender in all quadrants, mild distension Musculoskeletal: no edema Neurological: non-focal, moves all 4 limbs Psychiatric: normal affect, A&O x 3 Dx/Plan (1) Bowel obstruction Code(s): K56.609 - UNSP INTESTNL OBST, UNSP TO PARTIAL VERSUS COMPLETE OBST Status: Acute (2) Colon cancer Code(s): C18.9 - MALIGNANT NEOPLASM OF COLON, UNSPECIFIED Status: Acute (3) UTI (urinary tract infection) Status: Acute (4) Cholelithiasis Code(s): K80.20 - CALCULUS OF GALLBLADDER W/O CHOLECYSTITIS W/O OBSTRUCTION Status: Chronic (5) Normocytic anemia Code(s): D64.9 - ANEMIA, UNSPECIFIED Status: Chronic - Plan Plan: 1. Bowel obstruction secondary to opiate induced constipation - this is likely relate to opiates, however it is doubtful he will be able to stop them in outpt setting. Will need adjustment to home bowel regimen - repeat enema today if no additional bm's in the am - diet advanced as tolerated, full diet currently - will continue bowel regimen and enemas, will add lactulose 2. UTI - Continue rocephin. This is most likely related to chronic [place] - urine cultures pending 3. Colon cancer - recent biopsy c/w cancer. Pt will need follow up with GI - pt is being referred to [facility] by GI 4. Cauda Equina syndrome - chronic. Continue home meds 5. HTN - continue home meds 6. Cholelithiasis - incidental finding. PE not c/w acute cholecystitis 7. Chronic normocytic anemia - stable. Continue home meds Addendum - Attending - Attending Attestation Date/Time: 09/29/18 7434 I personally evaluated the patient and discussed the management with Dr. Hidalgo and Lisa. I agree with the History, Examination, Assessment and Plan documented above with any addition or exceptions noted below. Will add lactulose to help with constipation. Continue other bowel regimen meds. Will touch base with Dr. Vasquez to get an update on next plans for treatment of colon cancer.
[2018-09-29] MEDS: Sodium Chloride 0.9% 1,000 ML IV SCH ×3 (07:22→22:02)
[2018-09-29] MEDS: Polyethylene Glycol 3350 17 GM Packet PO SCH (07:23)
[2018-09-29] MEDS: Gabapentin 300 MG CAP PO SCH ×2 (07:23→17:36)
[2018-09-29] MEDS: HYDROcodone/Acetaminophen 10/325 mg Tablet PO PRN ×3 (07:24→21:06)
[2018-09-29] MEDS: Dicyclomine 20 MG TAB PO SCH ×4 (07:25→21:04)
[2018-09-29] MEDS: Multivit, Therapeutic 1 TAB PO SCH (07:25)
[2018-09-29] MEDS: Cyanocobalamin (Vitamin B-12) 1,000 MCG TAB PO SCH (07:25)
[2018-09-29] MEDS: Senokot S 8.6-50 MG TAB PO SCH ×2 (07:25→21:12)
[2018-09-29] MEDS: Folic Acid 1 MG TAB PO SCH (07:25)
[2018-09-29] MEDS: Enoxaparin Sodium 30 MG/0.3 ML SYRINGE SC SCH (07:25)
[2018-09-29] MEDS: Metoprolol Tartrate 25 MG TAB PO SCH ×2 (07:25→21:05)
--- NOTE | 2018-09-29 08:46 | HP ---
ADDENDUM: An addendum to the history and physical. Please see the history and physical done by Dr. Kohli for which I agree. The patient was seen, evaluated, and discussed with the residents by bedside. HISTORY OF PRESENT ILLNESS: This is a 47-year-old white male who over a decade ago was diagnosed with colon cancer, but has had some chronic constipation, thought to be narcotic induced because he has cauda equina syndrome from severe spinal stenosis. In the workup of that, they did a colonoscopy and found unfortunately recurrence of cancer. 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 He is not a candidate for something like Relistor secondary to high risk of obstruction but comes in with increasing abdominal pain and nausea. CT showed a possibility of right-sided small bowel obstruction. At home, was not really taking medicines that he was supposed to be taking including blood pressure pills or MiraLAX, etc. He did not need an NG tube or anything like that and overnight, no major changes in mental status, complaints of some pain. ALLERGIES: ALL PER THE RESIDENTS HISTORY AND PHYSICAL. HOME MEDICATIONS: All per the residents history and physical. PAST MEDICAL HISTORY: All per the residents history and physical. PAST SURGICAL HISTORY: All per the residents history and physical. FAMILY HISTORY: All per the residents history and physical. SOCIAL HISTORY: All per the residents history and physical. REVIEW OF SYSTEMS: All per the residents history and physical. PHYSICAL EXAMINATION: VITAL SIGNS: Initial blood pressure is extremely elevated because he is off his medicines and he states he was in some pain, but now it is coming better. Alert orient x3. No apparent distress, fairly thin. ENT: Conjunctivae not pale. Sclerae anicteric. Moist mucosa. NECK: No lymphadenopathy or thyromegaly. CHEST: Clear. HEART: Regular rate and rhythm. ABDOMEN: Not really tender. Has normal bowel sounds. Soft. EXTREMITIES: Show no edema. LABORATORY DATA: Initial blood workup; hemoglobin little bit low at 11.4, normal white count, normal chemistries. Otherwise CT of the abdomen did show possible bowel obstruction. Did show a lot of fecal material in the colon and a clear anastomosis site on the right side from previous surgeries. ASSESSMENT: Partial bowel obstruction, pretty mild. PLAN: 1. Plan is to start off clear liquids and advance diet as tolerated. Continue MiraLAX. May need to do dulcolax enemas or suppositories to get him going. He does not seem to be a candidate for Relistor or similar bowel anti-opiates because of obstruction risk. Opinion to get GI involved again. 2. Colon cancer sounds like were getting him set up for [facility] to further evaluate. 3. Chronic urinary obstruction from cauda equina syndrome. He has a Bundy and things are stable. I think we will put him on antibiotic as it did look fairly infected. 4. Cauda equina syndrome. Continue home pain medicines. Job ID: [id number]
[2018-09-29] MEDS ORDERED: Gabapentin 400 MG CAP PO SCH (15:15)
[2018-09-29] MEDS: Gabapentin 400 MG CAP PO SCH (21:06)
[2018-09-29] MEDS: cefTRIAXone\\ROCEPHIN 1 GM in Sodium Chloride 0.9% 100 ML IVPB SCH (23:58)
[2018-09-30] MEDS: HYDROcodone/Acetaminophen 10/325 mg Tablet PO PRN ×2 (04:24→08:18)
--- NOTE | 2018-09-30 05:52 | PDOC.FM ---
- Subjective Subjective: Pt was seen ambulating around the unit without difficulty. He passed 7 stools over the night after administration of lactulose. States he is feeling much better today and has an increased appetite, tolerating PO. Denies any abdominal pain at this time. - Objective MAR Reviewed: Yes Vital Signs & Weight: Vital Signs (12 hours) Temp Pulse Resp BP Pulse Ox 09/30/18 04:00 98.1 F 80 18 166/88 H 96 09/30/18 00:00 97.9 F 75 18 155/89 H 96 09/29/18 21:01 97 09/29/18 19:29 97.7 F 76 18 157/98 H 97 09/29/18 18:18 98.0 F 82 18 140/84 95 Weight Admit Weight 56.382 kg Weight 56.382 kg I&O: 09/28/18 09/29/18 09/30/18 06:59 06:59 06:59 Intake Total 1121 8261 4010 Output Total 1300 3200 4950 Balance -179 5061 -940 Result Diagrams: 09/28/18 05:59 09/28/18 05:59 Phys Exam - Physical Examination Constitutional: NAD HEENT: moist MMs Neck: full ROM Respiratory: no wheezing, clear to auscultation bilateral Cardiovascular: RRR, no significant murmur Gastrointestinal: soft, non-tender, no distention, positive bowel sounds Musculoskeletal: no edema, pulses present Neurological: non-focal, moves all 4 limbs Psychiatric: normal affect, A&O x 3 Dx/Plan (1) Bowel obstruction Code(s): K56.609 - UNSP INTESTNL OBST, UNSP TO PARTIAL VERSUS COMPLETE OBST Status: Resolved (2) Colon cancer Code(s): C18.9 - MALIGNANT NEOPLASM OF COLON, UNSPECIFIED Status: Acute (3) UTI (urinary tract infection) Status: Acute (4) Cholelithiasis Code(s): K80.20 - CALCULUS OF GALLBLADDER W/O CHOLECYSTITIS W/O OBSTRUCTION Status: Chronic (5) Constipation Code(s): K59.00 - CONSTIPATION, UNSPECIFIED Status: Chronic - Plan Plan: 1. Bowel obstruction secondary to opiate induced constipation - resolved after administration of lactulose - this is likely relate to opiates, however it is doubtful he will be able to stop them in outpt setting. Will need adjustment to home bowel regimen - diet advanced as tolerated, full diet currently 2. UTI - This is most likely related to chronic cov[place] - Change abx to oral - Bactrim for 4 additional days 3. Colon cancer - recent biopsy c/w cancer. Pt will need follow up with GI, Dr. Vasquez - pt is being referred to [facility] by GI 4. Cauda Equina syndrome - chronic. Continue home meds 5. HTN - continue home meds 6. Cholelithiasis - incidental finding. PE not c/w acute cholecystitis 7. Chronic normocytic anemia - stable. Continue home meds Dispo: Stable, presenting problem resolved Discharge to home today Addendum - Attending - Attending Attestation Date/Time: 09/30/18 1241 I personally evaluated the patient and discussed the management with Dr. Gonzalez. I agree with the History, Examination, Assessment and Plan documented above with any addition or exceptions noted below. The patient has had multiple bowel movements. He is feeling better. Will d/c home on antibiotics for uti. He is going to schedule outpt appt with GI.
[2018-09-30 07:34] VITALS: BP 163/115; TEMP 97.9
[2018-09-30] MEDS: Gabapentin 400 MG CAP PO SCH (08:16)
[2018-09-30] MEDS: Multivit, Therapeutic 1 TAB PO SCH (08:17)
[2018-09-30] MEDS: Folic Acid 1 MG TAB PO SCH (08:17)
[2018-09-30] MEDS: Metoprolol Tartrate 25 MG TAB PO SCH (08:17)
[2018-09-30] MEDS: Senokot S 8.6-50 MG TAB PO SCH (08:17)
[2018-09-30] MEDS: Dicyclomine 20 MG TAB PO SCH ×2 (08:17→11:49)
[2018-09-30] MEDS: Cyanocobalamin (Vitamin B-12) 1,000 MCG TAB PO SCH (08:17)
[2018-09-30] MEDS: Enoxaparin Sodium 30 MG/0.3 ML SYRINGE SC SCH (08:20)
[2018-09-30] MEDS: Polyethylene Glycol 3350 17 GM Packet PO SCH (08:24)
--- NOTE | 2018-09-30 14:47 | DIS ---
DATE OF ADMISSION: 09/29/2018 DATE OF DISCHARGE: 09/30/2018 RESIDENT: Duane Gonzalez DO. ADMITTING ATTENDING: Dr. Gordo Pederson. DISCHARGE ATTENDING: Dr. Seema Simon. CONSULTS: Physical Therapy and Occupational Therapy. IMAGING: Abdomen/Pelvis w/ contrast Impression; prominent small bowel loops, worrisome for partial or early obstructive process. Continued surveillance is recommended. Evidence of previous right hemicolectomy. Copious amount of fecal material in the colon, correlate with constipation. There is persistent rectal mucosal thickening, which may be due to infectious, inflammatory, or malignant process. There is stranding of the presacral and perirectal fat, correlate clinically. 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 Findings are similar to the previous exam. Re-demonstration of cholelithiasis. PRIMARY DIAGNOSES: 1. Partial small bowel obstruction. 2. Recurrent colon cancer. 3. Urinary tract infection, chronic Bundy catheterization due to neurogenic bladder. SECONDARY DIAGNOSES: 1. Cholelithiasis. 2. Chronic constipation. 3. Hypertension. DISCHARGE MEDICATIONS: 1. Gabapentin 1200 mg p.o. t.i.d. 2. [place] 10/325 two p.o. q.6 hours p.r.n. 3. Folic acid 1 mg p.o. daily. 4. Metoprolol 25 mg. p.o. b.i.d. 5. Multivitamin one tablet daily. 6. MiraLAX 17 g p.o. daily. 7. Senna/docusate 8.6 mg/50 mg one tablet p.o. b.i.d. 8. Bactrim DS 1 p.o. b.i.d. for 5 days. 9. Dicyclomine 20 mg p.o. q.i.d. 10. Vitamin B12, 1000 mcg p.o. daily. HISTORY OF PRESENT ILLNESS AND HOSPITAL COURSE: A 47-year-old male with history of colon cancer, cauda equina syndrome, and opiate-induced constipation, who is here for a complaint of constipation and abdominal pain. He was admitted for similar presentation about 1 month ago. Since then, he had a repeat colonoscopy, which resulted in a biopsy, positive for recurrent cancer at his anastomotic site. He has not had a bowel movement since his colonoscopy on 09/16. He also notes that he has not been taking the BP meds for the past few days. CT in the ED was positive for the large stool burden and fluid collection in the small bowel, concerning for obstructive process. Also noted chronic hydronephrosis and cholelithiasis as incidental findings. The patient was admitted to observation and started on a bowel regimen. It was determined that the patient's chronic constipation was likely due to his chronic opiate use for chronic pain, which the patient would be unlikely to stop in the near future. Initial lab values were acceptable aside from a urine that resulted with a large leukocyte esterase, nitrites, and protein, as well as bacteria. The patient is a chronic Bundy catheter user secondary to neurogenic bladder due to his history of cauda equina syndrome. The patient was started on IV Rocephin to treat his UTI. On second day of admission, the patient had continued abdominal pain with meals and had not had any bowel movements even with use of enemas and continuous bowel regimen. So, the patient was then transferred to inpatient. On the subsequent day, the patient was started on lactulose with continued bowel regimen of MiraLAX and senna. Over the course of the next night, the patient had 12 bowel movements. The following morning, he stated that his abdominal pain was greatly improved and he was tolerating a full diet without any complications. The patient was recommended to continue an at-home bowel regimen to decrease the likelihood of recurrence of his bowel obstruction and to reduce complications of his chronic constipation. The patient was also recommended to follow up with his GI specialist, Dr. Vasquez to further coordinate his treatment of his newly diagnosed recurrent colon cancer. The patient's vitals and labs remained stable throughout his stay. The patient will be discharged on Bactrim DS for an additional 5 days to fully treat his UTI. DISPOSITION: Stable. DISCHARGE INSTRUCTIONS: 1. Location, home. 2. Diet, as tolerated. No restrictions. 3. Activity, as tolerated. No restrictions. FOLLOWUP: Follow up with [facility] as his PCP within the next 7 days. Also follow up with [facility] as recommended. Job ID: [id number] MTDD
== END 2018-09-30 12:50 | disposition home or self-care (01) | DRG 389 ==
LOC: ERS 17:10 → T4-B 23:09 → OBSVTOIN 09-29 14:45
PROVIDERS: ADMIT Family Medicine; ATTEND Family Medicine
DX: K56.600 Partial intestinal obstruction, unspecified as to cause (principal); G83.4 Cauda equina syndrome; N13.6 Pyonephrosis; C18.9 Malignant neoplasm of colon, unspecified; K59.03 Drug induced constipation; I10 Essential (primary) hypertension; D64.9 Anemia, unspecified; F17.210 Nicotine dependence, cigarettes, uncomplicated; K80.20 Calculus of gallbladder without cholecystitis without obstruction; T40.605A Adverse effect of unspecified narcotics, initial encounter; Z90.49 Acquired absence of other specified parts of digestive tract
CPT/HCPCS: 36415; 74177; 80048; 80053; 81003; 81015; 83690; 85025; 96361; 96374; J0696; J1650; J3490; Q0162; Q9966

== ENCOUNTER 2018-10-14 22:48 | Inpatient (IN) | payer MEDICARE, MEDICAID ==
[~2018-10-14 22:48] MED LIST changes: -ISOVUE-370 76%-LOCM 1 ML ONE; +Iopamidol 370 76% 100 ML VIAL ONE
[2018-10-14] MEDS ORDERED: Ondansetron PF 4 MG/2 ML Vial ONE (23:17)
[2018-10-14] MEDS ORDERED: Morphine 4 MG/ML VIAL ONE (23:17)
[2018-10-14 23:30] LABS: #Basophils 0.1 thou/uL (0.0-0.2); #Eosinphils 0.3 thou/uL (0.0-0.7); #Lymphocytes 1.7 thou/uL (1.20-3.40); #Neutrophils 11.1 thou/uL (1.40-6.50); %Basophils 0.4 % (0.0-1.0); %Monocytes 7.3 % (0.0-10.0); %Neutrophils 78.3 % (42.0-75.0); Hemoglobin 11.3 g/dL (14.0-18.0); Mean Corpuscular HGB CONC 33.1 g/dL (32.0-36.0); Mean Corpuscular Hemoglobin 27.7 pg (27.0-31.0); Mean Corpuscular Volume 83.6 fL (78.0-98.0); Mean Platelet Volume 8.2 fL (7.4-10.4); Platelet Count 359 thou/uL (130-400); RBC Distribution Width 16.7 % (11.5-14.5); Red Blood Cell (RBC) Count 4.07 mill/uL (4.70-6.10); White Blood Cell (WBC) Count 14.2 thou/uL (4.8-10.8)
[2018-10-14 23:51] LABS: ALT (SGPT) 8 U/L (8-55); AST (SGOT) 18 U/L (5-34); Albumin 3.8 g/dL (3.5-5.0); Alkaline Phosphatase 116 U/L (40-150); Anion Gap 19 mmol/L (10-20); BUN (Urea Nitrogen) 69 mg/dL (8.9-20.6); Bilirubin, Total 0.3 mg/dL (0.2-1.2); Calc. Creatinine Clearance 0 mL/min (70-130); Calcium 9.2 mg/dL (7.8-10.44); Carbon Dioxide 18 mmol/L (22-29); Chloride 98 mmol/L (98-107); Estimated GFR-MDRD 6; Globulin 2.8 g/dL (2.4-3.5); Glucose 102 mg/dL (70-105); Lipase 18 U/L (8-78); Protein, Total 6.6 g/dL (6.0-8.3); Sodium 128 mmol/L (136-145)
[2018-10-14 23:55] LABS: Potassium 7.2 mmol/L (3.5-5.1)
--- NOTE | 2018-10-14 23:58 | CT ---
EXAM: CT Abdomen Pelvis W Con PROVIDED CLINICAL HISTORY: Abdominal pain COMPARISON: 09/27/2018 FINDINGS: The visualized lung bases are free of significant opacity. The liver, spleen, pancreas and adrenal glands demonstrate an unremarkable CT appearance. Persistent severe bilateral hydronephrosis with delayed nephrogram on the right. Marked urinary bladd er wall thickening with urinary bladder catheter noted in place. Persistent rectal mucosal thickening. Extensive colonic fecal retention. No evidence for small bowel obstruction. Postoperative changes involving the right colon are redemonstrated. The gallbladder appears distended. Gallstones are noted. There is no free fluid or free air apparent. The osseous structures demonstrate no concerning lytic or blastic lesions. IMPRESSION: 1. Severe bilateral hydronephrosis with delayed nephrogram on the right. No definite etiology is evid ent though there is prominent diffuse bladder wall thickening. 2. Persistent mural thickening involving the rectum with conspicuous colonic fecal retention. The pos sibility of a partially obstructing rectal lesion should be considered. 3. Distended gallbladder and gallstones.
[2018-10-15] MEDS ORDERED: Dextrose 50% Abboject 50 ML SYRINGE ONE (00:01)
[2018-10-15] MEDS ORDERED: Calcium Chloride 1 GM/10 ML Abboject SYRINGE ONE ×2 (00:01→00:03)
[2018-10-15] MEDS ORDERED: Insulin Regular 300 UNITS/3 ML VIAL ONE (00:04)
[2018-10-15 00:41] LABS: Bacteria/HPF None Seen HPF (None Seen); Bilirubin Negative (Negative); Blood, Urine Trace (Negative); Clarity Clear (Clear); Glucose, Urine (Dipstick) Normal (Negative); Leukocyte 250 Leu/uL (Negative); Nitrite Negative (Negative); Protein, Urine (Dipstick) 70 mg/dL (Neg-Trace); RBC/HPF 0-3 HPF (0-3); Squamous Epithelial 0-3 HPF (0-3); Urobilinogen Normal mg/dL (Less than 2)
[2018-10-15] MEDS ORDERED: Fentanyl 100 MCG/2 ML VIAL ONE (00:56)
[2018-10-15 01:57] VITALS: BMI 22.2
[2018-10-15] MEDS ORDERED: Dextrose 5 % And 0.9 % NaCl 1,000 ML IV SCH (02:00)
[2018-10-15] MEDS ORDERED: Senokot S 8.6-50 MG TAB PO PRN (02:46)
[2018-10-15] MEDS ORDERED: Ondansetron ODT 4 MG TAB PO PRN (03:03)
--- NOTE | 2018-10-15 03:21 | PDOC.FPRHP ---
- History of Present Illness Chief Complaint: Right-sided abdominal pain History of Present Illness: Patient is a 47M with a PMHx of recurrent colon cancer s/p partial colectomy, cauda equina syndrome with chronic indwelling covington catheter, chronic opiate use associated with constipation, and anemia. Patient presented complaining of R-sided abdominal pain that is described as sharp and stabbing in nature that radiates to his back. He states that he has had similar pain chronically, but the pain began worsening within the last three days. He reports of associated n/v, constipation with thin stools, and decreased urine output with maintained fluid intake. He denies hematochezia, melena, or hematemesis. He states his last BM was yesterday. He has had an indwelling covington catheter for the past three months, which he states he has only changed once and this was during his last hospital admission on 09/27 for SBO. Denies dysuria, hematuria. Denies chest pain, SOB. Endorses generalized weakness. Patient endorses nerve pain and weakness of his right lower extremity. He uses a walker to ambulate. ED Course: EKG: Peaked T waves, CO 198, QRS 106, QTc 425 CT abdomen/pelvis: -severe bilateral hydronephrosis with delayed nephrogram on the right. Prominent diffuse bladder wall thickening -persistent mural thickening involving the rectum with conspicuous colonic fecal retention. Possibility of partially obstructing rectal lesion should be considered -distended gallbladder and gallstones Labs notable for: WBC 14.2 H/H 11.3/34.1 Lipase 18 wnl Sodium 128 Potassium 7.2 Carbon Dioxide 18 BUN 69 Creatinine 8.82 UA: 250 leukocytes, trace blood Patient started on lactulose, kayexalate, sodium bicarb, D5, humalin, calcium chloride, fentanyl, morphine, ondansetron, 1000ml NS Flushed covington catheter - Allergies/Adverse Reactions Allergies Allergy/AdvReac Type Severity Reaction Status Date / Time No Known Allergies Allergy Verified 10/15/18 01:59 - Home Medications Medication Instructions Recorded Confirmed Type Gabapentin [Neurontin] 1,200 mg PO TID 07/22/18 10/15/18 History Metoprolol Tartrate 25 mg PO BID #60 tablet 09/28/18 10/15/18 Rx HYDROcodone Bit/APAP 10/325 [[place]] 2 tab PO Q6H PRN 10/15/18 10/15/18 History Sennosides/Docusate Sodium 1 tab PO BID PRN 10/15/18 10/15/18 History [Senokot S] - History PMHx: colon cancer s/p partial colectomy cauda equina syndrome with indwelling catheter opiate induced constipation anemia PSHx: partial colectomy, appendectomy FHx: mother of ovarian cancer brother of cardiac arrest during dialysis Social: smokes 1/2 ppd no etoh no drugs - Review of Systems General: reports: fatigue Gastrointestinal: reports: nausea, vomiting, constipation, abdominal pain Genitourinary: reports: incontinence (has indwelling covington catheter) Neurological: reports: weakness (right leg affected by cauda equina, uses walker ) - Vital signs BP: [169/95] HR: [103] RR: [18] Tmax: [98.3] Pox: [97]% on [RA] - Physical Exam Constitutional: awake, alert and oriented HEENT: normocephalic and atraumatic, EOMI, MMM Neck: supple Chest: no-tender to palpation Heart: RRR, normal S1/S2, no murmurs/rubs/gallops, pulses present, no edema Lungs: CTAB, no respiratory distress, good air movement, no rales/rhonchi, no wheezing Abdomen: bowel sounds present, other (tenderness to palpation over right upper and lower quadrants, guarding) Musculoskeletal: normal structure Neurological: other (right leg weakness) Skin: no rash/lesions Psychiatric: normal mood and affect, good judgment and insight, intact recent and remote memory FMR H&P: Results - Labs Result Diagrams: 10/16/18 04:24 10/16/18 04:24 Lab results: WBC 14.2 thou/uL (4.8-10.8) H 10/14/18 23:15 Hgb 11.3 g/dL (14.0-18.0) L 10/14/18 23:15 Hct 34.1 % (42.0-52.0) L 10/14/18 23:15 MCV 83.6 fL (78.0-98.0) 10/14/18 23:15 Plt Count 359 thou/uL (130-400) 10/14/18 23:15 Neutrophils % 78.3 % (42.0-75.0) H 10/14/18 23:15 Sodium 128 mmol/L (136-145) L 10/14/18 23:15 Potassium 7.2 mmol/L (3.5-5.1) H* 10/14/18 23:15 Chloride 98 mmol/L (98-107) 10/14/18 23:15 Carbon Dioxide 18 mmol/L (22-29) L 10/14/18 23:15 BUN 69 mg/dL (8.9-20.6) H 10/14/18 23:15 Creatinine 8.82 mg/dL (0.7-1.3) H 10/14/18 23:15 Glucose 102 mg/dL (70-105) 10/14/18 23:15 Calcium 9.2 mg/dL (7.8-10.44) 10/14/18 23:15 Total Bilirubin 0.3 mg/dL (0.2-1.2) 10/14/18 23:15 AST 18 U/L (5-34) 10/14/18 23:15 ALT 8 U/L (8-55) 10/14/18 23:15 Alkaline Phosphatase 116 U/L (40-150) 10/14/18 23:15 Serum Total Protein 6.6 g/dL (6.0-8.3) 10/14/18 23:15 Albumin 3.8 g/dL (3.5-5.0) 10/14/18 23:15 Lipase 18 U/L (8-78) 10/14/18 23:15 Urine Ketones Negative mg/dL (Negative) 10/15/18 00:19 Urine Blood Trace (Negative) A 10/15/18 00:19 Urine Nitrite Negative (Negative) 10/15/18 00:19 Ur Leukocyte Esterase 250 [place]/uL (Negative) A 10/15/18 00:19 Urine RBC 0-3 HPF (0-3) 10/15/18 00:19 Urine WBC 7-10 HPF (0-3) A 10/15/18 00:19 Ur Squamous Epith Cells 0-3 HPF (0-3) 10/15/18 00:19 Urine Bacteria None Seen HPF (None Seen) 10/15/18 00:19 - EKG Interpretation EKG: EKG: Peaked T waves, CO 198, QRS 106, QTc 425 - Radiology Interpretation CT scan - abdomen Status: report reviewed by me Additional comment: CT abdomen: -severe bilateral hydronephrosis with delayed nephrogram on the right. Prominent diffuse bladder wall thickening -distended gallbladder and gallstones CT scan - pelvis Status: report reviewed by me Additional comment: CT pelvis: -persistent mural thickening involving the rectum with conspicuous colonic fecal retention. Possibility of partially obstructing rectal lesion should be considered FMR H&P: A/P - Problem List (1) Hydroureteronephrosis Current Visit: No Status: Chronic Code(s): N13.30 - UNSPECIFIED HYDRONEPHROSIS Comment: Secondary to chronic neurogenic bladder with functional obstruction, Covington for decompression, consult Neurosurgery for surgical options (2) Acute kidney failure Current Visit: Yes Status: Acute (3) Hyperkalemia Current Visit: No Status: Acute Code(s): E87.5 - HYPERKALEMIA Comment: Mild elevation, continue IVF's, serial K+ monitoring, secondary to #1, limit K+ exposure (4) Hyponatremia Current Visit: Yes Status: Acute Code(s): E87.1 - HYPO-OSMOLALITY AND HYPONATREMIA (5) Colon cancer Current Visit: No Status: Acute Code(s): C18.9 - MALIGNANT NEOPLASM OF COLON , UNSPECIFIED (6) Chronic use of opiate for therapeutic purpose Current Visit: Yes Status: Acute Code(s): Z79.891 - DETENTION (CURRENT) USE OF OPIATE ANALGESIC (7) Leukocytosis Current Visit: No Status: Acute Code(s): D72.829 - ELEVATED WHITE BLOOD CELL COUNT, UNSPECIFIED (8) Cauda equina syndrome Current Visit: No Status: Chronic Code(s): G83.4 - CAUDA EQUINA SYNDROME Comment: Associated with RLE weakness/paresis, consult Pain Mgmt service, consult Neurosurgical service for tx options (9) Cholelithiasis Current Visit: No Status: Chronic Code(s): K80.20 - CALCULUS OF GALLBLADDER W/O CHOLECYSTITIS W/O OBSTRUCTION (10) Constipation Current Visit: No Status: Chronic Code(s): K59.00 - CONSTIPATION, UNSPECIFIED (11) Hypertension Current Visit: No Status: Chronic Code(s): I10 - ESSENTIAL (PRIMARY) HYPERTENSION (12) Normocytic anemia Current Visit: No Status: Chronic Code(s): D64.9 - ANEMIA, UNSPECIFIED Comment: s/p 2u PRBC's, continue PPI, serial H/H - Plan Acute kidney failure likely 2/2 Hydrouteronephrosis 2/2 chronic indwelling catheter -patient endorses reduced urine output the last few days -Creatinine 8.82 up from 0.98 on last admission -GFR 6 down from 81 on last admission -CT abdomen demonstrated bilateral hydronephrosis with delayed nephrogram on right, diffuse bladder wall thickening -covington catheter flushed in ED, allowed for substantial release of urine -patient of Dr. Arciniega, notified -patient placed on strict I&O Hyperkalemia -potassium 8.82 on admission, likely 2/2 obstructive uropathy -patient given lactulose, kayexalate, d5, insulin, and calcium chloride in the ED -covington flushed in ED -continue to monitor Hyponatremia -sodium 128 on admission, likely 2/2 obstructive uropathy -covington flushed in ED -continue to monitor Chronic anemia -H/H 11.3/34.1 on admission, similar to previous admissions -likely 2/2 chronic kidney disease Colon caner s/p partial colectomy with recurrence -patient continues to have constipation and thin bm's -patient of Dr. Vasquez, awaiting consultation with [facility] Cauda equina with chronic indwelling catheter -patient uses a walker for support, right lower extremity weakness -patient reports only changing catheter once within the last 3 months -SCDs, will determine need for ppx leukocytosis -afebrile -likely 2/2 leukemoid reaction -UA demonstrated leukocytes, wbc and trace blood, no nitrites -will continue to monitor Cholelithiasis -CT showed distended gallbladder and gallstones, similar to previous admissions -negative huang sign but difficult to distinguish 2/2 guarding to palpation throughout entire right abdomen -will consider abdominal u/s if patient continues to have pain in am Chronic opiate use with associated constipation -patient reported last bm yesterday -patient is NPO for bowel rest Hypertension -patient has history of non-compliance -reported taking his medications yesterday morning, bp 190/110 in ED, denied headache,visual changes, cp, SOB -160s/90s on tele floor -continue home meds Diet: NPO Fluids: DVT ppx: SCDs Code Status: Full Code Disposition/LOS: Dispo: FMR H&P: Upper Level - Pertinent history 47 year old male presents with a 3 day history of worsening RUQ pain. Patient has also noticed over the last 3 days, he has had decreased urinary output from covington. He normally changes his covington bag a few times a day and has only needed to change it once or twice in the last 3 days. Patient reports that he has indwelling covington catheter d/t cauda equina syndrome and resulting urinary incontinence. He also does endorse a history of BPH. He is supposed to follow with Urologist but reports he has not done so in awhile. He states he first got a covington 3 months ago. The first time it was ever changed out was during last hospitalization at the end of August. Patient denies fever or chills. He does endorse nausea without associated emesis. Last BM was yesterday. Patient reports that his BM was thinner than usual, but reports he is still having BM's and passing gas. Patient endorses generalized weakness. Patient states he has a history of gallstones he was told about many years ago and did nothing about at the time. Patient denies dysuria. - Pertinent findings General: Alert and oriented eating sandwich on exam HEENT: MMM Cardio: RRR, No murmurs Resp: CTA-BL Abdomen: Tender diffusely throughout, but worse in RUQ and RLQ. Negative rebound. Negative Huang's sign. No palpable masses or distention. Ext: No LE edema. - Plan Date/Time: 10/15/18313 IRiddhi, have evaluated this patient and agree with findings/plan as outlined by internet marketing manager resident. Pertinent changes/additions are listed here. 1. Obstrutive uropathy with chronic indwelling covington catheter - After covington catheter flushed, urine output increased significantly - Patient with indwelling covington catheter x3 months - Covington catheter recently changed out at end of August - Strict I&O's - CT abdomen/pelvis with severe bilateral hydronephrosis and distended bladder 2. Acute renal failure like 2/2 obstructive uropathy - Severely elevated K of 7.2 --> 7.0 post calcium chloride, lactulose, kayexelate, and insulin - Nephrology, Dr. Sal consulted. Appreciate recs. - Since stat repeat K still >6 after above measures, including flushing of covington catheter, General surgery was consulted for dialysis catheter to initiate dialysis immediately - call person dialysis nurse notified and will be in touch with Dr. Sal - Patient to undergo dialysis - Repeat BMP after dialysis - GFR 6 - Patient with history of CKD. He follows with Dr. Sal 3. Hyperkalemia - 7.2 --> 7.0 - s/p lactulose, kayexelate, insulin in ED - Peaked T waves on EKG - s/p calcium chloride - EKG repeat pending - Pending placement for dialysis cath and then dialysis - Dr. Sal consulted; appreciate recs 4. Hyponatremia - 128, patient currently fluid restricted pending dialysis - Repeat BMP in AM 5. Hx of colon cancer s/p hemicolectomy with recurrence of cancer - Recent colonoscopy with recurrence of cancer at site of anastomosis - Patient has been referred to [facility]; he has not followed with them yet - Patient sees Dr. Vasquez 6. HTN - Continue home medications - PRN medications for BP >180 7. Anemia - Likely chronic - Will review past labs and see if workup has been performed - May be mixed and partially related to colon cancer Cauda equina syndrome - Diagnosed years ago - No inciting events - Patient with chronic indwelling covington catheter Opioid induced constipation - Patient on [place] at home Addendum - Attending - Attending Attestation Date/Time: 10/16/18 [id number] I personally evaluated the patient and discussed the management with Dr. White I agree with the History, Examination, Assessment and Plan documented above with any addition or exceptions noted below.
[2018-10-15] MEDS: HYDROcodone/Acetaminophen 10/325 mg Tablet PO PRN ×4 (03:43→22:29)
[2018-10-15 04:35] LABS: Anion Gap 19 mmol/L (10-20); BUN (Urea Nitrogen) 70 mg/dL (8.9-20.6); Calc. Creatinine Clearance 9 mL/min (70-130); Calcium 9.6 mg/dL (7.8-10.44); Carbon Dioxide 23 mmol/L (22-29); Chloride 99 mmol/L (98-107); Estimated GFR-MDRD 6; Glucose 105 mg/dL (70-105); Sodium 134 mmol/L (136-145)
--- NOTE | 2018-10-15 04:43 | PDOC.EVN ---
Event Note - Event Note Event Note: Called Dr. Sal for recs around approximately 2:15am Put in stat order for BMP shortly afterward Had to call lab multiple times to get the results Per Dr. Sal recs, since potassium >6, will stat consult gen surg for tunnel dialysis catheter placement and immediate dialysis BMP did not result until 4:40am
--- NOTE | 2018-10-15 05:15 | PDOC.EVN ---
Event Note - Event Note Event Note: Let Dr. Sal know of elevate potassium at his request. Called neon molder general surgeon Dr. Dobbins per Dr. Sal's recs. Called nursing to obtain consent and prep R groin. Called on-call dialysis nurse to request she call Dr. Sal, per Dr. Sal's request.
[2018-10-15 07:06] LABS: HBSAB Concentration 2.16 mIU/mL; Hep B Surf AB Non-Reactive (NonReactive)
--- NOTE | 2018-10-15 07:18 | CON ---
DATE OF CONSULTATION: CHIEF COMPLAINT: Urgent need for dialysis. HISTORY OF PRESENT ILLNESS: The patient is a 47-year-old male with cauda equina syndrome, chronic indwelling Bundy catheter, who was admitted with severe abdominal pain, nausea, and vomiting. He was found to have a potassium of 7 with EKG changes. He needed urgent dialysis. PAST MEDICAL HISTORY: Significant for colon cancer, cauda equina syndrome, opiate constipation, anemia. PAST SURGICAL HISTORY: He has had a partial colectomy, appendectomy. MEDICATIONS: 1. Gabapentin. 2. Metoprolol. 3. Hydrocodone. 4. Senokot. ALLERGIES: NO KNOWN DRUG ALLERGIES. PHYSICAL EXAMINATION: VITAL SIGNS: Pulse 103, blood pressure 169/95. He is afebrile. GENERAL: He is awake, alert. HEENT: Unremarkable. LUNGS: Clear. HEART: Regular rate and rhythm. ABDOMEN: Soft, nondistended. EXTREMITIES: Good pulses. LABORATORY DATA: White count 14, H and H 11 and 34, platelet count 359. His potassium is 7, his creatinine 9, BUN is 70. ASSESSMENT: Acute renal failure, in need of urgent dialysis. PLAN: Temporary right femoral dialysis catheter placement. Discussed planned procedure as well as risk of bleeding, infection, and need for further dialysis access. He gives informed consent. Job ID: [id number]
[2018-10-15] MEDS: Nicotine 14 MG PATCH TD SCH (07:25)
[2018-10-15 07:57] LABS: Hep B Surf Ag NonReactive S/CO (NonReactive)
[2018-10-15 07:58] LABS: HBSAg Index 0.29 S/CO (0-0.99)
[2018-10-15] MEDS ORDERED: Acetaminophen 325 MG TAB PO PRN (08:12)
--- NOTE | 2018-10-15 08:23 | OP ---
DATE OF PROCEDURE: 10/15/2018 PREOPERATIVE DIAGNOSIS: Acute renal failure. PROCEDURE PERFORMED: Temporary dialysis catheter placement. INDICATIONS FOR SURGERY: A 47-year-old male with new onset renal failure and hyperkalemia in need of urgent dialysis. FINDINGS: Good backflow of venous blood, J-wire threaded easily in right femoral vein. DESCRIPTION OF PROCEDURE: On emergent basis, his right groin was prepped and draped in usual fashion. Local anesthesia was infiltrated with 1% lidocaine. An introducer needle was inserted into the right femoral vein with good backflow of venous blood. The J-wire threaded easily. The skin was incised with an 11 blade and a series of dilators used to dilate the skin and subcu. The pre-flushed Trialysis catheter then inserted over the wire, and the wire was removed. Each of the ports aspirated, good backflow of blood, and flushed with saline. The catheter was sutured in place with 3-0 nylon suture. Sterile bandage applied. The patient tolerated the procedure well. Job ID: [id number]
--- NOTE | 2018-10-15 08:59 | PDOC.EVN ---
Addendum - Attending - Attending Attestation Date/Time: 10/15/18 0891 I personally evaluated the patient and discussed the management with Dr. White I agree with the History, Examination, Assessment and Plan documented in separate note see Resident HX and PE. 47 yo male presents to ER with urinary obstructive symptoms and found with ARF and secondary hyperkalemia. Patient unresponsive to medication management of hyperkalemia and has femoral dialysis cath placed and is currently undergoing urgent hemodialysis. Patient has chronic indwelling covington for obstruction questionable bladder outlet obstruction prior evaluation per Dr Man. Patient with significant PMHX of colorectal CA incidentally diagnosed in 2004 found at appendectomy. 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 also gasrtic ulcer f/u EGD 09/16/18 neg H pylori no malignant feature however persistent ulceration. Patient states he has Cauda equina syndrome recent Lumbar MRI 07/18 unremarkable except hydronephrosis. Need to review his [facility] records as he states he had lumbar pathology. CT in in ER with incidental finding cholelithiasis. Patient undergoing urgent diaylsis for hyperkalemia. Patient with significant constipation/obstipation multifactorial and major factor related to chronic opiod usuage. Will need further consideration of urinary retention when more stable consult Urology.
[2018-10-15] MEDS: Gabapentin 400 MG CAP PO SCH ×3 (09:59→20:49)
[2018-10-15] MEDS: Metoprolol Tartrate 25 MG TAB PO SCH ×2 (10:00→20:49)
--- NOTE | 2018-10-15 11:06 | CON ---
DATE OF CONSULTATION: REASON FOR CONSULTATION: Hyperkalemia and uremia. This was a stat consult at 3:00 a.m. HISTORY OF PRESENT ILLNESS: This is a very pleasant 47-year-old gentleman, who presented with right-sided abdominal pain. The patient had a history of CKD. His creatinine was noted to be 8.0 and a potassium of 7. His last creatinine on September 28, 2 weeks ago was 0.9. The patient denies any headache, numbness, tingling, or weakness. The patient had peaked , so I was consulted stat for dialysis. The patient showed up yesterday. PAST MEDICAL HISTORY: Significant for colon cancer, colectomy, cauda equina, constipation, anemia, appendectomy, colectomy, history of acute renal failure. SOCIAL HISTORY: No alcohol or drug use. FAMILY HISTORY: Negative for ESRD. ALLERGIES: REVIEWED. MEDICATIONS: Home medications, list reviewed. Hospital medications, list reviewed. REVIEW OF SYSTEMS: 15-point review of systems was performed negative except for positives noted above. GENERAL: HEAD: NECK: No swelling or lumps. NOSE: No epistaxis or discharge. EYES: No diplopia or pain. RESPIRATORY: CARDIOVASCULAR: GASTROINTESTINAL: /PRODUCER ARBORIST MANAGER: MUSCULOSKELETAL: No joint pain. NEUROPSYCHIATIC SYSTEMS: No suicidal ideation. No ideation. SKIN: Denies any rash or ulcer. CONSTITUTIONAL: No fever or chills. PHYSICAL EXAMINATION: CONSTITUTIONAL: The patient is awake, alert. VITAL SIGNS: Afebrile, pulse 96, breathing 16, blood pressure 154/102. GENERAL APPEARANCE AND MENTAL STATUS: Fair. HEAD/NECK: Normocephalic. Atraumatic. EYES: EOMI. No deformity. EARS: Clear. No ulcers. NOSE: Intact. No lesions. MOUTH: Clear. No discharge. THROAT: Clear. No exudate. LUNGS: Clear. No crackles. CARDIAC: S1, S2. No rub. ABDOMEN: Benign. Bowel sounds positive. GENITALIA/RECTUM: Bundy absent. BACK/EXTREMITIES: Edema 0+. NEUROLOGICAL: Alert and motor intact. SKIN: LYMPHATICS: LABORATORY DATA: Labs show potassium 7.0. ASSESSMENT AND PLAN: 1. Acute kidney injury with chronic kidney disease stage 5 due to ATN, due to hydronephrosis. Plan, urgent dialysis. 2. Hypertension, stable. 3. Hyperkalemia. Plan, urgent dialysis. 4. Metabolic acidosis, on replacement. of dialysis were discussed and dialysis was initiated. Job ID: [id number]
[2018-10-15 11:54] LABS: Anion Gap 13 mmol/L (10-20); BUN (Urea Nitrogen) 28 mg/dL (8.9-20.6); Calc. Creatinine Clearance 17 mL/min (70-130); Calcium 8.8 mg/dL (7.8-10.44); Carbon Dioxide 29 mmol/L (22-29); Chloride 100 mmol/L (98-107); Estimated GFR-MDRD 13; Glucose 84 mg/dL (70-105); Potassium 4.8 mmol/L (3.5-5.1); Sodium 137 mmol/L (136-145)
--- NOTE | 2018-10-15 12:18 | EKG ---
Test Reason : Blood Pressure : / mmHG Vent. Rate : 102 BPM Atrial Rate : 102 BPM P-R Int : 186 ms QRS Dur : 082 ms QT Int : 332 ms P-R-T Axes : 065 017 065 degrees QTc Int : 432 ms Sinus tachycardia Otherwise normal ECG When compared with ECG of 21-JUL-2018 19:44, Confirmed by DR. Darinel ODEN (3) on 10/15/2018 12:18:24 PM Referred By: RANDEE Confirmed By:DR. Darinel ODEN
--- NOTE | 2018-10-15 12:20 | EKG ---
Test Reason : Blood Pressure : / mmHG Vent. Rate : 087 BPM Atrial Rate : 087 BPM P-R Int : 194 ms QRS Dur : 100 ms QT Int : 348 ms P-R-T Axes : 065 018 079 degrees QTc Int : 418 ms Normal sinus rhythm Normal ECG When compared with ECG of 21-JUL-2018 19:44, No significant change was found Confirmed by DR. Darinel ODEN (3) on 10/15/2018 12:19:52 PM Referred By: Franci BARRIENTOS *R Confirmed By:DR. Darinel ODEN
[2018-10-16] MEDS: HYDROcodone/Acetaminophen 10/325 mg Tablet PO PRN ×4 (03:38→23:33)
[2018-10-16] MEDS: Nicotine 14 MG PATCH TD SCH (03:40)
[2018-10-16 04:57] LABS: #Basophils 0.1 thou/uL (0.0-0.2); #Eosinphils 0.4 thou/uL (0.0-0.7); #Lymphocytes 1.8 thou/uL (1.20-3.40); #Monocytes 0.9 thou/uL (0.11-0.59); #Neutrophils 6.8 thou/uL (1.40-6.50); %Basophils 0.9 % (0.0-1.0); %Eosinophils 3.7 % (0.0-10.0); %Lymphocytes 18.2 % (21.0-51.0); %Monocytes 8.9 % (0.0-10.0); %Neutrophils 68.3 % (42.0-75.0); Hemoglobin 9.8 g/dL (14.0-18.0); Mean Corpuscular HGB CONC 32.6 g/dL (32.0-36.0); Mean Corpuscular Hemoglobin 27.8 pg (27.0-31.0); Mean Corpuscular Volume 85.1 fL (78.0-98.0); Mean Platelet Volume 8.4 fL (7.4-10.4); Platelet Count 297 thou/uL (130-400); RBC Distribution Width 16.8 % (11.5-14.5); Red Blood Cell (RBC) Count 3.52 mill/uL (4.70-6.10)
[2018-10-16 05:16] LABS: ALT (SGPT) 7 U/L (8-55); AST (SGOT) 16 U/L (5-34); Albumin 3.3 g/dL (3.5-5.0); Alkaline Phosphatase 94 U/L (40-150); Anion Gap 14 mmol/L (10-20); BUN (Urea Nitrogen) 37 mg/dL (8.9-20.6); Bilirubin, Total 0.3 mg/dL (0.2-1.2); Calc. Creatinine Clearance 13 mL/min (70-130); Calcium 8.5 mg/dL (7.8-10.44); Carbon Dioxide 28 mmol/L (22-29); Chloride 95 mmol/L (98-107); Estimated GFR-MDRD 9; Globulin 2.2 g/dL (2.4-3.5); Glucose 110 mg/dL (70-105); Potassium 5.4 mmol/L (3.5-5.1); Protein, Total 5.5 g/dL (6.0-8.3); Sodium 132 mmol/L (136-145)
--- NOTE | 2018-10-16 07:39 | PDOC.FM ---
- Subjective Subjective: Pt states that his pain in his right leg has been bothering him more. He states the hospital bed has been painful. He denies cp, SOB, or palpitations. - Objective MAR Reviewed: Yes Vital Signs & Weight: Vital Signs (12 hours) Temp Pulse Resp BP Pulse Ox 10/16/18 07:21 98.0 F 97 16 166/100 H 92 L 10/16/18 03:09 98.8 F 85 18 163/87 H 94 L 10/15/18 23:42 98.6 F 84 18 164/92 H 92 L 10/15/18 20:40 98.6 F 86 16 164/84 H 93 L Weight Admit Weight 64.4 kg Weight 64.4 kg I&O: 10/15/18 10/16/18 10/17/18 06:59 06:59 06:59 Intake Total 480 1320 Output Total 100 400 Balance 380 920 Result Diagrams: 10/16/18 04:24 10/16/18 04:24 Phys Exam - Physical Examination Constitutional: NAD HEENT: moist MMs Neck: no JVD, full ROM Respiratory: no wheezing, no rales, no rhonchi, clear to auscultation bilateral Cardiovascular: RRR, no significant murmur Gastrointestinal: soft, non-tender, no distention, positive bowel sounds Musculoskeletal: no edema, pulses present Muscle wasting in lower right leg, 3/5 strenght on the RLE, 4-5 on the LLE Neurological: non-focal, normal sensation, moves all 4 limbs Lymphatic: no nodes Psychiatric: normal affect, A&O x 3 Skin: normal turgor, cap refill <2 seconds Dx/Plan (1) Acute kidney failure Status: Acute (2) Chronic use of opiate for therapeutic purpose Code(s): Z79.891 - MANAGER DIVISION (CURRENT) USE OF OPIATE ANALGESIC Status: Acute (3) Hyponatremia Code(s): E87.1 - HYPO-OSMOLALITY AND HYPONATREMIA Status: Acute (4) Colon cancer Code(s): C18.9 - MALIGNANT NEOPLASM OF COLON, UNSPECIFIED Status: Acute (5) Hypertension Code(s): I10 - ESSENTIAL (PRIMARY) HYPERTENSION Status: Chronic - Plan Plan: This is a 47 yo male with a pmh of HTN, normocytic anemia, hx of colon cancer, cauda equina syndrome Acute renal failure likely 2/2 obstruction with subsequent hydronephrosis POA -S/P emergent dialisys with improved electrolyte balance -Covington catheter flushed -GFR is still shows CKD 5 vs ESRD, pending improvement -Dr. Sal consulted, appreciate recommendations Hyperkalemia -S/P dialysis, this morning, it is 5.4 Hyponatremia -132 this AM -Monitor with BMP Chronic anemia -Decrease in Hgb to 9.8 following dialysis -CKD likely contibuting to anemia Colon cancer s/p partial colectomay with recurrence Cauda equina vs LE weakness from other source Overflow incontinenece 2/2 BPH vs decreased bladder innervation -Pt has indwelling catheter. Pt will need outpt cystoscopy with urology referral Addendum - Attending - Attending Attestation Date/Time: 10/16/18 1052 I personally evaluated the patient and discussed the management with Dr. Eckert I agree with the History, Examination, Assessment and Plan documented above with any addition or exceptions noted below. Potassium and RFT trending up again. Need to discuss with urology regard obstructive uropathy with failed covington management was scheduled for cystoscopy but lost to outpatient f/u by patient non-compliance. 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
[2018-10-16] MEDS: Gabapentin 400 MG CAP PO SCH (08:01)
[2018-10-16] MEDS: Amlodipine 5 MG TAB PO SCH (08:01)
[2018-10-16] MEDS: Metoprolol Tartrate 25 MG TAB PO SCH ×2 (08:02→20:02)
[2018-10-16] MEDS ORDERED: Amitriptyline HCl 10 MG TAB PO SCH ×2 (09:30→21:00)
[2018-10-16] MEDS ORDERED: Heparin 1,000 UNITS/ML VIAL ONE (11:11)
[2018-10-16] MEDS ORDERED: Dexamethasone 10 MG/ML VIAL SLOW IVP SCH (13:30)
[2018-10-16 15:30] LABS: Anion Gap 14 mmol/L (10-20); BUN (Urea Nitrogen) 43 mg/dL (8.9-20.6); Calc. Creatinine Clearance 12 mL/min (70-130); Calcium 8.7 mg/dL (7.8-10.44); Carbon Dioxide 27 mmol/L (22-29); Chloride 97 mmol/L (98-107); Estimated GFR-MDRD 8; Glucose 82 mg/dL (70-105); Sodium 132 mmol/L (136-145)
--- NOTE | 2018-10-16 17:01 | CON ---
DATE OF CONSULTATION: 10/16/2018 REASON FOR CONSULTATION: Renal failure. HISTORY: Mr. Souza is a 47-year-old gentleman with neurogenic bladder and is now catheter dependent. I originally saw him back in 06/2018 when he was in retention. He has a Covington catheter in place since that time. I believe it was last changed about one month ago when he was here for evaluation of possible recurrent colon cancer. According to him, he has being diagnosed with recurrent colon cancer and is awaiting further treatment at [facility]. He presented to the emergency room complaining of abdominal pain. During evaluation, he was noted to have a creatinine of approximately 8. It was normal several weeks ago. CT scan demonstrated bilateral hydroureteronephrosis. He had a covington catheter in place as mentioned above but he did state that it has been draining less. Denies any fever or chills. PAST MEDICAL HISTORY: 1. Colon cancer. 2. Neurogenic bladder. 3. Cauda equina syndrome. 4. Hypertension. PAST SURGICAL HISTORY: 1. Colon cancer resection in 2004. 2. Appendectomy in 2004. CURRENT MEDICATIONS: Metoprolol. ALLERGIES: NO KNOWN DRUG ALLERGIES. SOCIAL HISTORY: He is a nondrinker. Denies excessive alcohol use. Does smoke. He has recently relocated here and lives with sister in town. FAMILY HISTORY: Significant for ovarian cancer in his mother. REVIEW OF SYSTEMS: RESPIRATORY: Denies shortness of breath. CARDIOVASCULAR: Denies chest pain or palpitations. GENITOURINARY: Please see history of present illness. MUSCULOSKELETAL: Right leg numbness and intermittent pain and weakness. He wears a brace on the right leg. PHYSICAL EXAMINATION: GENERAL: He is awake and alert. He appears younger than his stated age. HEENT: Normocephalic and atraumatic. NECK: Supple without masses. CHEST: Clear to auscultation. CARDIOVASCULAR: No murmurs. EXTREMITIES: He has a right lower extremity dialysis catheters. His right lower extremity is atrophic. LABORATORY DATA: Creatinine on admission 8.8. Creatinine on 07/16/2018 was 0.9. PROCEDURE NOTE: Current indwelling Covington catheter was removed. His penis was sterilely prepped. A 16-Icelandic Coude catheter was passed. There was some resistance near the bulbar and prostatic urethra, but it did pass into the bladder. Catheter was hand irrigated. Irrigated easily. There was a bit of mucus that was irrigated free. Otherwise, the urine was clear. IMPRESSION: 1. Mr. Souza is a 47-year-old gentleman with a history of colon cancer dating back to 2004. According to him, he has been diagnosed with recurrence. I am unsure of any of the details regarding this. 2. He has neurogenic bladder. There has been some difficulty getting a catheter in him in the past, but I was able to place a 16-Icelandic Covington catheter. It seems that the catheter he had in place was occluded, and as a result, he developed renal failure from bladder outlet obstruction. This problem has been rectified by the new indwelling catheter placed by me today and his renal function should improve. Regarding half-way management of urinary retention from neurogenic bladder, the best treatment is intermittent catheterization but there has been difficulty with cath placement in the past. He may have some stricture disease. He will need cystoscopy for evaluation. In the interim, we will leave a covington catheter indwelling. Job ID: [id number] [facility]
--- NOTE | 2018-10-16 17:17 | PDOC.PALCO ---
Palliative Care Consult - Consult Details Requesting Physician: Dr Arredondo Reason for Consult: goals of care, assistance with communication prognosis/ disease - Pertinent HPI 47 year old male who presented to the emergency room with right sided abdominal pain. He relays that when he came to the hospital "It felt like he was being stabbed". Patient reports decreased urine output, constipation and nausea. History that last time his catheter was changed was one month ago. admitted to emergency room fo revaluation and then to the hospital for further management. - Pertinent PMH Colon cancer with metastis, cauda equina syndrome, indwelling cath, - Social History Smoking Status: Current every day smoker Smoking: cigarettes Alcohol Use: none Drug Use History: none Living Situation: with family/parents - Medications MAR Reviewed: Yes - Allergies Allergies/Adverse Reactions: Allergies Allergy/AdvReac Type Severity Reaction Status Date / Time No Known Allergies Allergy Verified 10/15/18 01:59 - Objective Vital Signs: Vital Signs - Most Recent Temp Pulse Resp BP Pulse Ox 98.0 F 82 17 166/90 H 95 10/16/18 15:38 10/16/18 15:38 10/16/18 15:38 10/16/18 15:38 10/16/18 15:38 Palliative Performance Scale: 60 - Physical Exam Deviation from normal: lethargic, chronically ill appearing HEENT: moist MMs, EOMI Respiratory: no wheezing Cardiovascular: RRR Gastrointestinal: soft, positive bowel sounds Musculoskeletal: no edema, pulses present Deviation from normal: lower extremity weakness, more pronounced to right Deviation from normal: neuropathy to lower extremities, more pronounced to right Psychiatric: A&O x 3 Deviation from normal: mildly depressed - Problem List (1) Acute kidney failure Current Visit: Yes Status: Acute (2) Colon cancer Code(s): C18.9 - MALIGNANT NEOPLASM OF COLON, UNSPECIFIED Current Visit: No Status: Acute (3) Cauda equina syndrome Code(s): G83.4 - CAUDA EQUINA SYNDROME Current Visit: No Status: Chronic (4) Constipation Code(s): K59.00 - CONSTIPATION, UNSPECIFIED Current Visit: No Status: Chronic - Plan/Recommendations Plan: Therapeutic listening. Initial discussion. Patient expressed continued pain/ neuropathy to lower extremities. Further discussed management of catheter, patient states he will not change it on his home, will discuss with patient options to best manage once discharged. Darlene Bernard long chain quiller tender RN and myself will continue to follow. [60] minutes spent on this encounter with >50% of the time in counseling and coordination of care. Thank you for this very appropriate consult.
[2018-10-16] MEDS: Gabapentin 300 MG CAP PO SCH (20:02)
[2018-10-16] MEDS ORDERED: Amitriptyline HCl 25 MG TAB PO SCH ×2 (21:00)
[2018-10-17] MEDS: HYDROcodone/Acetaminophen 10/325 mg Tablet PO PRN (06:18)
--- NOTE | 2018-10-17 06:57 | PDOC.FM ---
- Subjective Subjective: Pt reports he woke up with little leg pain but his pain returned later this morning. He describes it as shooting pain that ends in his foot. He states that the new covington has improved his abdominal pain. - Objective MAR Reviewed: Yes Vital Signs & Weight: Vital Signs (12 hours) Temp Pulse Resp BP Pulse Ox 10/17/18 03:47 98.5 F 84 18 160/95 H 92 L 10/16/18 23:52 98.7 F 87 20 155/95 H 92 L 10/16/18 20:00 99.1 F 82 16 145/79 H 95 Weight Admit Weight 64.4 kg Weight 64.4 kg I&O: 10/15/18 10/16/18 10/17/18 06:59 06:59 06:59 Intake Total 480 1320 1430 Output Total 901 980 7907 Balance 380 920 -1570 Result Diagrams: 10/16/18 04:24 10/17/18 07:06 Phys Exam - Physical Examination Constitutional: NAD HEENT: moist MMs Neck: no JVD Respiratory: no wheezing, clear to auscultation bilateral Cardiovascular: RRR, no significant murmur Gastrointestinal: soft, no distention, positive bowel sounds Mild tenderness in his right lower abdomen Musculoskeletal: no edema, pulses present Neurological: moves all 4 limbs Strength exam unchanged from before Psychiatric: A&O x 3 Skin: cap refill <2 seconds Dx/Plan (1) Acute kidney failure Status: Acute (2) Chronic use of opiate for therapeutic purpose Code(s): Z79.891 - DETENTION (CURRENT) USE OF OPIATE ANALGESIC Status: Acute (3) Hyponatremia Code(s): E87.1 - HYPO-OSMOLALITY AND HYPONATREMIA Status: Acute (4) Colon cancer Code(s): C18.9 - MALIGNANT NEOPLASM OF COLON, UNSPECIFIED Status: Acute (5) Hypertension Code(s): I10 - ESSENTIAL (PRIMARY) HYPERTENSION Status: Chronic - Plan Plan: This is a 47 yo male with a pmh of HTN, normocytic anemia, hx of colon cancer, cauda equina syndrome Acute renal failure likely 2/2 obstruction with subsequent hydronephrosis POA -S/P emergent dialisys with improved electrolyte balance -Covington catheter replaced -GFR is still shows CKD 5 vs ESRD, pending improvement -Dr. Sal consulted, appreciate recommendations Hyperkalemia -Will continue to monitor Hyponatremia -Monitor with BMP Chronic anemia -Decrease in Hgb to 9.8 following dialysis -CKD likely contibuting to anemia Colon cancer s/p partial colectomay with recurrence -Palliative care on board, will appreciate recommendations -Adding heparin for DVT prophylaxis Cauda equina vs LE weakness from other source -Decreased gabapentin from 1200mg TID to 300 TID due to renal failure -Added on amitryptiline for nerve pain -Scheduling norco as pt has consistently needed this -PRN morphine for breakthrough pain. Pt will not need this at home as he has an easier time distracting himself at home. Overflow incontinenece 2/2 BPH vs decreased bladder innervation -Consulted Dr. Bashir, will appreciate recommendations -Covington replaced and plan for outpt cystoscopy Addendum - Attending - Attending Attestation Date/Time: 10/17/18 1005 I personally evaluated the patient and discussed the management with Dr. Eckert I agree with the History, Examination, Assessment and Plan documented above with any addition or exceptions noted below. Urine flow improved with change of covington appreciate recommendations form Palliative care will advance activity as tolerated RFT continue to improve with dialysis. Encourage patient to continue f/u [facility].
[2018-10-17 07:31] LABS: Anion Gap 12 mmol/L (10-20); BUN (Urea Nitrogen) 24 mg/dL (8.9-20.6); Calc. Creatinine Clearance 21 mL/min (70-130); Carbon Dioxide 28 mmol/L (22-29); Chloride 103 mmol/L (98-107); Estimated GFR-MDRD 16; Glucose 163 mg/dL (70-105); Potassium 4.2 mmol/L (3.5-5.1); Sodium 139 mmol/L (136-145)
[2018-10-17] MEDS ORDERED: Morphine 4 MG/ML VIAL SLOW IVP PRN (07:58)
[2018-10-17] MEDS ORDERED: Gabapentin 300 MG CAP PO SCH (09:00)
[2018-10-17] MEDS ORDERED: Gabapentin 100 MG CAP PO SCH (09:00)
[2018-10-17] MEDS: Heparin 5,000 UNITS/ML VIAL SC SCH ×2 (10:09→20:15)
[2018-10-17] MEDS: HYDROcodone/Acetaminophen 10/325 mg Tablet PO SCH ×3 (10:10→20:12)
[2018-10-17] MEDS: Metoprolol Tartrate 25 MG TAB PO SCH ×2 (10:11→20:14)
[2018-10-17] MEDS: Amlodipine 5 MG TAB PO SCH (10:11)
[2018-10-17] MEDS: Gabapentin 300 MG CAP PO SCH ×3 (10:11→20:12)
[2018-10-17] MEDS: Dexamethasone 4 mg/ml Vial SLOW IVP SCH (10:12)
--- NOTE | 2018-10-17 10:54 | PRG ---
DATE OF SERVICE: 10/17/2018 SUBJECTIVE: A 47-year-old gentleman being seen for acute kidney injury. The patient denied nausea, vomiting, or chest pain. OBJECTIVE: CONSTITUTIONAL: The patient is awake and alert. VITAL SIGNS: Pulse 85, breathing 16, and blood pressure 160/95. GENERAL APPEARANCE AND MENTAL STATUS: Fair. HEAD/NECK: Normocephalic. Atraumatic. EYES: EOMI. No deformity. EARS: Clear. No ulcers. NOSE: Intact. No lesions. MOUTH: Clear. No discharge. THROAT: Clear. No exudate. LUNGS: Clear. No crackles. CARDIAC: S1, S2. No rub. ABDOMEN: Benign. Bowel sounds positive. GENITALIA/RECTUM: Bundy absent. BACK/EXTREMITIES: Edema 0+. NEUROLOGICAL: Alert and motor intact. SKIN: LYMPHATICS: LABORATORY DATA: Labs reviewed. ASSESSMENT AND PLAN: 1. Stage 4 chronic kidney disease, stable. 2. Hypertension, stable. 3. Anemia, stable. 4. Hyperkalemia, stable. No indication for dialysis today. The patient is seeing Urology for obstructive uropathy. Job ID: [id number]
--- NOTE | 2018-10-17 11:17 | PRG ---
DATE OF SERVICE: 10/16/2018 SUBJECTIVE: This is a 47-year-old gentleman, being seen for acute kidney injury. The patient denied nausea, vomiting, or chest pain. OBJECTIVE: CONSTITUTIONAL: The patient is awake and alert. VITAL SIGNS: Pulse 79, breathing 16, blood pressure 163/86. GENERAL APPEARANCE AND MENTAL STATUS: Fair. HEAD/NECK: Normocephalic. Atraumatic. EYES: EOMI. No deformity. EARS: Clear. No ulcers. NOSE: Intact. No lesions. MOUTH: Clear. No discharge. THROAT: Clear. No exudate. LUNGS: Clear. No crackles. CARDIAC: S1, S2. No rub. ABDOMEN: Benign. Bowel sounds positive. GENITALIA/RECTUM: Bundy absent. BACK/EXTREMITIES: Edema 0+. NEUROLOGICAL: Alert and motor intact. SKIN: LYMPHATICS: LABORATORY DATA: Labs show potassium was 6.0. ASSESSMENT AND PLAN: 1. Stage 3 chronic kidney disease, plan dialysis. 2. Hypertension, stable. 3. Anemia, stable. 4. Medication based on GFR appropriate. Job ID: [id number]
[2018-10-17 11:34] LABS: #Lymphocytes 1.2 thou/uL (1.20-3.40); #Monocytes 1.5 thou/uL (0.11-0.59); #Neutrophils 9.8 thou/uL (1.40-6.50); %Basophils 0.2 % (0.0-1.0); %Eosinophils 0.2 % (0.0-10.0); %Lymphocytes 9.5 % (21.0-51.0); %Monocytes 11.9 % (0.0-10.0); %Neutrophils 78.2 % (42.0-75.0); Hemoglobin 8.3 g/dL (14.0-18.0); Mean Corpuscular HGB CONC 31.8 g/dL (32.0-36.0); Mean Corpuscular Hemoglobin 26.8 pg (27.0-31.0); Mean Corpuscular Volume 84.5 fL (78.0-98.0); Mean Platelet Volume 7.7 fL (7.4-10.4); Platelet Count 259 thou/uL (130-400); RBC Distribution Width 16.6 % (11.5-14.5); Red Blood Cell (RBC) Count 3.09 mill/uL (4.70-6.10); White Blood Cell (WBC) Count 12.6 thou/uL (4.8-10.8)
[2018-10-17] MEDS: Nicotine 14 MG PATCH TD SCH (12:08)
[2018-10-17] MEDS: Amitriptyline HCl 25 MG TAB PO SCH (20:12)
[2018-10-18] MEDS: HYDROcodone/Acetaminophen 10/325 mg Tablet PO SCH ×4 (01:41→19:59)
--- NOTE | 2018-10-18 07:18 | PDOC.FM ---
- Subjective Subjective: Reports improvement in pain after adjustments yesterday. Reports urine flowing well since placement of new catheter. Trying to reach out to MD gregorio. No other concerns at this time. - Objective MAR Reviewed: Yes Vital Signs & Weight: Vital Signs (12 hours) Temp Pulse Resp BP Pulse Ox 10/18/18 04:00 98.0 F 74 20 162/90 H 96 10/18/18 00:00 20 10/17/18 20:00 98.3 F 88 20 155/90 H 95 Weight Admit Weight 64.4 kg Weight 56.8 kg I&O: 10/17/18 10/18/18 10/19/18 06:59 06:59 06:59 Intake Total 1430 3500 Output Total 3000 6750 Balance -1570 -3250 Result Diagrams: 10/18/18 07:30 10/18/18 07:30 Phys Exam - Physical Examination Constitutional: NAD HEENT: moist MMs, sclera anicteric Cardiovascular: RRR, no significant murmur Gastrointestinal: soft, non-tender Neurological: non-focal, moves all 4 limbs Psychiatric: normal affect, A&O x 3 -: covington in place Dx/Plan (1) Hyponatremia Code(s): E87.1 - HYPO-OSMOLALITY AND HYPONATREMIA Status: Acute (2) CNADY (acute kidney injury) Code(s): N17.9 - ACUTE KIDNEY FAILURE, UNSPECIFIED Status: Acute (3) Hyperkalemia Code(s): E87.5 - HYPERKALEMIA Status: Acute (4) Cauda equina syndrome Code(s): G83.4 - CAUDA EQUINA SYNDROME Status: Chronic (5) Cholelithiasis Code(s): K80.20 - CALCULUS OF GALLBLADDER W/O CHOLECYSTITIS W/O OBSTRUCTION Status: Chronic (6) Constipation Code(s): K59.00 - CONSTIPATION, UNSPECIFIED Status: Chronic (7) Hydroureteronephrosis Code(s): N13.30 - UNSPECIFIED HYDRONEPHROSIS Status: Chronic - Plan Plan: This is a 47 yo male with a pmh of HTN, normocytic anemia, hx of colon cancer, cauda equina syndrome Acute renal failure likely 2/2 obstruction with subsequent hydronephrosis POA -S/P emergent dialisys with improved electrolyte balance -Covington catheter replaced -GFR is still shows CKD 5 vs ESRD, pending improvement, continue trending -Dr. Sal consulted, appreciate recommendations Hyperkalemia, resolved -Will continue to monitor Hyponatremia -Monitor with BMP Chronic anemia -Decrease in Hgb to 9.8 following dialysis -CKD likely contibuting to anemia Colon cancer s/p partial colectomay with recurrence -Palliative care on board, will appreciate recommendations -Adding heparin for DVT prophylaxis -MD gregorio appt, CM consulted to assist with this Cauda equina vs LE weakness from other source -Decreased gabapentin from 1200mg TID to 300 TID due to renal failure -Added on amitryptiline for nerve pain -Scheduling norco as pt has consistently needed this -PRN morphine for breakthrough pain. Pt will not need this at home as he has an easier time distracting himself at home. Overflow incontinenece 2/2 BPH vs decreased bladder innervation -Consulted Dr. Bashir, will appreciate recommendations -Covington replaced and plan for outpt cystoscopy Discussed with Dr. Max Addendum - Attending - Attending Attestation Date/Time: 10/18/18 8421 I personally evaluated the patient and discussed the management with Dr. Bay I agree with the History, Examination, Assessment and Plan documented above with any addition or exceptions noted below.
[2018-10-18 07:46] LABS: #Basophils 0.1 thou/uL (0.0-0.2); #Eosinphils 0.1 thou/uL (0.0-0.7); #Lymphocytes 1.9 thou/uL (1.20-3.40); #Monocytes 0.8 thou/uL (0.11-0.59); %Basophils 0.6 % (0.0-1.0); %Eosinophils 0.6 % (0.0-10.0); %Lymphocytes 21.7 % (21.0-51.0); %Monocytes 8.8 % (0.0-10.0); %Neutrophils 68.3 % (42.0-75.0); Hemoglobin 9.2 g/dL (14.0-18.0); Mean Corpuscular HGB CONC 31.9 g/dL (32.0-36.0); Mean Corpuscular Hemoglobin 27.4 pg (27.0-31.0); Mean Corpuscular Volume 85.9 fL (78.0-98.0); Mean Platelet Volume 7.9 fL (7.4-10.4); Platelet Count 289 thou/uL (130-400); RBC Distribution Width 16.7 % (11.5-14.5); Red Blood Cell (RBC) Count 3.35 mill/uL (4.70-6.10); White Blood Cell (WBC) Count 8.8 thou/uL (4.8-10.8)
[2018-10-18 08:00] LABS: Anion Gap 16 mmol/L (10-20); BUN (Urea Nitrogen) 37 mg/dL (8.9-20.6); Calc. Creatinine Clearance 18 mL/min (70-130); Calcium 9.2 mg/dL (7.8-10.44); Carbon Dioxide 24 mmol/L (22-29); Chloride 105 mmol/L (98-107); Estimated GFR-MDRD 16; Glucose 156 mg/dL (70-105); Sodium 141 mmol/L (136-145)
[2018-10-18] MEDS: Amlodipine 5 MG TAB PO SCH (08:24)
[2018-10-18] MEDS: Dexamethasone 4 mg/ml Vial SLOW IVP SCH (08:25)
[2018-10-18] MEDS: Metoprolol Tartrate 25 MG TAB PO SCH ×2 (08:25→20:02)
[2018-10-18] MEDS: Heparin 5,000 UNITS/ML VIAL SC SCH ×2 (08:25→20:06)
[2018-10-18] MEDS: Gabapentin 300 MG CAP PO SCH ×3 (08:25→20:03)
[2018-10-18] MEDS: Nicotine 14 MG PATCH TD SCH (08:26)
--- NOTE | 2018-10-18 11:01 | PRG ---
DATE OF SERVICE: 10/18/2018 SUBJECTIVE: A 47-year-old gentleman being seen for acute kidney injury. The patient denied nausea, vomiting, or chest pain. OBJECTIVE: GENERAL: The patient is awake and alert. VITAL SIGNS: Afebrile, pulse 69, breathing 16, blood pressure 162/90. GENERAL APPEARANCE AND MENTAL STATUS: Fair. HEAD/NECK: Normocephalic. Atraumatic. EYES: EOMI. No deformity. EARS: Clear. No ulcers. NOSE: Intact. No lesions. MOUTH: Clear. No discharge. THROAT: Clear. No exudate. LUNGS: Clear. No crackles. CARDIAC: S1, S2. No rub. ABDOMEN: Benign. Bowel sounds positive. GENITALIA/RECTUM: Bundy absent. BACK/EXTREMITIES: Edema 0+. NEUROLOGICAL: Alert and motor intact. SKIN: LYMPHATICS: LABORATORY DATA: Reviewed. ASSESSMENT AND PLAN: 1. Hypertension, stable. 2. Anemia, stable. 3. Hyperkalemia, stable. 4. The patient has chronic kidney disease stage 4 and ATN. No indication for dialysis today. Can remove the patient's femoral catheter. Job ID: [id number]
--- NOTE | 2018-10-18 14:07 | EKG ---
Test Reason : HYPERKALEMIA Blood Pressure : / mmHG Vent. Rate : 090 BPM Atrial Rate : 090 BPM P-R Int : 198 ms QRS Dur : 106 ms QT Int : 348 ms P-R-T Axes : 066 -01 073 degrees QTc Int : 425 ms Normal sinus rhythm Normal ECG Peaked T waves Confirmed by ASHKAN NEELY ([id number]), editor index LAURA ALCALA ([id number]) on 10/18/2018 2:06:59 PM Referred By: CHIN Confirmed By:ASHKAN NEELY
[2018-10-18] MEDS: Amitriptyline HCl 25 MG TAB PO SCH (20:03)
[2018-10-19] MEDS: HYDROcodone/Acetaminophen 10/325 mg Tablet PO SCH ×3 (01:58→13:18)
[2018-10-19 04:36] LABS: #Basophils 0.1 thou/uL (0.0-0.2); #Eosinphils 0.1 thou/uL (0.0-0.7); #Lymphocytes 2.2 thou/uL (1.20-3.40); #Monocytes 0.9 thou/uL (0.11-0.59); #Neutrophils 5.9 thou/uL (1.40-6.50); %Basophils 0.6 % (0.0-1.0); %Eosinophils 0.6 % (0.0-10.0); %Lymphocytes 23.9 % (21.0-51.0); %Monocytes 10.4 % (0.0-10.0); %Neutrophils 64.5 % (42.0-75.0); Hemoglobin 9.5 g/dL (14.0-18.0); Mean Corpuscular HGB CONC 32.4 g/dL (32.0-36.0); Mean Corpuscular Hemoglobin 27.6 pg (27.0-31.0); Mean Corpuscular Volume 85.2 fL (78.0-98.0); Mean Platelet Volume 8.1 fL (7.4-10.4); Platelet Count 298 thou/uL (130-400); RBC Distribution Width 16.7 % (11.5-14.5); Red Blood Cell (RBC) Count 3.44 mill/uL (4.70-6.10); White Blood Cell (WBC) Count 9.1 thou/uL (4.8-10.8)
[2018-10-19 05:07] LABS: Anion Gap 13 mmol/L (10-20); BUN (Urea Nitrogen) 42 mg/dL (8.9-20.6); Calc. Creatinine Clearance 22 mL/min (70-130); Calcium 9.3 mg/dL (7.8-10.44); Carbon Dioxide 25 mmol/L (22-29); Chloride 103 mmol/L (98-107); Estimated GFR-MDRD 21; Glucose 80 mg/dL (70-105); Potassium 4.3 mmol/L (3.5-5.1); Sodium 137 mmol/L (136-145)
--- NOTE | 2018-10-19 07:02 | PDOC.FM ---
Addendum entered and electronically signed by Ember Bay MD 10/19/18 09:11 : A/P: -UCx growing e. faecalis & strepo spp. that is associated with malignancy and can have high mortality/morbidity with bacteremia -Patient with no WBC, afebrile; however due to multiple associated comorbidiities, permanent covington, will treat with levaquin course Original Note: - Subjective Subjective: NAEO. Pt reports feeling well. Urine flow improved since catheter change. feet neuropathic pain improved but still present and bothering. femoral catheter removed yesterday - Objective Vital Signs & Weight: Vital Signs (12 hours) Temp Pulse Resp BP Pulse Ox 10/19/18 04:00 76 18 10/19/18 02:00 98.0 F 76 18 139/85 97 10/18/18 20:00 98 10/18/18 19:52 98.6 F 80 18 158/84 H 98 Weight Admit Weight 64.4 kg Weight 56.8 kg I&O: 10/18/18 10/19/18 10/20/18 06:59 06:59 06:59 Intake Total 3500 2590 Output Total 6750 4800 Balance -3250 -2210 Result Diagrams: 10/19/18 03:58 10/19/18 03:58 Phys Exam - Physical Examination Constitutional: NAD HEENT: PERRLA, moist MMs Neck: full ROM Cardiovascular: RRR, no significant murmur Gastrointestinal: soft, non-tender Musculoskeletal: no edema Neurological: non-focal, moves all 4 limbs Deviation from normal: covington cathetre in place Dx/Plan (1) Hyponatremia Code(s): E87.1 - HYPO-OSMOLALITY AND HYPONATREMIA Status: Acute (2) CANDY (acute kidney injury) Code(s): N17.9 - ACUTE KIDNEY FAILURE, UNSPECIFIED Status: Acute (3) Hyperkalemia Code(s): E87.5 - HYPERKALEMIA Status: Acute (4) Cauda equina syndrome Code(s): G83.4 - CAUDA EQUINA SYNDROME Status: Chronic (5) Cholelithiasis Code(s): K80.20 - CALCULUS OF GALLBLADDER W/O CHOLECYSTITIS W/O OBSTRUCTION Status: Chronic (6) Constipation Code(s): K59.00 - CONSTIPATION, UNSPECIFIED Status: Chronic (7) Hydroureteronephrosis Code(s): N13.30 - UNSPECIFIED HYDRONEPHROSIS Status: Chronic - Plan Plan: This is a 47 yo male with a pmh of HTN, normocytic anemia, hx of colon cancer, cauda equina syndrome Acute renal failure likely 2/2 obstruction with subsequent hydronephrosis POA -S/P emergent dialisys with improved electrolyte balance -Covington catheter replaced -GFR is still shows CKD 5 vs ESRD, pending improvement, continue trending -Dr. Sal consulted, appreciate recommendations Hyperkalemia, resolved -Will continue to monitor Hyponatremia, resolved -Monitor with BMP Chronic anemia -Decrease in Hgb to 9.8 following dialysis -Iron studies ordered -CKD likely contibuting to anemia Colon cancer s/p partial colectomy with recurrence -Palliative care on board, will appreciate recommendations -Adding heparin for DVT prophylaxis -MD gregorio appt, CM consulted to assist with this Cauda equina vs LE weakness from other source -Decreased gabapentin from 1200mg TID to 300 TID due to renal failure -Added on amitryptiline for nerve pain, will inc. dose -Scheduling norco as pt has consistently needed this -PRN morphine for breakthrough pain. Pt will not need this at home as he has an easier time distracting himself at home. Overflow incontinenece 2/2 BPH vs decreased bladder innervation -Consulted Dr. Bashir, will appreciate recommendations -Covington replaced and plan for outpt cystoscopy Dispo: d/c pending clincal course Discussed with Dr. Max Addendum - Attending - Attending Attestation Date/Time: 10/19/18 5628 I personally evaluated the patient and discussed the management with Dr. Bay I agree with the History, Examination, Assessment and Plan documented above with any addition or exceptions noted below. Patient RFT stable no further need dialysis ok discharge to home with further outpatient follow up. 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 His pain is fairly well controlled.
[2018-10-19 07:51] VITALS: BP 184/99; TEMP 97.7
[2018-10-19 08:58] LABS: Iron 166 ug/dL (65-175); Iron Binding Capacity, Total 409 mcg/dL (261-462); Transferrin, Serum 327 mg/dL (174-364)
[2018-10-19] MEDS: Heparin 5,000 UNITS/ML VIAL SC SCH (09:31)
[2018-10-19] MEDS: Metoprolol Tartrate 25 MG TAB PO SCH (09:33)
[2018-10-19] MEDS: Gabapentin 300 MG CAP PO SCH (09:33)
[2018-10-19] MEDS: Dexamethasone 4 mg/ml Vial SLOW IVP SCH (09:33)
[2018-10-19] MEDS: Nicotine 14 MG PATCH TD SCH (09:34)
[2018-10-19] MEDS: Amlodipine 5 MG TAB PO SCH (09:34)
--- NOTE | 2018-10-19 13:12 | PRG ---
DATE OF SERVICE: 10/19/2018 SUBJECTIVE: This is a 47-year-old gentleman being seen for acute kidney injury. The patient denies any nausea, vomiting, or chest pain. OBJECTIVE: GENERAL: The patient is awake and alert. VITAL SIGNS: Afebrile, pulse 75, breathing 16, blood pressure was 139/85. GENERAL APPEARANCE AND MENTAL STATUS: Fair. HEAD/NECK: Normocephalic. Atraumatic. EYES: EOMI. No deformity. EARS: Clear. No ulcers. NOSE: Intact. No lesions. MOUTH: Clear. No discharge. THROAT: Clear. No exudate. LUNGS: Clear. No crackles. CARDIAC: S1, S2. No rub. ABDOMEN: Benign. Bowel sounds positive. GENITALIA/RECTUM: Bundy absent. BACK/EXTREMITIES: Edema 0+. NEUROLOGICAL: Alert and motor intact. SKIN: LYMPHATICS: LABORATORY DATA: Reviewed. ASSESSMENT AND PLAN: 1. Stage 4 chronic kidney disease, stable acute kidney injury. 2. Hypertension, stable. 3. Hyperkalemia, stable. No indication for dialysis. The patient will follow up to see me in 1 week. Job ID: [id number]
--- NOTE | 2018-10-19 14:23 | DIS ---
DATE OF ADMISSION: 10/15/2018 DATE OF DISCHARGE: 10/19/2018 ADMITTING ATTENDING: Paolo Max MD DISCHARGE ATTENDING: Paolo Max MD RESIDENT: [place] MD, PGY-1. CONSULTS: 1. Urology, Dr. Bashir. 2. Nephrology, Dr. Sal. 3. General Surgery, Dr. Dobbins. PROCEDURES AND IMAGIN. CT abdomen and pelvis: Severe bilateral hydronephrosis with delayed nephrogram on right. Prominent diffuse bladder wall thickening. Mural thickening of the rectum conspicuous with colonic fecal retention. Distended gallbladder and gallstones. 2. Temporary dialysis catheter placement, common femoral, right femoral vein. 3. Placement of 16-Telugu coude catheter. PRIMARY DIAGNOSES: 1. Acute renal failure secondary to postobstruction with subsequent hydronephrosis. 2. Cauda equina. 3. Colon cancer status post partial colectomy with recurrence. 4. Overflow incontinence secondary to benign prostatic hyperplasia versus neurogenic bladder. 5. Chronic anemia. 6. Urine culture positive for Enterococcus faecalis and Stenotrophomonas maltophilia. DISCHARGE MEDICATIONS: 1. Tylenol 650 mg p.o. q.6 hours p.r.n. for pain. 2. Amitriptyline 50 mg p.o. at bedtime. 3. Norvasc 5 mg p.o. daily. 4. Gabapentin 300 mg p.o. t.i.d. 5. Levaquin 750 mg p.o. q.2 days for five total doses. 6. Nicotine patch 14 mg transdermal q.24 hours. 7. Metoprolol 25 mg p.o. b.i.d. 8. [place] 10/325 two tabs p.o. q.6 hours p.r.n. 9. Senokot one tab p.o. b.i.d. p.r.n. for constipation. DISCONTINUED MEDICATIONS: Gabapentin 1200 mg p.o. t.i.d. HISTORY OF PRESENT ILLNESS/HOSPITAL COURSE: Mr. Tylor Souza is a 47-year-old male with history of colorectal cancer status post partial colectomy with resultant cauda equina syndrome and chronic indwelling Bundy catheter. He presented for right-sided abdominal pain. CT imaging showed bilateral hydronephrosis thought to be due to bladder outlet obstruction. He does have a chronic indwelling Bundy catheter which was compressed so was thus removed by Dr. Bashir from Urology who replaced it with a larger gauge- 16-Telugu coude catheter. Due to postrenal obstruction the patient was found to be in acute renal failure with severe hyperkalemia requiring urgent hemodialysis with temporary placement of a right femoral dialysis catheter. Renal function downtrended and improved with cathter exchange. In addition, the patient experiences chronic pain likely from his cauda equina syndrome. Due to his renal failure, adjustments were made to his gabapentin. He was also started on amitriptyline. He will need continue up-titration and adjustments in his pain medications as his kidney function improves or declines. Acute renal failure. In regard to this, Dr. Sal said the patient's kidney function was stable. Should improve with time and was likely secondary to the solid obstruction. Please continue Bundy cathetheter care. In addition, the patient's urine culture did grow Enterococcus faecalis and Stenotrophomonas maltophilia, less than 100,000 CFUs; however, due to patient's multiple comorbidities, he was started on Levaquin for 5 total dose course to treat it due to this high morbidity and mortality associated with Stenotrophomonas maltophilia. DISCHARGE CONDITION: Stable. DISCHARGE INSTRUCTIONS: 1. Location: Home. 2. Diet: Low renal protein diet, heart healthy. 3. Activity: Ad brayan as tolerated. FOLLOWUP: 1. Please follow up with PCP, Dr. Angel Eckert, [facility]. 2. Please follow up with Dr. Bashir to receive outpatient cystoscopy. 3. Please consider repeat BMP to monitor renal function. 4. Please follow up with Pain Management doctor in order to have pain medications managed. 5. 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 We will have Cami Cannon form our office assist with this Job ID: [id number] [facility]
[2018-10-19] MEDS ORDERED: Amitriptyline HCl 25 MG TAB PO SCH (21:00)
[2018-10-20 17:09] LABS: Hematocrit 30.9 % (37.5-51.0); RBC Folate Test Component 1566 ng/mL (>498)
== END 2018-10-19 15:20 | disposition home or self-care (01) | DRG 683 ==
LOC: ERS 22:48 → 2NO 10-15 01:27 → 3SE 10-17 10:58 → 2NO 10-17 11:03
PROVIDERS: ADMIT Emergency Medicine; ATTEND Emergency Medicine
PROC: 5A1D70Z Performance of Urinary Filtration, Intermittent, Less than 6 Hours Per Day (ICD-10-PCS; principal; 2018-10-15)
PROC: 06HY33Z Insertion of Infusion Device into Lower Vein, Percutaneous Approach (ICD-10-PCS; 2018-10-15)
DX: N17.0 Acute kidney failure with tubular necrosis (principal); G83.4 Cauda equina syndrome; E87.1 Hypo-osmolality and hyponatremia; C18.9 Malignant neoplasm of colon, unspecified; E87.2 Acidosis; N13.30 Unspecified hydronephrosis; K59.03 Drug induced constipation; F17.210 Nicotine dependence, cigarettes, uncomplicated; E87.5 Hyperkalemia; K80.20 Calculus of gallbladder without cholecystitis without obstruction; N13.9 Obstructive and reflux uropathy, unspecified; D63.1 Anemia in chronic kidney disease; N40.0 Benign prostatic hyperplasia without lower urinary tract symptoms; N18.4 Chronic kidney disease, stage 4 (severe); I12.9 Hypertensive chronic kidney disease with stage 1 through stage 4 chronic kidney disease, or unspecified chronic kidney disease; B95.2 Enterococcus as the cause of diseases classified elsewhere; N40.1 Benign prostatic hyperplasia with lower urinary tract symptoms; B96.5 Pseudomonas (aeruginosa) (mallei) (pseudomallei) as the cause of diseases classified elsewhere; T40.2X5A Adverse effect of other opioids, initial encounter; D63.0 Anemia in neoplastic disease; N39.498 Other specified urinary incontinence; Z90.49 Acquired absence of other specified parts of digestive tract; Z79.891 Long term (current) use of opiate analgesic
CPT/HCPCS: 36415; 74177; 80048; 80053; 81003; 81015; 82607; 82728; 82747; 83540; 83550; 83690; 84466; 85025; 86706; 87077; 87086; 87186; 87340; 90935; 93005; 93010; 96361; 96374; 96375; G0257; J1100; J1644; J1815; J2270; J2405; J3010; Q9967

== ENCOUNTER 2018-10-26 15:38 | Inpatient (IN) | payer MEDICARE, MEDICAID ==
[~2018-10-26 15:38] MED LIST changes: +Heparin 1,000 UNITS/ML VIAL ONE; -Iopamidol 370 76% 100 ML VIAL ONE
[2018-10-26 16:33] LABS: #Eosinphils 0.4 thou/uL (0.0-0.7); #Lymphocytes 1.3 thou/uL (1.20-3.40); #Monocytes 1.3 thou/uL (0.11-0.59); #Neutrophils 9.3 thou/uL (1.40-6.50); %Basophils 0.3 % (0.0-1.0); %Eosinophils 3.6 % (0.0-10.0); %Lymphocytes 10.7 % (21.0-51.0); %Monocytes 10.4 % (0.0-10.0); Hemoglobin 9.2 g/dL (14.0-18.0); Mean Corpuscular HGB CONC 34.5 g/dL (32.0-36.0); Mean Corpuscular Hemoglobin 28.8 pg (27.0-31.0); Mean Corpuscular Volume 83.6 fL (78.0-98.0); Platelet Count 371 thou/uL (130-400); RBC Distribution Width 16.3 % (11.5-14.5); Red Blood Cell (RBC) Count 3.21 mill/uL (4.70-6.10); White Blood Cell (WBC) Count 12.4 thou/uL (4.8-10.8)
[2018-10-26 16:43] LABS: Bilirubin Negative (Negative); Blood, Urine Trace (Negative); Glucose, Urine (Dipstick) Negative (Negative); Leukocyte Trace (Negative); Nitrite Negative (Negative); Protein, Urine (Dipstick) > or equal to 300 mg/dL (Neg-Trace); Urobilinogen 0.2 mg/dL (Less than 2)
[2018-10-26 16:44] LABS: Clarity Clear (Clear)
[2018-10-26] MEDS ORDERED: Morphine 4 MG/ML VIAL ONE (16:49)
[2018-10-26 16:50] LABS: Bacteria/HPF None Seen HPF (None Seen); RBC/HPF 0-3 HPF (0-3); Squamous Epithelial 0-3 HPF (0-3)
[2018-10-26 16:52] LABS: ALT (SGPT) 7 U/L (8-55); AST (SGOT) 13 U/L (5-34); Albumin 3.9 g/dL (3.5-5.0); Alkaline Phosphatase 82 U/L (40-150); Anion Gap 17 mmol/L (10-20); BUN (Urea Nitrogen) 80 mg/dL (8.9-20.6); Bilirubin, Total 0.3 mg/dL (0.2-1.2); Calc. Creatinine Clearance 0 mL/min (70-130); Calcium 9.5 mg/dL (7.8-10.44); Carbon Dioxide 22 mmol/L (22-29); Chloride 100 mmol/L (98-107); Estimated GFR-MDRD 8; Globulin 2.7 g/dL (2.4-3.5); Glucose 96 mg/dL (70-105); Protein, Total 6.6 g/dL (6.0-8.3); Sodium 132 mmol/L (136-145)
[2018-10-26 17:05] LABS: Potassium 6.9 mmol/L (3.5-5.1)
--- NOTE | 2018-10-26 17:07 | CT ---
CT lumbar spine noncontrast HISTORY: Low back pain. Weakness. FINDINGS: Vertebral body heights and alignment are maintained. Minimal physiologic wedging of T12 and L1 vertebral bodies. No acute fracture or dislocation. Central canal and neural foramina are patent. Atherosclerosis and fusiform ectasia of the lower abdominal aorta is partially visualized and better detailed on CT abdomen performed at the same time. Hydronephrosis also partially visualized. IMPRESSION: No acute osseous abnormalities of the lumbar spine are demonstrated.
[2018-10-26] MEDS ORDERED: Dextrose 50% Abboject 50 ML SYRINGE ONE (17:22)
[2018-10-26] MEDS ORDERED: Insulin Regular 300 UNITS/3 ML VIAL ONE (17:22)
[2018-10-26] MEDS ORDERED: Sodium Bicarbonate 2.5 MEQ/5 ML VIAL ONE (17:22)
[2018-10-26] MEDS ORDERED: Sodium Bicarb 50 MEQ/50 ML VIAL ONE (17:28)
[2018-10-26] MEDS ORDERED: Calcium Chloride 1 GM/10 ML Abboject SYRINGE ONE (17:35)
[2018-10-26] MEDS ORDERED: Fentanyl 100 MCG/2 ML VIAL ONE (17:35)
--- NOTE | 2018-10-26 17:38 | CT ---
CT ABDOMEN AND PELVIS WITHOUT IV CONTRAST: INDICATIONS: History of flank pain. COMPARISON: CT abdomen and pelvis dated 10/14/2018. FINDINGS: Again seen is severe bilateral hydronephrosis, which extends to the level of the bladder. There is p rominent wall thickening in the bladder. There is a Bundy catheter within the bladder. There is a 7 .2 cm prostate. There is stable prominent wall thickening involving the rectum with presacral edema. There is a moderate amount of retained stool within the colon. There is post surgical change of a ri ght hemicolectomy. There is bibasilar atelectasis. There are numerous gallstones within a nondistended gallbladder. The pancreas, liver, and adrenal glands are unremarkable on this noncontrast exam. The spleen is unr emarkable appearing. There are moderate calcifications involving the abdominopelvic vasculature. There is diffuse osteopenia. There is scattered degenerative change. There is a small bone island w ithin the right acetabulum. The ectasia of the neural foramina with prominent perineural sleeve cysts appear similar to an MRI of the lumbar spine dated 07/16/2018. IMPRESSION: 1. Stable severe bilateral hydronephrosis. This has been present since 08/19/2018. 2. Stable prominent wall thickening involving the rectum with mild presacral edema. 3. Stable prostate enlargement and bladder wall thickening with a Bundy catheter. POS: ROYCE
[2018-10-26] MEDS ORDERED: Calcium Chloride 1 GM/10 ML Abboject SYRINGE IVP SCH (17:45)
[2018-10-26 17:48] LABS: CK (CPK) 74 U/L (30-200); Lipase 23 U/L (8-78)
--- NOTE | 2018-10-26 17:48 | RAD ---
CHEST ONE VIEW: INDICATIONS: History of back pain and dyspnea. COMPARISON: 07/14/2018 FINDINGS: There is subsegmental volume loss involving both lower lobes. No pleural effusion or pneumothorax is evident. Heart size is normal. No acute osseous abnormality is evident. IMPRESSION: No acute cardiopulmonary abnormality. POS: BH
[2018-10-26] MEDS ORDERED: Ketamine 50 MG/ML (10ML VIAL) ONE (18:24)
[2018-10-26] MEDS ORDERED: HYDROcodone/Acetaminophen 10/325 mg Tablet PO PRN (20:23)
[2018-10-26] MEDS ORDERED: Acetaminophen 325 MG TAB PO PRN ×2 (20:23→22:06)
[2018-10-26] MEDS ORDERED: Bisacodyl 5 MG TAB PO PRN (20:23)
--- NOTE | 2018-10-26 20:24 | PDOC.FPRHP ---
- History of Present Illness Chief Complaint: Decreased Urine Output History of Present Illness: The patient is a 47M with a PMHx of ESRD, colon cancer, Cauda Equina Syndrome, and chronic pain requiring extensive opioid use who presents to the ED because he "wasn't making urine" and had increasingly severe flank pain. He also complains of generalized weakness and fatigue. He had recently been admitted to the ED for a similar CC on 10/15/18, and his hospital course was remarkable for multiple rounds of peritoneal dialysis and a urine culture that was positive for E. faecalis and Strep. spp. He was discharged on 10/19/18 with Levaquin 750 mg PO Q2D and a [place] cather in place. A history was difficult to obtain due to the patient's uncontrolled pain, but the patient admitted to decreased urine output. He stated repeatedly through tears that he "did not want to ". - Allergies/Adverse Reactions Allergies Allergy/AdvReac Type Severity Reaction Status Date / Time No Known Allergies Allergy Verified 10/26/18 20:41 - Home Medications Medication Instructions Recorded Confirmed Type Metoprolol Tartrate 25 mg PO BID #60 tablet 09/28/18 10/26/18 Rx HYDROcodone Bit/APAP 10/325 [[place]] 2 tab PO Q6H PRN 10/15/18 10/26/18 History Sennosides/Docusate Sodium 1 tab PO BID PRN 10/15/18 10/26/18 History [Senokot S] Acetaminophen [Tylenol Regular 650 mg PO Q6H PRN tab 10/19/18 10/26/18 Rx Strength] Amitriptyline HCl [Elavil] 50 mg PO HS #30 tab 10/19/18 10/26/18 Rx Amlodipine [Norvasc] 5 mg PO DAILY #45 tab 10/19/18 10/26/18 Rx Gabapentin [Neurontin] 300 mg PO TID #90 cap 10/19/18 10/26/18 Rx methylPREDNISolone [Medrol Dospak] 4 mg PO ASDIR #1 pack 10/20/18 10/26/18 Rx - History PMHx: ESRD, Colon Cancer, Cauda Equina Syndrome, HTN, Chronic Pain PSHx: Colectomy, Appendectomy FHx: Mother (Ovarian Cancer), Brother (Cardiac Arrest during Dialysis) Social: Tobacco Abuse (0.5 PPD), Denies EtOH and Drug Abuse - Review of Systems ROS unobtainable: due to mental status - Vital signs BP: [154/80] HR: [113] RR: [22] Tmax: [98.3] Pox: [99]% on [Room Air] Wt: [] - Physical Exam Constitutional: awake, alert and oriented, other (Patient was writhing in pain on the hospital bed, crying) HEENT: normocephalic and atraumatic, PERRLA, conjunctiva clear, grossly normal vision, grossly normal hearing, MMM Neck: supple, FROM, trachea midline, no JVD Chest: no-tender to palpation, no lesions Heart: pulses present Lungs: no respiratory distress Abdomen: no masses/distention Musculoskeletal: ROM grossly normal, other (Obvious wasting of LEs) Neurological: no focal deficit Skin: no rash/lesions Heme/Lymphatic: no unusual bruising or bleeding, no purpura, no petechia Psychiatric: intact recent and remote memory, other (Obvious distress) FMR H&P: Results - Labs Result Diagrams: 10/26/18 20:13 10/27/18 04:27 Lab results: WBC 12.4 thou/uL (4.8-10.8) H 10/26/18 16:27 Hgb 9.2 g/dL (14.0-18.0) L 10/26/18 16:27 Hct 26.8 % (42.0-52.0) L 10/26/18 16:27 MCV 83.6 fL (78.0-98.0) 10/26/18 16:27 Plt Count 371 thou/uL (130-400) 10/26/18 16:27 Neutrophils % 75.0 % (42.0-75.0) 10/26/18 16:27 Sodium 132 mmol/L (136-145) L 10/26/18 16:27 Potassium 6.9 mmol/L (3.5-5.1) H* 10/26/18 16:27 Chloride 100 mmol/L (98-107) 10/26/18 16:27 Carbon Dioxide 22 mmol/L (22-29) 10/26/18 16:27 BUN 80 mg/dL (8.9-20.6) H 10/26/18 16:27 Creatinine 7.31 mg/dL (0.7-1.3) H 10/26/18 16:27 Glucose 96 mg/dL (70-105) 10/26/18 16:27 Calcium 9.5 mg/dL (7.8-10.44) 10/26/18 16:27 Total Bilirubin 0.3 mg/dL (0.2-1.2) 10/26/18 16:27 AST 13 U/L (5-34) 10/26/18 16:27 ALT 7 U/L (8-55) L 10/26/18 16:27 Alkaline Phosphatase 82 U/L (40-150) 10/26/18 16:27 Creatine Kinase 74 U/L (30-200) 10/26/18 16:27 B-Natriuretic Peptide 432.8 pg/mL (0-100) H 10/26/18 16:27 Serum Total Protein 6.6 g/dL (6.0-8.3) 10/26/18 16:27 Albumin 3.9 g/dL (3.5-5.0) 10/26/18 16:27 Lipase 23 U/L (8-78) 10/26/18 16:27 Urine Ketones Negative mg/dL (Negative) 10/26/18 16:31 Urine Blood Trace (Negative) A 10/26/18 16:31 Urine Nitrite Negative (Negative) 10/26/18 16:31 Ur Leukocyte Esterase Trace (Negative) H 10/26/18 16:31 Urine RBC 0-3 HPF (0-3) 10/26/18 16:31 Urine WBC 7-10 HPF (0-3) A 10/26/18 16:31 Ur Squamous Epith Cells 0-3 HPF (0-3) 10/26/18 16:31 Urine Bacteria None Seen HPF (None Seen) 10/26/18 16:31 - EKG Interpretation EKG: EKG performed in the ED showed sinus tachycardia with tall, peaked T Waves. - Radiology Interpretation CT scan - abdomen Status: report reviewed by me Additional comment: Severe, bilateraly hydronephrosis with an enlarged prostate (~7.2 cm), rectal thickening with surrounding edema Other Status: report reviewed by me (CT Lumbar Spine: NAF) Chest x-ray Status: report reviewed by me Additional comment: NAF FMR H&P: A/P - Problem List (1) ESRD (end stage renal disease) on dialysis Current Visit: Yes Status: Acute Code(s): N18.6 - END STAGE RENAL DISEASE; Z99.2 - DEPENDENCE ON RENAL DIALYSIS (2) Colon cancer Current Visit: No Status: Acute Code(s): C18.9 - MALIGNANT NEOPLASM OF COLON , UNSPECIFIED (3) Hyperkalemia Current Visit: No Status: Acute Code(s): E87.5 - HYPERKALEMIA Comment: Mild elevation, continue IVF's, serial K+ monitoring, secondary to #1, limit K+ exposure (4) Cauda equina syndrome Current Visit: No Status: Chronic Code(s): G83.4 - CAUDA EQUINA SYNDROME Comment: Associated with RLE weakness/paresis, consult Pain Mgmt service, consult Neurosurgical service for tx options (5) Hydroureteronephrosis Current Visit: No Status: Chronic Code(s): N13.30 - UNSPECIFIED HYDRONEPHROSIS Comment: Secondary to chronic neurogenic bladder with functional obstruction, [place] for decompression, consult Neurosurgery for surgical options (6) Hypertension Current Visit: No Status: Chronic Code(s): I10 - ESSENTIAL (PRIMARY) HYPERTENSION - Plan 1. ESRD -Oliguria, bilateral flank pain -Cr: 5.85 -K: 6.9 -Likely 2/2 to combination of enlarged prostate and advanced colon cancer -Nephrology consulted, managing dialysis -Consult Surgery for permanent catheter placement -Consult Case Management for standing dialysis appointment -Avoid use of nephrotoxic drugs 2. Hyperkalemia -K: 6.9 > 5.1 after Calcium Gluconate / Keyexalate administration in ED -EKG: Tall, peaked T Waves -Emergent dialysis initiated on 10/27/18 following placement of catheter in ED -Next dialysis treatment scheduled for 329, with labs to follow -Evaluate patient clinically, continue to monitor K levels via CMPs, consider EKG if equivocal 3. Hydronephrosis, bilateral -Unchanged since last presentation -Consider possibility of infection 2/2 urinary stasis in light of elevated WBC ( 12.5) -Urine Culture: Pending -ABD CT: Bilateral Hydronephrosis confirmed, enlarged prostate also noted -Ensure adequate drainage, monitor urine production/retention w/ bladder scans if indicated -Ensure subsequent dialysis treatments, Nephrology managing -Consider antibiotic therapy if urine culture is positive 4. Chronic Pain, likely 2/2 to Cauda Equina Syndrome -Acetaminophen 650 mg PO Q6H -[place] 10/325 2 Tabs PO Q6H -Gabapentin 100 mg PO Daily -Morphine 4 mg IV Once for Breakthrough Pain 5. HTN -Allow for variability of BP due to ongoing fluid shifts 2/2 to dialysis -Hydralazine 10 mg PO if SBP > 180 6. Colon Cancer -Possible access to [facility] cancer treatment program -Consult Case Management for assistance Dispo: Admit to [facility], consult Surgery for cather placement, consult Nephrology for ongoing dialysis treatments, continue to monitor hyperkalemia and treat as appropriate, control pain. FMR H&P: Upper Level - Pertinent history 47 yo male with extensive PMH and recent similar admission presents for missing dialysis and decreased urine output. Patient reports similar pain complaints as well as decreased urine output. Patient has also had longstanding covington in place due to hydronephrosis. He was to have Urology appointment this week. In the ED he was found to have an elevated potassium and was in need of dialysis. Please see sports intern note above for further information. Physical Exam: General: Male appears stated age, resting comfortably CV: RRR, no murmurs Respiratory: CTA-bilaterally - Plan Date/Time: 10/26/182022 IToan MD, have evaluated this patient and agree with findings/ plan as outlined by sports intern resident. Pertinent changes/additions are listed here. 1. ARF on CKD - Plan for HD tonight - Nephrology consulted appreciate recommendations - Consider fpc HD planning - Urology consultation in AM due to likely obstructive process 2. Hyperkalemia - Likely secondary to above - Recheck BMP in AM - 6.9 -> 5.1 3. Hx of colon cancer s/p hemicolectomy with recurrence of cancer - Recent colonoscopy with recurrence of cancer at site of anastomosis - Patient has been referred to [facility]; he has not followed with them yet - Patient sees Dr. Vasquez - Will consider Hematology/Oncology consultation 4. HTN - Continue home medications - PRN medications for BP >180 5. Anemia - Likely chronic and near baseline - Can consider workup although likely secondary to carcinoma 6. Cauda equina syndrome - Continue routine supportive care CODE STATUS: FULL CODE Disposition: Stable, overall termite control representative prognosis guarded. Addendum - Attending - Attending Attestation Date/Time: 10/27/18 0655 I personally evaluated the patient and discussed the management with Dr. Barrow I agree with the History, Examination, Assessment and Plan documented above with any addition or exceptions noted below.
--- NOTE | 2018-10-26 20:58 | PDOC.EVN ---
Addendum - Attending - Attending Attestation Date/Time: 10/26/182014 I personally evaluated the patient and discussed the management with Drs. Barrow/Rocky I agree with the History, Examination, Assessment and Plan documented in separate note 47 yo male with hyperkalemia secondary to worsening renal failure due to obstructive uropathy. Patient seen in ER with c/o right sided flank pain and oliguria found with BUN 80 Creatinine 7.31 K 6.9 and Na 132 patient given calcium gluconate, d50 /insulin and kaxeylate in ER for management hyperkalemia admit for urgent hemodialysis. EKG negative for significant hyperkalemia changes. PMHX: patient recently admitted 10/15-10/19 for similar illness ARF with severe bilateral hydronephrosis seen by Dr Demian VIEIRA and consultation with Dr Man. After serial HD his RFT's dramatically improved and he was dismissed for outpatient f/u with Cystoscopy. Patient with incidental gallstones and urine C& S notable for positive enterococcus and stentrophomas maltophilia rx with renal dosed levaquin. Surgery :appendectomy 2004 incidental found with colon CA underwent resection 09/16/2018 EGD/Colonoscopy Dr Vasquez with gastric ulcer neg path neg H.Pylori colonoscopy with poorly differentiated signet cell carcinoma scheduled for f/u [facility] afebrile BP 160 90 P 80 RR 12 alert moderate distress HEENT dentures noted neck supple Lung CTA Heart NSR Abdomen soft tender right flank guarding no rebound covington cath in place minimal output Assessment /Plan: ARF with hyperkalemia for insertion dialysis catheter and urgent Hemodialysis Nephrology consulted Right sided flank pain with Severe hydronephrosis felt post obstructive uropathy with chronic indwelling covington; BPH, CA, neurogenic bladder as possible etiologies will need Urology consultation for further consideration was tentatively scheduled for cystoscopy outpatient History of colon cancer s/p resection with recent finding Poorly Differentiated signet cell CA on recent colonoscopy 09/16/2018 need Oncology evaluation and appropriate DVT prophylaxis Chronic pain secondary to "cauda equina" history prior Pain management evaluation recently decreased gabapentin due to ARF continue to address pain Opiod induced constipation resume miralax 17 gm bid check rectal impaction HTN controlled with amlodipine history gastric ulcer continue PPI recent biopsy neg path neg H pylori recent treatment UTI with renal dosed levaquin Gallstones asymptomatic anemia chronic
[2018-10-26 21:07] LABS: Hemoglobin 8.7 g/dL (14.0-18.0); Mean Corpuscular Hemoglobin 28.5 pg (27.0-31.0); Mean Corpuscular Volume 83.9 fL (78.0-98.0); Mean Platelet Volume 7.3 fL (7.4-10.4); Platelet Count 347 thou/uL (130-400); RBC Distribution Width 16.3 % (11.5-14.5); Red Blood Cell (RBC) Count 3.05 mill/uL (4.70-6.10); White Blood Cell (WBC) Count 12.5 thou/uL (4.8-10.8)
[2018-10-26 21:11] LABS: ALT (SGPT) Less than 7 U/L (8-55); AST (SGOT) 11 U/L (5-34); Albumin 3.5 g/dL (3.5-5.0); Alkaline Phosphatase 76 U/L (40-150); Anion Gap 15 mmol/L (10-20); BUN (Urea Nitrogen) 62 mg/dL (8.9-20.6); Bilirubin, Total 0.3 mg/dL (0.2-1.2); Calc. Creatinine Clearance 0 mL/min (70-130); Calcium 8.5 mg/dL (7.8-10.44); Carbon Dioxide 23 mmol/L (22-29); Chloride 102 mmol/L (98-107); Estimated GFR-MDRD 10; Globulin 2.4 g/dL (2.4-3.5); Glucose 93 mg/dL (70-105); Potassium 5.1 mmol/L (3.5-5.1); Protein, Total 5.9 g/dL (6.0-8.3); Sodium 135 mmol/L (136-145)
[2018-10-26 21:22] LABS: Lymphocytes 4 % (21-51); MDiff Complete? YES; Macrocytosis SLIGHT = 6-15 cells (100X) (0-5/hpf); Monocytes 10 % (0-10); Neutrophil 86 % (42-75); Platelet Morphology Comment Appears Adequate
[2018-10-26] MEDS ORDERED: Senokot S 8.6-50 MG TAB PO PRN (22:06)
[2018-10-26] MEDS ORDERED: hydrALAZINE 20 MG/ML VIAL SLOW IVP PRN (22:12)
[2018-10-26] MEDS ORDERED: Morphine 4 MG/ML VIAL SLOW IVP SCH (22:30)
[2018-10-26] MEDS ORDERED: Amitriptyline HCl 25 MG TAB PO SCH (23:45)
[2018-10-26] MEDS ORDERED: Metoprolol Tartrate 25 MG TAB PO SCH (23:45)
--- NOTE | 2018-10-27 01:55 | CON ---
DATE OF CONSULTATION: 10/26/2018 CONSULTING PHYSICIAN: Rah Pascal MD REASON FOR CONSULTATION: Hyperkalemia and acute kidney injury. REASON FOR ADMISSION: Abdominal pain. HISTORY OF PRESENT ILLNESS: This is a 47-year-old male with history of colon cancer, cauda equina, chronic opiate syndrome, came to the hospital with above symptoms and was found to have elevated potassium and creatinine. Nephrology was consulted. The patient is also following with Urology. He has bilateral hydronephrosis, which was found stable on CT scan. Nephrology consulted for abnormal labs and the patient denies any nausea or vomiting. He does have an indwelling Bundy, but his urine output has been dropping slowly and to the point that it reveals not making any urine for the last 24 to 48 hours. No nausea or vomiting. No chest pain or palpitations reported. No fever or chills. PAST MEDICAL HISTORY: Positive for colon cancer, cauda equina syndrome, opiate-induced constipation, anemia. PAST SURGICAL HISTORY: Partial colectomy, appendectomy. HOME MEDICATIONS: Include; 1. Medrol Dosepak. 2. Senokot. 3. Levaquin. 4. [place]. 5. Neurontin. 6. Norvasc. 7. Elavil. 8. Tylenol. ALLERGIES: NO KNOWN DRUG ALLERGIES. SOCIAL HISTORY: Smokes half pack per day. No alcohol or illicit drug abuse. FAMILY HISTORY: Positive for ovarian cancer. REVIEW OF SYSTEMS: CONSTITUTIONAL: Negative for weight loss or gain, ability to conduct usual activities. SKIN: Negative for rash, itching. EYES: Negative for double vision, pain. ENT/MOUTH: Negative for nose bleeding, neck stiffness, pain, tenderness. CARDIOVASCULAR: Negative for palpitations, dyspnea on exertion, orthopnea. RESPIRATORY: Negative for shortness of breath, wheezing, cough, hemoptysis, fever or night sweats. GASTROINTESTINAL: Negative for poor appetite, abdominal pain, heartburn, nausea, vomiting, constipation, or diarrhea. GENITOURINARY: Negative for urgency, frequency, dysuria, nocturia. MUSCULOSKELETAL: Negative for pain, swelling. NEUROLOGIC/PSYCHIATRIC: Negative for anxiety, depression. ALLERGY/IMMUNOLOGIC: Negative for skin rash, bleeding tendency. Otherwise negative except as stated per HPI. PHYSICAL EXAMINATION: GENERAL: This is a well-built male, in no apparent distress. VITAL SIGNS: Temperature 98.3, pulse 130, respiratory rate 22, blood pressure 154/80. HEENT: Atraumatic, normocephalic. Oral mucosa is moist. NECK: Supple. CARDIOVASCULAR: S1, S2 heard. Rate and rhythm regular. RESPIRATORY: Clear to auscultation. GASTROINTESTINAL: Abdomen is soft. MUSCULOSKELETAL: No tenderness. No edema. DERMATOLOGIC: No skin rash. NEUROLOGIC: Alert and awake. PSYCHIATRIC: Normal mood and affect. LABORATORY DATA: Hemoglobin is 9.2, potassium is 6.9, BUN is 80, creatinine is 7.3. ASSESSMENT AND PLAN: 1. Acute kidney injury, most likely from obstruction, but hydronephrosis stable. We will recommend Urology consult. 2. Hyperkalemia. Plan is emergent dialysis. 3. Hyponatremia. 4. Anemia, rule out any bleed. 5. Elevated BNP, we will remove fluid dialysis as tolerated. 6. Pyuria, rule out any infection. 7. Prognosis guarded. 8. Bilateral hydronephrosis. Follow up with Urology. 9. Prognosis guarded. Plan is to have emergent dialysis given severe life-threatening hyperkalemia. We will have close monitor. Dialysis nurse notified and Dr. Pascal will be putting a catheter in. Thank you, I appreciate the consult and we will follow. Job ID: [id number]
[2018-10-27] MEDS: HYDROcodone/Acetaminophen 10/325 mg Tablet PO PRN ×4 (02:43→23:10)
[2018-10-27 05:26] LABS: Anion Gap 14 mmol/L (10-20); BUN (Urea Nitrogen) 67 mg/dL (8.9-20.6); Calc. Creatinine Clearance 12 mL/min (70-130); Calcium 8.4 mg/dL (7.8-10.44); Carbon Dioxide 25 mmol/L (22-29); Chloride 102 mmol/L (98-107); Estimated GFR-MDRD 9; Glucose 86 mg/dL (70-105); Potassium 5.6 mmol/L (3.5-5.1); Sodium 135 mmol/L (136-145)
--- NOTE | 2018-10-27 06:46 | PDOC.FM ---
- Subjective Subjective: Mr. Souza says he is feeling well. Denies fever, chills. Has mild R flank pain which is unchanged. Says he has still had no urine output. Nurse tried to flush last night. - Objective MAR Reviewed: Yes Vital Signs & Weight: Vital Signs (12 hours) Temp Pulse Resp BP Pulse Ox 10/27/18 04:00 98.3 F 93 20 133/88 95 10/26/18 23:55 98.1 F 104 H 20 175/99 H 98 10/26/18 20:16 97.1 F L 98 153/95 H 95 Weight Weight 64.229 kg Result Diagrams: 10/26/18 20:13 10/27/18 04:27 Phys Exam - Physical Examination Constitutional: NAD Respiratory: no wheezing, clear to auscultation bilateral Cardiovascular: RRR, no significant murmur Gastrointestinal: soft, no distention, positive bowel sounds slightly TTP R flank Musculoskeletal: no edema, pulses present Neurological: non-focal Psychiatric: normal affect Skin: normal turgor Dx/Plan (1) Hyperkalemia Code(s): E87.5 - HYPERKALEMIA Status: Acute (2) CANDY (acute kidney injury) Code(s): N17.9 - ACUTE KIDNEY FAILURE, UNSPECIFIED Status: Acute (3) Hydroureteronephrosis Code(s): N13.30 - UNSPECIFIED HYDRONEPHROSIS Status: Chronic (4) Chronic use of opiate for therapeutic purpose Code(s): Z79.891 - IPHONE DEVELOPER (CURRENT) USE OF OPIATE ANALGESIC Status: Acute (5) Colon cancer Code(s): C18.9 - MALIGNANT NEOPLASM OF COLON, UNSPECIFIED Status: Acute (6) Hyponatremia Code(s): E87.1 - HYPO-OSMOLALITY AND HYPONATREMIA Status: Acute (7) Cauda equina syndrome Code(s): G83.4 - CAUDA EQUINA SYNDROME Status: Chronic - Plan Plan: 1. ESRD -Oliguria, bilateral flank pain -Nephrology consulted, plan for dialysis today -Avoid use of nephrotoxic drugs 2. Hyperkalemia, improving -K: 6.9 > 5.1 after Calcium Gluconate / Keyexalate administration in ED -EKG: Tall, peaked T Waves s/p Emergent dialysis 10/27/18 following placement of catheter in ED -5.6 today 3. Hydronephrosis, bilateral -Unchanged since last presentation -Urine Culture: Pending -ABD CT: Bilateral Hydronephrosis confirmed, enlarged prostate also noted -Will bladder scan this morning -Consult urology today 4. Chronic Pain, likely 2/2 to Cauda Equina Syndrome -Acetaminophen 650 mg PO Q6H -[place] 10/325 2 Tabs PO Q6H -Gabapentin 100 mg PO Daily 5. HTN -Allow for variability of BP due to ongoing fluid shifts 2/2 to dialysis -Hydralazine 10 mg PO if SBP > 180 6. Colon Cancer -Possible access to .D. [place]'s cancer treatment program Dispo: Pending dialysis and nephro recommendations. Urology consult today Addendum - Attending - Attending Attestation Date/Time: 10/27/18 9326 I personally evaluated the patient and discussed the management with Dr. Cedillo. I agree with the History, Examination, Assessment and Plan documented above with any addition or exceptions noted below. Patient overall doing well this morning, has some lower abdominal pain. Catheter flushed last night but still minimal UOP. Nephro on board and possible HD again today, and Urology has been consulted. Continue to monitor potassium levels.
[2018-10-27] MEDS ORDERED: Gabapentin 300 MG CAP PO SCH (09:00)
[2018-10-27] MEDS: Amlodipine 5 MG TAB PO SCH (09:19)
[2018-10-27] MEDS: Gabapentin 100 MG CAP PO SCH (09:19)
[2018-10-27] MEDS: Heparin 5,000 UNITS/ML VIAL SC SCH ×3 (09:20→21:00)
[2018-10-27] MEDS: Metoprolol Tartrate 25 MG TAB PO SCH ×2 (09:20→23:08)
--- NOTE | 2018-10-27 12:42 | PRG ---
DATE OF SERVICE: 10/27/2018 SUBJECTIVE: This is a 47-year-old gentleman, being seen for acute kidney injury. The patient denied any nausea, vomiting, or chest pain. OBJECTIVE: GENERAL: The patient is awake and alert. VITAL SIGNS: Afebrile, pulse 75, breathing 16, and blood pressure 137/83. GENERAL APPEARANCE AND MENTAL STATUS: Fair. HEAD/NECK: Normocephalic. Atraumatic. EYES: EOMI. No deformity. EARS: Clear. No ulcers. NOSE: Intact. No lesions. MOUTH: Clear. No discharge. THROAT: Clear. No exudate. LUNGS: Clear. No crackles. CARDIAC: S1, S2. No rub. ABDOMEN: Benign. Bowel sounds positive. GENITALIA/RECTUM: Bundy absent. BACK/EXTREMITIES: Edema 0+. NEUROLOGICAL: Alert and motor intact. SKIN: LYMPHATICS: LABORATORY DATA: Reviewed. ASSESSMENT AND PLAN: 1. Stage 6 chronic kidney disease, plan dialysis. 2. Hyperkalemia, plan dialysis. 3. Anemia, stable. 4. Medication based on GFR appropriate. Job ID: [id number]
[2018-10-27] MEDS ORDERED: Heparin 10,000 UNITS/1 ML VIAL ONE (15:00)
[2018-10-27] MEDS ORDERED: PHENYLEPHRINE-NS 100 MCG/ML 10 ML SYRINGE ONE (16:45)
[2018-10-27] MEDS ORDERED: Lidocaine 1% PF 5 ML VIAL ONE (16:45)
[2018-10-27] MEDS ORDERED: Ondansetron PF 4 MG/2 ML Vial ONE (16:45)
[2018-10-27] MEDS ORDERED: PROPOFOL 200 MG/20 ML VIAL ONE (16:45)
[2018-10-27] MEDS ORDERED: Lidocaine 1% (PF) 30 ML VIAL ONE (18:47)
[2018-10-27] MEDS ORDERED: Iothalamate Meglumine 60% 50 ML VIAL FS ONE (18:47)
[2018-10-27] MEDS ORDERED: Fentanyl 100 MCG/2 ML VIAL ONE ×2 (19:03→22:14)
[2018-10-27] MEDS ORDERED: Midazolam HCl 2 mg/2 ml Vial ONE (19:03)
[2018-10-27] MEDS ORDERED: Meperidine HCl/PF 25 MG/ML VIAL SLOW IVP PRN (19:57)
[2018-10-27] MEDS ORDERED: PACU-Morphine 4MG/ML VIAL SLOW IVP PRN (19:57)
[2018-10-27] MEDS ORDERED: Promethazine HCl 25 MG/ML VIAL IM PRN (19:57)
[2018-10-27] MEDS ORDERED: Promethazine HCl 25 MG/ML VIAL SLOW IVP PRN (19:57)
[2018-10-27] MEDS ORDERED: Prevnar 13-Val Conj/PF 0.5 ML SYRINGE IM ONE (21:00)
[2018-10-27] MEDS ORDERED: Levofloxacin 500 mg/D5W 100 ml Premix Bag ONE (21:16)
--- NOTE | 2018-10-27 21:23 | RAD ---
Retrograde pyelogram: 10/27/2018 HISTORY: Stent placement FINDINGS: 3 images provided demonstrate contrast media within the urinary bladder. The renal collecti ng system/ureter is not opacified on this exam. IMPRESSION: Contrast media within the urinary bladder.
[2018-10-27] MEDS ORDERED: Gentamicin Sulfate 120 MG in Premix Bag 1 BAG IVPB SCH (21:45)
[2018-10-27] MEDS ORDERED: Promethazine HCl 25 MG/ML VIAL ONE (22:11)
[2018-10-27] MEDS: Amitriptyline HCl 25 MG TAB PO SCH (23:07)
[2018-10-28] MEDS: Morphine 4 MG/ML VIAL SLOW IVP SCH ×2 (01:17→04:16)
--- NOTE | 2018-10-28 01:38 | OP ---
DATE OF PROCEDURE: 10/27/2018 PREOPERATIVE DIAGNOSIS: bilateral hydronephrosis, Hx colon CA, abnormal rectal exam POSTOPERATIVE DIAGNOSIS: SAME SURGEON: Pankaj Basihr M.D. PROCEDURES PERFORMED: Cystoscopy - difficult. Placement suprapubic tube. Transrectal biopsy pelvic mass. ANESTHESIA: General. INDICATIONS FOR PROCEDURE: Mr. Souza is a 47-year-old gentleman with renal failure of unclear etiology. He does have bilateral hydronephrosis and poor urine output despite a Bundy catheter being in place, suggesting ureteral obstruction. He has been brought to the operating room for attempted ureteral stent placement and cystoscopic evaluation also because of the difficulties with Bundy catheter placement. DESCRIPTION OF PROCEDURE: The patient was given general anesthesia and IV antibiotics. During the procedure, he received both Levaquin and gentamicin. It should be noted that his urine culture prior to the procedure demonstrated no bacteria and culture showed no growth to date on his specimen from 10/26/2018. The indwelling Bundy catheter was removed and the [id number] was advanced toward the bladder. The cystoscope could not be passed atraumatically into the bladder as a result of a fixed, "frozen" prostatic urethra as is seen in some patients having received previous radiation. I could not advance the rigid cystoscope into the bladder without difficulty. Eventually, a flexible ureteroscope was utilized and could be manipulated in the bladder. A guidewire was passed through the flexible ureteroscope. Councill tip dilators were utilized to dilate over the wire. This was also quite difficult and could not be performed beyond 16-Qatari because of the acute angulation at the prostatic urethra from the rigid prostatic urethra. Eventually, a 17 Qatari rigid cystoscope could be manipulated into the bladder with some difficulty by following the guidewire. The bladder itself demonstrated no tumors. It was small capacity and poorly compliant. Neither ureteral orifice could be visualized. There was irregularity to the bladder floor without obvious tumor formation. Under cystoscopic guidance, a percutaneous suprapubic tube was placed by passing a spinal needle under cystoscopic guidance followed by a suprapubic trocar through which a 16-Qatari Bundy catheter was passed. Cystoscopic evaluation confirmed good placement of the SP tube. After prolonged and exhaustive attempts to locate and intubate the ureteral orifices, this was eventually abandoned as not feasible at this time, and a guidewire was passed through the cystoscope. A 16-Qatari Councill tip catheter was passed over the guidewire and into the bladder. Cystogram was performed to confirm both catheters were patent and in the bladder lumen. Continuous bladder irrigation was initiated through the suprapubic tube catheter and out through the Bundy catheter. The patient tolerated the procedure well. He was transferred from the operating room to the recovery room in stable condition. On digital rectal exam, there is a large indurated mass in the region of the prostate. Transrectal biopsy under digital guidance was performed one from the right side and one from the left side of the prostate. ESTIMATED BLOOD LOSS: Minimal. DISPOSITION: Transferred from the operating room to the recovery room in stable condition. Upper urinary tract drainage will require percutaneous nephrostomy. CBI can be discontinued if hematuria is minimal COMPLICATION: None. Job ID: [id number] [facility]ITAL[facility]ian[facility]
[2018-10-28 06:07] LABS: Anion Gap 14 mmol/L (10-20); BUN (Urea Nitrogen) 57 mg/dL (8.9-20.6); Calc. Creatinine Clearance 12 mL/min (70-130); Calcium 8.4 mg/dL (7.8-10.44); Carbon Dioxide 27 mmol/L (22-29); Chloride 98 mmol/L (98-107); Estimated GFR-MDRD 9; Glucose 88 mg/dL (70-105); Potassium 6.1 mmol/L (3.5-5.1); Sodium 133 mmol/L (136-145)
[2018-10-28] MEDS: HYDROcodone/Acetaminophen 10/325 mg Tablet PO PRN ×4 (06:36→23:02)
[2018-10-28 09:11] LABS: Total PSA 0.1 ng/mL (0.0-4.0)
[2018-10-28] MEDS: Metoprolol Tartrate 25 MG TAB PO SCH ×2 (09:14→20:17)
[2018-10-28] MEDS: Amlodipine 5 MG TAB PO SCH (09:14)
[2018-10-28] MEDS: Heparin 5,000 UNITS/ML VIAL SC SCH (09:15)
[2018-10-28] MEDS: Gabapentin 100 MG CAP PO SCH (09:16)
--- NOTE | 2018-10-28 09:51 | CON ---
DATE OF CONSULTATION: 10/27/2018 REASON FOR CONSULTATION: Bilateral hydronephrosis, renal failure. HISTORY OF PRESENT ILLNESS: Mr. Souza is a 47-year-old gentleman recently seen by me in June 2018. He was in urinary retention at that time and had normal renal function. He was then again seen by me on 10/16/2018, when he presented to the emergency room in renal failure and a creatinine of 8. He had a Bundy catheter in place when he presented, but stated that it had become occluded and/or stopped draining because of poor urine output. He was treated with emergent dialysis and catheter changed and was discharged from the hospital with a creatinine of approximately 3. He returned to the emergency room on 10/26/2018 with a similar presentation of renal failure, hyperkalemia, and complaints of bilateral flank pain and fatigue. CT scan performed demonstrates bilateral hydroureteronephrosis, markedly thickened bladder wall. No evidence of stones. Bundy catheter in place. Urologic consultation has been obtained for the above issues. It was thought that the patient has a neurogenic bladder based on his original presentation with markedly distended bladder of over a liter and overflow incontinence, which he states it has been present for months. He also has a cauda equina syndrome, which may be resulting in neurogenic bladder. More recently, he has been diagnosed with recurrent colon cancer. He first underwent colon resection for cancer in 2004. He recently underwent biopsy demonstrating recurrent cancer. PAST MEDICAL HISTORY: Colon cancer, neurogenic bladder, cauda equina syndrome, hypertension, renal failure, and chronic pain. PAST SURGICAL HISTORY: Colon cancer resection 2004, appendectomy 2004. SOCIAL HISTORY: He smokes cigarettes. Denies excessive alcohol or drug use. FAMILY HISTORY: Significant for ovarian cancer in his mother, myocardial infarction in brother. Apparently, this occurred during dialysis. ALLERGIES: NO KNOWN DRUG ALLERGIES. CHRONIC MEDICATIONS: Metoprolol (please see chart for remainder). REVIEW OF SYSTEMS: Denies shortness of breath. CARDIOVASCULAR: Denies chest pain. GASTROINTESTINAL: Chronic constipation, history of colon cancer as mentioned in HPI. NEUROLOGIC: Please see neurology evaluation on prior visits. There are no changes. PHYSICAL EXAMINATION: GENERAL: He is awake and alert. He is in no distress at the current time, although he does intermittently writhe as if in pain. HEENT: Normocephalic, atraumatic. Poor dentition. NECK: Supple without masses. CHEST: Clear. ABDOMEN: Soft, nontender. No palpable masses. Liver and spleen, not palpable. No abdominal tenderness noted. LABORATORY DATA: Hemoglobin 9.2, hematocrit 26.8, white count 12.4, platelet count 371, creatinine 5.8. CT scan demonstrates bilateral hydroureteronephrosis. No evidence of stones. He does have a thickened bladder wall, large prostate. No definitive evidence of metastatic colon cancer. There is rectal wall thickening. IMPRESSION: Mr. Souza is a 47-year-old gentleman with bilateral hydroureteronephrosis despite having a Bundy catheter in place. He had recurrent renal failure. The etiology of his bilateral hydronephrosis is unclear. With a functioning indwelling Bundy catheter and a decompressed bladder, it is possible that his obstruction is occurring as a result of his thickened bladder wall. Regardless, I have recommended cystoscopy and attempted bilateral ureteral stent placement. I have also discussed with him converting from urethral catheter to a suprapubic tube. There has been difficulty performing catheterization in this patient, particularly by the nursing staff and the patient himself failed intermittent catheterization. He does wish to proceed with suprapubic tube placement. PLAN: I have discussed the procedure, potential limitations, alternatives, and complications. He does wish to proceed. Plan cystoscopy and bilateral stent placement, possible suprapubic tube placement. Job ID: [id number]
--- NOTE | 2018-10-28 10:31 | PDOC.FM ---
- Subjective Subjective: Patient reports increased pain since the procedure yesterday evening. Pain is in R flank and also down R leg as part of his chronic pain. Urine in bag is blood tinged. Denies fever/chills. - Objective Vital Signs & Weight: Vital Signs (12 hours) Temp Pulse Resp BP BP Pulse Ox 10/28/18 09:14 101 H 137/90 10/28/18 07:29 98.5 F 95 17 144/88 H 92 L 10/28/18 04:00 98.5 F 85 20 137/80 92 L 10/27/18 23:05 96.9 F L 91 20 140/85 95 10/27/18 22:55 95 Weight Weight 68.2 kg I&O: 10/27/18 10/28/18 10/29/18 06:59 06:59 06:59 Intake Total 241 Output Total 450 550 Balance -450 -309 Result Diagrams: 10/26/18 20:13 10/28/18 05:33 Phys Exam - Physical Examination Constitutional: NAD Respiratory: clear to auscultation bilateral Cardiovascular: RRR, no significant murmur Gastrointestinal: soft, positive bowel sounds suprapubic bandage clean dry and intact Musculoskeletal: no edema Neurological: non-focal Psychiatric: normal affect Skin: normal turgor, cap refill <2 seconds Dx/Plan (1) Hyperkalemia Code(s): E87.5 - HYPERKALEMIA Status: Acute (2) CANDY (acute kidney injury) Code(s): N17.9 - ACUTE KIDNEY FAILURE, UNSPECIFIED Status: Acute (3) Hydroureteronephrosis Code(s): N13.30 - UNSPECIFIED HYDRONEPHROSIS Status: Chronic (4) Chronic use of opiate for therapeutic purpose Code(s): Z79.891 - MATERIAL CARRIER (CURRENT) USE OF OPIATE ANALGESIC Status: Acute (5) Colon cancer Code(s): C18.9 - MALIGNANT NEOPLASM OF COLON, UNSPECIFIED Status: Acute (6) Hyponatremia Code(s): E87.1 - HYPO-OSMOLALITY AND HYPONATREMIA Status: Acute (7) Cauda equina syndrome Code(s): G83.4 - CAUDA EQUINA SYNDROME Status: Chronic - Plan Plan: 1. ESRD -Oliguria, bilateral flank pain -Nephrology consulted, dialyzed yesterday. -Avoid use of nephrotoxic drugs 2. Hyperkalemia -K: 6.9 > 5.1 after Calcium Gluconate / Keyexalate administration in ED -EKG: Tall, peaked T Waves s/p Emergent dialysis 10/27/18 following placement of catheter in ED - Increased today to 6.1. Nephro managing dialysis schedule. 3. Hydronephrosis, bilateral -Unchanged since last presentation -Urine Culture: Pending -ABD CT: Bilateral Hydronephrosis confirmed, enlarged prostate also noted -Urology - 10/27 has difficult cystoscopy, suprapubic tube placement, and transrectal prostate biopsy - will adjust pain regimen for better control 4. Chronic Pain, likely 2/2 to Cauda Equina Syndrome -Acetaminophen 650 mg PO Q6H -[place] 10/325 2 Tabs PO Q6H -Gabapentin 100 mg PO Daily 5. HTN -Allow for variability of BP due to ongoing fluid shifts 2/2 to dialysis 6. Colon Cancer -Possibly interested in [facility] cancer treatment program Dispo: Pending further nephro and urology recommendations Addendum - Attending - Attending Attestation Date/Time: 10/28/18 9777 I personally evaluated the patient and discussed the management with Dr. Cedillo. I agree with the History, Examination, Assessment and Plan documented above with any addition or exceptions noted below. Patient here with what appears to be possible b/l ureteral obstruction that was not amenable to ureteral stenting yesterday by Urology. He has increased pain from procedure yesterday. It appears there is consideration for nephrostomy tubes to relieve the renal pressure that is causing his ARF. Consider HD again today due to hyperkalemia. Nephro on board and awaiting recs. Awaiting further mgmt from Urology.
--- NOTE | 2018-10-28 11:58 | PRG ---
DATE OF SERVICE: 10/28/2018 SUBJECTIVE: A 47-year-old gentleman being seen for acute kidney injury. The patient denied nausea, vomiting, or chest pain. OBJECTIVE: GENERAL: The patient is awake and alert. VITAL SIGNS: Afebrile, pulse 75, breathing 16, blood pressure was 144/88. GENERAL APPEARANCE AND MENTAL STATUS: Fair. HEAD/NECK: Normocephalic. Atraumatic. EYES: EOMI. No deformity. EARS: Clear. No ulcers. NOSE: Intact. No lesions. MOUTH: Clear. No discharge. THROAT: Clear. No exudate. LUNGS: Clear. No crackles. CARDIAC: S1, S2. No rub. ABDOMEN: Benign. Bowel sounds positive. GENITALIA/RECTUM: Bundy absent. BACK/EXTREMITIES: Edema 0+. NEUROLOGICAL: Alert and motor intact. SKIN: LYMPHATICS: LABORATORY DATA: Labs show potassium 6.1. ASSESSMENT AND PLAN: 1. Stage 6 chronic kidney disease. Plan dialysis. 2. Hypertension, stable. 3. Anemia stable. The patient is making urine, so we will evaluate for dialysis on a daily basis. Job ID: [id number]
[2018-10-28] MEDS ORDERED: HYDROcodone/Acetaminophen 10/325 mg Tablet PO SCH (13:45)
[2018-10-28] MEDS ORDERED: Heparin 10,000 UNITS/1 ML VIAL ONE (15:00)
[2018-10-28] MEDS: Amitriptyline HCl 25 MG TAB PO SCH (20:17)
[2018-10-29] MEDS: HYDROcodone/Acetaminophen 10/325 mg Tablet PO PRN ×4 (02:18→20:58)
[2018-10-29 05:27] LABS: PTT 44.4 SEC (22.9-36.1); Prothrombin Time 13.4 SEC (12.0-14.7)
[2018-10-29 05:45] LABS: Anion Gap 15 mmol/L (10-20); BUN (Urea Nitrogen) 53 mg/dL (8.9-20.6); Calc. Creatinine Clearance 13 mL/min (70-130); Calcium 8.5 mg/dL (7.8-10.44); Carbon Dioxide 25 mmol/L (22-29); Chloride 97 mmol/L (98-107); Estimated GFR-MDRD 9; Glucose 83 mg/dL (70-105); Potassium 5.9 mmol/L (3.5-5.1); Sodium 131 mmol/L (136-145)
--- NOTE | 2018-10-29 06:22 | PDOC.FM ---
- Subjective Subjective: Mr. Souza was resting well in bed. We further discussed perc nephrostomy tube procedure as patient did not want to sign consent yesterday. His questions were answered and he said he was ready to sign the consent. Upon leaving room, patient requested more pain medication. I mentioned to him that additional medication was added yesterday for breakthrough pain. He then began to holler and wail as if he was suddenly in excruciating pain. Night nurse reports similar behavior. - Objective Vital Signs & Weight: Vital Signs (12 hours) Temp Pulse Resp BP Pulse Ox 10/29/18 03:56 98.7 F 93 20 160/92 H 92 L 10/28/18 20:19 99.1 F 102 H 20 150/93 H 96 10/28/18 20:00 96 10/28/18 18:38 97.2 F L 104 H 16 144/85 H 92 L Weight Weight 67.8 kg I&O: 10/27/18 10/28/18 10/29/18 06:59 06:59 06:59 Intake Total 6351 Output Total 450 6800 Balance -450 -449 Result Diagrams: 10/26/18 20:13 10/29/18 04:34 Phys Exam - Physical Examination Respiratory: no wheezing, clear to auscultation bilateral Cardiovascular: RRR, no significant murmur Gastrointestinal: soft, no distention, positive bowel sounds suprapubic cath in place Musculoskeletal: no edema Neurological: non-focal Skin: normal turgor, cap refill <2 seconds Dx/Plan (1) Hyperkalemia Code(s): E87.5 - HYPERKALEMIA Status: Acute (2) CANDY (acute kidney injury) Code(s): N17.9 - ACUTE KIDNEY FAILURE, UNSPECIFIED Status: Acute (3) Hydroureteronephrosis Code(s): N13.30 - UNSPECIFIED HYDRONEPHROSIS Status: Chronic (4) Chronic use of opiate for therapeutic purpose Code(s): Z79.891 - SENIOR LIVING (CURRENT) USE OF OPIATE ANALGESIC Status: Acute (5) Colon cancer Code(s): C18.9 - MALIGNANT NEOPLASM OF COLON, UNSPECIFIED Status: Acute (6) Hyponatremia Code(s): E87.1 - HYPO-OSMOLALITY AND HYPONATREMIA Status: Acute (7) Cauda equina syndrome Code(s): G83.4 - CAUDA EQUINA SYNDROME Status: Chronic - Plan Plan: 1. ESRD -Nephrology consulted, dialysis received yesterday, determining need on day by day basis -Avoid use of nephrotoxic drugs 2. Hyperkalemia -Initially 6.9, EKG: Tall, peaked T Waves s/p Emergent dialysis 10/27/18 following placement of catheter in ED - Today 5.9. Nephro managing dialysis schedule. 3. Hydronephrosis, bilateral -Unchanged since last presentation -Urine Culture: NGTD -ABD CT: Bilateral Hydronephrosis confirmed, enlarged prostate also noted. -Urology - 10/27 has difficult cystoscopy, suprapubic tube placement, and transrectal prostate biopsy. Recommended gent/levaquin for prophylaxis. Path from biopsy pending. Concern for malignancy. Will likely need onc consult when path results. -Plan for b/l nephrostomy tube placement by IR today. 4. Chronic Pain -Acetaminophen 650 mg PO Q6H -[place] 10/325 2 Tabs PO Q6H -Gabapentin 100 mg PO Daily 5. HTN -Allow for variability of BP due to ongoing fluid shifts 2/2 to dialysis 6. Colon Cancer -Possibly interested in [facility] cancer treatment program Dispo: Plan for perc nephrostomy placement today. Await further nephro and urology recommendations Addendum - Attending - Attending Attestation Date/Time: 10/29/18 5493 I personally evaluated the patient and discussed the management with Dr. Cedillo. I agree with the History, Examination, Assessment and Plan documented above with any addition or exceptions noted below. Patient renal function overall stable, anticipate he will need HD today due to hyperkalemia. He is undergoing b/l nephrostomy tube placement today due to presumed upper ureteral obstruction per urology. Path from prostate biopsy pending. Continue pain control as needed, though most times the patient appears very comfortable. Continue CBI.
[2018-10-29] MEDS: Gabapentin 100 MG CAP PO SCH (09:04)
[2018-10-29] MEDS: Metoprolol Tartrate 25 MG TAB PO SCH ×2 (09:04→20:59)
[2018-10-29] MEDS: Amlodipine 5 MG TAB PO SCH (09:04)
--- NOTE | 2018-10-29 09:40 | PRG ---
DATE OF SERVICE: 10/29/2018 SUBJECTIVE: This 47-year-old gentleman is being seen for end-stage renal disease. The patient denies any nausea, vomiting, or chest pain. OBJECTIVE: See above. VITAL SIGNS: Afebrile, pulse 75, breathing 16, blood pressure 134/83. GENERAL: The patient is awake and alert, in no acute distress. GENERAL APPEARANCE AND MENTAL STATUS: Fair. HEAD/NECK: Normocephalic. Atraumatic. EYES: EOMI. No deformity. EARS: Clear. No ulcers. NOSE: Intact. No lesions. MOUTH: Clear. No discharge. THROAT: Clear. No exudate. LUNGS: Clear. No crackles. CARDIAC: S1, S2. No rub. ABDOMEN: Benign. Bowel sounds positive. GENITALIA/RECTUM: Bundy absent. BACK/EXTREMITIES: Edema 0+. NEUROLOGICAL: Alert and motor intact. SKIN: LYMPHATICS: LABORATORY DATA: Reviewed. ASSESSMENT AND PLAN: 1. Stage 6 chronic kidney disease. Plan dialysis. 2. Hyperkalemia. Plan dialysis. 3. Medication based on GFR appropriate. Job ID: [id number]
[2018-10-29 18:33] LABS: Anion Gap 13 mmol/L (10-20); BUN (Urea Nitrogen) 31 mg/dL (8.9-20.6); Calc. Creatinine Clearance 17 mL/min (70-130); Calcium 8.8 mg/dL (7.8-10.44); Carbon Dioxide 29 mmol/L (22-29); Chloride 97 mmol/L (98-107); Estimated GFR-MDRD 12; Glucose 138 mg/dL (70-105); Potassium 4.6 mmol/L (3.5-5.1); Sodium 134 mmol/L (136-145)
[2018-10-29] MEDS: Amitriptyline HCl 25 MG TAB PO SCH (20:58)
[2018-10-30] MEDS: HYDROcodone/Acetaminophen 10/325 mg Tablet PO PRN ×5 (03:25→19:53)
[2018-10-30 05:08] LABS: Anion Gap 16 mmol/L (10-20); BUN (Urea Nitrogen) 44 mg/dL (8.9-20.6); Calc. Creatinine Clearance 14 mL/min (70-130); Calcium 8.5 mg/dL (7.8-10.44); Carbon Dioxide 27 mmol/L (22-29); Chloride 96 mmol/L (98-107); Estimated GFR-MDRD 10; Glucose 92 mg/dL (70-105); Potassium 5.7 mmol/L (3.5-5.1); Sodium 133 mmol/L (136-145)
--- NOTE | 2018-10-30 06:05 | PDOC.FM ---
- Subjective Subjective: IR procedure postponed to this am as patient was still in dialysis at time of scheduled procedure yesterday. Patient resting in bed and is looking forward to eating. Otherwise no new concerns. - Objective Vital Signs & Weight: Vital Signs (12 hours) Temp Pulse Resp BP BP Pulse Ox 10/30/18 03:16 98.5 F 98 17 164/98 H 92 L 10/29/18 20:00 98.4 F 85 18 147/92 H 93 L Weight Weight 67.8 kg I&O: 10/28/18 10/29/18 10/30/18 06:59 06:59 06:59 Intake Total 6351 6240 Output Total 450 8410 7900 Balance -067 -130 -6851 Result Diagrams: 10/26/18 20:13 10/30/18 04:27 Phys Exam - Physical Examination Constitutional: NAD HEENT: moist MMs Respiratory: no wheezing, clear to auscultation bilateral Cardiovascular: RRR, no significant murmur Gastrointestinal: soft, non-tender, positive bowel sounds suprapubic cath in place, pink urine in bag Musculoskeletal: no edema Neurological: non-focal Psychiatric: normal affect Skin: normal turgor, cap refill <2 seconds Dx/Plan (1) Hyperkalemia Code(s): E87.5 - HYPERKALEMIA Status: Acute (2) CANDY (acute kidney injury) Code(s): N17.9 - ACUTE KIDNEY FAILURE, UNSPECIFIED Status: Acute (3) Hydroureteronephrosis Code(s): N13.30 - UNSPECIFIED HYDRONEPHROSIS Status: Chronic (4) Chronic use of opiate for therapeutic purpose Code(s): Z79.891 - [employer] (CURRENT) USE OF OPIATE ANALGESIC Status: Acute (5) Colon cancer Code(s): C18.9 - MALIGNANT NEOPLASM OF COLON, UNSPECIFIED Status: Acute (6) Hyponatremia Code(s): E87.1 - HYPO-OSMOLALITY AND HYPONATREMIA Status: Acute (7) Cauda equina syndrome Code(s): G83.4 - CAUDA EQUINA SYNDROME Status: Chronic - Plan Plan: 1. ESRD -Nephrology consulted, dialysis received yesterday, determining need on day by day basis -Avoid use of nephrotoxic drugs 2. Hyperkalemia -Initially 6.9, EKG: Tall, peaked T Waves s/p Emergent dialysis 7/29/19 following placement of catheter in ED - Today 5.7. Nephro managing dialysis schedule. 3. Hydronephrosis, bilateral -Unchanged since last presentation -Urine Culture: NGTD -ABD CT: Bilateral Hydronephrosis confirmed, enlarged prostate also noted. -Urology - 10/27 has difficult cystoscopy, suprapubic tube placement, and transrectal prostate biopsy. Recommended gent/levaquin for prophylaxis. Path from biopsy pending. Concern for malignancy. Will likely need onc consult when path results. -Plan for b/l nephrostomy tube placement by IR today. 4. Chronic Pain -[place] 10/325 prn -Home gabapentin daily 5. HTN - continue amlodipine, metoprolol -Allow for variability of BP due to ongoing fluid shifts 2/2 to dialysis 6. Colon Cancer -Possibly interested in [facility] cancer treatment program Dispo: Plan for perc nephrostomy placement today. Await further nephro and urology recommendations Addendum - Attending - Attending Attestation Date/Time: 10/30/18 1046 I personally evaluated the patient and discussed the management with Dr. Cedillo. I agree with the History, Examination, Assessment and Plan documented above with any addition or exceptions noted below. Patient renal function stable. Pyelogram showed no contrast media entering upper urinary system so suspect severe occlusion. Going for b/l nephrostomy today. Plan for HD per [facility]. Pain control as needed. Awaiting biopsy results.
[2018-10-30] MEDS: Gabapentin 100 MG CAP PO SCH (09:03)
[2018-10-30] MEDS: Metoprolol Tartrate 25 MG TAB PO SCH ×2 (09:03→21:16)
[2018-10-30] MEDS: Amlodipine 5 MG TAB PO SCH (09:03)
[2018-10-30] MEDS ORDERED: Midazolam HCl 2 mg/2 ml Vial ONE (09:11)
[2018-10-30] MEDS ORDERED: Fentanyl 100 MCG/2 ML VIAL ONE (09:11)
[2018-10-30] MEDS ORDERED: CEFAZOLIN 2 GM, IV Admixture Fee-Chemo 1 UNITS in Sodium Chloride 0.9% 100 ML IVPB SCH (12:00)
--- NOTE | 2018-10-30 12:03 | PRG ---
DATE OF SERVICE: 10/30/2018 SUBJECTIVE: This 47-year-old gentleman is being seen for acute kidney injury. The patient denies any nausea, vomiting, or chest pain. OBJECTIVE: See above. GENERAL: The patient is awake and alert. VITAL SIGNS: Afebrile, pulse 98, breathing 16, and blood pressure 157/94. GENERAL APPEARANCE AND MENTAL STATUS: Fair. HEAD/NECK: Normocephalic. Atraumatic. EYES: EOMI. No deformity. EARS: Clear. No ulcers. NOSE: Intact. No lesions. MOUTH: Clear. No discharge. THROAT: Clear. No exudate. LUNGS: Clear. No crackles. CARDIAC: S1, S2. No rub. ABDOMEN: Benign. Bowel sounds positive. GENITALIA/RECTUM: Bundy absent. BACK/EXTREMITIES: Edema 0+. NEUROLOGICAL: Alert and motor intact. SKIN: LYMPHATICS: LABORATORY DATA: Labs were reviewed. ASSESSMENT AND PLAN: 1. Stage 6 chronic kidney disease. Plan, dialysis. 2. Hypertension, stable. 3. Acute kidney injury due to acute tubular necrosis, hydronephrosis. Creatinine is worsening. 4. Hyperkalemia. Plan, dialysis. Job ID: [id number]
[2018-10-30] MEDS ORDERED: Heparin 10,000 UNITS/ 10 ML VIAL ONE (14:11)
--- NOTE | 2018-10-30 14:11 | SPC ---
Sonographic guided left percutaneous nephrostomy Sonographic guided right percutaneous nephrostomy Conscious sedation: At least 40 minutes were spent with the patient for conscious sedation. HISTORY: Bilateral distal ureteral obstruction. Fluoroscopy time 2.1 minutes. findings: After explaining the procedure and answering all questions, sonographic survey confirmed bi lateral hydronephrosis. The back was prepped and draped in usual sterile fashion. Sterile technique, buffered local anesthesia, sonographic guidance, and a left posterolateral approach were u sed to carefully advance the tip of a 21-gauge AccuStick needle into a dilated left inferior pole renal calyx. AccuStick system was then used to place the dilator and sheath. A 0.[address] aced. An 8 Bhutanese locking loop drain was carefully advanced into the dilated renal pelvis. Clear urine was aspirated. The catheter was secured externally with 0 silk suture and left draining to gravity. Sterile technique, buffered local anesthesia, sonographic guidance, and a right posterolateral approa ch were used to carefully advance the tip of a 21-gauge AccuStick needle into a dilated right inferior pole renal calyx. AccuStick system was then used to place the dilator and sheath. A 0.035 gu idewire was placed. An 8 [place]utanese locking loop drain was carefully advanced into the dilated renal pelvis. Clear urine was aspirated. The catheter was secured externally with 0 silk suture and left draining to gravity. Patient tolerated the procedure well and was returned in improved condition. IMPRESSION: Technically successful sonographic guided bilateral percutaneous nephrostomy catheter jeff cement.
[2018-10-30] MEDS ORDERED: CEFAZOLIN 2 GM in Premix Bag 1 BAG IVPB SCH (14:30)
--- NOTE | 2018-10-30 15:10 | CON ---
DATE OF CONSULTATION: HISTORY OF PRESENT ILLNESS: Tylor Souza, 47-year-old male patient admitted to the hospital on 10/26/2018 with CAT scan demonstrating hydronephrosis. He is followed by Dr. Sal and Dr. Bashir, Urology. He has had bilateral ureteral stents placed on 10/27 as well as suprapubic catheter and transrectal biopsy of pelvic mass for bilateral hydronephrosis, history of colon cancer, and abnormal rectal exam. The patient had acute renal failure, felt that he would improve in renal function, but he has not. Today, 10/30/2018, Radiology has performed bilateral percutaneous nephrostomy tube placement. I have been asked to see him by Nephrology to place hemodialysis catheter as he will need longer dialysis than expected. He has a temporary right femoral vein dialysis catheter. He has a right arm IV. Plan at this time is to place a cuffed tunneled dialysis catheter tomorrow as well as a central line to preserve his veins. We will obtain ultrasound vein mapping in both arms, in case that is necessary in the future. The patient is a chronic pain patient, and when I discussed with him about his hemodialysis catheter, he reminds me that he is a chronic pain patient. He wants more pain medications. I have told him to call his nurse. ALLERGIES: NONE. PAST MEDICAL HISTORY: End-stage renal disease, colon cancer, cauda equina syndrome, hypertension, chronic pain. PAST SURGICAL HISTORY: Colectomy, appendectomy. FAMILY HISTORY: Ovarian cancer. SOCIAL HISTORY: Tobacco use in the past, ongoing alcohol use, drug use none. PHYSICAL EXAMINATION: VITAL SIGNS: Height 5 feet 7 inches, weight 152 pounds, 23 BMI, temperature 96.7, heart rate 94, blood pressure 136/91. LUNGS: Clear to auscultation. CARDIAC: Regular rate and rhythm. No murmur or gallop. ABDOMEN: Soft, flat, nontender, nondistended. EXTREMITIES: Unremarkable. SKIN: Scars, abdominal per above history. Temporary dialysis catheter right groin. IMAGING STUDIES: 07/15/2018, Dr. Long performed EGD and colonoscopy. Finding of a large ulceration in the gastric antrum. Colonoscopy revealed changes related to after right colectomy with ileocolonic anastomosis, 90 cm, beyond the anal verge. 09/16/2018, irregularity noted in the rectum. 10/15/2018, temporary dialysis catheter placed by Dr. Dobbins. 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 ASSESSMENT/PLAN: 1. In need of hemodialysis catheter placement. We will plan as well as the central line. We will preserve his veins for future dialysis access in case it is needed. 2. 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 Job ID: [id number]
--- NOTE | 2018-10-30 19:20 | CON ---
DATE OF CONSULTATION: 10/30/2018 HISTORY OF PRESENT ILLNESS: Mr. 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 At the time he was diagnosed, he wanted to go to [facility] and was referred there and has been waiting for an appointment, he just received a call within the last 24 hours that he has been accepted with his Medicare and Medicaid policies. Throughout this time, he has developed other problems including acute renal failure and was admitted at this time because he came in in renal failure and was not making any urine. Cystoscopy was done and signet ring cell carcinoma was found invading the bladder, bilateral ureteral stents were placed. He is now on hemodialysis and is tolerating it well as of today. He still is quite adamant that he would like to go to [facility] for an opinion and he is hoping to have followup there within the week. PAST MEDICAL HISTORY: 1. Cauda equina syndrome. 2. Chronic pain syndrome, on multiple narcotics. 3. Chronic renal insufficiency. 4. Hypertension. FAMILY HISTORY: His mother had ovarian cancer and his brother had early-onset coronary artery disease. CURRENT MEDICATIONS: 1. [place] 10/325 two tablets p.o. q.6 hours p.r.n. 2. Elavil 50 mg p.o. at bedtime. 3. Norvasc 5 mg p.o. daily. 4. Dulcolax 10 mg p.o. daily. 5. Cefazolin. 6. Gabapentin 100 mg p.o. daily. 7. Gentamicin. 8. Hydralazine 10 mg IV q.4 hours p.r.n. 9. Levofloxacin 250 mg IV daily. 10. Metoprolol 25 mg p.o. b.i.d. 11. Senokot one tablet p.o. b.i.d. ALLERGIES: NO KNOWN DRUG ALLERGIES. SOCIAL HISTORY: He does admit to tobacco and a history of illicit drug use. His sister helps take care of him and support him. He has no children and he is not . REVIEW OF SYSTEMS: Otherwise, review of systems is negative, he does have perirectal and back pain secondary to the disease. LABORATORY DATA: White blood cell count 12.5, hemoglobin 8.7, platelets 347. INR 1.0. Sodium 133, potassium 5.7, chloride 96, CO2 is 27, BUN 44, creatinine 6.2, glucose 92, calcium 8.5. Pathology done from the bladder biopsy shows signet ring cell adenocarcinoma. CT of the abdomen and pelvis done on admission shows bilateral hydronephrosis. There is prominent wall thickening in the bladder and a 7.2 cm prostate. There is stable prominent wall thickening involving the rectum with presacral edema. There is also moderate amount of retained stool within the colon. The pancreas, liver, and adrenal glands are all unremarkable. ASSESSMENT: Mr. Souza is a 47-year-old male with; 1. 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 2. Acute renal failure, on hemodialysis. 3. Cauda equina syndrome with chronic pain. PLAN: 1. We discussed the prognosis, and he does have an unusual diagnosis with local invasion. He still is insisting that he wants to go to [facility]. I have encouraged him to make that appointment next week, so that he could be discharged to follow up there for discussions about treatment options. 2. He understands if he needs chemotherapy, he can call me for followup after going to [facility]. 3. Continue hemodialysis and follow up as an outpatient obviously. 4. Continue current narcotic management. Job ID: [id number]
[2018-10-30] MEDS: Amitriptyline HCl 25 MG TAB PO SCH (21:15)
[2018-10-30] MEDS ORDERED: HYDROcodone/Acetaminophen 10/325 mg Tablet PO SCH (22:15)
[2018-10-31] MEDS: HYDROcodone/Acetaminophen 10/325 mg Tablet PO PRN ×4 (02:45→22:46)
[2018-10-31 05:05] LABS: Anion Gap 15 mmol/L (10-20); BUN (Urea Nitrogen) 31 mg/dL (8.9-20.6); Calc. Creatinine Clearance 21 mL/min (70-130); Calcium 9.4 mg/dL (7.8-10.44); Carbon Dioxide 28 mmol/L (22-29); Chloride 102 mmol/L (98-107); Estimated GFR-MDRD 16; Glucose 90 mg/dL (70-105); Potassium 5.1 mmol/L (3.5-5.1); Sodium 140 mmol/L (136-145)
[2018-10-31 05:06] VITALS: BMI 211641.2
--- NOTE | 2018-10-31 06:20 | PDOC.FM ---
- Subjective Subjective: Mr. Souza has no new complaints this morning. He plans to call [facility] today. Patient not happy about being NPO for procedure today. - Objective Vital Signs & Weight: Vital Signs (12 hours) Temp Pulse Resp BP Pulse Ox 10/31/18 04:00 98.7 F 88 20 133/78 92 L 10/31/18 00:00 98 F 95 25 H 160/84 H 95 10/30/18 20:00 95 10/30/18 19:25 98.9 F 105 H 18 142/85 H 95 Weight Weight 61.3 kg I&O: 10/29/18 10/30/18 10/31/18 06:59 06:59 06:59 Intake Total 6351 6720 980 Output Total 6806 7900 58730 Balance -450 -9293 -18129 Result Diagrams: 10/26/18 20:13 10/31/18 04:03 Phys Exam - Physical Examination Constitutional: NAD Respiratory: no wheezing, clear to auscultation bilateral Cardiovascular: RRR, no significant murmur Gastrointestinal: soft, positive bowel sounds Musculoskeletal: no edema b/l perc nephsrostomy tubes, suprapubic cath in place Neurological: non-focal Psychiatric: normal affect Skin: normal turgor Dx/Plan (1) Hyperkalemia Code(s): E87.5 - HYPERKALEMIA Status: Acute (2) CANDY (acute kidney injury) Code(s): N17.9 - ACUTE KIDNEY FAILURE, UNSPECIFIED Status: Acute (3) Hydroureteronephrosis Code(s): N13.30 - UNSPECIFIED HYDRONEPHROSIS Status: Chronic (4) Chronic use of opiate for therapeutic purpose Code(s): Z79.891 - SNF (CURRENT) USE OF OPIATE ANALGESIC Status: Acute (5) Colon cancer Code(s): C18.9 - MALIGNANT NEOPLASM OF COLON, UNSPECIFIED Status: Acute (6) Hyponatremia Code(s): E87.1 - HYPO-OSMOLALITY AND HYPONATREMIA Status: Acute (7) Cauda equina syndrome Code(s): G83.4 - CAUDA EQUINA SYNDROME Status: Chronic - Plan Plan: ESRD -Nephrology consulted, dialysis received yesterday, plan for hemosplit today - Cr improved, await further recommendations -Avoid use of nephrotoxic drugs Hyperkalemia, improved -Initially 6.9, EKG: Tall, peaked T Waves s/p Emergent dialysis 10/27/18 following placement of catheter in ED - Today 5.1. Nephro managing dialysis schedule. Hydronephrosis, bilateral - 2/2 obstruction with concern for rectal malignancy invasion of bladder -Urine Culture: NGTD -ABD CT: Bilateral Hydronephrosis confirmed, enlarged prostate also noted. -Urology - 10/27 cystoscopy, suprapubic tube placement, and transrectal prostate biopsy. Recommended gent/levaquin for prophylaxis. -B/l nephrostomy tube placement by IR 10/30 Rectal Cancer -Possibly interested in [facility] cancer treatment program - Rectal cancer confirmed several months ago, now path from prostate biopsy showed signet ring carcinoma as well. Oncology consulted, Dr. Calix. Patient desires evaluation by [facility]. Chronic Pain -[place] 10/325 prn -Home gabapentin daily HTN - continue home amlodipine, metoprolol -Allow for variability of BP due to ongoing fluid shifts 2/2 to dialysis Dispo: Plan for hemosplit placement today. Patient hopes to get to [facility] next week. Await further recs from nephro and urology Addendum - Attending - Attending Attestation Date/Time: 10/31/18 1024 I personally evaluated the patient and discussed the management with Dr. Cedillo. I agree with the History, Examination, Assessment and Plan documented above with any addition or exceptions noted below. Patient overall stable. Renal function improved somewhat after resolution of hydronephrosis with nephrostomy tube placement due to ureteral obstruction 2/2 signet ring cell carcinoma of the colon that appears to have invaded his bladder and prostate. Pain overall controlled. Nephro on board but would anticipate holding HD today as his electrolytes are improved and good UOP. Awaiting further Urology recs but anticipating he may be stable for discharge in the next day or so and will need follow up with Oncology, [facility] per the patient's preference.
[2018-10-31] MEDS: Metoprolol Tartrate 25 MG TAB PO SCH ×2 (09:13→21:49)
[2018-10-31] MEDS: Amlodipine 5 MG TAB PO SCH (09:13)
[2018-10-31] MEDS: Gabapentin 100 MG CAP PO SCH (09:13)
--- NOTE | 2018-10-31 09:55 | PRG ---
DATE OF SERVICE: 10/31/2018 SUBJECTIVE: A 47-year-old gentleman is being seen for acute kidney injury. The patient denies nausea, vomiting, or chest pain. OBJECTIVE: GENERAL: The patient is awake and alert. VITAL SIGNS: Afebrile, pulse 90, breathing 16, blood pressure . GENERAL APPEARANCE AND MENTAL STATUS: Fair. HEAD/NECK: Normocephalic. Atraumatic. EYES: EOMI. No deformity. EARS: Clear. No ulcers. NOSE: Intact. No lesions. MOUTH: Clear. No discharge. THROAT: Clear. No exudate. LUNGS: Clear. No crackles. CARDIAC: S1, S2. No rub. ABDOMEN: Benign. Bowel sounds positive. GENITALIA/RECTUM: Bundy absent. BACK/EXTREMITIES: Edema 0+. NEUROLOGICAL: Alert and motor intact. LABORATORY DATA: Reviewed. ASSESSMENT: 1. Stage 6 chronic kidney disease, improving. 2. Hypertension, stable. 3. Anemia, stable. 4. Acute tubular necrosis, improved. 5. Hyperkalemia, improved. 6. We will hold off on dialysis today. Job ID: [id number]
[2018-10-31] MEDS ORDERED: PROPOFOL 200 MG/20 ML VIAL ONE (10:19)
[2018-10-31] MEDS ORDERED: Lidocaine 1% PF 5 ML VIAL ONE (10:19)
[2018-10-31] MEDS ORDERED: ceFAZolin Sodium (SDC) 2 GM/100 ML BAG ONE (13:50)
[2018-10-31] MEDS ORDERED: Heparin 10,000 UNITS/1 ML VIAL ONE (13:56)
[2018-10-31] MEDS ORDERED: Lidocaine 2% PF 5 ML VIAL ONE (13:56)
[2018-10-31] MEDS ORDERED: Bupivacaine HCl 0.5%/Epinephrine 1:200,000/PF 30 ml Vial ONE (13:56)
[2018-10-31] MEDS ORDERED: Sodium Chloride 0.9% 10 ML ONE (13:56)
[2018-10-31] MEDS ORDERED: Midazolam HCl 2 mg/2 ml Vial ONE (14:07)
[2018-10-31] MEDS ORDERED: Sodium Chloride 0.9% 0 ML ONE (14:37)
--- NOTE | 2018-10-31 16:07 | RAD ---
Exam: Chest one view HISTORY:Line placement Comparison: 10/26/2018 FINDINGS: Lines and tubes: Left-sided internal jugular central venous catheter terminates in the expected regio n of the right atrium. Right-sided HemoSplit dialysis catheter terminates in the region of the right atrium-superior vena cava Cardiac silhouette: Normal Pulmonary vessels: Normal Costophrenic angles: Clear LUNGS: No masses or consolidation. Pneumothorax: None Osseous abnormalities: None IMPRESSION: 1. Vascular catheters as described above. 2. No pneumothorax.
--- NOTE | 2018-10-31 16:08 | ULT ---
ULTRASOUND VESSEL MAPPING DIALYSIS ACCESS 10/31/18 HISTORY: End-stage renal disease. COMPARISON: None. TECHNIQUE: Real time liu scale and color and spectral analysis of the bilateral upper extremity arterial and ve nous systems was performed. RIGHT UPPER EXTREMITY BRACHIAL ARTERY: 2.8 mm RADIAL ARTERY: 1.9 mm ULNAR ARTERY: 2.4 mm CEPHALIC VEIN Proximal Arm: 2.3 mm Mid Arm: 2.8 mm Distal Arm: 2.9 mm Antecubital Fossa: 3.0 mm Proximal Forearm: 2.1 mm Mid Forearm: 1.6 mm Distal Forearm: 1.7 mm BASILIC VEIN Proximal Arm: 4.2 mm Mid Arm: 3.3 mm Distal Arm: 3.9 mm Antecubital Fossa: 4.1 mm Proximal Forearm: 2.0 mm Mid Forearm: 1.6 mm Distal Forearm: 2.5 mm LEFT UPPER EXTREMITY BRACHIAL ARTERY: 3.6 mm RADIAL ARTERY: 1.8 mm ULNAR ARTERY: 2.1 mm CEPHALIC VEIN Proximal Arm: 3.1 mm Mid Arm: 2.4 mm Distal Arm: 1.7 mm Antecubital Fossa: 3.3 mm and unable to be compressed Proximal Forearm: 2.5 mm Mid Forearm: 2.7 mm Distal Forearm: 1.8 mm BASILIC VEIN Proximal Arm: Unable to be visualized Mid Arm: 3.8 mm Distal Arm: 3.5 mm Antecubital Fossa: 3.0 mm Proximal Forearm: 1.7 mm Mid Forearm: 2.2 mm Distal Forearm: 2.1 mm IMPRESSION: 1. Noncompressible left cephalic vein at the antecubital fossa. 2. Nonvisualization of the proximal left basilic vein. POS: [facility]
--- NOTE | 2018-10-31 16:08 | OP ---
DATE OF PROCEDURE: 10/31/2018 PREOPERATIVE DIAGNOSES: Acute renal failure, not recovering; obstructive uropathy; cauda equina; recurrent rectal cancer. POSTOPERATIVE DIAGNOSES: Acute renal failure, not recovering; obstructive uropathy; cauda equina; recurrent rectal cancer. PROCEDURES PERFORMED: Right internal jugular vein cuffed tunneled dialysis catheter, left internal jugular vein triple-lumen catheter, ultrasound and fluoroscopy used. ANESTHESIA: Sedation local 0.5% Marcaine with epinephrine 30 mL mixed with 2% Xylocaine 10 mL. DESCRIPTION OF PROCEDURE: The patient was taken to the operating room, where under intravenous sedation, neck and chest prepared with ChloraPrep and draped in routine fashion. Local anesthetic mixture was infiltrated into the skin and subcutaneous tissue about the operative site. Using ultrasound guidance, the right and left internal jugular veins were cannulated with trocar catheter, J-wire was threaded, trocar catheter removed. Skin site enlarged sharply. Skin incision was made over the right chest, and using the tunneling device, the pre-curved [employer] cuffed-tunneled hemodialysis catheter tunneled between 2 incisions, placed in the fabric cuff beneath the skin exit site over the right chest and catheter secured with 2 interrupted suture of 3-0 nylon and sterile dressings applied. Small and medium sized dilators placed over the J-wire into the internal jugular vein removed. Dilator and Peel-Away sheath placed over the J-wire in the superior vena cava. Dilator and J-wire were removed. Catheter was placed with the Peel-Away sheath. Peel-Away sheath was removed. Platysma was approximated with 4-0 Monocryl, skin with subdermal 4-0 Monocryl, and [place] glue applied. Each port aspirated blood, flushed with saline solution and heparinized saline solution 1000 units of heparin per mL indicating the volume of the port. Seldinger technique was used to place a triple-lumen catheter in the left internal jugular vein, secured with 3-0 nylon suture. Sterile dressings applied. The patient tolerated the procedure well. Fluoroscopic images revealed good line placement. Job ID: [id number]
--- NOTE | 2018-10-31 17:34 | PRG ---
DATE OF SERVICE: 10/31/2018 SUBJECTIVE: Patient continues to complain of pain consistent with his LE pain that is chronic and on going OBJECTIVE: VITAL SIGNS: T-max 97.2, blood pressure 144/88, pulse 88, respiratory rate 18, and 93% on room air. ABDOMEN: Soft, nontender. No palpable masses. Liver and spleen, not palpable. No peritoneal signs. LABORATORY DATA: Creatinine 4.12. PATHOLOGY: Signet cell carcinoma. IMPRESSION: 1. Renal failure. The patient has responded nicely to bilateral percutaneous nephrostomy tube placements. This hopefully will obviate the need for future dialysis. Long-term external drainage with percutaneous nephrostomy tubes is not the ideal solution to this problem. I was able to place stents from below. In order to internalize his urinary drainage, he will need attempted drainage from above. by IR. 2. Signet cell carcinoma of the colon. Endoscopic biopsy by Dr. Vasquez and transrectal biopsy both demonstrate pathology consistent with recurrent colon cancer. Will defer to oncologist for future management. RECOMMENDATIONS: 1. Antegrade stent placement bilaterally by IR. If this is successful, then nephrostomy tubes can be plugged, and if the internal drainage is adequate, the nephrostomy tubes can be removed. 2. I will be unavailble through 11/03/18 If questions or problems arise please defer to Dr. Becker and Dr. Ballesteors or the television news video editor urologist. Job ID: [id number] [id number]
[2018-10-31] MEDS: Amitriptyline HCl 25 MG TAB PO SCH (21:49)
[2018-11-01] MEDS: HYDROcodone/Acetaminophen 10/325 mg Tablet PO PRN ×3 (04:53→20:29)
--- NOTE | 2018-11-01 05:42 | PDOC.FM ---
- Subjective Subjective: Pt resting well upon entering room. Once pt awoken, he does endorses flare of his chronic pain this morning, taking his at home norco dose but does endorse breakthrough pain. No acute changes. He is eager to follow up with [facility] upon discharge. No fevers/chills, CP, SOB, n/v/d/c. - Objective MAR Reviewed: Yes Vital Signs & Weight: Vital Signs (12 hours) Temp Pulse Resp BP Pulse Ox 11/01/18 04:00 98.1 F 81 18 102/69 95 11/01/18 00:00 88 135/78 10/31/18 21:49 98.6 F 94 16 121/84 95 Weight Weight 61.3 kg I&O: 10/30/18 10/31/18 11/01/18 06:59 06:59 06:59 Intake Total 6720 1280 480 Output Total 7900 29234 4300 Balance -6386 -08907 -0700 Result Diagrams: 10/26/18 20:13 11/01/18 04:45 EKG Reviewed by me: Yes (NSR, no acute event) Phys Exam - Physical Examination Constitutional: NAD (Sleeping comfortable upon entering room. Once awake does endorse flare of chronic pain) Becomes tearful when talking about his pain. HEENT: moist MMs Neck: supple Respiratory: no wheezing, no rales, no rhonchi, clear to auscultation bilateral Cardiovascular: RRR, no significant murmur, no rub Gastrointestinal: soft, non-tender, no distention, positive bowel sounds Musculoskeletal: no edema, pulses present Neurological: non-focal, moves all 4 limbs Deviation from normal: Depressed affect Deviation from normal: BL nephrostomy tubes in place. Draining blood-tinged urine. -: Dialysis cath in place on right. 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 1. ESRD - Nephrology consulted, last dialysis received 10/30, s/p dialysis catheter placement on 10/31, awaiting nephro recs - Cr improved, 7.31 -> 3.73. Continue to monitor. - Avoid use of nephrotoxic drugs 2. Hyperkalemia, improved - Initially 6.9, EKG: Tall, peaked T Waves s/p Emergent dialysis 10/27/18 following placement of catheter in ED - K normal today at 4.3. Nephro managing dialysis schedule. 3. Hydronephrosis, bilateral - 2/2 obstruction with concern for rectal malignancy invasion of bladder - Urine Culture: NGTD - ABD CT: Bilateral Hydronephrosis confirmed, enlarged prostate also noted. - Urology - 10/27 cystoscopy, suprapubic tube placement, and transrectal prostate biopsy. s/p gent and levquin during procedures. Rec antegrade stents by IR with possible plugged of nephrostomy tubes and removal if adequate output , awaiting further plan, appreciate recs - B/L nephrostomy tube placement by IR 10/30 Rectal Cancer - Plans to follow up with [facility] cancer treatment program - Rectal cancer confirmed several months ago, now path from prostate biopsy showed signet ring carcinoma as well. Oncology consulted, Dr. Calix. Patient desires evaluation by [facility]. Chronic Pain - [place] 10/325 prn - Home gabapentin daily - Will add Flexeril prn HTN - continue home amlodipine, metoprolol - Allow for variability of BP due to ongoing fluid shifts 2/2 to dialysis Diet: Renal - low protein DVT ppx: Heparin Code: Full Dispo: Uro rec stent placement by IR and monitoring of urine output. Patient hopes to get to [facility] next week. Pending further recs of nephro and uro and improved clinical status..
[2018-11-01 05:55] LABS: Anion Gap 13 mmol/L (10-20); BUN (Urea Nitrogen) 35 mg/dL (8.9-20.6); Calc. Creatinine Clearance 21 mL/min (70-130); Calcium 9.4 mg/dL (7.8-10.44); Carbon Dioxide 26 mmol/L (22-29); Chloride 102 mmol/L (98-107); Estimated GFR-MDRD 17; Glucose 103 mg/dL (70-105); Potassium 4.3 mmol/L (3.5-5.1); Sodium 137 mmol/L (136-145)
[2018-11-01] MEDS: Metoprolol Tartrate 25 MG TAB PO SCH ×2 (09:17→20:29)
[2018-11-01] MEDS: Gabapentin 100 MG CAP PO SCH (09:17)
[2018-11-01] MEDS: Amlodipine 5 MG TAB PO SCH (09:17)
--- NOTE | 2018-11-01 10:43 | PRG ---
DATE OF SERVICE: 11/01/2018 SUBJECTIVE: A 47-year-old gentleman is being seen for acute kidney injury. The patient denies nausea, vomiting, or chest pain. OBJECTIVE: CONSTITUTIONAL: The patient is awake and alert. VITAL SIGNS: Afebrile, pulse 70, breathing 16, and blood pressure was 102/69. GENERAL APPEARANCE AND MENTAL STATUS: Fair. HEAD/NECK: Normocephalic. Atraumatic. EYES: EOMI. No deformity. EARS: Clear. No ulcers. NOSE: Intact. No lesions. MOUTH: Clear. No discharge. THROAT: Clear. No exudate. LUNGS: Clear. No crackles. CARDIAC: S1, S2. No rub. ABDOMEN: Benign. Bowel sounds positive. GENITALIA/RECTUM: Bundy absent. BACK/EXTREMITIES: Edema 0+. NEUROLOGICAL: Alert and motor intact. SKIN: LYMPHATICS: LABORATORY DATA: Labs show hemoglobin 8.7. Creatinine 3.7. ASSESSMENT AND PLAN: Acute kidney injury with chronic kidney disease, improved. Hypertension, stable. Hyperkalemia, stable. No indication for dialysis. We will follow renal function daily. Job ID: [id number]
--- NOTE | 2018-11-01 11:14 | PRG ---
DATE OF SERVICE: 11/01/2018 Mr. Souza is still having some discomfort related to his nephrostomy tubes. He is on a good dose of maintenance [place]. He was seen by Urology, who recommend stent placement and subsequent removal of his nephrostomy tubes. We are awaiting the input from IR. Afterwards, he would like to go to [facility] next week for further evaluation and treatment. Job ID: [id number]
--- NOTE | 2018-11-01 13:06 | PRG ---
DATE OF SERVICE: 11/01/2018 SUBJECTIVE: Mr. Souza overall is doing well. He continues to report some intermittent pain. His CBI was discontinued yesterday morning and had significant bloody drainage. I was contacted last night. At which point, I recommended that CBI will be restarted. The CBI was discontinued again this morning, and he once again has bloody drainage from the Bundy. His percutaneous nephrostomies are draining clear/pink urine. OBJECTIVE: VITAL SIGNS: Temperature is 96.7, pulse 81, respirations 18, oxygen saturation 94% on room air, blood pressure 117/84. GENERAL: He is alert and oriented x3. No apparent distress. CARDIOVASCULAR: Regular rate and rhythm. PULMONARY: Breathing unlabored. ABDOMEN: Percutaneous nephrostomy is draining clear pink urine. GENITOURINARY: Bundy catheter is draining dark red urine, low volume. EXTREMITIES: No edema. LABORATORY DATA: Creatinine 3.73. ASSESSMENT: A 47-year-old male with recurrent colorectal cancer, urinary retention, bilateral ureteral obstructions, status post bilateral percutaneous nephrostomies. PLAN: At this point, he will keep his nephrostomy tubes. At some point, antegrade stents can be placed by IR. We will restart the continuous bladder irrigation in the suprapubic catheter and out the urethral catheter to keep this patent. The vast majority of his urine will drain from the nephrostomies. Job ID: [id number]
[2018-11-01] MEDS: Cyclobenzaprine 10 MG TAB PO PRN (15:58)
[2018-11-01] MEDS: Amitriptyline HCl 25 MG TAB PO SCH (20:29)
[2018-11-02] MEDS: HYDROcodone/Acetaminophen 10/325 mg Tablet PO PRN ×4 (02:25→20:26)
[2018-11-02] MEDS ORDERED: Sodium Chloride 0.9% 30 ML ONE (04:24)
[2018-11-02] MEDS: Cyclobenzaprine 10 MG TAB PO PRN ×3 (04:41→20:31)
[2018-11-02 05:17] LABS: Anion Gap 16 mmol/L (10-20); BUN (Urea Nitrogen) 40 mg/dL (8.9-20.6); Calc. Creatinine Clearance 18 mL/min (70-130); Carbon Dioxide 23 mmol/L (22-29); Chloride 101 mmol/L (98-107); Estimated GFR-MDRD 16; Glucose 143 mg/dL (70-105); Sodium 136 mmol/L (136-145)
--- NOTE | 2018-11-02 05:30 | PDOC.FM ---
- Subjective Subjective: Pt is doing well this morning. No acute events overnight. Pain significantly improved with Flexeril. [birth year] today. No fevers/chills, n/v/d/c, CP , SOB. He is eager to follow up with [facility] upon discharge. - Objective MAR Reviewed: Yes Vital Signs & Weight: Vital Signs (12 hours) Temp Pulse Resp BP Pulse Ox 11/02/18 04:00 97.8 F 113 H 25 H 102/70 99 11/02/18 00:00 99 F 98 21 H 102/66 96 Weight Weight 55.973 kg I&O: 10/31/18 11/01/18 11/02/18 06:59 06:59 06:59 Intake Total 1280 5915 720 Output Total 62222 640 5100 Balance -97564 -5320 -4380 Result Diagrams: 10/26/18 20:13 11/02/18 04:35 Phys Exam - Physical Examination Constitutional: NAD (resting comfortably) HEENT: moist MMs Neck: supple Respiratory: no wheezing, no rales, no rhonchi, clear to auscultation bilateral Cardiovascular: RRR, no significant murmur, no rub Gastrointestinal: soft, non-tender, no distention, positive bowel sounds Musculoskeletal: no edema, pulses present Neurological: non-focal, moves all 4 limbs Psychiatric: normal affect, A&O x 3 Deviation from normal: Suprapuic and nephrostomy tubes in place. Clean and dry with dressings. -: Draining clear, pink fluid. 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 1. ESRD - Nephrology consulted, last dialysis received 10/30, s/p dialysis catheter placement on 10/31. - Consulted Nephro, no indication for dialysis at this time, will follow and monitor, appreciate recs - Cr improved, 7.31 -> 3.95. Continue to monitor. 2. Hyperkalemia, resolved - Initially 6.9, EKG: Tall, peaked T Waves. s/p Emergent dialysis 10/27/18. - K now 4.0. Nephro managing dialysis schedule. Continue to monitor. 3. Hydronephrosis, bilateral - 2/2 obstruction with concern for rectal malignancy invasion of bladder. - Urine Culture: NGTD - ABD CT: Bilateral Hydronephrosis confirmed, enlarged prostate also noted. - B/L nephrostomy tube placement by IR 10/30 - Urology - 10/27 cystoscopy, suprapubic tube placement, and transrectal prostate biopsy. s/p gent and levquin during procedures. Rec antegrade stents by IR with possible plugged of nephrostomy tubes and removal if adequate output in future, continuous bladder irrigation, appreciate recs 4. Rectal Cancer - Plans to follow up with [facility] cancer treatment program as outpatient - Rectal cancer confirmed several months ago, path from prostate biopsy showed signet ring carcinoma. Oncology consulted, Dr. Calix, appreciate recs. 5. Chronic Pain - [place] 10/325 prn and Flexeril 10 prn. Much improved with addition of flexeril. - Home gabapentin daily 6. HTN - BP stable. Continue home amlodipine, metoprolol Diet: Renal - low protein DVT ppx: Heparin Code: Full Dispo: Pending further recs of nephro and uro and improved clinical status, pt plans to f/u with [facility] for Onc care.
[2018-11-02] MEDS: Gabapentin 100 MG CAP PO SCH (08:26)
[2018-11-02] MEDS: Metoprolol Tartrate 25 MG TAB PO SCH ×2 (08:26→20:25)
[2018-11-02] MEDS: Amlodipine 5 MG TAB PO SCH (08:27)
[2018-11-02 09:24] LABS: #Basophils 0.1 thou/uL (0.0-0.2); #Eosinphils 0.6 thou/uL (0.0-0.7); #Lymphocytes 2.1 thou/uL (1.20-3.40); #Monocytes 0.9 thou/uL (0.11-0.59); #Neutrophils 7.5 thou/uL (1.40-6.50); %Basophils 0.6 % (0.0-1.0); %Eosinophils 5.8 % (0.0-10.0); %Neutrophils 66.7 % (42.0-75.0); Hemoglobin 7.4 g/dL (14.0-18.0); Mean Corpuscular HGB CONC 33.5 g/dL (32.0-36.0); Mean Corpuscular Hemoglobin 28.6 pg (27.0-31.0); Mean Corpuscular Volume 85.4 fL (78.0-98.0); Mean Platelet Volume 6.8 fL (7.4-10.4); Platelet Count 367 thou/uL (130-400); RBC Distribution Width 15.5 % (11.5-14.5); Red Blood Cell (RBC) Count 2.57 mill/uL (4.70-6.10); White Blood Cell (WBC) Count 11.2 thou/uL (4.8-10.8)
--- NOTE | 2018-11-02 11:12 | PRG ---
DATE OF SERVICE: 11/02/2018 Mr. Souza feels much better since Dr. Felipe started the Flexeril yesterday. Tomorrow, he is supposed to have several procedures per Urology. We will continue to follow with him. Job ID: [id number]
--- NOTE | 2018-11-02 11:26 | PRG ---
DATE OF SERVICE: 11/02/2018 SUBJECTIVE: This is a 48-year-old gentleman being seen for acute kidney injury. The patient denies any nausea, vomiting, or chest pain. OBJECTIVE: CONSTITUTIONAL: On examination, the patient is awake and alert. VITAL SIGNS: Afebrile, pulse 87, breathing is 16, and blood pressure 123/85. GENERAL APPEARANCE AND MENTAL STATUS: Fair. HEAD/NECK: Normocephalic. Atraumatic. EYES: EOMI. No deformity. EARS: Clear. No ulcers. NOSE: Intact. No lesions. MOUTH: Clear. No discharge. THROAT: Clear. No exudate. LUNGS: Clear. No crackles. CARDIAC: S1, S2. No rub. ABDOMEN: Benign. Bowel sounds positive. GENITALIA/RECTUM: Bundy absent. BACK/EXTREMITIES: Edema 0+. NEUROLOGICAL: Alert and motor intact. SKIN: LYMPHATICS: LABORATORY DATA: Reviewed. ASSESSMENT AND PLAN: 1. Chronic kidney disease, stage 4 with acute kidney injury due to acute tubular necrosis, due to chronic hydronephrosis, stable. No indication for dialysis. Mild worsening of kidney function. 2. Anemia, stable. 3. Hyperkalemia, stable. We will follow renal function closely. 4. Anemia. We would recommend transfusion. Job ID: [id number]
[2018-11-02] MEDS: Amitriptyline HCl 25 MG TAB PO SCH (20:25)
[2018-11-03] MEDS: Cyclobenzaprine 10 MG TAB PO PRN ×3 (04:45→20:42)
[2018-11-03] MEDS: HYDROcodone/Acetaminophen 10/325 mg Tablet PO PRN ×3 (04:45→17:11)
[2018-11-03 06:34] LABS: #Basophils 0.1 thou/uL (0.0-0.2); #Eosinphils 0.8 thou/uL (0.0-0.7); #Lymphocytes 2.3 thou/uL (1.20-3.40); #Monocytes 0.8 thou/uL (0.11-0.59); #Neutrophils 5.9 thou/uL (1.40-6.50); %Basophils 0.7 % (0.0-1.0); %Eosinophils 7.8 % (0.0-10.0); %Lymphocytes 23.2 % (21.0-51.0); %Monocytes 8.2 % (0.0-10.0); %Neutrophils 60.2 % (42.0-75.0); Hemoglobin 7.6 g/dL (14.0-18.0); Mean Corpuscular HGB CONC 33.5 g/dL (32.0-36.0); Mean Corpuscular Hemoglobin 28.2 pg (27.0-31.0); Mean Corpuscular Volume 84.1 fL (78.0-98.0); Mean Platelet Volume 6.7 fL (7.4-10.4); Platelet Count 455 thou/uL (130-400); Red Blood Cell (RBC) Count 2.71 mill/uL (4.70-6.10); White Blood Cell (WBC) Count 9.8 thou/uL (4.8-10.8)
[2018-11-03 06:47] LABS: Anion Gap 15 mmol/L (10-20); BUN (Urea Nitrogen) 44 mg/dL (8.9-20.6); Calc. Creatinine Clearance 24 mL/min (70-130); Calcium 9.7 mg/dL (7.8-10.44); Carbon Dioxide 23 mmol/L (22-29); Chloride 101 mmol/L (98-107); Estimated GFR-MDRD 22; Glucose 94 mg/dL (70-105); Potassium 4.2 mmol/L (3.5-5.1); Sodium 135 mmol/L (136-145)
[2018-11-03] MEDS: Amlodipine 5 MG TAB PO SCH (08:35)
[2018-11-03] MEDS: Gabapentin 100 MG CAP PO SCH (08:35)
[2018-11-03] MEDS: Metoprolol Tartrate 25 MG TAB PO SCH ×2 (08:35→20:41)
--- NOTE | 2018-11-03 09:32 | PDOC.FM ---
- Subjective Subjective: Mr. Souza has no new concerns today. He spoke with [facility] and they said he would get set up with them after d/c from here. Tolerating PO intake. Pain is unchanged. - Objective Vital Signs & Weight: Vital Signs (12 hours) Temp Pulse Resp BP Pulse Ox 11/03/18 08:20 98.6 F 93 18 124/88 96 11/03/18 04:30 98.1 F 92 18 130/91 H 97 11/03/18 00:18 97.8 F 88 18 121/80 98 Weight Weight 58.468 kg I&O: 11/02/18 11/03/18 11/04/18 06:59 06:59 06:59 Intake Total 6090 7480 Output Total 55730 57525 Balance -3220 -8320 Result Diagrams: 11/03/18 05:42 11/03/18 05:42 Phys Exam - Physical Examination Constitutional: NAD Respiratory: clear to auscultation bilateral Cardiovascular: RRR, no significant murmur Gastrointestinal: soft, non-tender suprapubic cath in place, b/l nephrostomy tubes Musculoskeletal: no edema Neurological: non-focal Skin: normal turgor Dx/Plan (1) CANDY (acute kidney injury) Code(s): N17.9 - ACUTE KIDNEY FAILURE, UNSPECIFIED Status: Acute (2) Hydroureteronephrosis Code(s): N13.30 - UNSPECIFIED HYDRONEPHROSIS Status: Chronic (3) Chronic use of opiate for therapeutic purpose Code(s): Z79.891 - FPC (CURRENT) USE OF OPIATE ANALGESIC Status: Chronic (4) Colon cancer Code(s): C18.9 - MALIGNANT NEOPLASM OF COLON, UNSPECIFIED Status: Chronic (5) Hyponatremia Code(s): E87.1 - HYPO-OSMOLALITY AND HYPONATREMIA Status: Acute (6) Cauda equina syndrome Code(s): G83.4 - CAUDA EQUINA SYNDROME Status: Chronic - Plan Plan: 47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 1. CKD4 (improved from ESRD at admission) - Nephrology consulted, s/p dialysis catheter placement on 10/31, no need for dialysis at this time, will follow and monitor, appreciate recs - Cr improved, 7.31 -> 3.08. Renal fxn has continued to improved daily since placement of nephrostomy tubes 2. Hyperkalemia, resolved - Initially 6.9, EKG: Tall, peaked T Waves. s/p Emergent dialysis 10/27/18. - Nephro managing dialysis schedule. Continue to monitor. 3. Hydronephrosis, bilateral - 2/2 obstruction with concern for rectal malignancy invasion of bladder. - Urine Culture: NGTD - ABD CT: Bilateral Hydronephrosis confirmed, enlarged prostate also noted. - B/L nephrostomy tube placement by IR 10/30 - Urology - 10/27 cystoscopy, suprapubic tube placement, and transrectal prostate biopsy. s/p gent and levquin during procedures. On continuous bladder irrigation, appreciate recs from urology 4. Rectal Cancer - [facility] - Rectal cancer confirmed several months ago, path from prostate biopsy showed signet ring carcinoma. Oncology consulted, Dr. Calix, appreciate recs. 5. Chronic Pain - [place] 10/325 prn and Flexeril 10 prn. Much improved with addition of flexeril. - Home gabapentin daily 6. HTN - BP stable. Continue home amlodipine, metoprolol 7. Anemia - Hgb 7.6 today, will consider transfusion Diet: Renal - low protein DVT ppx: Heparin Code: Full Dispo: Pending further recs of nephro and uro and improved clinical status, pt plans to f/u with [facility] for Onc care. Addendum - Attending - Attending Attestation Date/Time: 11/03/18 8400 I personally evaluated the patient and discussed the management with Dr. Cedillo I agree with the History, Examination, Assessment and Plan documented above with any addition or exceptions noted below- pateint without complaints. Afebrile VSS. A/P: 1) B/l hydrophrosis- s/p percutaneous drainage, suprpubic tube and [place]. Plans as per urology. Continue CBI for now pending further urology recommendations. 2) Signet ring colon cancer- plan for further evaluation as outpatient at [facility], 3) CANDY- improved with resolution of obstruction. Continue to monitor.
--- NOTE | 2018-11-03 15:51 | PRG ---
DATE OF SERVICE: SUBJECTIVE: Patient was seen and examined at bedside and overnight events noted. Patient denies any shortness of breath or chest pain or palpitation. No history of nausea or vomiting or diarrhea or fever or chills or cramps. OBJECTIVE: GENERAL: This is a well-built male, in no apparent distress. VITAL SIGNS: Temperature . Heart rate . Blood pressure 121/80. HEENT: Atraumatic, normocephalic. Oral mucosa is moist NECK: Supple. CARDIOVASCULAR: S1, S2 heard. Rate and rhythm regular. RESPIRATORY: Clear to auscultation. GASTROINTESTINAL: Abdomen is soft. MUSCULOSKELETAL: No tenderness. No edema. DERMATOLOGIC: No skin rash. NEUROLOGIC: Alert and awake and oriented X3. No focal neurologic deficits. Moving all the extremities. PSYCHIATRIC: Mood and affect normal. LABORATORY DATA: Potassium 4.2, BUN is 44, creatinine is 3.08. Urine output is 5 to 7 L. ASSESSMENT AND PLAN: 1. Chronic kidney disease, stage 4 with improvement. 2. Acute kidney injury, getting better. No indication for dialysis. 3. Hyperkalemia, better. 4. Anemia. Monitor hemoglobin. 5. Labs are better without dialysis. Plan is to hold dialysis monitor. Avoid nephrotoxins. We will follow. Job ID: [id number]
[2018-11-03] MEDS: Amitriptyline HCl 25 MG TAB PO SCH (20:41)
[2018-11-04] MEDS: HYDROcodone/Acetaminophen 10/325 mg Tablet PO PRN ×3 (00:55→15:23)
[2018-11-04] MEDS: Cyclobenzaprine 10 MG TAB PO PRN ×2 (05:35→17:01)
[2018-11-04 05:43] LABS: #Basophils 0.1 thou/uL (0.0-0.2); #Eosinphils 0.7 thou/uL (0.0-0.7); #Lymphocytes 1.9 thou/uL (1.20-3.40); #Monocytes 0.9 thou/uL (0.11-0.59); %Basophils 0.5 % (0.0-1.0); %Eosinophils 7.5 % (0.0-10.0); %Lymphocytes 19.5 % (21.0-51.0); %Neutrophils 63.5 % (42.0-75.0); Hemoglobin 8.8 g/dL (14.0-18.0); Mean Corpuscular HGB CONC 33.7 g/dL (32.0-36.0); Mean Corpuscular Hemoglobin 28.9 pg (27.0-31.0); Mean Corpuscular Volume 85.8 fL (78.0-98.0); Mean Platelet Volume 6.6 fL (7.4-10.4); Platelet Count 496 thou/uL (130-400); RBC Distribution Width 14.6 % (11.5-14.5); Red Blood Cell (RBC) Count 3.06 mill/uL (4.70-6.10); White Blood Cell (WBC) Count 9.5 thou/uL (4.8-10.8)
[2018-11-04 06:01] LABS: Anion Gap 14 mmol/L (10-20); BUN (Urea Nitrogen) 44 mg/dL (8.9-20.6); Calc. Creatinine Clearance 29 mL/min (70-130); Calcium 9.8 mg/dL (7.8-10.44); Carbon Dioxide 24 mmol/L (22-29); Chloride 99 mmol/L (98-107); Estimated GFR-MDRD 27; Glucose 91 mg/dL (70-105); Sodium 133 mmol/L (136-145)
--- NOTE | 2018-11-04 06:20 | PDOC.FM ---
- Subjective Subjective: Mr. Souza has no new complaints this morning. He felt tired. Awaiting further recommendations from urology. - Objective Vital Signs & Weight: Vital Signs (12 hours) Temp Pulse Resp BP BP Pulse Ox 11/04/18 05:00 98 F 95 18 134/92 H 98 11/04/18 04:00 97.8 F 95 18 118/82 98 11/04/18 00:55 17 11/03/18 20:40 97 11/03/18 20:00 98.1 F 97 18 136/89 97 Weight Weight 59.125 kg I&O: 11/02/18 11/03/18 11/04/18 06:59 06:59 06:59 Intake Total 6090 7480 3780 Output Total 52333 03248 5975 Balance -5260 -3950 -2195 Result Diagrams: 11/04/18 05:30 11/04/18 05:30 Phys Exam - Physical Examination Constitutional: NAD HEENT: moist MMs Respiratory: no wheezing, clear to auscultation bilateral Cardiovascular: RRR, no significant murmur Gastrointestinal: soft, non-tender, positive bowel sounds Musculoskeletal: no edema Neurological: moves all 4 limbs Psychiatric: normal affect Skin: normal turgor Dx/Plan (1) CANDY (acute kidney injury) Code(s): N17.9 - ACUTE KIDNEY FAILURE, UNSPECIFIED Status: Acute (2) Hydroureteronephrosis Code(s): N13.30 - UNSPECIFIED HYDRONEPHROSIS Status: Chronic (3) Chronic use of opiate for therapeutic purpose Code(s): Z79.891 - CORRECTION (CURRENT) USE OF OPIATE ANALGESIC Status: Chronic (4) Colon cancer Code(s): C18.9 - MALIGNANT NEOPLASM OF COLON, UNSPECIFIED Status: Chronic (5) Hyponatremia Code(s): E87.1 - HYPO-OSMOLALITY AND HYPONATREMIA Status: Acute (6) Cauda equina syndrome Code(s): G83.4 - CAUDA EQUINA SYNDROME Status: Chronic - Plan Plan: 47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 1. CKD4 (improved from ESRD at admission) - Nephrology consulted, s/p dialysis catheter placement on 10/31, no need for dialysis at this time, will follow and monitor, appreciate recs - Cr improved, 7.31 -> 3.08->2.57. Renal fxn has continued to improved daily since placement of nephrostomy tubes 2. Hyperkalemia, resolved - Initially 6.9, EKG: Tall, peaked T Waves. s/p Emergent dialysis 10/27/18. - Nephro managing dialysis schedule. Continue to monitor. 3. Hydronephrosis, bilateral - 2/2 obstruction with concern for rectal malignancy invasion of bladder. - Urine Culture: NGTD - ABD CT: Bilateral Hydronephrosis confirmed, enlarged prostate also noted. - B/L nephrostomy tube placement by IR 10/30 - Urology - 10/27 cystoscopy, suprapubic tube placement, and transrectal prostate biopsy. s/p gent and levquin during procedures. On continuous bladder irrigation, appreciate recs from urology for further management 4. Rectal Cancer - Plans to follow up with [facility] cancer treatment program as outpatient - Rectal cancer confirmed several months ago, path from prostate biopsy showed signet ring carcinoma. Oncology consulted, Dr. Calix, appreciate recs. 5. Chronic Pain - [place] 10/325 prn and Flexeril 10 prn. Much improved with addition of flexeril. - Home gabapentin daily 6. HTN - BP stable. Continue home amlodipine, metoprolol 7. Anemia - Hgb 7.6 , s/p 1 u prbc 11/03 with repeat Hgb 8.6 Diet: Renal - low protein DVT ppx: Heparin Code: Full Dispo: Pending further recs of nephro and uro and improved clinical status, pt plans to f/u with [facility] for Onc care. Addendum - Attending - Attending Attestation Date/Time: 11/05/18 0163 I personally evaluated the patient and discussed the management with Dr. Cedillo on 11/04/2018 I agree with the History, Examination, Assessment and Plan documented above with any addition or exceptions noted below - Patient without complaints. Afebrile VSS. A/P: 1) Signet ring cancer- plans to follow-up with [facility]. 2) Hydronephrosis- will speak with urology regarding CBI and continuation; will arrange for outpatient stent by IR 3) CANDY with CKD - improved; no further need for dialysis
[2018-11-04] MEDS: Amlodipine 5 MG TAB PO SCH (10:40)
[2018-11-04] MEDS: Metoprolol Tartrate 25 MG TAB PO SCH (10:40)
[2018-11-04] MEDS: Gabapentin 100 MG CAP PO SCH (10:40)
--- NOTE | 2018-11-04 13:38 | EKG ---
Test Reason : Blood Pressure : / mmHG Vent. Rate : 102 BPM Atrial Rate : 102 BPM P-R Int : 174 ms QRS Dur : 094 ms QT Int : 330 ms P-R-T Axes : 070 017 072 degrees QTc Int : 430 ms Sinus tachycardia Peaked T waves Otherwise normal ECG Confirmed by CARLOS RANDHAWA, OMAR ([id number]), editorial writer JAYDA PEDRAZA ([id number]) on 11/04/2018 1:37:43 PM Referred By: Confirmed By:OMAR GONZALEZ MD
--- NOTE | 2018-11-04 14:58 | PRG ---
DATE OF SERVICE: 11/04/2018 SUBJECTIVE: Patient was seen and examined at bedside and overnight events noted. Patient denies any shortness of breath or chest pain or palpitation. No history of nausea or vomiting or diarrhea or fever or chills or cramps. OBJECTIVE: GENERAL: This is a well-built male, in no apparent distress. VITAL SIGNS: Temperature 98.4, heart rate 79, respiratory rate 16, and blood pressure 128/88. HEENT: Atraumatic, normocephalic. Oral mucosa is moist. NECK: Supple. CARDIOVASCULAR: S1, S2 heard. Rate and rhythm regular. RESPIRATORY: Clear to auscultation. GASTROINTESTINAL: Abdomen is soft. MUSCULOSKELETAL: No tenderness. No edema. DERMATOLOGIC: No skin rash. NEUROLOGIC: Alert and awake and oriented X3. No focal neurologic deficits. Moving all the extremities. PSYCHIATRIC: Mood and affect normal. LABORATORY DATA: Potassium 4.0, BUN is 44, and creatinine is 2.5. ASSESSMENT AND PLAN: 1. Acute kidney injury on chronic kidney stage 4 with improvement, creatinine is getting better. No acute indication for dialysis. Okay to remove dialysis catheter. The patient was advised to have catheter removed before discharge. 2. Hyperkalemia, better. 3. Anemia, stable. 4. Edema, controlled. 5. Hypertension, stable. Remove dialysis catheter and monitor. If going home, follow up with Dr. Sal in 1 week. Job ID: [id number]
[2018-11-04 17:16] VITALS: BP 118/80; TEMP 98.3
--- NOTE | 2018-11-05 08:17 | OP ---
DATE OF PROCEDURE: 11/04/2018 PREOPERATIVE DIAGNOSIS: Acute kidney injury, renal recovery off dialysis now, in need of hemodialysis catheter removal, right IJ. POSTOPERATIVE DIAGNOSIS: Acute kidney injury, renal recovery off dialysis now, in need of hemodialysis catheter removal, right internal jugular. PROCEDURE PERFORMED: Removal right internal jugular cuffed tunneled dialysis catheter. ANESTHESIA: None, as the catheter has not been in long enough for tissue ingrowth into the cuff. DESCRIPTION OF PROCEDURE: With the patient at bedside, dressings removed. Suture removed. Catheter and cuff removed intact. Pressure held to hemostatic. Dressing applied. Central line also removed in a likewise fashion. The patient tolerated the procedure well. Job ID: [id number]
--- NOTE | 2018-11-05 13:33 | DIS ---
DATE OF ADMISSION: 10/26/2018 DATE OF DISCHARGE: 11/04/2018 RESIDENT: Kimberly Cedillo DO ADMITTING ATTENDING: Paolo Max MD DISCHARGE ATTENDING: Jeannette Middleton MD. CONSULTATIONS: 1. Urology, Dr. Bashir. 2. Oncology, . 3. Nephrology, Dr. Sal. PROCEDURES: 1. The 10/26/[address] showed stable severe bilateral hydronephrosis, stable prominent wall thickening involving the rectum with mild presacral edema, stable prostate enlargement and bladder wall thickening with a Bundy catheter. 2. Lumbar spine CT showed no acute osseous abnormalities of the lumbar spine. 3. Chest x-ray showed no acute cardiopulmonary abnormality. 4. The 10/27/2018 retrograde pyelogram showed contrast in the area within the urinary bladder. The patient underwent difficult cystoscopy with suprapubic tube placement and transrectal biopsy of pelvic mass. 5. On 10/30/2018, the patient had sonographic guided left and right percutaneous nephrostomy. 6. On 10/31/2018, chest x-ray showed vascular catheters in place. 7. On 10/31/2018, the patient had right internal jugular vein cuff tunneled dialysis catheter, left internal jugular vein triple-lumen catheter, ultrasound and fluoroscopy. 8. The patient was transfused 1 unit of packed red blood cells on 11/03/2018. PRIMARY DIAGNOSES: 1. Chronic kidney disease, stage 4. 2. Hyperkalemia, resolved. 3. Bilateral hydronephrosis. 4. 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 5. Anemia. SECONDARY DIAGNOSES: 1. Chronic pain. 2. Hypertension. DISCHARGE MEDICATIONS: 1. Metoprolol tartrate 25 mg p.o. b.i.d. 2. Warren 10 mg/325 mg two tabs p.o. q.6 hours p.r.n. 3. Senokot one tab p.o. b.i.d. p.r.n. 4. Acetaminophen p.o. q.6 hours p.r.n. 5. Sertraline 50 mg p.o. at bedtime. 6. Amlodipine 5 mg p.o. daily. 7. Cyclobenzaprine 10 mg p.o. t.i.d. p.r.n. 8. Gabapentin 100 mg p.o. daily. DISCONTINUE MEDS AT HOME: 1. Methylprednisolone (Medrol Dosepak). 2. Gabapentin 300 mg p.o. t.i.d. HISTORY OF PRESENT ILLNESS: A 48-year-old male with past medical history of colon cancer, cauda equina syndrome, chronic pain requiring NSAID, opioid use, presented to the emergency department because he was recently severe flank pain. He also noted generalized weakness. He was admitted recently prior to this discharge requiring multiple rounds of dialysis and a culture. The patient was admitted and was found to have hyperkalemia of 6.9 with EKG changes. He was given calcium gluconate, Kayexalate and underwent emergent dialysis on 10/27/2018. The patient continued to receive dialysis nearly daily at the beginning of the hospitalization and his kidney function was worsening. In regard to his hydronephrosis, Urology was consulted and Dr. Bashir, his outpatient urologist, saw him. He underwent bilateral nephrostomy tube placement by Interventional Radiology on October 30, 2018. Prior to this, on 10/27/2018, Urology performed cystoscopy, suprapubic tube placement, and transrectal prostate biopsy. He was on antibiotics for the invasive procedures and was on continuous bladder irrigation through the rest of the hospitalization. After placement of the bilateral nephrostomy tubes, his renal function improved greatly each day. At the time of discharge, his creatinine was 2.57, BUN of 44, and GFR of 27. Additionally, the patient had declining hemoglobin throughout hospitalization and was transfused 1 unit of packed red blood cells on 11/03/2018. In regard to his cancer, prostate biopsy showed poorly differentiated signet ring carcinoma consistent with gastrointestinal . Oncology saw the patient and the patient expressed his desire to go to [facility]. He was already in the process of getting established there. During hospitalization, his insurance was approved and the patient was in contact with [facility] and they planned to schedule his evaluation at their facility upon discharge from our hospital. The patient did have a right internal jugular vein cuff tunneled dialysis catheter and left internal jugular vein triple-lumen catheter placed by General Surgery with expectation of need for the dialysis. However, the patient's renal function improved and dialysis was not needed. These were removed prior to discharge. DISPOSITION: Guarded. DISCHARGE INSTRUCTIONS: 1. Location: Home. 2. Diet: Renal. 3. Activity: As tolerated. FOLLOWUP: 1. Follow up with Dr. Sal, Nephrology, within 1 week. 2. Follow up with primary care physician in 1 week. 3. Follow up with Dr. Bashir, Urology, within 2 weeks. The patient has appointment made for antegrade stent placement by Interventional Radiology on November 12, at 7:30 a.m. The patient was given instructions prior to discharge to arrive at 7:00 a.m. at the hospital to check in and that he must be n.p.o. after midnight. The patient is to follow up with Dr. Bashir after this procedure. Job ID: [id number]
== END 2018-11-04 18:02 | disposition home or self-care (01) | DRG 674 ==
LOC: ERS 15:38 → 2NO 20:18 → T4-A 11-02 18:05
PROVIDERS: ADMIT Family Medicine; ATTEND Family Medicine
PROC: 5A1D70Z Performance of Urinary Filtration, Intermittent, Less than 6 Hours Per Day (ICD-10-PCS; 2018-10-26)
PROC: 0T9B80Z Drainage of Bladder with Drainage Device, Via Natural or Artificial Opening Endoscopic (ICD-10-PCS; 2018-10-27)
PROC: 0DBP7ZX Excision of Rectum, Via Natural or Artificial Opening, Diagnostic (ICD-10-PCS; 2018-10-27)
PROC: 0T9430Z Drainage of Left Kidney Pelvis with Drainage Device, Percutaneous Approach (ICD-10-PCS; 2018-10-30)
PROC: 0T9330Z Drainage of Right Kidney Pelvis with Drainage Device, Percutaneous Approach (ICD-10-PCS; 2018-10-30)
PROC: 0JH63XZ Insertion of Tunneled Vascular Access Device into Chest Subcutaneous Tissue and Fascia, Percutaneous Approach (ICD-10-PCS; principal; 2018-10-31)
PROC: 02HV33Z Insertion of Infusion Device into Superior Vena Cava, Percutaneous Approach (ICD-10-PCS; 2018-10-31)
PROC: B518YZA Fluoroscopy of Superior Vena Cava using Other Contrast, Guidance (ICD-10-PCS; 2018-10-31)
PROC: B548ZZA Ultrasonography of Superior Vena Cava, Guidance (ICD-10-PCS; 2018-10-31)
PROC: 02PYX3Z Removal of Infusion Device from Great Vessel, External Approach (ICD-10-PCS; 2018-11-04)
DX: N17.9 Acute kidney failure, unspecified (principal); G83.4 Cauda equina syndrome; I12.0 Hypertensive chronic kidney disease with stage 5 chronic kidney disease or end stage renal disease; C18.9 Malignant neoplasm of colon, unspecified; E87.1 Hypo-osmolality and hyponatremia; C21.8 Malignant neoplasm of overlapping sites of rectum, anus and anal canal; N18.6 End stage renal disease; E87.5 Hyperkalemia; N13.30 Unspecified hydronephrosis; K59.03 Drug induced constipation; T40.605A Adverse effect of unspecified narcotics, initial encounter; D63.1 Anemia in chronic kidney disease; Z87.440 Personal history of urinary (tract) infections; Z79.891 Long term (current) use of opiate analgesic; Z79.899 Other long term (current) drug therapy; Z99.2 Dependence on renal dialysis
CPT/HCPCS: 36415; 36416; 36430; 36556; 50430; 50432; 71045; 72131; 74176; 74420; 80048; 80053; 81003; 81015; 82550; 83690; 83880; 84153; 84154; 84484; 85025; 85610; 85730; 86850; 86900; 86901; 87086; 88305; 88341; 88342; 88361; 90935; 93005; 93970; 96365; 96366; 96375; C1729; C1752; C1758; C1769; G0257; G0365; J0670; J0690; J1580; J1644; J1815; J1956; J2001; J2250; J2270; J2405; J2550; J2704; J3010; J3490; P9016

== ENCOUNTER 2018-11-12 06:57 | Day surgery (SDC) | payer MEDICARE, MEDICAID ==
[2018-11-11 16:10] VITALS: BMI 19.5
[2018-11-12] MEDS ORDERED: Midazolam HCl 2 mg/2 ml Vial ONE (08:02)
[2018-11-12] MEDS ORDERED: Fentanyl 100 MCG/2 ML VIAL ONE (08:02)
[2018-11-12] MEDS ORDERED: cefTRIAXone\\ROCEPHIN 1 GM in Sodium Chloride 0.9% 100 ML IVPB SCH (08:15)
[2018-11-12] MEDS ORDERED: HYDROcodone/Acetaminophen 5/325 mg Tablet ONE (09:53)
--- NOTE | 2018-11-12 10:13 | SPC ---
CT ABDOMEN AND PELVIS WITH IV CONTRAST 11/12/2018 CLINICAL INFORMATION: Gastric submucosal mass in the cardia of the stomach. COMPARISON: 08/09/2018 Technique: Multiple contiguous axial CT images are obtained through the abdomen and pelvis with IV contrast. Cor onal reformatted images are provided. FINDINGS: Lower Chest: Post surgical changes related to median sternotomy and aortic valve replacement are agai n noted. There is a small right and tiny left pleural effusions each of which is slightly larger in size compared to prior exam. Associated bibasilar atelectasis is present. No discrete pulmonary nodul e or mass is identified. Vessels: Vascular calcifications are again seen in the abdominal aorta and involving the iliac arteri es. Abdomen: Portal vein:Patent Gallbladder: Within normal limits for CT imaging. Liver: Stable very small subcentimeter hypodense lesion is again seen in the posterior segment of the right hepatic lobe. No additional hepatic lesions are seen. Spleen: within normal limits. Pancreas: within normal limits. Adrenals: within normal limits. Kidneys: A nonobstructing inferior pole left renal calculus is again seen. The kidneys otherwise have a normal CT appearance bilaterally. Bowel: There has been interval postsurgical changes of the stomach, and the previously noted mass in the region of the cardia of the stomach is no longer visualized. There is suture material now present in the region of the gastric fundus. Loops of small bowel are normal in caliber. Appendix: Not visualized. Patient reports history of prior appendectomy on provided history on prior exam. Peritoneum: No ascites or free air; no fluid collection. Mesentery and Retroperitoneum: No enlarged mesenteric or retroperitoneal lymph nodes. Abdominal Wall: There is inflammatory stranding seen within the adipose layer of the left abdomen lik eugenia due to prior postsurgical changes. There is no fluid collection seen to suggest an abscess. Punctate focus of gas is seen in the midline in a supraumbilical location which also may relate to pr ior postsurgical change. Pelvis: Reproductive Organs: There is evidence of hysterectomy. Pelvis within normal limits. Bladder: within normal limits. Bones: Degenerative changes are seen in the spine. No suspicious lytic or sclerotic osseous lesions a re identified. A hemangioma is again seen in the L3 vertebral body. IMPRESSION: 1. Interval postsurgical changes of the stomach with radiopaque suture material seen adjacent to the fundus of the stomach, the previously seen mass in the cardia the stomach is no longer visualized. 2. Small right and tiny left pleural effusions with associated atelectasis. 3. Stable subcentimeter too small to characterize hypodense lesion right hepatic lobe. 4. Hysterectomy. 5. Nonobstructing left renal calculus. 6. Mild stranding within the adipose layer left anterior abdomen with punctate focus of gas in the mi dline probably related to prior postsurgical changes. There is no fluid collection seen to suggest an abscess. 7. No CT findings to suggest metastatic disease.
--- NOTE | 2018-11-13 12:06 | SPC ---
PROCEDURES BILATERAL NEPHROGRAMS AND PERCUTANEOUS NEPHROSTROMY TUBE REPLACEMENTS WITH ATTEMPTED ANTEGRADE URETER AL STENT PLACEMENT: HISTORY: Rectal cancer and distal bilateral ureteral obstructions with bilateral nephrostomy tubes in place. Placement of antegrade stent was requested. FLUOROSCOPY: Time-9.4 minutes. Total dose-29,142 mGy*^cm2. TECHNIQUE: The procedure including the risks and complications were explained to the patient and informed consen t was obtained. The patient was placed on the angiography table in the prone position. 1 gram of Ro cephin was administered intravenously prior to the exam. Conscious sedation was performed with the i ntravenous administration of Fentanyl and Versed. The patient was monitored for approximately 30 min utes during the examination without complication. The bilateral nephrostomy tubes and surrounding areas were meticulously prepped and draped in the usu al sterile fashion. The skin and subcutaneous tissues on the right surrounding the right nephrostomy tube were infiltrated with buffered with buffered 1% Lidocaine for local anesthesia. Right nephrost ogram was performed. The catheter was exchanged over a 0.035 inch Bentsen guidewire for a 5 Palauan B erenstein catheter. The Berenstein catheter and guidewire were manipulated to the distal left ureter . Contrast injection was performed, but no contrast extended into the urinary bladder. Attempts at manipulating the guidewire and 5 Palauan catheter into the urinary bladder were unsuccessful. The cat heter was then exchanged for a 5 Palauan [place] catheter, but, again, the catheter was unable to be man ipulated into the urinary bladder. As a result, antegrade stent was unable to be placed at this time , and an 8 Palauan nephrostomy tube was replaced. The tube was sutured in place utilizing 2-0 Ethilon suture material and placed to gravity drainage. The skin and subcutaneous tissues surrounding the left nephrostomy tube were then infiltrated with bu ffered 1% Lidocaine for local anesthesia. Nephrostogram was performed, and the nephrostomy tube is e xchanged over a 0.035 inch Bentsen guidewire for a 5 Palauan [place] catheter. The ureter demonstrated prominent tortuosity proximally at the level of the UVJ as well as at the level of the pelvis. Howev er, after placement of the guidewire and angiographic catheter, the ureter tortuosity was corrected. A contrast injection does demonstrate a small amount of contrast extending into the urinary bladder. As a result, the suprapubic catheter was clamped, and a small amount of contrast was injected to di stend the urinary bladder. The Hookitsen guidewire was advanced into the urinary bladder. However, mu ltiple attempts at passage of the 5 Palauan catheter into the urinary bladder were unsuccessful and a ttempts at placing the catheter in the bladder resulted in resistance and increased tortuosity of the ureter. Given the inability to opacify the Palauan catheter, antegrade stent on the left was also un able to be placed at this time. As a result, an 8 Palauan nephrostomy tube was replaced. Contrast barrett ggested current placement of the distal portion of the catheter in the renal pelvis. The catheter wa s placed to gravity drainage and sutured in place utilizing 2-0 Ethilon suture material. Dry sterile dressings were placed at bilateral nephrostomy tube sites. The patient tolerated the procedure well and without immediate complication. IMPRESSION: 1. Bilateral hydronephrosis and hydroureter with prominent tortuosity of the left ureter related to chronic distal ureteral obstructions. 2. Technically successful 8 Palauan bilateral percutaneous nephrostomy tube replacements. 3. Severe narrowing in the region of each ureterovesical junction, and a [address] was unable to be advanced into the urinary bladder, bilaterally. Antegrade ureteral stents were u nable to be placed. The above findings were discussed with Dr. Bashir at the termination of this pr ocedure. CODE CR
== END 2018-11-12 11:15 | disposition home or self-care (01) ==
LOC: SPEC 06:57
PROVIDERS: ATTEND Hospitalist
PROC: 0T25X0Z Change Drainage Device in Kidney, External Approach (ICD-10-PCS; principal; 2018-11-12)
DX: N13.1 Hydronephrosis with ureteral stricture, not elsewhere classified (principal); F17.210 Nicotine dependence, cigarettes, uncomplicated; I12.9 Hypertensive chronic kidney disease with stage 1 through stage 4 chronic kidney disease, or unspecified chronic kidney disease; N18.4 Chronic kidney disease, stage 4 (severe); G83.4 Cauda equina syndrome; Z85.048 Personal history of other malignant neoplasm of rectum, rectosigmoid junction, and anus; Z79.899 Other long term (current) drug therapy; Z90.49 Acquired absence of other specified parts of digestive tract
CPT/HCPCS: 50431; 50435; C1729; C1769; C1887; J0696; J2250; J3010; J3490

== ENCOUNTER 2018-11-16 20:27 | Emergency (ER) | payer MEDICARE, OTHER, MEDICAID ==
[2018-11-16 21:14] LABS: #Basophils 0.1 thou/uL (0.0-0.2); #Eosinphils 0.2 thou/uL (0.0-0.7); #Lymphocytes 1.6 thou/uL (1.20-3.40); #Monocytes 0.6 thou/uL (0.11-0.59); #Neutrophils 4.5 thou/uL (1.40-6.50); %Basophils 0.9 % (0.0-1.0); %Eosinophils 3.5 % (0.0-10.0); %Lymphocytes 22.7 % (21.0-51.0); %Monocytes 8.4 % (0.0-10.0); %Neutrophils 64.6 % (42.0-75.0); Hemoglobin 9.8 g/dL (14.0-18.0); Mean Corpuscular Hemoglobin 30.4 pg (27.0-31.0); Mean Corpuscular Volume 86.7 fL (78.0-98.0); Mean Platelet Volume 6.7 fL (7.4-10.4); Platelet Count 546 thou/uL (130-400); RBC Distribution Width 13.5 % (11.5-14.5); Red Blood Cell (RBC) Count 3.22 mill/uL (4.70-6.10)
[2018-11-16 21:36] LABS: ALT (SGPT) Less than 7 U/L (8-55); AST (SGOT) 14 U/L (5-34); Albumin 4.5 g/dL (3.5-5.0); Alkaline Phosphatase 106 U/L (40-150); Anion Gap 14 mmol/L (10-20); BUN (Urea Nitrogen) 17 mg/dL (8.9-20.6); Bilirubin, Total 0.2 mg/dL (0.2-1.2); Calc. Creatinine Clearance 0 mL/min (70-130); Calcium 9.6 mg/dL (7.8-10.44); Carbon Dioxide 23 mmol/L (22-29); Chloride 103 mmol/L (98-107); Estimated GFR-MDRD 57; Globulin 2.7 g/dL (2.4-3.5); Glucose 109 mg/dL (70-105); Potassium 3.8 mmol/L (3.5-5.1); Protein, Total 7.2 g/dL (6.0-8.3); Sodium 136 mmol/L (136-145)
--- NOTE | 2018-11-16 21:42 | CT ---
CT ABDOMEN NONCONTRAST CT PELVIS NONCONTRAST: (Urolithiasis protocol) DATE: 11/16/2018 9:10 PM HISTORY: 48-year-old male with colon cancer presents with right flank pain. COMPARISON: 10/26/2018 CT TECHNIQUE: IV injection of iodinated contrast media: None Oral contrast media: None FINDINGS: Other than for urolithiasis, the lack of IV and oral contrast limits the evaluation. Despite the fact that no oral contrast was given for this CT, or for the prior CT, there is an enteri c contrast material throughout almost the entire colon on the current CT, which is higher than density than previously. There is no oral contrast material in the small intestine. Again demonstrate d are the 2 mobile calcified gallstones. The gallbladder is now distended, but there is no mural thickening or pericholecystic fluid. Within the limitations of a noncontrast scan, no abnormality is identified involving the abdominal aorta, adrenals, spleen, or liver. The pancreas is difficult to visualize separately from the adjacent bowel because of lack of visceral fat. Since the previous CT, there has been interval insertion of bilateral percutaneous nephrostomy tubes with pigtail loops within the lower pole collecting systems of each kidney. The previously demonstrated bilateral high-g rade hydronephrosis has significantly improved, and the nephromegaly has resolved. Currently, there is either a moderately dilated single left dilated renal upper pole calyx or that represents 2.5 cm c yst. No small bowel dilation. Previously, a Bundy catheter was demonstrated in the urinary bladder. Currently, that has been exchanged for a different type of Bundy catheter. Furthermore, there is been interval insertion of a suprapubic catheter into the bladder. The bladder is collapsed. There is severe diffuse mural thickening of the urinary bladder. There is diffuse enlargement of the prostate gland. Diffuse fat stranding representing edema throughout the lower portion of the intrapelvic cavity is again noted. Mural thickening of the rectum is again noted. Lack of visceral fat makes it d ifficult to evaluate for pneumoperitoneum. No pleural effusion or consolidation at lung bases. No calculus in the kidneys or bladder. IMPRESSION: 1. Cholelithiasis. 2. Distended gallbladder. 3. Interval resolution of the bilateral previous severe hydronephrosis, upon placement of bilateral p ercutaneous nephrostomy tubes, which are in satisfactory positions. 4. Both Bundy catheter and suprapubic catheter within empty urinary bladder. 5. Diffuse mural thickening of the bladder, mural thickening of the rectum, and edema within the pelv ic cavity, unchanged since 10/18/2018.
[2018-11-16] MEDS ORDERED: Ondansetron ODT 8 MG TAB ONE (21:58)
[2018-11-16] MEDS ORDERED: Morphine 4 MG/ML VIAL ONE ×2 (22:35→22:37)
--- NOTE | 2018-11-16 23:04 | ULT ---
ULTRASOUND ABDOMEN LIMITED: (RIGHT UPPER QUADRANT) DATE: 11/16/2018 HISTORY: 48-year-old male with right upper quadrant and right flank pain. FINDINGS: Gallbladder:Distended and contains 2 mobile calculi, each approximately 20 mm. Normal wall thickness of 2 mm. No pericholecystic fluid. Positive tenderness over gallbladder. Common duct: 5 mm. Liver:Normal echogenicity. Pancreas:Nonspecific sonographic appearance and partially obscured by shadowing from bowel gas. Right kidney:No high-grade hydronephrosis. Portion of nephrostomy catheter at lower pole calyx. IMPRESSION: 1. Distended gallbladder. 2. Cholelithiasis.
== END 2018-11-16 23:11 | disposition home or self-care (01) ==
LOC: ERS 20:27
DX: K80.20 Calculus of gallbladder without cholecystitis without obstruction (principal); I10 Essential (primary) hypertension; J43.9 Emphysema, unspecified; D50.9 Iron deficiency anemia, unspecified; F17.210 Nicotine dependence, cigarettes, uncomplicated; Z79.899 Other long term (current) drug therapy; Z85.038 Personal history of other malignant neoplasm of large intestine
CPT/HCPCS: 36415; 74176; 76705; 80053; 83605; 83690; 85025; 87040; 96372; J2270

== ENCOUNTER 2019-04-09 18:33 | Inpatient (IN) | payer MEDICARE, OTHER ==
[~2019-04-09 18:33] MED LIST changes: -Heparin 1,000 UNITS/ML VIAL ONE; +Iopamidol 370 76% 100 ML VIAL ONE
[2019-04-09 19:05] LABS: #Basophils 0.1 thou/uL (0.0-0.2); #Eosinphils 0.1 thou/uL (0.0-0.7); #Lymphocytes 0.6 thou/uL (1.20-3.40); #Monocytes 0.7 thou/uL (0.11-0.59); %Basophils 1.1 % (0.0-1.0); %Lymphocytes 7.6 % (21.0-51.0); %Monocytes 9.6 % (0.0-10.0); %Neutrophils 80.6 % (42.0-75.0); Hemoglobin 12.2 g/dL (14.0-18.0); Mean Corpuscular HGB CONC 33.7 g/dL (32.0-36.0); Mean Corpuscular Hemoglobin 27.9 pg (27.0-31.0); Mean Corpuscular Volume 82.7 fL (78.0-98.0); Mean Platelet Volume 6.8 fL (7.4-10.4); Platelet Count 367 thou/uL (130-400); RBC Distribution Width 15.1 % (11.5-14.5); Red Blood Cell (RBC) Count 4.37 mill/uL (4.70-6.10); White Blood Cell (WBC) Count 7.5 thou/uL (4.8-10.8)
[2019-04-09] MEDS ORDERED: Morphine 4 MG/ML VIAL ONE (19:14)
[2019-04-09] MEDS ORDERED: Ondansetron PF 4 MG/2 ML Vial ONE (19:14)
[2019-04-09 19:16] LABS: Bilirubin Negative (Negative); Blood, Urine 3+ (Negative); Clarity Extra Turbid (Clear); Glucose, Urine (Dipstick) Normal (Negative); Leukocyte 500 Leu/uL (Negative); Nitrite 2+ (Negative); Protein, Urine (Dipstick) 300 mg/dL (Neg-Trace); RBC/HPF Greater than 50 HPF (0-3); Urobilinogen Normal mg/dL (Less than 2); WBC/HPF Greater than 50 HPF (0-3)
[2019-04-09 19:24] LABS: Bacteria/HPF 4+ HPF (None Seen); Squamous Epithelial 0-3 HPF (0-3); Transitional Epithelial 0-3 HPF (None Seen)
[2019-04-09 19:29] LABS: ALT (SGPT) 9 U/L (8-55); AST (SGOT) 16 U/L (5-34); Albumin 4.2 g/dL (3.5-5.0); Alkaline Phosphatase 179 U/L (40-110); Anion Gap 12 mmol/L (10-20); BUN (Urea Nitrogen) 11 mg/dL (8.9-20.6); Bilirubin, Total 0.2 mg/dL (0.2-1.2); Calc. Creatinine Clearance 0 mL/min (70-130); Calcium 8.2 mg/dL (7.8-10.44); Carbon Dioxide 25 mmol/L (22-29); Chloride 101 mmol/L (98-107); Estimated GFR-MDRD Greater than 90; Globulin 2.9 g/dL (2.4-3.5); Glucose 109 mg/dL (70-105); Lipase 13 U/L (8-78); Potassium 4.2 mmol/L (3.5-5.1); Protein, Total 7.1 g/dL (6.0-8.3); Sodium 134 mmol/L (136-145)
[2019-04-09] MEDS ORDERED: cefTRIAXone\\ROCEPHIN 1 GM VIAL ONE (20:00)
[2019-04-09] MEDS ORDERED: HYDROmorphone 0.5 MG/0.5 ML SYRINGE ONE (21:00)
[2019-04-09] MEDS ORDERED: Ketorolac Tromethamine 30 MG/ML VIAL ONE (22:22)
--- NOTE | 2019-04-09 23:40 | CT ---
CT ABDOMEN AND PELVIS WITH IV CONTRAST: 04/09/19 HISTORY: Worsening abdominal pain. Stage IV colon cancer. COMPARISON: Noncontrast study on 11/16/[address] exam on 10/14/18. FINDINGS: There has been interval development of innumerable pleural based nodular densities at the left lung b ase along the level of the hemidiaphragm. Given patient's history of neoplastic process, this could p otentially be related to pleural based metastatic lesions. The gallbladder is mildly distended with gallbladder calculi again visualized. This is a stable findi ng compared to prior studies. A few subcentimeter hypodense lesions are again seen in the right hepatic lobe as well as in the late ral segment of the left hepatic lobe. Hypodense lesion within the medial aspect posterior segment rig ht hepatic lobe is slightly larger in size but only measures 5 mm in dimension. These hypodense lesio ns are difficult to further characterize on this exam. Bilateral percutaneous nephrostomy tubes are noted in place without hydronephrosis present. The spleen, pancreas, and bilateral adrenal glands have a normal CT appearance. A suprapubic catheter as well as Bundy catheter are noted in place. There is increased density of the urinary bladder, but this increased density is likely related to completely decompressed urinary sharon dder with severe diffuse mural thickening of the harris of the urinary bladder also seen on prior exam s likely related to chronic indwelling catheters. The prostate gland remains enlarged measuring 6.1 c m in transverse dimensions. There is mural thickening involving the region of the rectum also noted on prior exam, but the mural thickening does appear slightly increased from the prior examination. There is presacral soft tissue density and inflammatory changes also again present and slightly increased from the prior exam. Postsurgical changes in loops of bowel within the abdomen are again seen. Colostomy. Vascular calcifications and atherosclerotic plaque are again seen in the abdominal aorta and involvin g the iliac arteries. There is enlargement of bilateral sacral nerves which is a symmetric finding. Prior MRI exam shows t hickened nerve roots of the cauda equina. This is stable compared to prior exams. This is overall no n-specific finding but stable and can be seen with charcot ila tooth disease or chronic demyelinati on polyradiculoneuropathy. No other interval change when compared to the prior exams. IMPRESSION: 1. Interval development of multiple pleural based nodular densities at the left lung base. The f indings are overall nonspecific. Given patient's history of neoplastic process, pleural based metasta tic lesions cannot be entirely excluded. 2. Subcentimeter too small to characterize hypodense lesions in each lobe of the liver. 3. Stable distention of the gallbladder with evidence of gallbladder calculi. 4. Bilateral nephrostomy tubes remain in place without hydronephrosis. 5. Stable mural thickening involving the rectum with stable presacral edema and fluid which does appear increased. There is also sclerosis involving the sacrum in this region of edema and fluid, an d these findings may be attributable to post radiation changes with focal thickening in the colon pos sibly representing neoplastic process. 6. Left sided colostomy in place with postsurgical changes of loops of bowel in the abdomen. 7. Stable diffuse mural thickening of the harris of the urinary bladder with both a Bundy cathete r and suprapubic catheter in place. 8. Prominent enlargement of the prostate gland measuring 6.1 cm in transverse dimensions. 9. Bilateral sacral nerve root enlargement. This is stable compared to prior exams and overall non-specific finding. This can be seen with charcot ila tooth disease or chronic demyelination neelam yradiculoneuropathy. POS: [facility]
[2019-04-10] MEDS ORDERED: HYDROmorphone 0.5 MG/0.5 ML SYRINGE ONE (00:15)
[2019-04-10 00:48] VITALS: BMI 16.7
[2019-04-10] MEDS ORDERED: HYDROmorphone 2 MG TAB PO PRN (01:16)
[2019-04-10] MEDS ORDERED: HYDROMORPHONE HCL 8 MG PO PRN (02:39)
[2019-04-10] MEDS ORDERED: Senokot 8.6 MG TAB PO PRN (02:42)
[2019-04-10] MEDS ORDERED: Naloxone HCl 0.4 mg/ml Vial IV PRN (02:52)
[2019-04-10] MEDS ORDERED: fentaNYL 75 mcg/hour Patch TD SCH (03:00)
[2019-04-10] MEDS: Fentanyl 100 MCG/2 ML VIAL SLOW IVP PRN ×5 (03:42→21:02)
[2019-04-10] MEDS: Ibuprofen 800 MG TAB PO SCH ×3 (05:31→21:02)
--- NOTE | 2019-04-10 07:28 | HP ---
PRIMARY CARE PHYSICIAN: Unknown. ONCOLOGIST: Dr. Juancho Rosario. PAIN MANAGEMENT: Dr. Hampton. CHIEF COMPLAINT: Worsening right lower buttock and leg pain x3 days. HISTORY OF PRESENT ILLNESS: This is a 48-year-old male with past medical history of remote colon cancer, requiring partial colectomy, recent diagnosis in late of 2019 of metastatic signet ring cell rectal adenocarcinoma, who is currently followed by oncologist Dr. Juancho Rosario with recent first round of chemotherapy. Will have colostomy and suprapubic catheter and bilateral nephrostomy tubes in place, chronic pain, followed by pain management Dr. Hampton. Reportedly on oral Dilaudid 16 mg every 4 hours as needed for severe pain and 150 mcg transdermal fentanyl patch and oral Motrin tablets, documented cauda equina syndrome, who presented to [facility] ER for a 3-day history of worsening right lower back and buttock and leg pain, prompting further evaluation. Per discussion with ER, the patient was reported to have worsening abdominal pain, although he denies any worsening abdominal pain today. In the ER, he required two doses of IV Dilaudid, IV Toradol, and IV morphine without pain relief. Due to worsening reported abdominal pain, I requested a CT of abdomen and pelvis. CT of the pelvis was obtained first, which notes numerable pleural-based nodular densities of the left lung base, hypodense liver lesions, sclerosis involving sacrum with edema and fluid, and otherwise stable changes. The patient was admitted for further observation. At bedside, the patient was crying and restless in bed, and grimacing due to discomfort. He is rocking back and forth and trying to get in position probably to minimize the pain. Nursing staff reports the patient has had similar complaints earlier and was administered his home oral Dilaudid 8 mg. Upon reassessment of the patient about 50 minutes later, he was noted to be ambulatory with rollator down the hallway, not appearing to be in severe distress. The patient reports recent PET scan weeks prior with results uncleared to him. He does report having a bony metastasis. He states he is seeking options with home hospice companies solely for palliative care and pain management measures. He has been on an increased dose of oral Dilaudid for past several months, which does not keep his pain well controlled. He has previously tried neuropathic medications without any significant pain relief. His last bowel movement from colostomy was earlier today. He lives at home with his sister. He denies any recent illnesses. He notes the majority of pain is in his buttocks region. 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 He seeks pain relief. PAST MEDICAL HISTORY: Metastatic rectal signet ring cell adenocarcinoma, diagnosed in late 2019, reports undergoing recent chemotherapy followed by oncologist, Dr. Juancho Rosario, reported remote history of colon cancer, requiring partial colectomy without any subsequent treatment, chronic pain on narcotics, documented cauda equina syndrome, colostomy status, suprapubic catheter with bilateral nephrostomy tube status. PAST SURGICAL HISTORY: Colostomy tube catheter, bilateral nephrostomy tubes, chemo port placement, and appendectomy. SOCIAL HISTORY: The patient lives at home with his sister. He admits to prior nicotine use, not currently. Denies any tobacco or illicit drug use. ALLERGIES: NONE REPORTED. REVIEW OF SYSTEMS: Pertinent positives as per HPI. Remainder of review of systems negative. HOME MEDICATIONS: Reviewed as per admission medication reconciliation. FAMILY HISTORY: The patient's mother had ovarian cancer. PHYSICAL EXAMINATION: VITAL SIGNS: Temperature 98.4, pulse 90, respirations 16, blood pressure 144/84, oxygen saturation 97% on room air, respirations 14 to 16, unlabored. GENERAL APPEARANCE: This is a thin young male, malnourished in appearance, who is notably in distress, rocking back and forth, and grimacing, and in discomfort due to the back and buttocks pain. HEENT: Normocephalic and atraumatic. No facial asymmetry. Pupils are equally round. Extraocular muscles are intact. NECK: Supple. CARDIOVASCULAR: S1 and S2. Regular rate and rhythm. No harsh murmurs. Chest wall chemo port noted. LUNGS: Nonlabored respirations on bilateral posterior auscultation. Scattered rhonchi. No wheezing or obvious rales. ABDOMEN: Soft, nondistended. No significant tenderness to palpation. No voluntary guarding or peritoneal signs appreciated. There is a left lower quadrant colostomy noted. BACK: Evaluation limited due to the patient's discomfort and constant repositioning of bilateral nephrostomy tubes noted with limited visualization with reported suprapubic catheter tube. There is tenderness overlying the buttocks region causing exquisite pain. NEUROLOGICAL: Evaluation, no facial asymmetry with symmetrical smile. The patient lifts bilateral arms to antigravity and is able to lift bilateral legs to antigravity. Reports chronic paralysis of the right foot. LABORATORY DATA: WBC 7.5, H and H 12.2/36.2, and platelets 367. Sodium 134, potassium 4.2, chloride 101, bicarb 25, glucose 109, BUN and creatinine 11/0.78. LFTs unremarkable. Urinalysis suggests leukocyte esterase with 2 to 3 squamous epithelial cells, and greater than 50 white blood cells with 4+ bacteria. IMAGING DATA: CT of abdomen and pelvis obtained on 04/09/2019 reveals 1. Interval development of multiple pleural-based nodular densities in the left lung base which is overall nonspecific but metastatic lesions cannot be excluded. 2. Subcentimeter hypodense liver lesions. 3. Stable gallbladder with calculi. 4. Bilateral nephrostomy tubes without hydronephrosis. 5. Stable mural thickening involving rectum with stable presacral edema and fluid, which does appear to be increased and with sclerosis involving the sacrum in the region of edema and fluid with findings which may be attributed to post radiation changes with focal thickening of the colon, possibly representing neoplastic process. 6. Left-sided colostomy with postsurgical changes. 7. Stable diffuse mural thickenings of the wall of the urinary bladder with both the Bundy and suprapubic catheter in place. 8. Prominent prostate gland. ASSESSMENT: 1. Acute intractable pain, suspected secondary to metastatic rectal signet cell adenocarcinoma. The patient will be admitted to observation status in Oncology Unit. His pain is suboptimal and intermittent in nature and has not been controlled with home regimen of oral Dilaudid reportedly 16 mg every 4 hours for severe pain with 150 mcg transdermal patch and oral Motrin. CT abdomen and pelvis rules out any acute viscus perforation or acute intraabdominal pathology. However, noted increased presacral edema and fluid, increased size is noted, and history of cauda equina syndrome is also noted. The patient reports having a recent PET-CT scan as outpatient with reported bony metastasis which could not further be specified. Unclear, if this is contributing to the patient's symptomatology. We will consult on-call Oncology to guide Pain Management in this young patient with metastatic cancer on high doses of oral narcotics. We will continue p.r.n. IV Narcan as well to monitor for unintentional overdose. We will start concomitant bowel regimen. The patient also follows up with Pain Management Dr. Hampton as outpatient and will need a collective consideration of optimal pain regimen. 2. Chronic pain. The patient follows with Pain Management Dr. Hampton and reports over the past several months being increased on his oral Dilaudid 8 mg tablets from one tablet to two tablets (16 mg) every 4 hours as needed for severe pain, which he has been taking, as well as 150 mcg transdermal fentanyl patch, and oral Motrin tablets. 3. Documented history of cauda equina syndrome per prior electronic records. 4. Reported remote history of partial colectomy for colon cancer. Details are unspecific. The patient reports 15 years ago having an appendectomy, at which time, a colonic tumor was found, and resected, and has been a non-issue. 5. Protein-calorie malnutrition of unspecified in severity. 6. Code status: Discussed with the patient waiting to maintain a full code. However, he is seeking assistance from hospice agencies solely for palliative care and pain management and states he wants to beat his cancer. 7. Deep venous thrombosis prophylaxis: Low-molecular weight heparin. DISPOSITION: Admitted as observation status. Job ID: [id number]
[2019-04-10] MEDS: Polyethylene Glycol 3350 17 GM Packet PO SCH (08:08)
[2019-04-10] MEDS: Famotidine 20 MG TAB PO SCH ×2 (08:08→21:02)
[2019-04-10] MEDS: Docusate 100 MG CAP PO SCH ×2 (08:08→21:02)
[2019-04-10] MEDS: Metoprolol Tartrate 25 MG TAB PO SCH ×2 (08:09→21:02)
[2019-04-10] MEDS: Enoxaparin Sodium 40 MG/0.4 ML SYRINGE SC SCH (08:12)
[2019-04-10] MEDS ORDERED: Prevnar 13-Val Conj/PF 0.5 ML SYRINGE IM ONE (09:00)
[2019-04-10] MEDS ORDERED: FLU VACC QS2019-20(6MOS UP)/PF 60 MCG/0.5 ML SYRINGE IM ONE (09:00)
[2019-04-10] MEDS: HYDROmorphone 2 MG TAB PO PRN ×2 (11:17→18:01)
[2019-04-10] MEDS ORDERED: Ondansetron HCl/PF 8 MG in Sodium Chloride 0.9% 50 ML IVPB SCH (14:30)
--- NOTE | 2019-04-10 15:33 | PDOC.PALCO ---
Palliative Care Consult - Consult Details Requesting Physician: Luis Antonio Garcia ACNP Reason for Consult: goals of care, symptom management, assistance with communication prognosis/disease, complex decision-making Family Members Present: None - Pertinent HPI The Palliative Care Team is familiar with Mr Funk. 48 year old may with known rectal cancer, partial colectomy, and metastatic signet ring cell rectal adenocarcinoma being followed by Dr Rosario and Dr Hampton for pain management. Patient presented to the emergency room with worsening pain to buttock, lower right extremity. Appears to have further metastatic disease. Patient lives with his sister and is a poor historian, utilized a rolling walker secondary to altered mobility from cauda equina syndrome - Social History Smoking Status: Former smoker Smoking: no tobacco exposure Alcohol Use: none Drug Use History: none Living Situation: with family/parents (Lives with his sister) - Medications MAR Reviewed: Yes - Allergies Allergies/Adverse Reactions: Allergies Allergy/AdvReac Type Severity Reaction Status Date / Time No Known Allergies Allergy Verified 10/26/18 20:41 - Subjective Awake, alert. Complains of pain to lower back radiating down right leg, states improved with pain medication and currently a /10. - ROS Constitutional: alert, weakness Eyes: other (Denies visual changes) ENT: alteration in dentition Respiratory: other (denies cough) Musculoskeletal: back pain, leg pain, limited mobility Neurological: headache, weakness Skin: bruising Psychological: depression - Objective Vital Signs: Vital Signs - Most Recent Temp Pulse Resp BP Pulse Ox 98.0 F 98 20 148/80 H 96 04/10/19 11:34 04/10/19 11:34 04/10/19 11:34 04/10/19 11:34 04/10/19 11:34 - Physical Exam Constitutional: emaciated, ill appearing HEENT: EOMI, moist MMs Respiratory: unlabored breathing Deviation from normal: mildly adventicious more pronounced on expiration Gastrointestinal: non-tender, positive bowel sounds Neurology: moves all 4 limbs Deviation from normal: weakness to lower extremities Psychiatric: A&O x 3 - Problem List (1) Palliative care encounter Code(s): Z51.5 - ENCOUNTER FOR PALLIATIVE CARE Current Visit: Yes Status: Acute (2) Physical deconditioning Code(s): R53.81 - OTHER MALAISE Current Visit: Yes Status: Acute (3) Colon cancer metastasized to bone Code(s): C18.9 - MALIGNANT NEOPLASM OF COLON, UNSPECIFIED; C79.51 - SECONDARY MALIGNANT NEOPLASM OF BONE Current Visit: Yes Status: Acute (4) Cauda equina syndrome Code(s): G83.4 - CAUDA EQUINA SYNDROME Current Visit: No Status: Chronic (5) Colon cancer Code(s): C18.9 - MALIGNANT NEOPLASM OF COLON, UNSPECIFIED Current Visit: No Status: Chronic - Plan/Recommendations Plan: Visited with patient at length in relation to goal of care. Discussed option of chemo and pain management clinic verses hospice. Discussed both at length. Reviewed overall disease processes and that currently his chemo may be palliative in nature as metastatic disease has occurred. Mr Souza wishes to remain with full resuscitative measures at the present time. Pain medications reviewed and no recommendations at this time. Encouraged him to call his oncologist, and if he desires we can arrange a hospice information visit so he can fully understand the what is offered with hospice services. Dr Weathers and Luis Antonio Garcia informed of conversation. [50] minutes spent on this encounter with >50% of the time in counseling and coordination of care. Thank you for this very appropriate consult.
[2019-04-10] MEDS: Ondansetron PF 4 MG/2 ML Vial IVP PRN (16:50)
--- NOTE | 2019-04-10 20:31 | CON ---
DATE OF CONSULTATION: REASON FOR CONSULT: Rectal cancer. HISTORY OF PRESENT ILLNESS: Mr. Souza is a 48-year-old gentleman with past medical history of signet ring cell carcinoma of the rectum. He has had a tumor invading his bladder in October and underwent bilateral ureteral stents. He apparently now has a suprapubic catheter and bilateral nephrostomy tubes. He is followed by Dr. Rosario for consultation in [place]. He has chronic pain and is managed by Dr. Hampton. He apparently had cauda equina syndrome at diagnosis. He presented to the emergency room with intractable pain. His home regimen includes 150 mcg fentanyl patch every three days and Dilaudid 8 mg tablets q.4 hours p.r.n. He was started on IV fentanyl here with improvement of his pain. He was seen at bedside. States he had his first chemo treatment a week ago, Saturday. He has been in consultation with Radiation Oncology in [place]. He lives in [place] with his sister. PAST MEDICAL HISTORY: 1. Cauda equina syndrome. 2. Signet ring cell carcinoma of the rectum. 3. Chronic pain syndrome. 4. Chronic renal insufficiency. 5. Hypertension. PAST SURGICAL HISTORY: 1. Bilateral nephrostomy tubes. 2. MediPort. 3. Appendectomy. ALLERGIES: NO KNOWN DRUG ALLERGIES. HOME MEDICATIONS: 1. Fentanyl 150 mcg q.3 days. 2. Dilaudid 8 mg p.o. p.r.n. 3. Motrin 800 q.8 hours. 4. Metoprolol 25 mg. FAMILY HISTORY: Mother had ovarian cancer. Brother had coronary artery disease. SOCIAL HISTORY: Lives at home with sister in [place]. No alcohol or illicit drug use. REVIEW OF SYSTEMS: Positive for abdominal pain. PHYSICAL EXAMINATION: VITAL SIGNS: Temperature is 98.0, pulse is 98, respiratory rate 20, blood pressure is 148/80, he is 96% on room air. GENERAL: This is a well-developed, well-nourished male, in no acute distress. HEENT: Normocephalic, atraumatic. Pupils are equal and reactive to light. RESPIRATIONS: Nonlabored. ABDOMEN: Soft and nontender. Bowel sounds are positive. NEUROLOGICAL: Nonfocal. PERTINENT LABS AND X-RAYS: Current WBCs 7.5, hemoglobin 12.2, hematocrit 36.2, platelet count 367,000. He has 86% neutrophils and 7% lymphocytes. Sodium is 134, potassium 4.2, chloride 101, CO2 is 25, BUN is 11, creatinine 0.78, calcium 8.2, bilirubin 0.2, AST 16, ALT is 9, alkaline phosphatase is 179. Serum total protein 7.1, albumin 4.2, globulin 2.9, with 4+ bacteria in his urine. ASSESSMENT: 1. Metastatic signet ring carcinoma of the rectum under the care of Dr. Rosario. 2. Chronic pain syndrome, managed by Dr. Hampton with Pain Management. 3. Intractable abdominal pain, improved with IV narcotics. DISCUSSION: The patient states his first chemo was approximately one week ago. He has no evidence of neutropenia. His pain is better controlled with narcotics. We would recommend that he be discharged home to follow up with his oncologist and his painter hand. He is considering hospice. Palliative Care has seen him to discuss this further. We will be available as needed. Job ID: [id number]
[2019-04-11] MEDS: Fentanyl 100 MCG/2 ML VIAL SLOW IVP PRN ×6 (01:06→21:39)
[2019-04-11] MEDS: Ibuprofen 800 MG TAB PO SCH ×3 (05:07→21:39)
[2019-04-11] MEDS: HYDROmorphone 2 MG TAB PO PRN ×3 (07:56→20:29)
[2019-04-11] MEDS: Enoxaparin Sodium 40 MG/0.4 ML SYRINGE SC SCH (08:36)
[2019-04-11] MEDS: Famotidine 20 MG TAB PO SCH ×2 (08:36→20:29)
[2019-04-11] MEDS: Metoprolol Tartrate 25 MG TAB PO SCH ×2 (08:36→20:29)
[2019-04-11] MEDS: Docusate 100 MG CAP PO SCH ×2 (08:36→20:29)
[2019-04-11] MEDS: Polyethylene Glycol 3350 17 GM Packet PO SCH ×2 (08:36→16:22)
--- NOTE | 2019-04-11 16:11 | PRG ---
DATE OF SERVICE: 04/11/2019 SUBJECTIVE: The patient seen at bedside. Complains of pain in his back and abdominal pain. Denies any nausea, vomiting, chest pain, shortness of breath, or fever. Concerned about abdominal pain. OBJECTIVE: VITAL SIGNS: Temperature 98.0, pulse 75, respirations 20, oxygen saturation 97%, and blood pressure 120/80. IMAGING STUDIES: Abdomen and pelvis CT scan, interval development of multiple pleural-based nodular densities at the lung bases. These findings overall nonspecific given the patient's history of neoplastic process. Pleural-based metastatic lesions cannot be entirely excluded. Subcentimeter too small to characterize hypodense lesion in each lobe of the liver. Stable distention of the gallbladder with evidence of gallbladder calculi. Bilateral nephrostomy tubes remain in place with hydronephrosis. Stable mural thickening involving the rectum with stable preseptal edema and fluid, which does appear increased. There is also sclerosis involving the sacrum and this region of edema and fluid and these findings may be attributed to postradiation changes with focal thickening of colon, possibly representing neoplastic process. Left-sided colostomy in place with postsurgical changes of loops in the bowel in the abdomen. Stable diffuse mural thickening of also the urinary bladder with both Bundy catheter and suprapubic catheter in place. Prominent enlargement of the prostate gland, measuring 6.1 cm transfer dimensions. IMPRESSION: 1. Metastatic signet ring carcinoma of the rectum, being treated by Dr. Rosario. The patient is on chemotherapy. Last chemo was 1 week ago. CAT scan of abdomen and pelvis showed possible involvement of pleural. The patient had recent PET scan. We will recommend to follow up outpatient with oncologist. 2. Intractable pain, possible related to metastatic disease. The patient being treated outpatient with Dr. Hampton. The patient's currently pain is improving and getting better. We will continue pain medications. 3. Oncology and palliative evaluation appreciated. Possible discharge in the morning if the patient's pain is well controlled with followup outpatient with Oncology and pain control and further discussion and goals of care. Job ID: [id number] MTDD
[2019-04-12] MEDS: HYDROmorphone 2 MG TAB PO PRN ×5 (00:43→17:23)
[2019-04-12] MEDS: Fentanyl 100 MCG/2 ML VIAL SLOW IVP PRN ×5 (02:09→18:39)
[2019-04-12] MEDS: Ibuprofen 800 MG TAB PO SCH ×2 (05:21→13:21)
[2019-04-12] MEDS: Ondansetron PF 4 MG/2 ML Vial IVP PRN (06:38)
[2019-04-12] MEDS: Enoxaparin Sodium 40 MG/0.4 ML SYRINGE SC SCH (09:18)
[2019-04-12] MEDS: Docusate 100 MG CAP PO SCH (09:19)
[2019-04-12] MEDS: Famotidine 20 MG TAB PO SCH (09:19)
[2019-04-12] MEDS: Polyethylene Glycol 3350 17 GM Packet PO SCH (09:19)
[2019-04-12] MEDS: Metoprolol Tartrate 25 MG TAB PO SCH (09:19)
[2019-04-12 19:54] VITALS: BP 134/89; TEMP 97.9
--- NOTE | 2019-04-13 14:00 | DIS ---
DATE OF ADMISSION: 04/10/2019 DATE OF DISCHARGE: 04/12/2019 DISCHARGE DIAGNOSES: 1. Metastatic signet-ring carcinoma of rectum. 2. Intractable pain, possibly related to metastatic disease. 3. Acute urinary tract infection. LABORATORY DATA: On 04/09/2019, BMP unremarkable except sodium 134. CBC unremarkable except white blood cells 7.5, hemoglobin 12.2, platelet 367. UA; RBCs greater than 50, white blood cells greater than 50, leukocyte esterase more than 500. PHYSICAL EXAMINATION: VITAL SIGNS: Blood pressure 124/78, temperature 98.3, pulse 69, respirations 16, oxygen saturation 96%. GENERAL: The patient with generalized wasting, lying in bed comfortably, in no distress. HEENT: Conjunctivae normal. Oral mucosa moist. NECK: Supple. No JVD. CHEST: Normal vesicular breathing. HEART: Sounds normal. ABDOMEN: Soft. Negative edema of feet. HOSPITAL SUMMARY: The patient is a known case of signet-cell carcinoma of rectum with metastasis, on chemotherapy as an outpatient, presented with worsening pain and abdominal pain. The patient was performed CT scan in the emergency room. It did not show any obstruction. The patient is being followed up as outpatient with Dr. Rosario and Dr. Hampton, and the patient is being on narcotic pain medication at outside. The patient was evaluated by Oncology and Palliative, who recommended no further intervention and to continue same therapy and to follow up as outpatient with primary oncologist, and Palliative discussed about the goals of care and recommended to follow with primary oncologist and to discuss hospice intervention. The patient is currently stable. Pain is being better controlled. The patient is being discharged home, advised to continue home regimen. Also, had been given antibiotics for acute urinary tract infection, which was present on admission. The patient is currently being discharged in a stable condition. Job ID: [id number]
== END 2019-04-12 19:30 | disposition home or self-care (01) | DRG 948 ==
LOC: ERS 18:33 → OBSVTOIN 04-10 00:44 → SURG B 04-10 00:44
PROVIDERS: ADMIT Hospitalist; ATTEND Hospitalist
DX: G89.3 Neoplasm related pain (acute) (chronic) (principal); C20 Malignant neoplasm of rectum; N39.0 Urinary tract infection, site not specified; G83.4 Cauda equina syndrome; C18.9 Malignant neoplasm of colon, unspecified; E46 Unspecified protein-calorie malnutrition; Z68.1 Body mass index [BMI] 19.9 or less, adult; Z51.5 Encounter for palliative care; K58.9 Irritable bowel syndrome, unspecified; G89.4 Chronic pain syndrome; J43.9 Emphysema, unspecified; I10 Essential (primary) hypertension; D64.9 Anemia, unspecified; Z90.49 Acquired absence of other specified parts of digestive tract; Z87.891 Personal history of nicotine dependence; Z93.6 Other artificial openings of urinary tract status
CPT/HCPCS: 36415; 74177; 80053; 81003; 81015; 83690; 85025; 96361; 96365; 96375; 96376; J0696; J1170; J1650; J1885; J2270; J2405; J3010; Q9967

== ENCOUNTER 2019-04-25 17:29 | Emergency (ER) | payer MEDICARE ==
[2019-04-25] MEDS ORDERED: Ondansetron ODT 8 MG TAB ONE (18:06)
[2019-04-25 18:42] LABS: Bacteria/HPF 2+ HPF (None Seen); Bilirubin Negative (Negative); Blood, Urine 2+ (Negative); Clarity Turbid (Clear); Glucose, Urine (Dipstick) 50 mg/dL (Negative); Leukocyte 500 Leu/uL (Negative); Mucous/LPF Rare LPF (<2+); Nitrite 2+ (Negative); Protein, Urine (Dipstick) 70 mg/dL (Neg-Trace); RBC/HPF 21-50 HPF (0-3); Squamous Epithelial None Seen HPF (0-3); Urobilinogen Normal mg/dL (Less than 2); WBC/HPF Greater than 50 HPF (0-3)
[2019-04-25 18:52] LABS: Yeast-Budding 1+ HPF (None Seen); Yeast-Hyphae 1+ HPF (None Seen)
== END 2019-04-25 19:10 | disposition home or self-care (01) ==
LOC: ERS 17:29
DX: T83.518A Infection and inflammatory reaction due to other urinary catheter, initial encounter (principal); F17.210 Nicotine dependence, cigarettes, uncomplicated; K58.9 Irritable bowel syndrome, unspecified; I10 Essential (primary) hypertension; D50.9 Iron deficiency anemia, unspecified; Z79.899 Other long term (current) drug therapy
CPT/HCPCS: 81003; 81015; 87077; 87086; 87186; 99283

== ENCOUNTER 2019-05-05 15:18 | Inpatient (IN) | payer MEDICARE, OTHER ==
[2019-05-05] MEDS ORDERED: Morphine 4 MG/ML VIAL ONE (16:24)
--- NOTE | 2019-05-05 16:31 | RAD ---
EXAM: CHEST ONE VIEW HISTORY: Shortness of breath COMPARISON: 10/31/2018 FINDINGS: There has been interval removal of the right internal jugular vein Mediport catheter and left interna l jugular vein central venous catheter. A right internal jugular Mediport catheter is now seen in place with tip overlying the expected location of the SVC. Cardiac silhouette and pulmonary vasculatu re are within normal limits. The lungs are clear. The osseous structures are intact. IMPRESSION: No acute cardiopulmonary process.
[2019-05-05] MEDS ORDERED: Ondansetron PF 4 MG/2 ML Vial ONE (16:35)
[2019-05-05 16:43] LABS: #Basophils 0.1 thou/uL (0.0-0.2); #Lymphocytes 1.2 thou/uL (1.20-3.40); #Monocytes 0.9 thou/uL (0.11-0.59); #Neutrophils 8.1 thou/uL (1.40-6.50); %Basophils 0.7 % (0.0-1.0); %Eosinophils 0.4 % (0.0-10.0); %Lymphocytes 11.3 % (21.0-51.0); %Monocytes 8.9 % (0.0-10.0); %Neutrophils 78.7 % (42.0-75.0); Hemoglobin 12.4 g/dL (14.0-18.0); Mean Corpuscular HGB CONC 32.3 g/dL (32.0-36.0); Mean Corpuscular Hemoglobin 27.4 pg (27.0-31.0); Mean Corpuscular Volume 84.8 fL (78.0-98.0); Mean Platelet Volume 6.9 fL (7.4-10.4); Platelet Count 485 thou/uL (130-400); RBC Distribution Width 15.5 % (11.5-14.5); Red Blood Cell (RBC) Count 4.55 mill/uL (4.70-6.10); White Blood Cell (WBC) Count 10.3 thou/uL (4.8-10.8)
[2019-05-05 17:06] LABS: ALT (SGPT) Less than 7 U/L (8-55); AST (SGOT) 15 U/L (5-34); Albumin 4.3 g/dL (3.5-5.0); Alkaline Phosphatase 106 U/L (40-110); Anion Gap 10 mmol/L (10-20); BUN (Urea Nitrogen) 11 mg/dL (8.9-20.6); Bilirubin, Total 0.4 mg/dL (0.2-1.2); Calc. Creatinine Clearance 0 mL/min (70-130); Calcium 8.7 mg/dL (7.8-10.44); Carbon Dioxide 26 mmol/L (22-29); Chloride 103 mmol/L (98-107); Estimated GFR-MDRD Greater than 90; Globulin 2.8 g/dL (2.4-3.5); Glucose 98 mg/dL (70-105); Lipase 115 U/L (8-78); Potassium 3.3 mmol/L (3.5-5.1); Protein, Total 7.1 g/dL (6.0-8.3); Sodium 136 mmol/L (136-145)
--- NOTE | 2019-05-05 17:27 | CT ---
CT Abdomen Pelvis W Con History: Abdominal pain. Comparison: CT abdomen and pelvis April 09, 2019 Findings: Similar appearance of the nodules studding the left diaphragmatic pleura. The aortic contou r is nonaneurysmal. Suprapubic catheter is in place. Annular mass type appearance of the rectum extending to the sigmoid. Abnormal thickening of the mesorectal fascia. There is asymmetric enlargement mass-type enlargement of the right L5, bilateral S1, bilateral S2 nerve roots and proximal right sciatic nerve. Indwelling bilateral nephrostomies. No hydronephrosis. The left nephrostomy as within an inferior martín yx and the right nephrostomy is within the renal pelvis. There is cholelithiasis without evidence of cholecystitis. Abnormal sclerosis of the sacrum from S3-S 5 with anterior periosteal new bone formation which may be radiation induced. Left lower quadrant ostomy. No evidence for bowel obstruction. The portal vein is patent. Celiac trunk, superior mesenteric artery, and inferior inferior mesenteric arteries are patent. No adenopathy in the retroperitoneum. Marked sclerosis with anterior posterior periosteal new bone formation of the sacrum from S3-S5 has progressed from last year's exam . There are also round sclerotic foci of the sacrum of S2 as well as the left ilium. Impression: 1. Progressive osseous metastatic disease. 2. No evidence for bowel obstruction. 3. No hydronephrosis. Indwelling bilateral nephrostomy tubes. 4. Cholelithiasis without cholecystitis. 5. Abnormal enlargement of the bilateral S1, S2, and right L5 nerve roots with asymmetric enlargement of the right sciatic nerve. If the patient has a history of radiation therapy, this could be postradiation induced versus inflammatory demyelinating polyneuropathy. 6. Abnormal soft tissue nodule just posterior to the right acetabulum along the right gluteus minimus muscle axial image 68 is new or enlarged from the comparison examination, suggesting a soft tissue metastatic deposit. 7. Circumferential annular thickening likely of the rectum with involvement of the mesorectal fascia. 8. New sacral and iliac osseous metastatic disease.
[2019-05-05] MEDS ORDERED: HYDROmorphone 0.5 MG/0.5 ML SYRINGE ONE ×3 (17:43→19:13)
[2019-05-05] MEDS ORDERED: HYDROcodone/Acetaminophen 7.5/325 mg Tablet PO PRN (19:44)
[2019-05-05] MEDS ORDERED: fentaNYL 75 mcg/hour Patch TD SCH (20:00)
--- NOTE | 2019-05-05 20:45 | PDOC.EVN ---
Event Note - Event Note Event Note: [id number] HP
[2019-05-05] MEDS: Famotidine/PF 20 mg/2ml Vial SLOW IVP SCH (20:47)
[2019-05-05] MEDS: Ondansetron PF 4 MG/2 ML Vial IVP PRN (20:47)
[2019-05-05] MEDS: Sodium Chloride 0.9% 1,000 ML IV SCH (20:47)
[2019-05-05] MEDS ORDERED: Fentanyl 100 MCG/2 ML VIAL SLOW IVP SCH (21:00)
[2019-05-05] MEDS: Metoprolol Tartrate 25 MG TAB PO SCH (21:48)
[2019-05-05] MEDS: HYDROmorphone 2 MG TAB PO PRN (21:58)
[2019-05-05] MEDS: Ibuprofen 800 MG TAB PO SCH (22:03)
[2019-05-05] MEDS ORDERED: Morphine 2 MG/ML SYRINGE SLOW IVP SCH (23:30)
--- NOTE | 2019-05-06 00:28 | HP ---
CHIEF COMPLAINT: Abdominal and right lower extremity pain. HISTORY OF PRESENT ILLNESS: Mr. Souza is a 48-year-old male with past medical history of stage IV colon cancer; chronic pain, on fentanyl and oral Dilaudid at home; presents to the emergency room with shortness of breath, abdominal pain, right hip pain, right lower extremity pain that has been getting worse. In spite of symptomatic treatment and pain medication in the emergency room, the patient appeared to be symptomatic. On lab work, the patient had mildly elevated lipase. The patient denies vomiting or nausea. The patient is being admitted to the hospital for further management and pain management. PAST MEDICAL HISTORY: 1. Stage IV colon cancer. 2. Cauda equina. 3. Herniated disk. 4. Irritable bowel syndrome. 5. COPD. 6. Iron-deficiency anemia. PAST SURGICAL HISTORY: 1. Kidney stents bilaterally. 2. Appendectomy. 3. Colon resection/part of small bowel removed. 4. Colostomy. SOCIAL HISTORY: The patient is a former smoker. ALLERGIES: NO KNOWN ALLERGIES. HOME MEDICATIONS: Please see home medication reconciliation form for updated medications. FAMILY HISTORY: Reviewed and noncontributory. REVIEW OF SYSTEMS: Review of 14 systems negative except what is mentioned in history of present illness. PHYSICAL EXAMINATION: GENERAL: The patient is awake, alert, in [id number] distress secondary to the pain. VITAL SIGNS: Blood pressure 150/80, pulse is 91, respiratory rate is 22, temperature is 98, pulse oximetry is 100% on room air. HEAD AND NECK: Normocephalic, atraumatic. NECK: Supple. No JVD. CHEST: Fair bilateral air entry. HEART: S1, S2. Regular. ABDOMEN: Soft with mid abdominal and lower abdominal tenderness. NEUROLOGIC: Awake, alert, and oriented x3. PSYCHIATRIC: Normal mood. EXTREMITIES: No clubbing or cyanosis. MUSCULOSKELETAL: Right hip tenderness. GENITOURINARY: No suprapubic tenderness. No flank tenderness. CT of the abdomen and pelvis shows progression of metastatic disease without acute obstruction or perforation. Chest x-ray, no acute finding. ASSESSMENT: 1. Intractable abdominal pain. 2. Intractable right hip pain. 3. Colon cancer, metastatic. 4. Chronic pain, on fentanyl and oral Dilaudid at home. PLAN: 1. Admit. 2. Pain management with close monitoring of vital signs if patient requires high dose of opiates. 3. To consult patient's oncologist in a.m. for evaluation and further recommendations. 4. Reconcile home medications. 5. DVT prophylaxis as appropriate. 6. Expected length of stay, 2 midnights or more. Job ID: [id number]
[2019-05-06] MEDS: HYDROmorphone 2 MG TAB PO PRN ×4 (02:36→17:13)
[2019-05-06] MEDS: Sodium Chloride 0.9% 1,000 ML IV SCH ×3 (04:05→19:45)
[2019-05-06 06:02] LABS: #Basophils 0.2 thou/uL (0.0-0.2); #Eosinphils 0.1 thou/uL (0.0-0.7); #Lymphocytes 1.9 thou/uL (1.20-3.40); #Monocytes 1.2 thou/uL (0.11-0.59); %Basophils 1.7 % (0.0-1.0); %Eosinophils 1.5 % (0.0-10.0); %Monocytes 13.2 % (0.0-10.0); %Neutrophils 63.6 % (42.0-75.0); Hemoglobin 11.1 g/dL (14.0-18.0); Mean Corpuscular Hemoglobin 27.3 pg (27.0-31.0); Mean Corpuscular Volume 85.1 fL (78.0-98.0); Mean Platelet Volume 6.7 fL (7.4-10.4); Platelet Count 364 thou/uL (130-400); RBC Distribution Width 15.4 % (11.5-14.5); Red Blood Cell (RBC) Count 4.07 mill/uL (4.70-6.10); White Blood Cell (WBC) Count 9.4 thou/uL (4.8-10.8)
[2019-05-06 06:17] LABS: ALT (SGPT) Less than 7 U/L (8-55); AST (SGOT) 11 U/L (5-34); Albumin 3.5 g/dL (3.5-5.0); Alkaline Phosphatase 85 U/L (40-110); Anion Gap 8 mmol/L (10-20); BUN (Urea Nitrogen) 6 mg/dL (8.9-20.6); Bilirubin, Total 0.3 mg/dL (0.2-1.2); Calc. Creatinine Clearance 40 mL/min (70-130); Calcium 7.8 mg/dL (7.8-10.44); Carbon Dioxide 25 mmol/L (22-29); Chloride 109 mmol/L (98-107); Estimated GFR-MDRD Greater than 90; Globulin 2.3 g/dL (2.4-3.5); Glucose 94 mg/dL (70-105); Potassium 3.1 mmol/L (3.5-5.1); Protein, Total 5.8 g/dL (6.0-8.3); Sodium 139 mmol/L (136-145)
[2019-05-06] MEDS: Ibuprofen 800 MG TAB PO SCH ×2 (07:06→13:07)
[2019-05-06] MEDS: Famotidine/PF 20 mg/2ml Vial SLOW IVP SCH (08:25)
[2019-05-06] MEDS: Metoprolol Tartrate 25 MG TAB PO SCH (08:26)
[2019-05-06] MEDS: Potassium Chloride 20 MEQ TAB PO SCH ×2 (10:08→13:07)
--- NOTE | 2019-05-06 12:09 | PDOC.PALCO ---
Palliative Care Consult - Consult Details Requesting Physician: Dr Hagan Reason for Consult: symptom management Family Members Present: None - Pertinent HPI Mr Souza is well known to the Palliative Care Team. He is a 48 year old male who has a history of stage IV Colon Cancer, Cauda equina syndrome. He has recently undergone 2 rounds of chemo, and is hoping to receive radiation soon. He states that his insurance changed and this delayed his radiation, which is hoped to mitigate his pain related to metastatic disease. Patient is up front and states that he has difficulty lasting all month with his pain medications received from the pain clinic and he was without pain medication until today when his prescription is able to be filled. Pain to right hip, lower extremities and abdomin are where he states is most significant. - Pertinent PMH Stage IV Colon Cancer, Cauda equina, herniated disk, irritable bowel syndrome, COPD, Iron-deficiency anemia - Social History Smoking Status: Former smoker Smoking: quit less than 1 year Alcohol Use: none Drug Use History: none Living Situation: with family/parents (Lives with his sister) - Medications MAR Reviewed: Yes - Allergies Allergies/Adverse Reactions: Allergies Allergy/AdvReac Type Severity Reaction Status Date / Time No Known Allergies Allergy Verified 10/26/18 20:41 - Subjective Sleeping on my arrival, however awaked easily and was oriented x 3. Provided history and recent review of health care. ROS as listed below - ROS Constitutional: weakness Eyes: other (blurry vision, but is his baseline) ENT: alteration in dentition, other (denies congestion, difficulity swallowing) Cardiology: other (Denies palpitations, edema, chest pain) Gastrointestinal: constipation, other (intermittant constipation, colostomy) Genitourinary: other (Suprapubic cath and bilateral stents, draining clear light yellow urine. ) Musculoskeletal: back pain, leg pain Neurological: numbness (Lower ext weakness, numbness) Skin: other (itching to back by tape related to dressing over stents) Psychological: restless - Objective Vital Signs: Vital Signs - Most Recent Temp Pulse Resp BP Pulse Ox 97.8 F 78 20 111/68 99 05/06/19 07:19 05/06/19 07:19 05/06/19 07:19 05/06/19 07:19 05/06/19 07:19 Palliative Performance Scale: 50 - Physical Exam Constitutional: cachectic, emaciated, ill appearing HEENT: EOMI, moist MMs, sclera anicteric Respiratory: clear to auscultation bilateral, unlabored breathing Cardiovascular: RRR Gastrointestinal: non-tender, positive bowel sounds, colostomy Genitourinary: suprapubic catheter Deviation from normal: bilateral stents Skin: no lesions Psychiatric: A&O x 3 - Problem List (1) Colon cancer metastasized to bone Code(s): C18.9 - MALIGNANT NEOPLASM OF COLON, UNSPECIFIED; C79.51 - SECONDARY MALIGNANT NEOPLASM OF BONE Current Visit: No Status: Acute (2) Palliative care encounter Code(s): Z51.5 - ENCOUNTER FOR PALLIATIVE CARE Current Visit: No Status: Acute (3) Physical deconditioning Code(s): R53.81 - OTHER MALAISE Current Visit: No Status: Acute (4) Cauda equina syndrome Code(s): G83.4 - CAUDA EQUINA SYNDROME Current Visit: No Status: Chronic (5) Chronic use of opiate for therapeutic purpose Code(s): Z79.891 - FPC (CURRENT) USE OF OPIATE ANALGESIC Current Visit: No Status: Chronic (6) Colon cancer Code(s): C18.9 - MALIGNANT NEOPLASM OF COLON, UNSPECIFIED Current Visit: No Status: Chronic - Plan/Recommendations Plan: *Rec Dexamethasone to mitigate pain related to bone metastasis but patient is not interested in trying in conjunction with current pain regime. *Hopeful to have radiation in the next 2 weeks for improvement in pain related to bone mets *Discussed consideration of home health with PT to improve strength at home *Revisited taking pain medication as prescribed to prevent gaps in medication coverage *revisited non pharmacological measures to assist in managing pain threshold such as meditation or deep breathing. *Patient hopeful to discharge today 05/06/2019 [60] minutes spent on this encounter with >50% of the time in counseling and coordination of care. Thank you for this very appropriate consult.
[2019-05-06 15:14] VITALS: BMI 16.2
[2019-05-06] MEDS: Ondansetron PF 4 MG/2 ML Vial IVP PRN (17:15)
[2019-05-06 19:56] VITALS: BP 146/75; TEMP 98
--- NOTE | 2019-05-07 11:01 | DIS ---
DATE OF ADMISSION: 05/05/2019 DATE OF DISCHARGE: 05/06/2019 HISTORY OF PRESENT ILLNESS: Mr. Souza is a 48-year-old male with a medical history of stage IV colon cancer, chronic pain, who presented with shortness of breath, abdominal pain, right hip pain, right lower extremity pain that has been getting worse ever since he ran out opioid medication at home. The patient was diagnosed with poorly controlled pain due to nonadherence and was admitted to the floor. On the floor, he was treated with his home dose medications, after which the pain significantly improved. The patient called his primary care physician and arranged renewal of his home medication, after which the patient requested to be discharged. He was discharged home hemodynamically stable and with minimal pain. PHYSICAL EXAMINATION: VITALS SIGNS: Unremarkable on exam. GENERAL: He was in no apparent distress. Alert and oriented x3. CARDIAC: Regular rate, rhythm, and rhonchi. No gallops, no murmurs. LUNGS: Clear to auscultation bilaterally. No rales, rhonchi, or wheezing. ABDOMEN: Soft with mid abdominal and lower abdominal mild tenderness. NEUROLOGIC: Awake, alert, and oriented x3. PSYCHIATRIC: Normal mood and affect. ASSESSMENT AND PLAN: Mr. Souza is a 48-year-old male with stage IV colon cancer with multiple metastases including to the pelvis, who presented with poorly controlled pain due to medication nonadherence. The patient ran out of his opioid medication, developed progressively worse pain, so presented to the ED. He was admitted to the floor and treated with his home dose of medications after which he significantly improved. He contacted his primary care physician and arranged for pain medication after which he was discharged home. Job ID: [id number]
--- NOTE | 2019-05-07 22:05 | PQF ---
DORINA LOVELL MOHAMED S MD [id number] CLINICAL DOCUMENTATION CLARIFICATION FORM: POST DISCHARGE Addendum to original discharge summary date: ____ Late entry note date: __05/09/2019 DATE: 05/07/2019 ATTN: JAMIE CAMP MD Please exercise your independent, professional judgment in responding to the clarification form. Clinical indicators are provided on the bottom of this form for your review Please check appropriate box(s): [ ] Hip pain and abdominal pain related to neoplasm [ ] Hip pain and abdominal pain not related to neoplasm [ ] Other diagnosis [ / ] Unable to determine For continuity of documentation, please document condition throughout progress notes and discharge summary. Thank You. CLINICAL INDICATORS - SIGNS / SYMPTOMS / LABS Patient presents to the ER with SOB , Abdominal pain, right hip pain , right lower extremity pain that has been getting worse. In spite of symptomatic treatment and pain medication in the ER, the patient appeared to be symptomatic- Documented in H&P on 05/05/19 by Jamie Camp MD Stage IV colon cancer-Documented in H&P on 05/05/19 by Jamie Camp MD Moderate- to - severe distress secondary to the pain-Documented in H&P on by Jamie Camp MD Chronic pain on fentanyl and oral Dilaudid at home--Documented in H&P on by Jamie Camp MD RISK FACTORS Stage IV colon cancer-Documented in H&P on 05/05/19 by Jamie Camp MD TREATMENTS: Pain management with close monitoring of vital signs if patient requires high dose of opiates-Documented in H&P on 05/05/19 by Jamie Camp MD To consult patient's oncologist in am for evaluation and further recommendations -Documented in H&P on 05/05/19 by Jamie Camp MD Morphine 2 mg IV-Documented in medication snapshot SAP Patient Advocate Crystal Reports Winform Viewer (This form is maintained as a part of the permanent medical record) 2014 [employer]. All Rights Reserved [email or web address] [phone] MARTINA
== END 2019-05-06 20:05 | disposition home or self-care (01) | DRG 556 ==
LOC: ERS 15:18 → T4-B 18:16
PROVIDERS: ADMIT Emergency Medicine; ATTEND Emergency Medicine
DX: M25.551 Pain in right hip (principal); C18.9 Malignant neoplasm of colon, unspecified; C79.51 Secondary malignant neoplasm of bone; G83.4 Cauda equina syndrome; R10.84 Generalized abdominal pain; Z51.5 Encounter for palliative care; R53.81 Other malaise; Z79.891 Long term (current) use of opiate analgesic; Z87.891 Personal history of nicotine dependence; J44.9 Chronic obstructive pulmonary disease, unspecified; Z90.49 Acquired absence of other specified parts of digestive tract; Z93.3 Colostomy status; G89.29 Other chronic pain
CPT/HCPCS: 36415; 71045; 74177; 80053; 83690; 85025; 93005; 96361; 96374; 96375; J1170; J2270; J2405; J3010; Q9967; S0028

== ENCOUNTER 2019-06-07 23:13 | Observation (INO) | payer MEDICARE, OTHER ==
[~2019-06-07 23:13] MED LIST changes: -Iopamidol 370 76% 100 ML VIAL ONE; +Iopamidol-370 76% 500 ML 1 ML ONE
[2019-06-07] MEDS ORDERED: Morphine 4 MG/ML VIAL ONE (23:43)
[2019-06-07] MEDS ORDERED: Promethazine HCl 25 MG/ML VIAL ONE (23:43)
[2019-06-07] MEDS ORDERED: fentaNYL 75 mcg/hour Patch TD SCH (23:45)
[2019-06-07 23:47] LABS: #Basophils 0.1 thou/uL (0.0-0.2); #Lymphocytes 0.6 thou/uL (1.20-3.40); #Monocytes 0.8 thou/uL (0.11-0.59); #Neutrophils 6.5 thou/uL (1.40-6.50); %Basophils 0.7 % (0.0-1.0); %Eosinophils 0.5 % (0.0-10.0); %Lymphocytes 7.2 % (21.0-51.0); %Monocytes 10.4 % (0.0-10.0); %Neutrophils 81.2 % (42.0-75.0); Mean Corpuscular HGB CONC 33.9 g/dL (32.0-36.0); Mean Corpuscular Hemoglobin 29.4 pg (27.0-31.0); Mean Corpuscular Volume 86.7 fL (78.0-98.0); Mean Platelet Volume 6.1 fL (7.4-10.4); Platelet Count 283 thou/uL (130-400); RBC Distribution Width 14.9 % (11.5-14.5); Red Blood Cell (RBC) Count 4.09 mill/uL (4.70-6.10)
[2019-06-07 23:57] LABS: Bilirubin Negative (Negative); Blood, Urine Negative (Negative); Clarity Extra Turbid (Clear); Glucose, Urine (Dipstick) Normal (Negative); Leukocyte Negative Leu/uL (Negative); Nitrite 1+ (Negative); Protein, Urine (Dipstick) Negative (Neg-Trace); Squamous Epithelial None Seen HPF (0-3); Urobilinogen Normal mg/dL (Less than 2); WBC/HPF 21-50 HPF (0-3)
--- NOTE | 2019-06-08 | CT ---
CT Brain WO Con: 06/07/2019 11:37 PM CLINICAL HISTORY: History of recent fall and head injury. IMAGING TECHNIQUE: Multiple CT images were obtained of the brain without IV contrast. COMPARISON: MR the brain without contrast dated July 26, 2018 FINDINGS: Brain: There is thickening of the midline falx to 1.5 mm which is slightly more pronounced than seen on the prior MR examination suspicious for a small parafalcine subdural hematoma. No additional intracranial hemorrhage is seen. Moderate to severe chronic small vessel white matter ischemic change s similar appearing. No midline shift is evident. Ventricles: Normal. No hydrocephalus. Skull: Intact. Visualized Paranasal sinuses: Clear. Mastoid air cells:Clear. Extracranial soft tissues:Normal. IMPRESSION: Thickening of the midline falx is suspicious for an acute parafalcine subdural hematoma. Would recomm end follow-up CT the brain in 6 to 8 hours to document stability. Findings discussed with Dr. Santana at 11:57 PM on June 07, 2019. Stable moderate to severe chronic small vessel white matter ischemic change.
[2019-06-08 00:03] LABS: Bacteria/HPF 1+ HPF (None Seen)
[2019-06-08 00:08] LABS: ALT (SGPT) 7 U/L (8-55); AST (SGOT) 12 U/L (5-34); Albumin 4.1 g/dL (3.5-5.0); Alkaline Phosphatase 73 U/L (40-110); Anion Gap 11 mmol/L (10-20); BUN (Urea Nitrogen) 17 mg/dL (8.9-20.6); Bilirubin, Total 0.2 mg/dL (0.2-1.2); Calc. Creatinine Clearance 0 mL/min (70-130); Calcium 8.9 mg/dL (7.8-10.44); Carbon Dioxide 25 mmol/L (22-29); Chloride 103 mmol/L (98-107); Estimated GFR-MDRD Greater than 90; Globulin 2.7 g/dL (2.4-3.5); Glucose 139 mg/dL (70-105); Potassium 3.2 mmol/L (3.5-5.1); Protein, Total 6.8 g/dL (6.0-8.3); Sodium 136 mmol/L (136-145)
[2019-06-08] MEDS ORDERED: Vancomycin 1 GM/200 ML BAG ONE (00:53)
[2019-06-08] MEDS ORDERED: Cefepime 2 GM VIAL ONE (00:53)
[2019-06-08] MEDS ORDERED: HYDROmorphone 0.5 MG/0.5 ML SYRINGE ONE (01:41)
[2019-06-08] MEDS ORDERED: Insulin Regular 300 UNITS/3 ML VIAL SC PRN ×2 (03:12)
[2019-06-08] MEDS ORDERED: Sodium Chloride 0.9% 1,000 ML IV SCH (03:12)
[2019-06-08] MEDS ORDERED: Dextrose 50% Abboject 50 ML SYRINGE SLOW IVP PRN (03:12)
[2019-06-08] MEDS ORDERED: Ondansetron ODT 4 MG TAB PO PRN (03:12)
[2019-06-08] MEDS ORDERED: Ondansetron PF 4 MG/2 ML Vial IVP PRN (03:12)
[2019-06-08] MEDS ORDERED: Dextrose 5% in Water 1,000 ML IV PRN (03:12)
[2019-06-08] MEDS: HYDROmorphone 2 MG TAB PO PRN ×3 (03:32→11:32)
--- NOTE | 2019-06-08 03:32 | HP ---
This is Sean Pierre PA-C dictating a report for Osmani Steele DO. REQUESTING PHYSICIAN: Dr. Santana. ATTENDING SURGEON: Dr. Steele. CONSULTATIONS: Neurosurgery, Dr. Johnson. HISTORY OF PRESENT ILLNESS: The patient is a 48-year-old man with stage IV colon cancer who has been reporting numerous falls recently and also was brought to the emergency department with a chief complaint of extreme pain due to running out of his fentanyl and Dilaudid that he takes at home. The patient underwent evaluation, examination, and CT showed a suspected parafalcine subdural hematoma, at which time we were asked to admit the patient and obtain neurosurgical consultation. The patient states that he last fell today around 3 o'clock. He does not believe that he lost consciousness. He reports that he is also continuing to lose weight due to his radiation and chemo. He is currently weighing less than 100 pounds. ALLERGIES: NONE. CURRENT MEDICATIONS: Fentanyl patch 150 mcg every 3 days, Dilaudid 8 mg p.o. q.4 hours, metoprolol 25 mg daily. PAST MEDICAL HISTORY: 1. Stage IV colon cancer. 2. Cauda equina syndrome. 3. Herniated disk. 4. Irritable bowel syndrome. 5. Chronic obstructive pulmonary disease. 6. Chronic iron-deficiency anemia. 7. Chronic pain syndrome. 8. Hypertension. PAST SURGICAL HISTORY: 1. Colon resection with partial small-bowel resection. 2. Colostomy. 3. Appendectomy. 4. Bilateral nephrostomy tubes. 5. MediPort placement. 6. Suprapubic catheter placement. SOCIAL HISTORY: The patient denies drug or alcohol use. He is a former smoker. REVIEW OF SYSTEMS: 10-point review of systems is negative unless otherwise stated. PHYSICAL EXAMINATION: VITAL SIGNS: Blood pressure 155/88, heart rate 91, respirations 23, oxygen saturation 98% on room air, and temperature is 98.2. GENERAL: The patient is in the ER bed. He does appear to be in some discomfort and states that his primary pain is in his lower abdomen, low back and leg, which is his chronic site. He does have a slight headache also. He is awake, alert, conversant. Danie Coma Scale is 15. HEENT: Head is normocephalic and atraumatic. There are no external markers of trauma. Eyes, extraocular motions intact. PERRLA bilaterally. Ears are atraumatic without discharge. Nose is atraumatic without discharge. Oropharynx is clear. NECK: Nontender. Trachea is midline. No JVD. CHEST: Clear to auscultation with good inspiratory and expiratory effort. HEART: Slightly tachycardic with regular rhythm. ABDOMEN: Soft, nontender with hypoactive bowel sounds. BACK: Atraumatic and nontender. EXTREMITIES: The patient is freely moving his extremities with the exception of his right lower extremity. Again, he states this is chronic in nature. LABORATORY FINDINGS: White blood cell count 8.0, hemoglobin 12.0, hematocrit 35.4, platelets 283. Sodium 136, potassium 3.2, chloride 103, CO2 of 25, BUN 17, creatinine 0.73, glucose 139. LFTs are unremarkable. Troponin is less than 0.010. Urinalysis shows 1+ nitrite, 21 to 50 wbc's, positive for bacteria. RADIOGRAPHIC REPORTS: CT of the brain without contrast shows thickening of the midline falx, is suspicious for an acute parafalcine subdural hematoma. CT of the chest, abdomen, and pelvis shows progression of metastatic disease without acute obstruction or perforation. ASSESSMENT/PLAN: 1. Multiple ground level falls. 2. Suspected parafalcine subdural hematoma. 3. Chronic pain syndrome, the patient is managed by Dr. Hampton with Pain Management. 4. Chronic intractable right hip pain and abdominal pain, on fentanyl and oral Dilaudid at home. 5. Urinary tract infection. PLAN: Will be to admit the patient to the surgical floor. We will repeat his head CT this morning at 0600. We will do pain management and restart his pain regimen, which he has been off since Saturday in addition to what was started in the emergency department. The patient will have pulmonary toilet, gastritis and mechanical VTE prophylaxis. The evaluation, examination, laboratory, and radiographic findings were discussed with Dr. Steele after this dictation. The brain CT was reviewed by Dr. Nato Ledbetter, neurosurgical PA, and agreed with the plan for repeat head CT. The patient will be started on Macrobid for his U.T.I. His prior U.T.I's were susceptible to Macrobid . Job ID: [id number] [facility]
[2019-06-08 04:14] VITALS: BMI 16.5
[2019-06-08 05:35] LABS: Eosinophils 1 % (0-10); Hemoglobin 11.2 g/dL (14.0-18.0); Hypochromia SLIGHT = 6-15 cells (100X) (0-5/hpf); Lymphocytes 15 % (21-51); MDiff Complete? YES; Mean Corpuscular HGB CONC 34.8 g/dL (32.0-36.0); Mean Corpuscular Hemoglobin 30.3 pg (27.0-31.0); Mean Corpuscular Volume 87.1 fL (78.0-98.0); Mean Platelet Volume 6.4 fL (7.4-10.4); Monocytes 11 % (0-10); Neutrophil 73 % (42-75); Platelet Count 255 thou/uL (130-400); Platelet Morphology Comment Appears Adequate; Red Blood Cell (RBC) Count 3.69 mill/uL (4.70-6.10); White Blood Cell (WBC) Count 8.6 thou/uL (4.8-10.8)
[2019-06-08 05:37] LABS: Anion Gap 7 mmol/L (10-20); BUN (Urea Nitrogen) 13 mg/dL (8.9-20.6); Calc. Creatinine Clearance 89 mL/min (70-130); Calcium 8.1 mg/dL (7.8-10.44); Carbon Dioxide 26 mmol/L (22-29); Chloride 107 mmol/L (98-107); Estimated GFR-MDRD Greater than 90; Glucose 108 mg/dL (70-105); Potassium 3.2 mmol/L (3.5-5.1); Sodium 137 mmol/L (136-145)
[2019-06-08] MEDS ORDERED: Morphine 4 MG/ML VIAL SLOW IVP SCH (06:30)
--- NOTE | 2019-06-08 08:04 | CT ---
CT OF THE CHEST AND ABDOMEN AND PELVIS WITH IV CONTRAST: INDICATION: History of bladder within the suprapubic catheter and pain within the surrounding area of the suprapu bic catheter and diffuse abdominal tenderness. COMPARISON: Prior CT of the abdomen and pelvis dated 05/05/2019. FINDINGS: CHEST: There are numerous pleural-based nodules seen involving the left hemithorax along the left pleural ma rgin and along the left major fissure. These appear slightly more pronounced than on the prior exam. No definite enlarged mediastinal hilar lymphadenopathy is evident. The right lung is clear. There i s a pulmonary cyst involving the right lung apex. There is a right chest wall port in place. ABDOMEN: Very tiny hypodensities are seen within the right and left hepatic lobes that appear similar to the p rior examination suspicious for small cysts. There is cholelithiasis present. There are bilateral percutaneous nephrostomy tubes in place, stable to prior exam. No hydronephrosis is evident. Visualized adrenal glands, pancreas, and spleen appear within normal limits. There are moderate calcifications involving the abdominopelvic vasculature. There are ectatic change s of the infrarenal abdominal aorta. There is a suprapubic bladder catheter in place. There is wall thickening involving the bladder. A small amount of hemorrhage is suspected involving the lower aspect of the bladder. There is prominent wall thickening involving the mid to lower rectum that has progressed from the cindy or exam. There is prominent soft tissue mass involving the base of the pelvis suspicious for regiona l soft tissue mass extension. This appears more progressed than the prior examination. There is a l eft lower quadrant colostomy. Small bowel is of normal caliber. There is stable sclerosis of the lo wer sacrum likely consistent with changes of metastatic disease and prior radiation therapy. Small o steoblastic metastatic lesions of the sacrum and left ileum are similar-appearing. There is a healin g right lateral 7th rib fracture. IMPRESSION: 1. Worsening soft tissue mass involving the perirectal region extending into the prostate and base o f the bladder. There is some hyperdense material seen at the base of the bladder suspicious for hemo rrhage. This may be related to worsening tumor invasion into the bladder itself. 2. Bilateral nephrostomy tubes without hydronephrosis. 3. Osseous metastatic disease of the sacrum. 4. Healing right lateral 7th rib fracture. 5. Pleural-based nodularity involving the left hemithorax suspicious for pleural-based metastasis. This appears slightly more pronounced than on the prior exam. 6. Cholelithiasis without evidence of acute cholecystitis. 7. Tiny hypodensities involving the liver, stable to the initial CT examination of the abdomen and p danish dated 08/19/2018 suspicious for a small cyst. POS: [facility]
--- NOTE | 2019-06-08 08:12 | CON ---
DATE OF CONSULTATION: Mr. Souza is a 48-year-old man, who was admitted overnight after a fall at home, who has many comorbidities medically including unfortunately metastatic rectal cancer and severe chronic back pain with some of this contributed to by his metastatic disease. Neurosurgery was consulted, however, for a CT scan of the head revealing slight thickening or hyperdensity along the parasagittal region of the parietal falx deemed to be potentially hemorrhage. Upon my review for the last night, it is frankly difficult to say that it is, but I certainly cannot say it has been 100% certainly that it was not. The patient was admitted to the Trauma Team for observation. Repeat CT this morning again reveals no obvious hemorrhage. If there was bleeding there, it certainly has not increased. Recommendations from Neurosurgery standpoint would be nonoperative management and clinic follow up in 6 to 8 weeks and at that time. Job ID: [id number]
--- NOTE | 2019-06-08 08:38 | CT ---
PRELIMINARY REPORT/[facility]/EMERGENCY AFTER HOURS PROCEDURE: EXAM: Noncontrast CT brain HISTORY: PT HAS STAGE IV LUNG CANCER AND FELL; THIS IS A SUBDURAL HEMATOMA F/U COMPARISON: Head CT 06/07/19 FINDINGS: Ventricles and sulci are within normal limits. There is no evidence of acute intracranial hemorrhage, midline shift or mass effect. Visualized osseous structures demonstrate no significant fluid or opacification of the paranasal sinu ses and mastoid air cells. No aggressive osseous lesion seen. IMPRESSION: No subdural hemorrhage is seen. ELECTRONICALLY SIGNED BY: Cathi Stevens MD Jun 08, 2019 6:40:02 AM CDT This report is intended for review by the ordering physician only, in accordance of law. If you recei ve this report in error, please call [facility] at [phone]. FINAL REPORT CT BRAIN WITHOUT CONTRAST: I agree with the preliminary report given by [facility]. Dr Main Garrett concurs. POS: [facility]
[2019-06-08] MEDS ORDERED: Nitrofurantoin Monohyd/M-Cryst 100 MG CAP PO SCH (09:00)
[2019-06-08] MEDS ORDERED: Metoprolol Tartrate 25 MG TAB PO SCH (09:00)
[2019-06-08] MEDS ORDERED: Famotidine 20 MG TAB PO SCH (09:00)
[2019-06-08 12:13] VITALS: BP 137/65; TEMP 97.9
[2019-06-08] MEDS ORDERED: FLU VACC QS2019-20(6MOS UP)/PF 60 MCG/0.5 ML SYRINGE IM ONE (21:00)
[2019-06-10] MEDS ORDERED: fentaNYL 75 mcg/hour Patch TD SCH (23:30)
--- NOTE | 2019-06-13 14:12 | EKG ---
Test Reason : Blood Pressure : / mmHG Vent. Rate : 093 BPM Atrial Rate : 093 BPM P-R Int : 178 ms QRS Dur : 086 ms QT Int : 352 ms P-R-T Axes : 111 121 117 degrees QTc Int : 437 ms Suspect arm lead reversal, interpretation assumes no reversal Normal sinus rhythm Lateral infarct , age undetermined Abnormal ECG Confirmed by RACHEL SONI DO ([id number]), tape editor LAURA ALCALA ([id number]) on 06/13/2019 2:11:26 PM Referred By: Confirmed By:RACHEL SONI DO
== END 2019-06-08 13:50 | disposition home or self-care (01) ==
LOC: ERS 23:13 → SJJU 06-08 01:54 → INTOOBSV 06-08 01:54
PROVIDERS: ADMIT Surgery; ATTEND Surgery
DX: R29.6 Repeated falls (principal); G89.4 Chronic pain syndrome; R10.9 Unspecified abdominal pain; M25.551 Pain in right hip; N39.0 Urinary tract infection, site not specified; J44.9 Chronic obstructive pulmonary disease, unspecified; I10 Essential (primary) hypertension; Z87.891 Personal history of nicotine dependence; Z79.899 Other long term (current) drug therapy; Z98.0 Intestinal bypass and anastomosis status; Z90.49 Acquired absence of other specified parts of digestive tract
CPT/HCPCS: 70450 ×2; 71260; 74177; 80048; 80053; 81003; 81015; 84484; 85025 ×2; 87086; 93005; 96361; 96365; 96367; 96375; 96376; 97116; 97139; 99285; G0378; 36415; J0692; J1170; J2270; J2550; J3370; Q9967